=== PATIENT | male | born 1965 | race Caucasian/White ===

== ENCOUNTER 2016-11-29 15:47 | Emergency (ER) | payer OTHER ==
[2016-11-29 17:19] VITALS: BP 124/82
--- NOTE | 2016-11-29 17:50 | UC ---
Back Pain HPI - HPI Summary HPI Summary: 51 year old presents complaining of low back pain which radiates down the right posterior leg into the right foot, after falling off a car bumper onto his knees , and then falling another foot onto his low back. Patient unable to pinpoint actual pain location. - History of Current Complaint Chief Complaint: UCBackPain Stated Complaint: BACK PAIN,RIGHT LEG NUMB Time Seen by Provider: 11/29/16 17:30 Hx Obtained From: Patient Onset/Duration: Sudden Onset Timing: Constant Severity Initially: Moderate Severity Currently: Moderate Back Pain: Is Diffuse Character: Dull, Aching, Stiffness Aggravating: Movement, Walking Alleviating: Rest, Position Associated Signs And Symptoms: Positive: Numbness. Negative: Redness, Bruising , Fever, Bladder Incontinence, Bowel Incontinence, Weight Loss, Pain with Weight Bearing - Allergies/Home Medications Allergies/Adverse Reactions: Allergies Allergy/AdvReac Type Severity Reaction Status Date / Time Penicillins Allergy Severe Anaphylatic Verified 11/29/16 17:15 Shock Bee Venom Allergy Unknown Unknown Verified 11/29/16 17:15 Reaction Details PMH/Surg Hx/FS Hx/Imm Hx Previously Healthy: Yes - Chronic right shoulder/ neck pain Endocrine History Of: Denies: Diabetes, Thyroid Disease Cardiovascular History Of: Denies: Cardiac Disorders, Hypertension, Pacemaker/ICD, Congestive Heart Failure, Deep Vein Thrombosis Respiratory History Of: Reports: Asthma Denies: COPD, Pneumonia, Pulmonary Embolism GI/ History Of: Reports: Gastroesophageal Reflux Denies: Ulcer, Kidney Stones, Renal Disease Neurological History Of: Denies: TIA, CVA, Dementia, Seizures, Migraine Psychological History Of: Reports: Anxiety Cancer History Of: Denies: Lung Cancer Other History Of: Negative For: Anticoagulant Therapy - Surgical History Surgical History: Yes Surgery Procedure, Year, and Place: Left acl reconstruction. ulnar nerve- [facility] - CARPAL TUNNEL & ELBOWS. left shoulder/clavicle. excision of gangion cystx3 SEVERAL HERE. left wrist surgery - Family History Known Family History: Positive: None - Social History Occupation: Unemployed Lives: Alone Alcohol Use: None Substance Use Type: None Substance Use Comment - Amount & Last Used: hx cocaine; MJ; "pills" (treatment for drugs in past) Smoking Status (MU): Former Smoker Type: Cigarettes Amount Used/How Often: 4 daily - Immunization History Most Recent Influenza Vaccination: this flu season,2013 Most Recent Tetanus Shot: last year 2013 Most Recent Pneumonia Vaccination: never received Review of Systems Constitutional: Negative Skin: Negative Eyes: Negative ENT: Negative Respiratory: Negative Cardiovascular: Negative Gastrointestinal: Negative Genitourinary: Negative Motor: Weakness - Right leg and entire spine according Neurovascular: Negative Musculoskeletal: Arthralgia - Right shoulder, Myalgia Neurological: Paresthesia, Numbness Psychological: Negative All Other Systems Reviewed And Are Negative: Yes Physical Exam Triage Information Reviewed: Yes Appearance: No Pain Distress - Patient resting comfprtable, texting on his phone Vital Signs: Initial Vital Signs Temp 97.5 F 11/29/16 17:16 Pulse 64 11/29/16 17:16 Resp 18 11/29/16 17:16 BP 124/82 11/29/16 17:16 Pulse Ox 100 11/29/16 17:16 Eyes: Positive: Conjunctiva Clear, Other: - bilateral pin-point pupils, nonreactive to light ENT: Positive: Normal ENT inspection, Hearing grossly normal, Pharynx normal Dental Exam: Normal Neck: Positive: Supple, Nontender, No Lymphadenopathy Respiratory: Positive: Chest non-tender, Lungs clear, Normal breath sounds Cardiovascular: Positive: No Murmur Abdomen Description: Positive: Nontender, No Organomegaly, Soft Bowel Sounds: Positive: Present Musculoskeletal: Positive: Strength Intact, ROM Intact, No Edema, Other: - Diffuse tenderness, no focal bony tenderness, theatrical reaction to pain, patient unable to pinpoint actual pain location. Neurological: Positive: Alert Psychological Exam: Other - Difficult time concentrating to answer questions Skin Exam: Normal Back Pain Course/Dx - Differential Dx/Diagnosis Provider Diagnoses: Acute on chronic low back pain. R-sided sciatica Discharge - Discharge Plan Condition: Stable Disposition: HOME Prescriptions: Cyclobenzaprine TAB* [Flexeril TAB*] 10 mg PO TID PRN #15 tab PRN Reason: Pain Indomethacin CAP* [Indocin CAP*] 50 mg PO TID PRN #15 cap PRN Reason: Pain Patient Education Materials: Acute Low Back Pain (ED) Referrals: Mihai Wong MD [Primary Care Provider] -
[2016-11-29] MEDS ORDERED: Cyclobenzaprine TAB* 10 MG PO ONE ×2 (18:31→19:01)
--- NOTE | 2016-11-29 18:47 | RAD ---
INDICATION: Trauma, back pain. COMPARISON: Comparison is made with a prior CT of the lumbar spine from November 14, 2014. TECHNIQUE: 5 views of the lumbar spine were obtained including lateral, oblique, AP and a coned-down lateral view of the lumbar sacral junction. FINDINGS: There is a mild lumbar scoliosis convex toward the left side. The vertebra are otherwise in normal alignment. No fracture is seen. There is mild disc space narrowing and endplate hypertrophic changes at the L4-L5 and L5-S1 levels. IMPRESSION: 1. NO EVIDENCE FOR FRACTURE. 2. MILD DEGENERATIVE DISC DISEASE.
[2016-11-29] MEDS ORDERED: Ketorolac INJ* 30 MG/ML 1 ML VIAL IM ONE (18:51)
== END 2016-11-29 19:22 | disposition home or self-care (01) ==
LOC: UCEAST 15:47
DX: M54.41 Lumbago with sciatica, right side (principal); Z88.0 Allergy status to penicillin; Z87.891 Personal history of nicotine dependence
CPT/HCPCS: 72110; 96372; 99212; A9270-GY; G0463; J1885

== ENCOUNTER 2017-02-26 03:26 | Emergency (ER) | payer OTHER ==
[2017-02-26] MEDS ORDERED: Cyclobenzaprine TAB* 10 MG PO ONE (04:54)
[2017-02-26 05:03] LABS: Albumin 3.7 g/dL (3.2-5.2); BUN/Creatinine Ratio 14.8 (8-20); Calcium 8.8 mg/dL (8.6-10.3); EGFR African American 85.2 (>60); EGFR Non-African American 66.3 (>60); Globulin 2.9 g/dL (2-4); Hematocrit 36 % (42-52); Hemoglobin 12.2 g/dl (14.0-18.0); Mean Corpuscular HGB Conc 34 g/dl (31-36); Mean Corpuscular Hemoglobin 30 pg (27-31); Mean Corpuscular Volume 90 fL (80-94); Mean Platelet Volume 7 um3 (7.4-10.4); Potassium 4.1 mmol/L (3.5-5.0); Red Blood Count 4.05 10^6/ul (4.0-5.4); Red Cell Distribution Width 13 % (10.5-15); Total Bilirubin 0.3 mg/dL (0.2-1.0); Total Protein 6.6 g/dL (6.4-8.9)
[2017-02-26 05:04] LABS: Troponin I 0.01 ng/mL (<0.04)
[2017-02-26] MEDS ORDERED: Ketorolac INJ* 30 MG/ML 1 ML VIAL IV ONE (06:06)
--- NOTE | 2017-02-26 06:19 | ED ---
Samir Mccartney Rebecca, scribed for Conchita Laguerre MD on 02/26/17 at 0445 . Back Pain - HPI Summary HPI Summary: Pt is a 52 y/o M who presents to ED c/o acute on chronic back pain. Pain began last night at 2200 after lifting multiple pieces of heavy rebar and has been constant since onset. Pain is in the lumbar back with radiation to the L shoulder and hand. Pain is characterized as aching and is currently severe, ranked 9/10. Sx aggravated by movement, alleviated by nothing. Additionally c/o productive cough and sinus pressure for 10 days. Is currently on Z-Pack to treat respiratory infection. No PMHx MO, CVA, TIA. - History of Current Complaint Chief Complaint: EDGeneral Stated Complaint: GENERAL ILLNESS Time Seen by Provider: 02/26/17 03:55 Hx Obtained From: Patient Onset/Duration: Sudden Onset, Lasting Hours, Still Present Onset/Duration: Started Hours Ago - 7 hours ago, Still Present Timing: Constant Back Pain Location: Is Discrete @ - Lumbar back, Radiates To - L shoulder and hand Severity Initially: Moderate Severity Currently: Severe Pain Intensity: 9 Pain Scale Used: 0-10 Numeric Character: Dull Aggravating Symptom(s): Movement Alleviating Symptom(s): Nothing Associated Signs And Symptoms: Positive: Other - Productive cough and sinus pressure - Allergies/Home Medications Allergies/Adverse Reactions: Allergies Allergy/AdvReac Type Severity Reaction Status Date / Time Penicillins Allergy Severe Anaphylatic Verified 02/26/17 03:39 Shock Bee Venom Allergy Unknown Unknown Verified 02/26/17 03:39 Reaction Details PMH/Surg Hx/FS Hx/Imm Hx Endocrine/Hematology History: Denies: Hx Anticoagulant Therapy, Hx Blood Disorders, Hx Blood Transfusions, Hx Bone Marrow Disease, Hx Diabetes, Hx Systemic Lupus Erythematosus, Hx Sickle Cell Disease, Hx Thyroid Disease, Hx Anemia, Hx Unexplained Bleeding, Other Endocrine/Hematological Disorders Cardiovascular History: Denies: Hx Aneurysm, Hx Angina, Hx Angioplasty, Hx Auto Implanted Cardiovert Defib, Hx Cardiac Arrest, Hx Cardiomegaly, Hx Congenital Heart Disease, Hx Congestive Heart Failure, Hx Coronary Artery Disease, Hx Deep Vein Thrombosis, Hx Embolism, Hx Hypercholesterolemia, Hx Hypotension, Hx Hypertension, Hx Pacemaker/ICD, Hx Peripheral Vascular Disease, Hx Rheumatic Fever, Hx Syncope, Hx Valvular Heart Disease, Other Cardiovascular Problems/Disorders - pt ams - unable to get info from pt Respiratory History: Reports: Hx Asthma Denies: Hx Chronic Bronchitis, Hx Chronic Obstructive Pulmonary Disease (COPD ), Hx Cystic Fibrosis, Hx Lung Cancer, Hx Pleural Effusion, Hx Pneumonia, Hx Pulmonary Edema, Hx Pulmonary Embolism, Hx Seasonal Allergies, Hx Sleep Apnea, Other Respiratory Problems/Disorders GI History: Reports: Hx Gastroesophageal Reflux Disease Denies: Hx Ulcer History: Denies: Hx Acute Renal Failure, Hx Benign Prostatic Hyperplasia, Hx Chronic Renal Failure, Hx Dialysis, Hx Kidney Infection, Hx Kidney Stones, Hx Renal Disease, Other Problems/Disorders Musculoskeletal History: Reports: Hx Back Problems Denies: Hx Arthritis, Hx Bursitis, Hx Congenital Bone Abnormalities, Hx Fibromyalgia, Hx Gout, Hx Orthopedic Injury, Hx Osteoporosis, Hx Scoliosis, Hx Tendonitis, Other Musculoskeletal History Sensory History: Denies: Hx Cataracts, Hx Contacts or Glasses, Hx Eye Injury, Hx Eye Prosthesis, Hx Glaucoma, Hx Legally Blind, Hx Macular Degeneration, Hx Vision Problem, Hx Deafness, Hx Hearing Aid, Hx Hearing Problem, Other Sensory Impairments Opthamlomology History: Denies: Hx Cataracts, Hx Contacts or Glasses, Hx Eye Injury, Hx Eye Prosthesis, Hx Glaucoma, Hx Legally Blind, Hx Macular Degeneration, Hx Vision Problem, Other Sensory Impairments Neurological History: Reports: Hx Headaches, Hx Nerve Disease - GREATER RIGTH OCCIPITAL NERVE PINCHED, Other Neuro Impairments/Disorders - substance abuse pt alert but not oriented/speaking unintelligible words Denies: Hx Dementia, Hx Developmental Delay, Hx Migraine, Hx Seizures, Hx Spinal Cord Injury, Hx Transient Ischemic Attacks (TIA) Psychiatric History: Reports: Hx Anxiety, Hx Attention Deficit Hyperactivity Disorder, Hx Substance Abuse - Bath Salts, unknown substances Denies: Hx Panic Disorder - Cancer History Hx Chemotherapy: No - Surgical History Surgery Procedure, Year, and Place: Left acl reconstruction. ulnar nerve- [facility] - CARPAL TUNNEL & ELBOWS. left shoulder/clavicle. excision of gangion cystx3 SEVERAL HERE. left wrist surgery Hx Anesthesia Reactions: No Infectious Disease History: No Infectious Disease History: Reports: Hx Hepatitis - history of hepc + Denies: Hx Clostridium Difficile, Hx Human Immunodeficiency Virus (HIV), Hx of Known/Suspected MRSA, Hx Shingles, Hx Tuberculosis, Hx Known/Suspected VRE, Hx Known/Suspected VRSA, History Other Infectious Disease, Traveled Outside the [place] in Last 30 Days - Family History Known Family History: Positive: None - Social History Alcohol Use: None Substance Use Type: Reports: None Substance Use Comment - Amount & Last Used: hx cocaine; MJ; "pills" (treatment for drugs in past) Smoking Status (MU): Former Smoker Type: Cigarettes Amount Used/How Often: 4 daily Review of Systems Positive: Other - Sinus pressure Positive: Cough - productive Positive: Arthralgia - lumbar back pain with radiation to the L shoulder and L hand All Other Systems Reviewed And Are Negative: Yes Physical Exam - Summary Physical Exam Summary: General: Well appearing, no pain distress Skin: Warm, Skin Color Reflects Adequate Perfusion, Dry Eyes: EOMI, BRIGITTE ENT: Pharynx normal, TMs normal Neck: Supple, nontender Respiratory: CTA, breath sounds present, no rhonchi, no wheezes, no rales Cardiovascular: RRR, no murmur, no rub, no gallop Abdomen: Soft, nontender, Non-distended, no guarding, no rebound Bowel: Present Musculoskeletal: ZACHERY, No edema Neuro: Sensory/motor intact, A&Ox3, CN intact 2-12 Psych: Affect/mood appropriate Triage Information Reviewed: Yes Vital Signs On Initial Exam: Initial Vitals Temp Pulse Resp BP Pulse Ox 98.6 F 90 20 109/70 97 02/26/17 03:30 02/26/17 03:30 02/26/17 03:30 02/26/17 03:30 02/26/17 03:30 Vital Signs Reviewed: Yes - Dacia Coma Scale Coma Scale Total: 15 Diagnostics - Vital Signs Vital Signs Temp Pulse Resp BP Pulse Ox 02/26/17 03:37 98.6 F 90 20 109/70 97 02/26/17 03:30 98.6 F 90 20 109/70 97 - Laboratory Lab Results: Lab Results 02/26/17 02/26/17 Range/Units 04:35 04:35 WBC 8.0 (3.5-10.8) 10^3/ul RBC 4.05 (4.0-5.4) 10^6/ul Hgb 12.2 L (14.0-18.0) g/dl Hct 36 L (42-52) % MCV 90 (80-94) fL MCH 30 (27-31) pg MCHC 34 (31-36) g/dl RDW 13 (10.5-15) % Plt Count 310 (150-450) 10^3/ul MPV 7 L (7.4-10.4) um3 Neut % (Auto) 63.6 (38-83) % Lymph % (Auto) 25.8 (25-47) % [place]bon % (Auto) 8.0 (1-9) % Eos % (Auto) 1.7 (0-6) % Baso % (Auto) 0.9 (0-2) % Absolute Neuts (auto) 5.1 (1.5-7.7) 10^3/ul Absolute Lymphs (auto) 2.1 (1.0-4.8) 10^3/ul Absolute Monos (auto) 0.6 (0-0.8) 10^3/ul Absolute Eos (auto) 0.1 (0-0.6) 10^3/ul Absolute Basos (auto) 0.1 (0-0.2) 10^3/ul Absolute Nucleated RBC 0.01 10^3/ul Nucleated RBC % 0.1 Sodium 133 (133-145) mmol/L Potassium 4.1 (3.5-5.0) mmol/L Chloride 104 (101-111) mmol/L Carbon Dioxide 26 (22-32) mmol/L Anion Gap 3 (2-11) mmol/L BUN 17 (6-24) mg/dL Creatinine 1.15 (0.67-1.17) mg/dL Est GFR ( Amer) 85.2 (>60) Est GFR (Non-Af Amer) 66.3 (>60) BUN/Creatinine Ratio 14.8 (8-20) Glucose 130 H (70-100) mg/dL Calcium 8.8 (8.6-10.3) mg/dL Total Bilirubin 0.30 (0.2-1.0) mg/dL AST 20 (13-39) U/L ALT 19 (7-52) U/L Alkaline Phosphatase 59 (34-104) U/L Troponin I 0.01 (<0.04) ng/mL Total Protein 6.6 (6.4-8.9) g/dL Albumin 3.7 (3.2-5.2) g/dL Globulin 2.9 (2-4) g/dL Albumin/Globulin Ratio 1.3 (1-3) Result Diagrams: 02/26/17 04:35 02/26/17 04:35 Lab Statement: Any lab studies that have been ordered have been reviewed, and results considered in the medical decision making process. - Radiology CXR Xray Interpretation: No Acute Changes Radiology Interpretation Completed By: ED Physician - EKG 0427 Cardiac Rate: NL - 83 bpm EKG Rhythm: Sinus Rhythm EKG Interpretation: Anterior Q waves, otherwise normal Back Pain Course/Dx - Course Course Of Treatment: 52 yo with multiple complaints 10 days of sinus fullness and postnasal drip with cough, cxr is normal, pt said he lifted something heavy and has low back pain ttp over l4-l5 with normal reflexes and hip flexor strength with normal great toe raise. Pt to go home with doxy for sinusitis and flexeril and medrol dose pack for his back pain - Diagnoses Provider Diagnoses: Back pain, Sinusitis Provider Diagnoses: (Ruled Out): Back pain as manifestation of blood transfusion reaction Discharge - Discharge Plan Condition: Stable Disposition: HOME Prescriptions: Cyclobenzaprine TAB* [Flexeril 10 MG TAB*] 10 mg PO TID PRN #20 tab PRN Reason: Spasms DOXYcycline CAP(*) [DOXYcycline 100MG CAP(*)] 100 mg PO BID #20 cap Methylprednisolone [Medrol Dosepak 4 MG*] 0 mg PO .SEE DENNIS INSTRUCTION #1 dennis The documentation as recorded by the Samir ramirez Rebecca accurately reflects the service I personally performed and the decisions made by me, Conchita Laguerre MD.
[2017-02-26] MEDS ORDERED: Lidocaine 2% JELLY* 6 ML JELLY TOPICAL ONE (06:50)
[2017-02-26 06:54] VITALS: BP 130/84
--- NOTE | 2017-02-26 09:47 | RAD ---
Indication: Cough, asthma. Generalized illness. Comparison: June 02, 2015 Technique: Sitting AP and lateral chest views. Report: Elevated lung volumes with increased AP thoracic diameter and partial flattening of the hemidiaphragms. No pulmonary infiltrate, focal pulmonary lesion, pleural effusion, pneumothorax. The heart, pulmonary vasculature, and mediastinal contours are unremarkable. IMPRESSION: Stigmata of obstructive lung disease. No acute cardiopulmonary process evident.
== END 2017-02-26 06:53 | disposition home or self-care (01) ==
LOC: ED 03:26
DX: M54.9 Dorsalgia, unspecified (principal); J32.9 Chronic sinusitis, unspecified; Z87.891 Personal history of nicotine dependence; R05 Cough
CPT/HCPCS: 36415; 71020; 80053; 84484; 85025; 93005; 99282; A9270-GY; J1885

== ENCOUNTER 2017-08-09 08:12 | Day surgery (SDC) | payer MEDICAID ==
--- NOTE | 2017-08-02 17:37 | HP ---
PREOPERATIVE HISTORY AND PHYSICAL: DATE OF ADMISSION/SURGERY: 08/09/17 DATE OF OFFICE VISIT/ENCOUNTER: 08/01/17 ATTENDING SURGEON: Karen Cardona MD * (DICTATED BY SHAHRAM KELLEY) PROCEDURE: Right long and ring finger trigger fingers release, Dupuytren's excision. CHIEF COMPLAINT: Right long and ring finger triggering, Dupuytren's nodule, right palm. HISTORY OF PRESENT ILLNESS: This is a 52-year-old male with longstanding history of a Dupuytren's nodule in his right palm. It is not causing any contracture of his fingers; however, it is quite bothersome and he would like to have it removed surgically. Additionally, he has had triggering in the long and ring fingers on the right hand. He has received cortisone injections in the past; however, the triggering returns and is becoming quite bothersome. He would like to have surgical correction of the right long and ring finger trigger fingers. PAST MEDICAL HISTORY: 1. Chronic back pain. 2. History of diverticulitis in 2016. 3. GERD. 4. History of seizure approximately 2 years ago, cause unknown. PAST SURGICAL HISTORY: 1. Left knee ACL reconstruction. 2. Cyst excisions from bilateral hands. 3. Bilateral carpal tunnel release. 4. Left shoulder surgery. CURRENT MEDICATIONS: 1. Benzonatate 200 mg 3 times a day. 2. Calcium plus D3 twice a day. 3. Cyclobenzaprine HCl 10 mg daily p.r.n. spasm. 4. Devil's Claw twice daily. 5. Hydrocodone/acetaminophen 5/325 one tab q.12 hours p.r.n. pain. 6. Hydroxyzine HCl 50 mg up to 3 times daily p.r.n. anxiety. 7. Loratadine 10 mg daily. 8. Melatonin TR 10 mg daily. 9. Multivitamin daily. 10. Naproxen 500 mg b.i.d. p.r.n. 11. Omeprazole 20 mg daily p.r.n. 12. Sumatriptan succinate 50 mg 1 tab every 2 hours as needed for headaches. 13. Tincture of Devil's Claw, licorice, turmeric daily. 14. Trazodone 1 to 1-1/2 tabs daily. 15. Tylenol 8 Hour 650 mg q.6 hours p.r.n. pain. 16. Ventolin HFA inhaler up to 4 times a day p.r.n. 17. Vitamin B complex daily. ALLERGIES: ZOSYN, reaction unknown. FAMILY MEDICAL HISTORY: Noncontributory. SOCIAL HISTORY: The patient is disabled from work. He is a former smoker. He quit a couple of years ago. Prior to that, he smoked a pack per week for several years. He denies recreational drug use and does not drink alcohol. REVIEW OF SYSTEMS: General: Negative for fevers, chills, or night sweats. No known anesthesia problems. HEENT: Negative for headache, lightheadedness, or syncopal episodes. Integumentary: Negative for abrasions, lesions, or open wounds. Cardiothoracic: Negative for hypertension, chest pain, palpitations, or edema. Pulmonary: Negative for shortness of breath with exertion, chronic cough, COPD. GI: Negative for nausea, vomiting, diarrhea, constipation, or GERD. : Negative for nocturia, urinary frequency, urgency, history of UTIs, or kidney problems. Musculoskeletal: Positive for current complaint and positive for chronic back pain. Neurological: Positive for history of seizure , negative for history of stroke or epilepsy. Endocrine: Negative for diabetes or thyroid issues. Hematologic: Negative for easy bruising, anemia, excessive bleeding or history of DVT. Infectious Disease: Positive for history of MRSA, positive for history of hepatitis C, negative for HIV. PHYSICAL EXAMINATION GENERAL: A well-developed, well-nourished, 52-year-old male in no acute distress. VITAL SIGNS: Height 5 feet 5 inches, weight 160 pounds, pulse rate 78, blood pressure 117/78. HEENT: Normocephalic, atraumatic. Pupils are equal, round, and reactive to light and accommodation. Extraocular movements are intact. NECK: Supple. No palpable lymph nodes. Throat is clear. PULMONARY: Lungs are clear to auscultation bilaterally. No wheezes, rales, or rhonchi. CARDIOVASCULAR: Regular rate and rhythm. S1, S2. No murmurs, rubs, or gallops. No edema. ABDOMEN: Positive bowel sounds, soft, nontender. NEUROLOGIC: Alert and oriented x3. Cranial II through XII are intact. Sensation is intact to light touch. MUSCULOSKELETAL: On exam of his right hand, he has a Dupuytren's nodule in the palm. There is no contracture of the fingers. It is mildly tender to palpation. There is also tenderness to palpation at the A1 pulleys of the right long and ring fingers. He has near full range of motion, but has trouble making a tightly closed fist. Neurovascular function is intact. IMPRESSION: Right hand long and ring finger trigger fingers, and Dupuytren's nodule in the right palm. PLAN: The patient is scheduled to undergo a right long and ring finger trigger fingers release and Dupuytren's excision by Dr. Cardona on 08/09/17. He will return to the office 10 to 14 days postop for followup and suture removal. Pain medication will be sent to the patient's pharmacy on day of surgery. SHAHRAM KELLEY [id number]/[facility] #: [id number] SHERNI
[~2017-08-09 08:12] MED LIST: Buffered Lidocaine 0.9% SYRIN* 5 ML/SYR SYRINGE INTRADERM ONE
[2017-08-09] MEDS ORDERED: Clindamycin 900 MG IVPREMIX(* 900 MG/50 ML SDV IV ONE ×2 (09:06)
[2017-08-09] MEDS ORDERED: Lidocaine 1% INJ* 10 MG/ML 30 ML SDV ONE ×2 (09:44)
[2017-08-09] MEDS ORDERED: fentaNYL* 50 MCG/ML 2 ML VIAL (100 MCG VIAL) ONE ×2 (10:01)
[2017-08-09] MEDS ORDERED: Propofol* 10 MG/ML 20 ML BTL IV PUSH ONE ×2 (10:01)
[2017-08-09] MEDS ORDERED: Lidocaine 2% PF * 5 ML VIAL ONE ×2 (10:01)
[2017-08-09 10:42] VITALS: BP 107/70
--- NOTE | 2017-08-09 23:21 | OP ---
DATE OF OPERATION: 08/09/17 [facility] DATE OF : 61 SURGEON: Karen Cardona MD SITE IDENTIFICATION SPECIALIST: SHAHRAM Latif ANESTHESIOLOGIST: Yogesh Cisse DO ANESTHESIA: Local MAC. PRE-OP DIAGNOSES: Right long and ring finger trigger fingers and Dupuytren's nodule. POST-OP DIAGNOSES: Right long and ring finger trigger fingers and Dupuytren's nodule. OPERATIVE PROCEDURE: Removal of Dupuytren's nodule and right long and ring finger trigger release. ESTIMATED BLOOD LOSS: Zero. TOURNIQUET TIME: About 15 minutes. INDICATION FOR PROCEDURE: Meliton is a 52-year-old man with triggering and locking of his middle and right fingers on the right hand as well as a Dupuytren 's nodule in line with a ring finger. He presents for removal of the nodule and trigger finger release. DESCRIPTION OF PROCEDURE: The patient was brought to the operating room, was given a sedation anesthetic and a local infiltration of 10 cc of 1% plane lidocaine in the palm of his right hand. An additional 7 cc was used during the procedure. The skin on his right hand and palm was prepped and draped in the usual sterile fashion. The hand and forearm were exsanguinated and the tourniquet elevated to 250 mmHg. A transverse incision was made centered over the A1 pulleys and we carefully dissected the Dupuytren's nodule, which was adherent to the skin away from the skin and away from the flexor tendon sheath of the ring finger. The nodule was sent for pathology. The A1 pulleys then of the ring and middle fingers were incised longitudinally completely releasing the flexor tendons, which were in good condition. The digital neurovascular bundles were retracted by the clerical assistant, Carlita Menjivar. The wound was irrigated and skin edges reapproximated with 4-0 nylon suture. The wound was dressed with Xeroform, 4x4, Webril and an Kyle wrap. The patient tolerated the procedure well, was brought to the recovery room in good condition. [id number]/[facility] #: [id number] [facility]
== END 2017-08-09 11:02 | disposition home or self-care (01) ==
LOC: OREAST 08:12
PROVIDERS: ATTEND Orthopaedic Surgery
DX: M72.0 Palmar fascial fibromatosis [Dupuytren] (principal); M65.331 Trigger finger, right middle finger; M65.341 Trigger finger, right ring finger; M54.9 Dorsalgia, unspecified; G89.29 Other chronic pain; K21.9 Gastro-esophageal reflux disease without esophagitis; Z88.0 Allergy status to penicillin; Z87.891 Personal history of nicotine dependence
CPT/HCPCS: 88304; J2001; J2704; J3010

== ENCOUNTER 2017-10-23 11:30 | Emergency (ER) | payer MEDICAID ==
[2017-10-23] MEDS ORDERED: Ibuprofen TAB* 600 MG PO ONE (13:52)
[2017-10-23 14:03] VITALS: BP 127/79
--- NOTE | 2017-10-23 14:03 | RAD ---
Indication: Left knee pain. 2 views of left knee demonstrates no joint effusion. Postoperative changes from ACL repair is noted. Fragmentation is noted. No fracture is noted. IMPRESSION: Postoperative changes with no joint effusion.
--- NOTE | 2017-10-23 14:44 | ED ---
Lower Extremity - HPI Summary HPI Summary: Patient presents to the ED with left anterior knee pain after hitting the knee on a bar last night. He states he has 8/10 pain which is constant and throbbing. Small abrasion noted to the anterior knee. Denies ROM issues. He is ambulating well. Denies numbness, tingling, color or temperature changes. No fevers, sweats or chills. Previous surgery on the ipsilateral knee. - History of Current Complaint Chief Complaint: EDExtremityLower Stated Complaint: LEFT KNEE PAIN Time Seen by Provider: 10/23/17 11:53 Hx Obtained From: Patient Mechanism Of Injury: Direct Blow Onset of Pain: Immediate Onset/Duration: Hours Severity Initially: Moderate Severity Currently: Moderate Pain Intensity: 5 Pain Scale Used: 0-10 Numeric Timing: Constant Location: Is Discrete @ - left anterior knee Aggravating Factor(s): Standing, Ambulation Able to Bear Weight: Yes - Risk Factors Gout Risk Factors: Negative DVT Risk Factors: Negative Septic Arthritis Risk Factor: Negative - Allergies/Home Medications Allergies/Adverse Reactions: Allergies Allergy/AdvReac Type Severity Reaction Status Date / Time Bee Venom Allergy Severe clammy and Verified 08/09/17 08:43 choking Penicillins Allergy Severe Anaphylatic Verified 08/09/17 08:43 Shock Piperacillin [From Zosyn] Allergy Unknown Verified 08/09/17 08:57 Reaction Details Tazobactam [From Zosyn] Allergy Unknown Verified 08/09/17 08:57 Reaction Details PMH/Surg Hx/FS Hx/Imm Hx Previously Healthy: Yes Endocrine/Hematology History: Denies: Hx Anticoagulant Therapy, Hx Blood Disorders, Hx Blood Transfusions, Hx Bone Marrow Disease, Hx Diabetes, Hx Systemic Lupus Erythematosus, Hx Sickle Cell Disease, Hx Thyroid Disease, Hx Anemia, Hx Unexplained Bleeding, Other Endocrine/Hematological Disorders Cardiovascular History: Denies: Hx Aneurysm, Hx Angina, Hx Angioplasty, Hx Auto Implanted Cardiovert Defib, Hx Cardiac Arrest, Hx Cardiomegaly, Hx Congenital Heart Disease, Hx Congestive Heart Failure, Hx Coronary Artery Disease, Hx Deep Vein Thrombosis, Hx Embolism, Hx Hypercholesterolemia, Hx Hypotension, Hx Hypertension, Hx Pacemaker/ICD, Hx Peripheral Vascular Disease, Hx Rheumatic Fever, Hx Syncope, Hx Valvular Heart Disease, Other Cardiovascular Problems/Disorders - pt ams - unable to get info from pt Respiratory History: Reports: Hx Asthma Denies: Hx Chronic Bronchitis, Hx Chronic Obstructive Pulmonary Disease (COPD ), Hx Cystic Fibrosis, Hx Lung Cancer, Hx Pleural Effusion, Hx Pneumonia, Hx Pulmonary Edema, Hx Pulmonary Embolism, Hx Seasonal Allergies, Hx Sleep Apnea, Other Respiratory Problems/Disorders GI History: Reports: Hx Gastroesophageal Reflux Disease, Other GI Disorders - diverticulitis 2015 Denies: Hx Ulcer History: Denies: Hx Acute Renal Failure, Hx Benign Prostatic Hyperplasia, Hx Chronic Renal Failure, Hx Dialysis, Hx Kidney Infection, Hx Kidney Stones, Hx Renal Disease, Other Problems/Disorders Musculoskeletal History: Reports: Hx Back Problems Denies: Hx Arthritis, Hx Bursitis, Hx Congenital Bone Abnormalities, Hx Fibromyalgia, Hx Gout, Hx Orthopedic Injury, Hx Osteoporosis, Hx Scoliosis, Hx Tendonitis, Other Musculoskeletal History Sensory History: Denies: Hx Cataracts, Hx Contacts or Glasses, Hx Eye Injury, Hx Eye Prosthesis, Hx Glaucoma, Hx Legally Blind, Hx Macular Degeneration, Hx Vision Problem, Hx Deafness, Hx Hearing Aid, Hx Hearing Problem, Other Sensory Impairments Opthamlomology History: Denies: Hx Cataracts, Hx Contacts or Glasses, Hx Eye Injury, Hx Eye Prosthesis, Hx Glaucoma, Hx Legally Blind, Hx Macular Degeneration, Hx Vision Problem, Other Sensory Impairments Neurological History: Reports: Hx Headaches, Hx Nerve Disease - GREATER RIGTH OCCIPITAL NERVE PINCHED, Other Neuro Impairments/Disorders - substance abuse pt alert but not oriented/speaking unintelligible words Denies: Hx Dementia, Hx Developmental Delay, Hx Migraine, Hx Seizures, Hx Spinal Cord Injury, Hx Transient Ischemic Attacks (TIA) Psychiatric History: Reports: Hx Anxiety, Hx Attention Deficit Hyperactivity Disorder, Hx Substance Abuse - Bath Salts, unknown substances Denies: Hx Panic Disorder - Cancer History Hx Chemotherapy: No - Surgical History Surgery Procedure, Year, and Place: Left acl reconstruction. ulnar nerve- DEDRA - CARPAL TUNNEL & ELBOWS. left shoulder/clavicle. excision of gangion cystx3 SEVER[facility] HERE. left wrist surgery. RIGHT HAND. LEFT POINTER FINGER Hx Anesthesia Reactions: No - Immunization History Date of Influenza Vaccine: 07/2017 Immunizations Up to Date: Yes Infectious Disease History: No Infectious Disease History: Reports: Hx Hepatitis - history of hepc + Denies: Hx Clostridium Difficile, Hx Human Immunodeficiency Virus (HIV), Hx of Known/Suspected MRSA, Hx Shingles, Hx Tuberculosis, Hx Known/Suspected VRE, Hx Known/Suspected VRSA, History Other Infectious Disease, Traveled Outside the [place] in Last 30 Days - Family History Known Family History: Positive: None, Unknown - patient intoxicated, cannot retrieve PMHx - Social History Occupation: Unemployed Lives: With Family Alcohol Use: None Hx Substance Use: No Substance Use Type: Reports: None Substance Use Comment - Amount & Last Used: hx cocaine; MJ; "pills" (treatment for drugs in past) Hx Tobacco Use: Yes Smoking Status (MU): Former Smoker Type: Cigarettes Amount Used/How Often: 4 daily Review of Systems Constitutional: Negative Negative: Fever, Chills, Fatigue Eyes: Negative Cardiovascular: Negative Respiratory: Negative Genitourinary: Negative Positive: no symptoms reported, see HPI Positive: Arthralgia - left anterior knee Neurological: Negative All Other Systems Reviewed And Are Negative: Yes Physical Exam Triage Information Reviewed: Yes Vital Signs On Initial Exam: Initial Vitals Temp Pulse Resp BP Pulse Ox 98.7 F 85 17 124/82 98 10/23/17 11:46 10/23/17 11:46 10/23/17 11:46 10/23/17 11:46 10/23/17 11:46 Vital Signs Reviewed: Yes Appearance: Positive: Well-Appearing, Well-Nourished Skin: Positive: Warm, Skin Color Reflects Adequate Perfusion, Other - abrasion Head/Face: Positive: Normal Head/Face Inspection Eyes: Positive: EOMI, BRIGITTE, Conjunctiva Clear Neck: Positive: Supple, No Lymphadenopathy Respiratory/Lung Sounds: Positive: Clear to Auscultation, Breath Sounds Present Cardiovascular: Positive: RRR, Pulses are Symmetrical in both Upper and Lower Extremities Musculoskeletal: Positive: Pain @ - left knee Neurological: Positive: Sensory/Motor Intact, Alert, Oriented to Person Place, Time, Speech Normal Psychiatric: Positive: Normal AVPU Assessment: Alert - Dacia Coma Scale Coma Scale Total: 15 Diagnostics - Vital Signs Vital Signs Temp Pulse Resp BP Pulse Ox 10/23/17 14:00 98.5 F 81 16 127/79 100 10/23/17 11:46 98.7 F 85 17 124/82 98 - Laboratory Lab Statement: Any lab studies that have been ordered have been reviewed, and results considered in the medical decision making process. Lower Extremity Course/Dx - Course Course Of Treatment: Xray obtained and negative for any findings. He is given ibuprofen 600mg and is OK with discharge. Ambulating well. - Diagnoses Provider Diagnoses: Left knee pain Discharge - Discharge Plan Condition: Stable Disposition: HOME Patient Education Materials: Knee Pain (ED) Referrals: Mihai Wong MD [Primary Care Provider] - Additional Instructions: Ibuprofen 600mg three times daily Ice Elevate Rest
== END 2017-10-23 14:00 | disposition home or self-care (01) ==
LOC: ED 11:30
DX: M25.562 Pain in left knee (principal); Z87.891 Personal history of nicotine dependence; Z88.3 Allergy status to other anti-infective agents; Z88.0 Allergy status to penicillin; Z88.8 Allergy status to other drugs, medicaments and biological substances
CPT/HCPCS: 99282; A9270-GY

== ENCOUNTER 2017-11-19 20:07 | Emergency (ER) | payer OTHER ==
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
[2017-11-19 20:45] VITALS: BP 134/72
--- OUTSIDE RECORDS SUMMARY | 2017-11-19 20:45 | XMS REPORT ---
:1965 External Reference #:[id number] Author Organization [facility] Address [address] [address] Phone [phone] Care Team Providers Name Role Phone Mihai Wong MD Primary Care Physician Unavailable Payers Type Date Identification Numbers Payment Provider Subscriber Commercial Effective: Policy Number: [id number] Total Care/[place] Meliton Escudero Reap 2017 [facility] PayID: [id number] [address] [address] [place] [address] Medigap Part B Effective: 2017 Policy Number: [id number] Medicaid Meliton Bundy Expires: 2017 Group Name: 1 1 [address] PayID: [id number] [place] [address] Problems Date Description Provider Status Onset: 09/05/2012 Sprain of cruciate ligament of Neema Medina M.D. Active knee Onset: 09/05/2012 Seizure Neema Medina M.D. Active Onset: 09/05/2012 Low back pain Tyrell Lopez M.D. Active Onset: 10/30/2012 Chronic pain syndrome Mihai Wong M.D.,JONI Active Onset: 10/30/2012 Viral hepatitis C Mihai Wong M.D.,ALISSONP Active Note: Viral load now ZERO Onset: 02/14/2013 Carpal tunnel syndrome José Miguel Sage M.D.,ALISSONP Onset: 01/31/2014 Subjective tinnitus Sushil Britt M.D. Active Onset: 09/29/2015 Disorder of shoulder Maria Esther Juárez M.D. Active Onset: 11/08/2016 Sprain of acromioclavicular Martin Steel MD Active ligament Onset: 07/01/2017 Sciatica Nayan Soares M.D. Active Onset: 07/01/2017 Cervical disc disorder Nayan Soares M.D. Active Onset: 08/31/2017 Mild recurrent major depression Nayan Soares M.D. Active Onset: 09/14/2017 Insomnia Nayan Soares M.D. Active Onset: 09/28/2017 Ex-smoker Mihai Wong, Active Veda,FACP Onset: 10/12/2017 Localized, primary osteoarthritis Maria Esther Juárez M.D. Active Onset: 07/25/2015 Tobacco dependence syndrome Mihai Wong, Inactive Veda,FACP Inactive: 07/25/2015 Onset: 09/29/2015 Sprain of right rotator cuff capsule, Maria Esther Juárez M.D. Inactive subsequent encounter Inactive: 09/28/2017 Onset: 09/29/2015 Sprain of right acromioclavicular Maria Esther Juárez M.D. Inactive joint, subs encntr Inactive: 09/28/2017 Onset: 07/25/2015 Tobacco user Mihai Wong M.D.,FACP Inactive Inactive: 09/28/2017 Family History Date Family Member(s) Problem(s) Comments General None Father due to AL () Father Chronic Obstructive Pulmonary Disease (COPD) Mother Gout Social History Type Date Description Comments Marital Status Lives With Son Occupation [employer] Occupation Disabled Cigarette Use Former Cigarette Smoker was 3-5/week in past, quit 10/2015 Cigars Never Smoked Cigars Pipe Never Smoked A Pipe Smokeless Tobacco Never Used Smokeless Tobacco ETOH Use 12/11/2015 Denies alcohol 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 Recreational Drug Use Former Drug User Smoking Patient is a former smoker Recreational Drug Use Denies Drug Use Exercise Type/Frequency ride bike Allergies, Adverse Reactions, Alerts Date Description Reaction Status Severity Comments 09/05/2012 Bee Sting Anaphylaxis active 01/21/2015 Zosyn active throat swelling 02/14/2013 NKDA inactive Medications Medication Date Status Form Strength Qnty SIG Indications Ordering Provider Lunesta 09/14/ Active Tablets 3mg 14tabs 1 tab at G47.00 Nayan 2016 bedtime Veda Soares Sertraline 08/31/ Active Tablets 50mg 30tabs 1 by mouth F33.0 [place] HCL 2017 every day Veda Soares Tramadol HCL 08/19/ Active Tablets 50mg 9tabs 1 tab by Karen 2017 mouth every Veda Cardona 8 hours as needed pain Knee 08/12/ Active Misc M25.562 Karen Brace/Flexib 2016 Veda Cardona le Stays/Large Cane/Aluminu 07/13/ Active Misc 1units use with M54.42 Zsofia m/Adjustable 2016 ambulation LUCA Arroyo /Mens Handle Wrist 07/13/ Active Misc 1units use on left M25.532 Zsofia Brace/Suede 2016 wrist as LUCA Arroyo Finish/Left/ needed Medium Tylenol 8 03/29/ Active Tablets 650mg 90tabs 1 tab every Zsofia Hour 2016 ER 6 hours as LUCA Arroyo needed pain Melatonin TR 06/02/ Active Tablets 10mg 30tabs 1 by mouth G47.00 Ramos 2014 ER every night KELLY eVliz at bedtime Ventolin HFA 03/10/ Active Aerosol 108(90Base 18unit inhale two J44.1 2014 ) mcg/Act s puffs by Fany mouth four M.D. times a day as needed Back Support 01/24/ Active Misc 1units to wear M54.9 Zsofia 2014 during the LUCA Arroyo day as directed Naproxen 09/19/ Active Tablets 500mg 60tabs Take One M54.42 Mihai 2013 Tablet By Kailey Wong, Mouth Twice M.D.,FACP A Day as Needed M50.10 Sumatriptan 01/04/2014 Active Tablets 50mg 18tabs Take 1 G43.109 Vimal Bonner Succinate Tablet By Judith, Mouth Every M.D.,FACP 2 Hours as Directed For Headache G43.009 Shower-Chair 11/30/2013 Active Misc use for showing Mihai Bonner Dx code: 780.39 [place], Convulsions Veda,FACP Cool Mist 11/30/2013 Active [facility] dx code: 446.0 Mihai Bonner Humidifier Bronchitis Veda Wong,[facility] Cyclobenzaprine HCL Active Tablets 10mg 60ta take one tablet M50. Zsofia bs by mouth two 10 Cruz, [employer] times a day as needed for spasms M54.42 G47.00 Epipen Active Solution 0.3mg/0.3ML 2units inject Alyssa 2-Oleksandr Auto-Inject intramuscularly Cotton, as directed M.D. Omeprazo Active Capsules DR 20mg 90caps take one capsule K2 Mihai motley by mouth every 1. D. Judith, day as needed 9 M.DMushtaq,[facility] Loratadi Active Tablets 10mg 30tabs take one tablet [place] ne by mouth every Pachika, day M.D. Devils Active Powder twice daily Unknown Claw Tincture Active once daily in Unknown Of the morning Devils Claw, Licorice , Tumeric, [place] Multiple Active Tablets 1 by mouth every Unknown Vitamin day Vitamin Active Tablets 1 by mouth every Unknown B day Complex Theraflu Active Packet 10-20-20mg twice daily Unknown Cold & Cough Calcium Active Tablets [id number] 1 by mouth twice Unknown 600 + D it a day Glucosam Active Capsules 1500Com 2 by mouth every Unknown ine day Chondroi tin 1500 Complex Zinc Active Capsules 220(50Zn) mg take one Unknown Sulfate capsule/tablet daily by mouth Vitamin Active Tablets ER 1000mcg 1 by mouth every Unknown B12 day Clarithr 09/28/2017 Hx Tablets 500mg 14tabs 1 by mouth twice Mihai brantleyycin - a day for 7 days Kailey Wong, 10/05/2017 Veda,FACP Azithrom 09/14/2017 Hx Tablets 250mg 6tabs 2 tab today and J0 Nayan ycin - then 1tab daily 6. Pachika, 09/28/2017 9 M.D. Ultracet 08/19/2017 Hx Tablets 37.5-325mg 9tabs 1 tab by mouth Karen - every 8 hours as Cardona, 08/30/2017 needed pain M.D. Wrist 08/12/2017 Hx Misc M2 Karen Brace - 5. Cardona, 09/28/2017 51 M.D. 2 [place] 08/09/2017 Hx Tablets 5-325mg 20tabs one tab by mouth Karen - every 4-6 hours Cardona, 08/30/2017 as needed pain M.D. Hydroxyz 07/13/2017 Hx Tablets 50mg 30tabs take 1 tab by F4 Zsofia ine HCL - mouth 3x daily 1. Cruz, 08/31/2017 for anxiety as 9 [employer] needed Hydrocod 07/01/2017 Hx Tablets 5-325mg 30tabs 1 tab every 12h M5 Nayan one-Acet - as needed 4. Pachika, aminophe 08/02/2017 40 M.D. n Azithrom 02/17/2017 Hx Tablets 250mg 6tabs 2 every day for Mihai londono - 1 day, then 1 Kailey Wong, 07/01/2017 every day M.DMushtaq,FACP Medrol 02/17/2017 Hx Tablets 4mg 1pak medrol dosepack Mihai - as directed Kailey Wong, 07/12/2017 M.D.,FACP Cane 01/10/2017 Hx [facility] 1units use cane with G8 Ramos - ambulation 9. KELLY Veliz 09/28/2017 4 Azithrom 01/08/2017 Hx Tablets 250mg 6tabs 2 every day for Mihai londono - 1 day, then 1 Kailey Wong, 01/13/2017 every day M.D.,FACP Benzonat 01/08/2017 Hx Capsules 200mg 20caps by mouth three Mihai ate - times a day as Kailey Wong, 08/31/2017 needed M.D.,FACP Clindamy 06/25/2016 Hx Capsules 300mg 40caps one capsule by L0 Laz louis HCL - mouth every 6 3. KELLY Barnes 07/06/2016 hours for 10 11 days 3 Ciproflo 03/29/2016 Hx Tablets 500mg 20tabs 1 by mouth twice Other xacin - a day x 10 days Ordering HCL 04/08/2016 Provider Metronid 03/29/2016 Hx Tablets 500mg 30tabs one tablet by Other azole - mouthq 8 hrs x Ordering 04/08/2016 10 days Provider Melatoni 09/03/2015 Hx Tablets ER 10mg 120tabs 1 po qhs prn F5 Vimal oden ER - 1. D. Judith, 03/31/2016 05 M.DMushtaq,[facility] Triamcin 06/02/2015 Hx Ointment 0.025% 30units topical to 69 Ramos olone - pruritic areas 8. KELLY Veliz Acetonid 04/13/2016 every day as 8 e needed Levoflox 06/02/2015 Hx Tablets 500mg 7tabs one by mouth 48 Mihai acin - daily for 7 days 6 DMushtaq Wong, 07/02/2015 M.Kailey,[facility] Trazodon 06/02/2015 Hx Tablets 100mg 45tabs Take 1 To 1+1/2 G4 Vimal francois HCL - Tablets By Mouth 7. D. Judith, 08/31/2017 At Bedtime 00 M.D.,[facility] Azithrom 05/15/2015 Hx Tablets 250mg 6tabs 2 every day for 49 Mihai ycin - 1 day, then 1 1. DMushtaq Wong, 05/20/2015 every day 21 M.D.,[facility] Qvar 05/15/2015 Hx Aerosol 40mcg/Act 120unit 2 puffs inhaled 49 Ramos - s twice a day 1. KELLY Veliz 04/13/2016 21 Quad 04/15/2015 Hx Misc as directed Mihai Avila/ambrocio Cook 09/03/2015 M.Kailey,FAC Base/Ort ho Handle/" Azithrom 04/04/2015 Hx Tablets 250mg 6tabs 2 tabs by mouth 46 Osman ycin - on day one 1. KELLY Mendoza 04/15/2015 followed by 1 0 tab daily for the last 4 days Hydrocod 02/13/2015 Hx Tablets 5-300mg 15tabs 1 by mouth q6hr Karen one - as needed pain Cardona, Bitartra 04/15/2015 M.D. te/Aceta minophen Ciproflo 01/24/2015 Hx Tablets 500mg 20tabs take one tablet 78 Laz xacin - twice a day for 4. KELLY Barnes HCL 01/24/2015 10 days 1 Cane/Adj 01/24/2015 Hx Misc 58" 1units use while M5 Zsofia ustable/ - ambulating dx: 4. Cruz, Aluminum 09/28/2017 m54.9 9 [employer] /Round Handle 58" Levoflox 01/24/2015 Hx Tablets 500mg 5tabs one by mouth Laz acin - daily KELLY Barnes 04/04/2015 Azithrom 01/21/2015 Hx Tablets 250mg 6tabs 2 tabs by mouth 78 Laz ycin - every day x1 4. KELLY Barnes 01/24/2015 day, 1 tab by 1 mouth every day x 4 days Oxycodon 01/07/2015 Hx Capsules 5mg 12caps 1 tab q 6 hrs Mihai francois HCL - prn for pain. Kailey Wong, 01/19/2015 MDD 4 tabs. M.D.,FACP Predniso 01/07/2015 Hx Tablets 10mg 3 tabs x 1 day, Mihai ne - then 2 tabs x 2 Kailey Wong, 01/19/2015 days, then 1 tab M.D.,FACP x 2 days then stop Bactrim 01/07/2015 Hx Tablets 800-160mg 28tabs 1 by mouth twice Vimal Vera DS - a day x 10 days Kailey Wong, 01/17/2015 MMushtaqDMushtaq,FACP Proair 11/10/2014 Hx Aerosol 108(90Base) 8.5unit Inhale 2 Puffs Osman HFA - mcg/Act s By Mouth Four KELLY Mendoza 03/10/2015 Times A Day as Needed Unknown 07/09/2014 Hx Nitin Trevizo Antiinfl - Pollack, amitory 07/09/2014 Veda Nicotine 03/04/2014 Hx Patches 24HR 21mg/24HR 30units Apply as Vimal Vera - Directed Kialey Wong, 07/09/2014 Topically Veda,FACP Nicotine 02/25/2014 Hx Patches 24HR 14mg/24HR 28units Apply 1 Patch To Mihai - The Skin One Kailey Wong, 03/04/2014 Time Daily MTemo,FACP Clarithr 01/23/2014 Hx Tablets 500mg 14tabs 1 by mouth twice 49 Vimal Vera omycin - a day for 7 days 0 D. Judith, 01/30/2014 M.D.,FACP Amoxicil 01/04/2014 Hx Tablets 500mg 40tabs 2 tabs po bid 49 Mihai armani - for 10 days 0 D. Judith, 01/23/2014 M.D.,FACP Nicotine 01/04/2014 Hx Patches 24HR 21mg/24HR 30units as directed Maynor Morocho - topical D. Judith, 02/25/2014 M.D.,FACP Duloxeti 01/04/[address] Nguyễn 60mg 30caps take 1 capsule 33 Vimal arana HCL - by mouth every 8. D. [place], 06/02/2015 morning 4 M.D.,FACP Duloxeti 01/04/[address] Nguyễn 30mg 30caps Take 1 Capsule 72 Osman ne HCL - By Mouth Every 2. KELLY Mendoza 06/02/2015 Evening 0 Nicotine 01/02/2014 Hx Patches 24HR 14mg/24HR 28units Apply 1 Patch To Mihai Palma - The Skin One D. Judith, mal 01/04/2014 Time Daily M.D.,[facility] System Naproxen 12/14/2013 Hx Tablets 500mg 60tabs Take 1 Tablet By Karen - Mouth Two Times Cardona, 07/09/2014 Daily as Needed M.D. Duloxeti 12/11/[address] Nguyễn 30mg 60caps 1 tab po bid 33 Vimal arana HCL - 8. D. Judith, 01/04/2014 4 M.D.,[facility] Gabapent 12/11/2013 Hx Capsules 100mg 500caps Take 4 Capsules Vimal Vera in - By Mouth Four D. Judith, 01/04/2014 Times A Day M.D.,FACP Ketorola 11/07/2013 Hx Tablets 10mg 40tabs po qid prn 71 Mihai ortiz - 9. D. Judith, Trometha 12/14/2013 47 M.D.,FAC mine Nicotine 11/07/2013 Hx Patches 24HR 14mg/24HR 30units topical qd 30 Mihai Maki 2 - 5. D. Judith, 01/04/2014 1 M.D.,FACP Azithrom 10/29/2013 Hx Tablets 250mg 6tabs two tabs day 46 Rosa M ycin - one, one daily 6. Varn, N.P. 11/07/2013 till gone 0 Ibuprofe 10/29/2013 Hx Tablets 600mg 60tabs 1 po q 6 hr prn 71 Rosa M n - 9. Varn, N.P. 11/07/2013 47 Benzonat 10/18/2013 Hx Capsules 200mg 30caps one by mouth Rosa M ate - three times Varn, N.P. 11/12/2013 daily as needed for cough Amoxicil 10/11/2013 Hx Tablets 500mg 40tabs 2 tabs po bid 46 Mihai lomeli - for 10 days 6. D. Judith, 10/21/2013 0 M.D.,FACP Trazodon 09/14/2013 Hx Tablets 50mg 60tabs take 1 to 2 Ramos e HCL - tablets by mouth KELLY Veliz 06/02/2015 at bedtime Naproxen 08/03/2013 Hx Tablets 500mg 60tabs 1 po bid prn Karen Cardona, 10/11/2013 M.D. Gabapent 06/06/2013 Hx Capsules 100mg 500caps Take Four Mihai in - Capsules By Kailey Wong, 10/11/2013 Mouth Four Times M.D.,FACP A Day Penicill 04/04/2013 Hx Tablets 500mg 40tabs qid for 10 days 52 Vimal Vera in V - 8. DMonica Morganassiu 04/14/2013 9 M.D.,FACP m Gabapent 02/14/2013 Hx Capsules 100mg 500caps 3 tab po qid for 33 Vimal Vera in - 4 days, then 8. D. Judith, 06/01/2013 increase to 4 4 M.D.,FACP qid for 4 days Oxycodon 01/08/2013 Hx Tablets 10mg 100tabs 1 tablet po 33 Alex E. e HCL - q6hrs prn 8Mushtaq Ferrera, 04/04/2013 4 M.D. Meloxica 12/07/2012 Hx Tablets 15mg 60tabs Take One Tablet Mihai swain - By Mouth Twice A D. Judith, 10/29/2013 Day as Needed M.DMushtaq,FACP For Pain Venlafax 12/01/2012 Hx Tablets 75mg 60tabs Take One Tablet 33 Mihai ine HCL - By Mouth Twice A 8. DMushtaq Wong, 12/11/2013 Day 4 M.D.,FACP Venlafax 11/07/2012 Hx Tablets 37.5mg 60tabs 1 po bid 33 Mihai ine HCL - 8. DMushtaq Wong, 12/01/2012 4 M.D.,FACP Cymbalta 10/30/[address] Part 30mg 30caps 1 po qam 33 Mihai - Yovani Wong, 11/07/2012 4 M.D.,FACP Doxycycl Hx Capsules 100mg 20caps bid po Unknown ine - Hyclate 10/30/2012 Lorazepa Hx Tablets 0.5mg 30tabs take 1 tablet Unknown m - bid as needed 10/30/2012 for anxiety Ascorbic Hx Solution 500mg/ml one po qd Unknown Acid - 10/30/2012 Zolpidem Hx Tablets 10mg 20tabs 1 tab po qhs prn Mihai Tartrate - Kailey Wong, 09/10/2013 M.DMushtaq,FACP Oxyconti Hx Tablets ER 60mg 60tabs 1 tablet po 33 Unknown n - 12HR q12hrs 8. 10/30/2012 4 Indometh Hx Capsules 50mg 60caps 1 po bid Unknown acin - 09/14/2012 Ibuprofe Hx Tablets 600mg 90tabs Take One Tablet Mihai n - By Mouth Three D. Judith, 01/08/2013 Times A Day M.D.,FACP Ventolin Hx Aerosol 108(90Base) 8gm Inhale Two Puffs Vimal Vera HFA - mcg/Act By Mouth Four D. Judith, 11/10/2014 Times A Day as M.D.,FACP Needed Diflunis Hx Tablets 500mg 90tabs 1/2 by mouth Unknown al - twice a day 09/03/2015 Sovaldi Hx Tablets 400mg Unknown - 05/15/2015 Harvoni Hx Tablets 90-400mg 1 by mouth every Unknown - day 09/03/2015 Oxycodon Hx Tablets 5mg tid prn alessandro Russ - Laz, DO 04/13/2016 Calcium Hx Tablets 600-200 twice a day Unknown + D3 - 08/31/2017 Medications Administered in Office Medication Date Status Form Strength Qnty SIG Indications Ordering Provider Depomedrol Administered Injection Dirk Jarred, 40MG 017 M.D. No Injection Administered Injection Martin F Kailey Steel MD Depomedrol Administered Injection Martin F 40MG 017 MD Milvia Depomedrol Administered Injection Carlita 40MG 017 Bitting, RPA-C Depomedrol Administered Injection Carlita 40MG 017 Bitting, RPA-C Depomedrol Administered Injection Carilta 40MG 017 Bitting, RPA-C No Injection Administered Injection Martin F 017 MD Milvia Depomedrol Administered Injection Martin F 40MG Kailey Steel MD Depomedrol Administered Injection Carlita 40MG 016 Bitting, RPA-C Depomedrol Administered Injection Karen 40MG Sara Cardona M.D. Depomedrol Administered Injection Karen 40MG 016 Veda Cardona Depomedrol Administered Injection Carlita 40MG 016 Bitting, RPA-C Depomedrol Administered Injection Maria Esther 80MG Wanda Juárez M.D. Celestone 3 Administered Injection Maria Esther mg and 3mg Wanda Juárez M.D. Depomedrol Administered Injection Karen 80MG 015 Veda Cardona Depomedrol Administered Injection Karen 80MG Frederick Cardona M.D. Depomedrol Administered Injection Karen 80MG Frederick Cardona M.D. Depomedrol Administered Injection Karen 80MG 014 Veda Cardona Depomedrol Administered Injection Mosque H. 80MG 013 Anthony Mendez Depomedrol Administered Injection Karen 80MG Travis Cardona M.D. Depomedrol Administered Injection Karen 80MG Travis Cardona M.D. Depomedrol Administered Injection Karen 80MG Travis Cardona M.D. Immunizations CPT Code Status Date Vaccine Lot # [id number] Given 08/31/2017 Influenza Virus Vaccine, Quadrivalent, Split, [id number] Preservative Free [id number] Given 10/22/2016 Influenza Virus Vaccine, Quadrivalent, Split [id number] Virus, Im Use 44696 Given 08/21/2015 Flu Vaccine Split Virus Preservative Free For Indiv [id number] Older [id number] Given 07/25/2015 Pneumonia Vaccine [id number] 13117 Given 07/24/2014 Influenza Virus Vaccine, Quadrivalent, Split, Preservative Free 53767 Given 07/24/2014 Influenza Virus Vaccine, Quadrivalent, Split, [id number] Preservative Free 20320 Given 12/11/2013 Hepatitis B Vaccine Adult Dosage [id number] 23718 Given 12/11/2013 Hepatitis A Vaccine Adult Dosage [id number] 89078 Given 09/14/2013 Flu Vaccine Split Virus Preservative Free For [id number] Indiv 3Yr Older 53901 Given 08/24/2012 Tdap - Tetanus/Diptheria/Acellular Pertussis Vital Signs Date Vital Result Comment 11/07/2017 Height 65.5 inches 5'5.50" Weight 160.00 lb BP Systolic 144 mmHg BP Diastolic 80 mmHg Respiratory Rate 20 /min Pain Level 8 BMI (Body Mass Index) 26.2 kg/m2 10/12/2017 Height 65.5 inches 5'5.50" Weight 160.00 lb Heart Rate 88 /min BP Systolic 120 mmHg BP Diastolic 76 mmHg BMI (Body Mass Index) 26.2 kg/m2 09/28/2017 Weight 154.00 lb Heart Rate 102 /min BP Systolic Sitting 120 mmHg BP Diastolic Sitting 72 mmHg Body Temperature 98.6 F O2 % BldC Oximetry 94 % 09/26/2017 Height 65 inches 5'5" Weight 160.00 lb BP Systolic 126 mmHg BP Diastolic 82 mmHg Respiratory Rate 20 /min Body Temperature 98.3 F Pain Level 8 BMI (Body Mass Index) 26.6 kg/m2 09/26/2017 Height 65 inches 5'5" Weight 154.00 lb Heart Rate 78 /min Respiratory Rate 22 /min Body Temperature 97.5 F Pain Level 6 BMI (Body Mass Index) 25.6 kg/m2 09/14/2017 Height 65 inches 5'5" Weight 151.00 lb Heart Rate 98 /min BP Systolic Sitting 115 mmHg BP Diastolic Sitting 85 mmHg Body Temperature 97.6 F O2 % BldC Oximetry 98 % BMI (Body Mass Index) 25.1 kg/m2 08/31/2017 Height 65 inches 5'5" Weight 162.00 lb Heart Rate 77 /min BP Systolic 120 mmHg BP Diastolic 80 mmHg Body Temperature 97.8 F O2 % BldC Oximetry 99 % BMI (Body Mass Index) 27.0 kg/m2 08/29/2017 Height 65 inches 5'5" Weight 160.00 lb BP Systolic 124 mmHg BP Diastolic 82 mmHg Respiratory Rate 20 /min Pain Level 9 BMI (Body Mass Index) 26.6 kg/m2 08/25/2017 Height 65 inches 5'5" Weight 160.00 lb BP Systolic 122 mmHg BP Diastolic 76 mmHg Respiratory Rate 20 /min Body Temperature 97.1 F Pain Level 0 BMI (Body Mass Index) 26.6 kg/m2 08/19/2017 Height 65 inches 5'5" Weight 160.00 lb Heart Rate 64 /min Respiratory Rate 18 /min Body Temperature 97.2 F Pain Level 6 BMI (Body Mass Index) 26.6 kg/m2 08/12/2017 Height 65 inches 5'5" Weight 160.00 lb BP Systolic 124 mmHg BP Diastolic 80 mmHg Respiratory Rate 20 /min Body Temperature 97.5 F Pain Level 7 BMI (Body Mass Index) 26.6 kg/m2 08/01/2017 Height 65 inches 5'5" Weight 160.00 lb Heart Rate 78 /min BP Systolic 117 mmHg BP Diastolic 78 mmHg Body Temperature 97.1 F BMI (Body Mass Index) 26.6 kg/m2 07/21/2017 Height 65 inches 5'5" Weight 160.00 lb Heart Rate 102 /min Respiratory Rate 16 /min Body Temperature 97.0 F Pain Level 7 BMI (Body Mass Index) 26.6 kg/m2 07/20/2017 Height 65 inches 5'5" Weight 160.00 lb BP Systolic 110 mmHg BP Diastolic 70 mmHg Body Temperature 97.8 F Pain Level 8 BMI (Body Mass Index) 26.6 kg/m2 07/13/2017 Height 65 inches 5'5" Weight 160.38 lb Heart Rate 100 /min BP Systolic Sitting 164 mmHg BP Diastolic Sitting 92 mmHg Respiratory Rate 14 /min Body Temperature 99.0 F BMI (Body Mass Index) 26.7 kg/m2 07/01/2017 Height 65 inches 5'5" Weight 171.50 lb Heart Rate 88 /min BP Systolic 130 mmHg BP Diastolic 84 mmHg Body Temperature 98.4 F O2 % BldC Oximetry 95 % BMI (Body Mass Index) 28.5 kg/m2 02/17/2017 Weight 151.50 lb Heart Rate 86 /min BP Systolic Sitting 123 mmHg BP Diastolic Sitting 81 mmHg Body Temperature 97.6 F O2 % BldC Oximetry 98 % 01/10/2017 Weight 154.38 lb Heart Rate 91 /min BP Systolic Sitting 148 mmHg BP Diastolic Sitting 96 mmHg Body Temperature 98.9 F O2 % BldC Oximetry 98 % 11/08/2016 Height 66 inches 5'6" Weight 170.00 lb Respiratory Rate 22 /min Pain Level 10 BMI (Body Mass Index) 27.4 kg/m2 10/22/2016 Height 66 inches 5'6" Weight 170.00 lb Heart Rate 86 /min BP Systolic Sitting 134 mmHg BP Diastolic Sitting 76 mmHg Body Temperature 96.0 F O2 % BldC Oximetry 97 % BMI (Body Mass Index) 27.4 kg/m2 10/07/2016 Height 66 inches 5'6" Weight 169.00 lb BP Systolic 116 mmHg BP Diastolic 90 mmHg Pain Level 8 BMI (Body Mass Index) 27.3 kg/m2 07/14/2016 Height 66 inches 5'6" Weight 175.00 lb Heart Rate 60 /min Respiratory Rate 18 /min Pain Level 10 BMI (Body Mass Index) 28.2 kg/m2 06/25/2016 Weight 175.00 lb Heart Rate 83 /min Body Temperature 97.6 F O2 % BldC Oximetry 98 % 04/13/2016 Weight 168.00 lb Heart Rate 84 /min BP Systolic Sitting 132 mmHg BP Diastolic Sitting 82 mmHg Body Temperature 98.1 F 11/20/2015 Height 66 inches 5'6" Weight 176.00 lb Pain Level 8 8 on the R 6 on the L BMI (Body Mass Index) 28.4 kg/m2 09/29/2015 Height 66 inches 5'6" Weight 176.00 lb Pain Level 7 7-08/09 BMI (Body Mass Index) 28.4 kg/m2 09/24/2015 Height 66 inches 5'6" Weight 176.00 lb Heart Rate 89 /min BP Systolic Sitting 133 mmHg BP Diastolic Sitting 90 mmHg Body Temperature 97.7 F O2 % BldC Oximetry 98 % BMI (Body Mass Index) 28.4 kg/m2 09/03/2015 Height 66 inches 5'6" Weight 178.00 lb Heart Rate 101 /min BP Systolic Sitting 134 mmHg BP Diastolic Sitting 88 mmHg Body Temperature 97.7 F O2 % BldC Oximetry 98 % BMI (Body Mass Index) 28.7 kg/m2 08/29/2015 Height 66 inches 5'6" Weight 171.00 lb Pain Level 9 BMI (Body Mass Index) 27.6 kg/m2 07/03/2015 Height 66 inches 5'6" Weight 171.25 lb Heart Rate 85 /min BP Systolic Sitting 120 mmHg BP Diastolic Sitting 82 mmHg Body Temperature 97.6 F O2 % BldC Oximetry 98 % BMI (Body Mass Index) 27.6 kg/m2 06/02/2015 Height 66 inches 5'6" Weight 173.50 lb Heart Rate 82 /min BP Systolic Sitting 120 mmHg BP Diastolic Sitting 78 mmHg Body Temperature 98.0 F Pain Level 7 05/09 O2 % BldC Oximetry 98 % BMI (Body Mass Index) 28.0 kg/m2 05/15/2015 Height 66 inches 5'6" Weight 170.25 lb Heart Rate 94 /min BP Systolic Sitting 144 mmHg BP Diastolic Sitting 90 mmHg Body Temperature 97.8 F O2 % BldC Oximetry 98 % BMI (Body Mass Index) 27.5 kg/m2 04/15/2015 Weight 177.00 lb Heart Rate 76 /min BP Systolic Sitting 124 mmHg BP Diastolic Sitting 80 mmHg O2 % BldC Oximetry 98 % 04/04/2015 Weight 181.25 lb Heart Rate 85 /min BP Systolic Sitting 138 mmHg BP Diastolic Sitting 86 mmHg Body Temperature 97.6 F O2 % BldC Oximetry 98 % 02/13/2015 Height 66 inches 5'6" Weight 170.00 lb Pain Level 8 BMI (Body Mass Index) 27.4 kg/m2 01/24/2015 Height 65 inches 5'5" Weight 184.00 lb Heart Rate 105 /min BP Systolic 118 mmHg BP Diastolic 72 mmHg Body Temperature 97.3 F BMI (Body Mass Index) 30.6 kg/m2 01/21/2015 Weight 184.00 lb Heart Rate 101 /min BP Systolic Sitting 127 mmHg BP Diastolic Sitting 81 mmHg Body Temperature 98.4 F 11/04/2014 Height 65 inches 5'5" Weight 179.25 lb Heart Rate 64 /min BP Systolic Sitting 112 mmHg BP Diastolic Sitting 70 mmHg Body Temperature 98.1 F BMI (Body Mass Index) 29.8 kg/m2 07/11/2014 Weight 167.00 lb Heart Rate 88 /min BP Systolic Sitting 118 mmHg BP Diastolic Sitting 64 mmHg Body Temperature 97.9 F 07/09/2014 Height 65 inches 5'5" Weight 165.00 lb Heart Rate 92 /min BP Systolic Sitting 160 mmHg BP Diastolic Sitting 94 mmHg Pain Level 9 neck,back,R shoulder,R leg BMI (Body Mass Index) 27.5 kg/m2 06/13/2014 Height 65 inches 5'5" Heart Rate 100 /min BP Systolic 130 mmHg BP Diastolic 92 mmHg 02/07/2014 Height 65 inches 5'5" Heart Rate 97 /min BP Systolic 130 mmHg BP Diastolic 86 mmHg 01/31/2014 Height 65 inches 5'5" Weight 169.00 lb Heart Rate 99 /min BP Systolic Sitting 122 mmHg BP Diastolic Sitting 86 mmHg BMI (Body Mass Index) 28.1 kg/m2 01/23/2014 Weight 169.00 lb BP Systolic Sitting 122 mmHg BP Diastolic Sitting 98 mmHg 01/04/2014 Height 64.75 inches 5'4.75" Weight 162.12 lb Heart Rate 88 /min BP Systolic Sitting 138 mmHg BP Diastolic Sitting 98 mmHg Body Temperature 98.5 F BMI (Body Mass Index) 27.2 kg/m2 12/11/2013 Weight 163.00 lb Heart Rate 68 /min BP Systolic Sitting 124 mmHg BP Diastolic Sitting 82 mmHg 11/07/2013 Height 65.5 inches 5'5.50" Weight 158.00 lb Heart Rate 72 /min BP Systolic Sitting 122 mmHg BP Diastolic Sitting 82 mmHg BMI (Body Mass Index) 25.9 kg/m2 10/29/2013 Weight 172.00 lb Heart Rate 84 /min BP Systolic Sitting 124 mmHg BP Diastolic Sitting 82 mmHg Body Temperature 97.6 F 10/11/2013 Weight 173.00 lb Heart Rate 80 /min BP Systolic Sitting 140 mmHg BP Diastolic Sitting 92 mmHg 09/14/2013 Weight 176.00 lb Heart Rate 90 /min BP Systolic Sitting 128 mmHg BP Diastolic Sitting 80 mmHg 06/01/2013 Height 64.75 inches 5'4.75" Weight 185.25 lb Heart Rate 92 /min BP Systolic Sitting 138 mmHg BP Diastolic Sitting 94 mmHg BMI (Body Mass Index) 31.1 kg/m2 04/04/2013 Height 65 inches 5'5" Weight 173.00 lb Heart Rate 84 /min BP Systolic Sitting 120 mmHg BP Diastolic Sitting 76 mmHg Body Temperature 98.3 F BMI (Body Mass Index) 28.8 kg/m2 02/14/2013 Height 65 inches 5'5" Weight 170.50 lb Heart Rate 88 /min BP Systolic Sitting 120 mmHg BP Diastolic Sitting 78 mmHg BMI (Body Mass Index) 28.4 kg/m2 01/08/2013 Height 65 inches 5'5" Weight 167.50 lb Heart Rate 78 /min BP Systolic Sitting 144 mmHg BP Diastolic Sitting 72 mmHg BMI (Body Mass Index) 27.9 kg/m2 12/20/2012 Height 65 inches 5'5" Weight 167.00 lb BP Systolic 132 mmHg BP Diastolic 78 mmHg BMI (Body Mass Index) 27.8 kg/m2 12/01/2012 Height 64.75 inches 5'4.75" Weight 161.00 lb Heart Rate 70 /min BP Systolic Sitting 114 mmHg BP Diastolic Sitting 68 mmHg BMI (Body Mass Index) 27.0 kg/m2 10/30/2012 Height 64.75 inches 5'4.75" Weight 171.00 lb Heart Rate 100 /min BP Systolic Sitting 114 mmHg BP Diastolic Sitting 76 mmHg BMI (Body Mass Index) 28.7 kg/m2 09/14/2012 Height 65 inches 5'5" Weight 167.00 lb Heart Rate 98 /min BP Systolic Sitting 130 mmHg BP Diastolic Sitting 80 mmHg BMI (Body Mass Index) 27.8 kg/m2 09/05/2012 Height 65 inches 5'5" Weight 165.00 lb Heart Rate 107 /min BP Systolic Sitting 139 mmHg BP Diastolic Sitting 85 mmHg Body Temperature 97.2 F BMI (Body Mass Index) 27.5 kg/m2 Results Test Date Test Result H/L Range Note Laboratory test 08/31/2017 Hepatitis C High Reactive Nonreactive 1 finding Antibody Hepatitis C Rna Quant Undetected IU/mL Undetected 2 PSA Screening 0.530 ng/mL 0-4.000 3 Laboratory test finding 08/09/2017 Surgical Pathology SEE RESULT BELOW 4, 5 Drug Abuse 20 Urine 07/01/2017 Urine Amphetamine Negative ng/mL 6 Urine Barbiturates Negative ng/mL 7 Urine Benzodiazepines Negative ng/mL 8 Urine Cocaine Presumptive Posi <SEE NOTE> 9 ng/mL Urine Phencyclidine Negative ng/mL Cutoff: 25 Urine Tetrahydrocannabinol Negative ng/mL Cutoff: 50 10 Creatinine, Urine 79.0 mg/dL Specific [place] 1.010 pH 7.4 Oxidants Negative 11 Adulterants Comment Normal Codeine, Ur Not Detected ng/mL Cutoff: 25 12 Khyysqk-9-skka-glucuronide, Ur Not Detected ng/mL 13 Morphine, Ur Not Detected ng/mL Cutoff: 25 14 Lzpipmbs-5-cnsj-glucuronide, U Not Detected ng/mL 15 6-monoacetylmorphine, Ur Not Detected ng/mL Cutoff: 25 16 Hydrocodone, Ur Not Detected ng/mL Cutoff: 25 17 Norhydrocodone, Ur Not Detected ng/mL Cutoff: 25 18 Dihydrocodeine, Ur Not Detected ng/mL Cutoff: 25 19 Hydromorphone, Ur Not Detected ng/mL Cutoff: 25 20 [id number] Not Detected ng/mL 21 Oxycodone, Ur Not Detected ng/mL Cutoff: 25 22 Noroxycodone, Ur Not Detected ng/mL Cutoff: 25 23 Oxymorphone, Ur Not Detected ng/mL Cutoff: 25 24 Hpdbslaynfd-0-cbhn-glucuronide Not Detected ng/mL 25 Noroxymorphone, Ur Not Detected ng/mL Cutoff: 25 26 Fentanyl, Ur Not Detected ng/mL Cutoff: 2 27 Norfentanyl, Ur Not Detected ng/mL Cutoff: 2 28 Meperidine, Ur Not Detected ng/mL Cutoff: 25 29 Normeperidine, Ur Not Detected ng/mL Cutoff: 25 30 Naloxone, Ur Not Detected ng/mL Cutoff: 25 31 Qxgqgymd-2-eejv-glucuronide, U Not Detected ng/mL 32 Methadone, Ur Not Detected ng/mL Cutoff: 25 33 Eddp, Ur Not Detected ng/mL Cutoff: 25 34 Propoxyphene, Ur Not Detected ng/mL Cutoff: 25 35 Norpropoxyphene, Ur Not Detected ng/mL Cutoff: 25 36 Tramadol, Ur Not Detected ng/mL Cutoff: 25 37 O-desmethyltramadol, Ur Not Detected ng/mL Cutoff: 25 38 Tapentadol, Ur Not Detected ng/mL Cutoff: 25 39 N-desmethyltapentadol, Ur Not Detected ng/mL Cutoff: 50 40 Fbvuljmzmf-fzkl-iqpjijwpiqj, U Not Detected ng/mL 41 Buprenorphine, Ur Not Detected ng/mL Cutoff: 5 42 Norbuprenorphine, Ur Not Detected ng/mL Cutoff: 5 43 Norbuprenorphine glucuronide Not Detected ng/mL Cutoff: 20 44 Opioid Interpretation See Comment 45 Urine Cocaine 07/01/2017 Urine Cocaine Negative ng/mL Cutoff: 50 Confirmation Confirm (GC/MS) Ur Benzoylecgonine Confirm 812 ng/mL Cutoff: 50 Urine Cocaine Interpretation Positive. 46 CBC Auto Diff 02/26/2017 White Blood Count 8.0 10^3/uL 3.5-10.8 Red Blood Count 4.05 10^6/uL 4.0-5.4 Hemoglobin 12.2 g/dL Low 14.0-18.0 Hematocrit 36 % Low 42-52 Mean Corpuscular Volume 90 fL 80-94 Mean Corpuscular Hemoglobin 30 pg 27-31 Mean Corpuscular HGB Conc 34 g/dL 31-36 Red Cell Distribution Width 13 % 10.5-15 Platelet Count 310 10^3/uL 150-450 Mean Platelet Volume 7 um3 Low 7.4-10.4 Abs Neutrophils 5.1 10^3/uL 1.5-7.7 Abs Lymphocytes 2.1 10^3/uL 1.0-4.8 Abs Monocytes 0.6 10^3/uL 0-0.8 Abs Eosinophils 0.1 10^3/uL 0-0.6 Abs Basophils 0.1 10^3/uL 0-0.2 Abs Nucleated RBC 0.01 10^3/uL Granulocyte % 63.6 % 38-83 Lymphocyte % 25.8 % 25-47 Monocyte % 8.0 % 1-9 Eosinophil % 1.7 % 0-6 Basophil % 0.9 % 0-2 Nucleated Red Blood Cells % 0.1 Comp Metabolic Panel 02/26/2017 Sodium 133 mmol/L 133-145 Potassium 4.1 mmol/L 3.5-5.0 Chloride 104 mmol/L 101-111 Co2 Carbon Dioxide 26 mmol/L 22-32 Anion Gap 3 mmol/L 2-11 Glucose 130 mg/dL High 70-100 Blood Urea Nitrogen 17 mg/dL 6-24 Creatinine 1.15 mg/dL 0.67-1.17 BUN/Creatinine Ratio 14.8 8-20 Calcium 8.8 mg/dL 8.6-10.3 Total Protein 6.6 g/dL 6.4-8.9 Albumin 3.7 g/dL 3.2-5.2 Globulin 2.9 g/dL 2-4 Albumin/Globulin Ratio 1.3 1-3 Total Bilirubin 0.30 mg/dL 0.2-1.0 Alkaline Phosphatase 59 U/L 34-104 Alt 19 U/L 7-52 Ast 20 U/L 13-39 Egfr Non- 66.3 >60 Egfr 85.2 >60 47 Laboratory test 02/26/2017 Troponin-I (TnI) 0.01 ng/mL <0.04 48 finding Laboratory test 05/06/2016 Hepatitis C Rna Undetected IU/mL Undetected 49 finding Quant Laboratory test 04/30/2016 Lipase 35 U/L 11.0-82.0 finding CBC Auto Diff 04/30/2016 White Blood Count 5.7 10^3/uL 3.5-10.8 Red Blood Count 4.65 10^6/uL 4.0-5.4 Hemoglobin 14.0 g/dL 14.0-18.0 Hematocrit 41 % Low 42-52 Mean Corpuscular Volume 89 fL 80-94 Mean Corpuscular Hemoglobin 30 pg 27-31 Mean Corpuscular HGB Conc 34 g/dL 31-36 Red Cell Distribution Width 14 % 10.5-15 Platelet Count 301 10^3/uL 150-450 Mean Platelet Volume 9 um3 7.4-10.4 Abs Neutrophils 3.5 10^3/uL 1.5-7.7 Abs Lymphocytes 1.4 10^3/uL 1.0-4.8 Abs Monocytes 0.6 10^3/uL 0-0.8 Abs Eosinophils 0.1 10^3/uL 0-0.6 Abs Basophils 0.1 10^3/uL 0-0.2 Abs Nucleated RBC 0 10^3/uL Granulocyte % 62.6 % 38-83 Lymphocyte % 24.1 % Low 25-47 Monocyte % 10.5 % High 1-9 Eosinophil % 1.3 % 0-6 Basophil % 1.5 % 0-2 Nucleated Red Blood Cells % 0.1 Liver Function Panel 04/30/2016 Total Protein 6.8 g/dL 6.4-8.9 Albumin 4.1 g/dL 3.2-5.2 Globulin 2.7 g/dL 2-4 Albumin/Globulin Ratio 1.5 1-3 Total Bilirubin 0.40 mg/dL 0.2-1.0 Direct Bilirubin 0.10 mg/dL 0.03-0.18 Indirect Bilirubin 0.3 mg/dL 0.3-1.0 Alkaline Phosphatase 64 U/L 34-104 Alt 13 U/L 7-52 Ast 15 U/L 13-39 HIV 1/2 AB Evaluation 06/02/2015 HIV 1 2 Antibody Nonreactive Nonreactive 50 Liver Function Panel 06/02/2015 Total Protein 6.8 g/dL 6.4-8.9 Albumin 4.2 g/dL 3.2-5.2 Globulin 2.6 g/dL 2-4 Albumin/Globulin Ratio 1.6 1-3 Total Bilirubin 0.30 mg/dL 0.2-1.0 Direct Bilirubin 0.10 mg/dL 0.03-0.18 Indirect Bilirubin 0.2 mg/dL Low 0.3-1.0 Alkaline Phosphatase 69 U/L 34-104 Alt 20 U/L 7-52 Ast 20 U/L 13-39 Laboratory test 06/02/2015 Hepatitis C Rna Undetected IU/mL Undetected 51 finding Quant Laboratory test 05/11/2015 Point of Care 108 mg/dL High 74-106 52 finding Glucose CBC Auto Diff 05/11/2015 White Blood Count 6.7 10^3/uL 4.8-10.8 Red Blood Count 4.40 10^6/uL 4.0-5.4 Hemoglobin 13.8 g/dL Low 14.0-18.0 Hematocrit 41 % Low 42-52 Mean Corpuscular Volume 92 fL 80-94 Mean Corpuscular Hemoglobin 32 pg High 27-31 Mean Corpuscular HGB Conc 34 g/dL 31-36 Red Cell Distribution Width 13 % 10.5-15 Platelet Count 254 10^3/uL 150-450 Mean Platelet Volume 8 um3 7.4-10.4 Abs Neutrophils 3.3 10^3/uL 1.5-7.7 Abs Lymphocytes 2.4 10^3/uL 1.0-4.8 Abs Monocytes 0.9 10^3/uL High 0-0.8 Abs Eosinophils 0.1 10^3/uL 0-0.6 Abs Basophils 0.1 10^3/uL 0-0.2 Abs Nucleated RBC 0 10^3/uL Granulocyte % 48.9 % 38-83 Lymphocyte % 35.7 % 25-47 Monocyte % 12.8 % High 1-9 Eosinophil % 1.5 % 0-6 Basophil % 1.1 % 0-2 Nucleated Red Blood Cells % 0.1 Urinalysis Profile 05/11/2015 Urine Color Colorless Urine Appearance Clear Urine Specific [place] 1.003 Low 1.010-1.030 Urine pH 6.0 5-9 Urine Urobilinogen Negative Negative Urine Ketones Negative Negative Urine Protein Negative Negative Urine Leukocytes Negative Negative Urine Blood Negative Negative Urine Nitrite Negative Negative Urine Bilirubin Negative Negative Urine Glucose Negative Negative Laboratory test finding 05/11/2015 Lactic Acid 0.5 mmol/L 0.5-2.2 Acetaminophen < 15 g/mL 53 Alcohol < 10 mg/dL <10 Salicylate < 2.50 mg/dL <30 Comp Metabolic Panel 05/11/2015 Sodium 133 mmol/L 133-145 Potassium 3.7 mmol/L 3.5-5.0 Chloride 103 mmol/L 101-111 Co2 Carbon Dioxide 26 mmol/L 22-32 Anion Gap 4 mmol/L 2-11 Glucose 104 mg/dL High 70-100 Blood Urea Nitrogen 15 mg/dL 6-24 Creatinine 0.86 mg/dL 0.67-1.17 BUN/Creatinine Ratio 17.4 8-20 Calcium 8.6 mg/dL 8.6-10.3 Total Protein 6.3 g/dL Low 6.4-8.9 Albumin 3.9 g/dL 3.2-5.2 Globulin 2.4 g/dL 2-4 Albumin/Globulin Ratio 1.6 1-3 Total Bilirubin 0.60 mg/dL 0.2-1.0 Alkaline Phosphatase 57 U/L 34-104 Alt 28 U/L 7-52 Ast 28 U/L 13-39 Egfr Non- 93.4 >60 Egfr 120.1 >60 54 Laboratory test 05/11/2015 Troponin-I (TnI) 0.00 ng/mL <0.03 55 finding Urine Drug SCR ED 05/11/2015 Amphetamine Ur Screen None Detected None Detect & [facility] Barbiturates Urine Screen None Detected None Detect Benzodiazepine Urine Screen None Detected None Detect Urine Cannabinoids Screen None Detected None Detect Urine Cocaine Screen None Detected None Detect Urine Opiates Screen None Detected None Detect Urine Phencyclidine Screen None Detected None Detect 56 Inr/Protime 05/11/2015 Inr 0.95 0.78-1.07 Arterial Blood Gas 02/01/2015 PH Arterial 7.40 7.35-7.45 Pco2 Arterial 35 mmHg 35-45 Po2 Arterial 139 mmHg High 80-100 O2 Saturation Arterial 99.2 % High 95-98 Base Excess Arterial -2.6 Low -2.0-2.0 57 Hco3 Arterial 22.9 mmol/L 19-31 Laboratory test finding 02/01/2015 Ammonia 36 mol/L 16-53 Urinalysis Profile 02/01/2015 Urine Color Yellow Urine Appearance Cloudy Urine Specific [place] 1.019 1.010-1.030 Urine pH 5.0 5-9 Urine Urobilinogen Negative Negative Urine Ketones Trace Negative Urine Protein Negative Negative Urine Leukocytes Negative Negative Urine Blood Negative Negative Urine Nitrite Negative Negative Urine Bilirubin Negative Negative Urine Glucose Negative Negative Urine Drug SCR ED 02/01/2015 Amphetamine Ur Screen None Detected None Detect & [facility] Barbiturates Urine Screen None Detected None Detect Benzodiazepine Urine Screen None Detected None Detect Urine Cannabinoids Screen None Detected None Detect Urine Cocaine Screen Presumptive Posi <SEE NOTE> None Detect 58 Urine Opiates Screen Presumptive Posi <SEE NOTE> None Detect 59 Urine Phencyclidine Screen None Detected None Detect 60 Laboratory test finding 02/01/2015 Creatine Kinase 216 U/L 10-223 Lactic Acid 0.6 mmol/L 0.5-2.2 CBC Auto Diff 02/01/2015 White Blood Count 6.9 10^3/uL 4.8-10.8 Red Blood Count 4.74 10^6/uL 4.0-5.4 Hemoglobin 14.7 g/dL 14.0-18.0 Hematocrit 43 % 42-52 Mean Corpuscular Volume 91 fL 80-94 Mean Corpuscular Hemoglobin 31 pg 27-31 Mean Corpuscular HGB Conc 34 g/dL 31-36 Red Cell Distribution Width 14 % 10.5-15 Platelet Count 312 10^3/uL 150-450 Mean Platelet Volume 8 um3 7.4-10.4 Abs Neutrophils 3.9 10^3/uL 1.5-7.7 Abs Lymphocytes 2.0 10^3/uL 1.0-4.8 Abs Monocytes 0.8 10^3/uL 0-0.8 Abs Eosinophils 0.1 10^3/uL 0-0.6 Abs Basophils 0.1 10^3/uL 0-0.2 Abs Nucleated RBC 0.01 10^3/uL Granulocyte % 57.0 % 38-83 Lymphocyte % 29.5 % 25-47 Monocyte % 11.6 % High 1-9 Eosinophil % 1.0 % 0-6 Basophil % 0.9 % 0-2 Nucleated Red Blood Cells % 0.1 Comp Metabolic Panel 02/01/2015 Sodium 137 mmol/L 133-145 Potassium 3.6 mmol/L 3.5-5.0 Chloride 103 mmol/L 101-111 Co2 Carbon Dioxide 22 mmol/L 22-32 Anion Gap 12 mmol/L High 2-11 Glucose 132 mg/dL High 70-100 Blood Urea Nitrogen 22 mg/dL 6-24 Creatinine 1.10 mg/dL 0.67-1.17 BUN/Creatinine Ratio 20.0 8-20 Calcium 9.4 mg/dL 8.6-10.3 Total Protein 7.5 g/dL 6.4-8.9 Albumin 4.5 g/dL 3.2-5.2 Globulin 3.0 g/dL 2-4 Albumin/Globulin Ratio 1.5 1-3 Total Bilirubin 0.70 mg/dL 0.2-1.0 Alkaline Phosphatase 68 U/L 34-104 Alt 28 U/L 7-52 Ast 31 U/L 13-39 Egfr Non- 70.3 >60 Egfr 90.4 >60 61 Laboratory test finding 02/01/2015 Creatine Kinase 247 U/L High 10-223 Acetaminophen < 15 g/mL 62 Alcohol < 10 mg/dL <10 Salicylate < 2.50 mg/dL <30 TSH (Thyroid Stimulating Horm) 0.95 IU/mL 0.34-5.60 Lactic Acid 4.8 mmol/L High 0.5-2.2 63 Laboratory test finding 01/21/2015 Throat Culture (SEE NOTE) 64 Laboratory test finding 01/21/2015 Rapid Strep A negative HSV/VZV Derm PCR 01/15/2015 hs/VZ Source mouth sores HSV 1 PCR Negative Negative HSV 2 PCR Negative Negative 65 Varicella Zoster Source mouth sores Varicella Zoster Result Negative Negative 66 Comp Metabolic Panel 01/15/2015 Sodium 135 mmol/L 133-145 Potassium 4.6 mmol/L 3.5-5.0 Chloride 104 mmol/L 101-111 Co2 Carbon Dioxide 27 mmol/L 22-32 Anion Gap 4 mmol/L 2-11 Glucose 104 mg/dL High 70-100 Blood Urea Nitrogen 17 mg/dL 6-24 Creatinine 0.93 mg/dL 0.67-1.17 BUN/Creatinine Ratio 18.3 8-20 Calcium 8.9 mg/dL 8.6-10.3 Total Protein 6.7 g/dL 6.4-8.9 Albumin 3.8 g/dL 3.2-5.2 Globulin 2.9 g/dL 2-4 Albumin/Globulin Ratio 1.3 1-3 Total Bilirubin 0.30 mg/dL 0.2-1.0 Alkaline Phosphatase 61 U/L 34-104 Alt 26 U/L 7-52 Ast 19 U/L 13-39 Egfr Non- 85.3 >60 Egfr 109.7 >60 67 CBC Auto Diff 01/15/2015 White Blood Count 8.4 10^3/uL 4.8-10.8 Red Blood Count 4.91 10^6/uL 4.0-5.4 Hemoglobin 15.0 g/dL 14.0-18.0 Hematocrit 45 % 42-52 Mean Corpuscular Volume 92 fL 80-94 Mean Corpuscular Hemoglobin 31 pg 27-31 Mean Corpuscular HGB Conc 33 g/dL 31-36 Red Cell Distribution Width 13 % 10.5-15 Platelet Count 342 10^3/uL 150-450 Mean Platelet Volume 8 um3 7.4-10.4 Abs Neutrophils 6.2 10^3/uL 1.5-7.7 Abs Lymphocytes 1.6 10^3/uL 1.0-4.8 Abs Monocytes 0.4 10^3/uL 0-0.8 Abs Eosinophils 0 10^3/uL 0-0.6 Abs Basophils 0.1 10^3/uL 0-0.2 Abs Nucleated RBC 0.01 10^3/uL Granulocyte % 74.1 % 38-83 Lymphocyte % 19.3 % Low 25-47 Monocyte % 5.2 % 1-9 Eosinophil % 0.5 % 0-6 Basophil % 0.9 % 0-2 Nucleated Red Blood Cells % 0.1 Laboratory test finding 01/15/2015 Erythrocyte Sed Rate 10 mm/Hr 0-20 Laboratory test finding 01/03/2015 Inr 1.00 0.78-1.07 Comp Metabolic Panel 01/03/2015 Sodium 134 mmol/L 133-145 Potassium 4.2 mmol/L 3.5-5.0 Chloride 102 mmol/L 101-111 Co2 Carbon Dioxide 28 mmol/L 22-32 Anion Gap 4 mmol/L 2-11 Glucose 100 mg/dL 70-100 Blood Urea Nitrogen 17 mg/dL 6-24 Creatinine 0.88 mg/dL 0.67-1.17 BUN/Creatinine Ratio 19.3 8-20 Calcium 9.4 mg/dL 8.6-10.3 Total Protein 7.3 g/dL 6.4-8.9 Albumin 4.4 g/dL 3.2-5.2 Globulin 2.9 g/dL 2-4 Albumin/Globulin Ratio 1.5 1-3 Total Bilirubin 0.70 mg/dL 0.2-1.0 Alkaline Phosphatase 66 U/L 34-104 Alt 18 U/L 7-52 Ast 16 U/L 13-39 Egfr Non- 90.9 >60 Egfr 117.0 >60 68 CBC Auto Diff 01/03/2015 White Blood Count 11.6 10^3/uL High 4.8-10.8 Red Blood Count 4.94 10^6/uL 4.0-5.4 Hemoglobin 15.4 g/dL 14.0-18.0 Hematocrit 45 % 42-52 Mean Corpuscular Volume 90 fL 80-94 Mean Corpuscular Hemoglobin 31 pg 27-31 Mean Corpuscular HGB Conc 35 g/dL 31-36 Red Cell Distribution Width 13 % 10.5-15 Platelet Count 289 10^3/uL 150-450 Mean Platelet Volume 8 um3 7.4-10.4 Abs Neutrophils 8.8 10^3/uL High 1.5-7.7 Abs Lymphocytes 1.8 10^3/uL 1.0-4.8 Abs Monocytes 0.8 10^3/uL 0-0.8 Abs Eosinophils 0.1 10^3/uL 0-0.6 Abs Basophils 0.1 10^3/uL 0-0.2 Abs Nucleated RBC 0 10^3/uL Granulocyte % 76.1 % 38-83 Lymphocyte % 15.6 % Low 25-47 Monocyte % 7.0 % 1-9 Eosinophil % 0.6 % 0-6 Basophil % 0.7 % 0-2 Nucleated Red Blood Cells % 0 Urinalysis Profile 11/14/2014 Urine Color Colorless Urine Appearance Clear Urine Specific [place] 1.005 Low 1.010-1.030 Urine pH 6.0 5-9 Urine Urobilinogen Negative Negative Urine Ketones Negative Negative Urine Protein Negative Negative Urine Leukocytes Negative Negative Urine Blood Negative Negative Urine Nitrite Negative Negative Urine Bilirubin Negative Negative Urine Glucose Negative Negative Wound Culture/Sensi 07/01/2014 Wound/Misc Culture-Gram (SEE NOTE) 69 Stain Comp Metabolic Panel 06/24/2014 Sodium 135 mmol/L 133-145 Potassium 4.3 mmol/L 3.7-5.6 Chloride 106 mmol/L 101-111 Co2 Carbon Dioxide 25 mmol/L 22-32 Anion Gap 4 mmol/L 2-11 Glucose 101 mg/dL High 70-100 Blood Urea Nitrogen 19 mg/dL 6-24 Creatinine 0.76 mg/dL 0.67-1.17 BUN/Creatinine Ratio 25.0 High 8-20 Calcium 8.7 mg/dL 8.6-10.3 Total Protein 6.7 g/dL 6.4-8.9 Albumin 4.0 g/dL 3.2-5.2 Globulin 2.7 g/dL 2-4 Albumin/Globulin Ratio 1.5 1-3 Total Bilirubin 0.60 mg/dL 0.2-1.0 Alkaline Phosphatase 59 U/L 34-104 Alt 31 U/L 7-52 Ast 36 U/L 13-39 Egfr Non- 108.1 >60 Egfr 139.1 >60 70 Inr/Protime 06/24/2014 Inr 0.94 0.85-1.06 CBC Auto Diff 06/24/2014 White Blood Count 7.0 10^3/uL 4.8-10.8 Red Blood Count 4.53 10^6/uL 4.0-5.4 Hemoglobin 14.0 g/dL 14.0-18.0 Hematocrit 41 % Low 42-52 Mean Corpuscular Volume 90 fL 80-94 Mean Corpuscular Hemoglobin 31 pg 27-31 Mean Corpuscular HGB Conc 34 g/dL 31-36 Red Cell Distribution Width 13 % 10.5-15 Platelet Count 265 10^3/uL 150-450 Mean Platelet Volume 7 um3 Low 7.4-10.4 Abs Neutrophils 4.0 10^3/uL 1.5-7.7 Abs Lymphocytes 2.0 10^3/uL 1.0-4.8 Abs Monocytes 0.8 10^3/uL 0-0.8 Abs Eosinophils 0.1 10^3/uL 0-0.6 Abs Basophils 0.1 10^3/uL 0-0.2 Abs Nucleated RBC 0 10^3/uL Granulocyte % 56.9 % 38-83 Lymphocyte % 29.1 % 25-47 Monocyte % 11.6 % High 1-9 Eosinophil % 1.5 % 0-6 Basophil % 0.9 % 0-2 Nucleated Red Blood Cells % 0 Laboratory test finding 06/24/2014 Amylase 21 U/L Low 29-103 Creatine Kinase 626 U/L High 10-223 Alcohol < 10 mg/dL <10 CBC Auto Diff 04/03/2014 White Blood Count 7.8 10^3/uL 4.8-10.8 Red Blood Count 4.40 10^6/uL 4.0-5.4 Hemoglobin 13.9 g/dL Low 14.0-18.0 Hematocrit 41 % Low 42-52 Mean Corpuscular Volume 92 fL 80-94 Mean Corpuscular Hemoglobin 32 pg High 27-31 Mean Corpuscular HGB Conc 34 g/dL 31-36 Red Cell Distribution Width 13 % 10.5-15 Platelet Count 268 10^3/uL 150-450 Mean Platelet Volume 8 um3 7.4-10.4 Abs Neutrophils 4.7 10^3/uL 1.5-7.7 Abs Lymphocytes 2.3 10^3/uL 1.0-4.8 Abs Monocytes 0.7 10^3/uL 0-0.8 Abs Eosinophils 0.1 10^3/uL 0-0.6 Abs Basophils 0.1 10^3/uL 0-0.2 Abs Nucleated RBC 0 10^3/uL Granulocyte % 59.4 % 38-83 Lymphocyte % 29.8 % 25-47 Monocyte % 9.1 % High 1-9 Eosinophil % 0.8 % 0-6 Basophil % 0.9 % 0-2 Nucleated Red Blood Cells % 0.1 Comp Metabolic Panel 04/03/2014 Sodium 136 mmol/L 133-145 Potassium 3.4 mmol/L Low 3.7-5.6 Chloride 105 mmol/L 101-111 Co2 Carbon Dioxide 23 mmol/L 22-32 Anion Gap 8 mmol/L 2-11 Glucose 154 mg/dL High 70-100 Blood Urea Nitrogen 19 mg/dL 6-24 Creatinine 0.99 mg/dL 0.67-1.17 BUN/Creatinine Ratio 19.2 8-20 Calcium 8.7 mg/dL 8.6-10.3 Total Protein 7.0 g/dL 6.4-8.9 Albumin 4.3 g/dL 3.2-5.2 Globulin 2.7 g/dL 2-4 Albumin/Globulin Ratio 1.6 1-3 Total Bilirubin 0.60 mg/dL 0.2-1.0 Alkaline Phosphatase 59 U/L 34-104 Alt 24 U/L 7-52 Ast 21 U/L 13-39 Egfr Non- 79.7 >60 Egfr 102.5 >60 71 Laboratory test finding 04/03/2014 Acetaminophen < 15 g/mL 72 Alcohol < 10 mg/dL <10 Salicylate < 2.50 mg/dL <30 HIV 1/2 AB Evaluation 12/11/2013 HIV 1 2 Antibody Nonreactive Nonreactive 73 Comp Metabolic Panel 11/30/2013 Sodium 133 mmol/L 133-145 Potassium 4.6 mmol/L 3.5-5.0 Chloride 103 mmol/L 101-111 Co2 Carbon Dioxide 24.0 mmol/L 22-32 Anion Gap 6.0 mmol/L 2-11 Glucose 91 mg/dL 70-100 Blood Urea Nitrogen 14 mg/dL 6-24 Creatinine 0.60 mg/dL 0.50-1.40 BUN/Creatinine Ratio 23.3 High 8-20 Calcium 8.9 mg/dL 8.1-9.9 Total Protein 6.5 g/dL 6.2-8.1 Albumin 4.1 g/dL 3.6-5.4 Globulin 2.4 g/dL 2-4 Albumin/Globulin Ratio 1.7 1-3 Total Bilirubin 1.1 mg/dL 0.4-1.5 Alkaline Phosphatase 73 U/L 30-110 Alt 36 U/L 14-54 Ast 30 U/L 12-42 Egfr Non- 142.6 >60 Egfr 183.4 >60 74 Lipid Profile (Trig/Chol/HDL) 11/30/2013 Triglycerides 31 mg/dL Low 40- 200 Cholesterol 162 mg/dL Less than 200 HDL Cholesterol 75 mg/dL High 40-60 75 Cholesterol/HDL Ratio 2.2 Average 1-4.44 LDL Cholesterol 80.8 Less Than 100 76 Ua Routine 11/07/2013 Ua Specific [place] 1.005 Ua PH 5 Ua Color yellow Ua Appera clear Ua WBC neg Ua Protein neg Ua Glucose neg Ua Ketones neg Ua Bilirubin small Ua Urobilinogen neg Ua Nitrite neg Ua Occult Blood neg Laboratory test 10/29/2013 Rapid Strep A negative finding Surgical Pathology 07/20/2013 S RUN DATE: <SEE NOTE> Laboratory test 09/18/2012 Hepatitis C Rna [id number] IU/mL Undetected 78 finding Quantitative HIV-1 Quant w/ Reflex Genotype Undetected copies/mL Undetected 79 Drug Abuse 20 Urine 09/14/2012 Urine Amphetamine Negative ng/mL 80 Urine Barbiturates Negative ng/mL 81 Urine Benzodiazepines Negative ng/mL 82 Urine Cocaine Negative ng/mL 83 Urine Methadone Negative ng/mL 84 Urine Opiates Negative ng/mL 85 Urine Phencyclidine Negative ng/mL Cutoff: 25 Urine Propoxyphene Negative ng/mL 86 Urine Tetrahydrocannabinol Negative ng/mL Cutoff: 20 87 Creatinine 11.7 mg/dL 88 Specific [place] 1.002 89 pH 7.1 Oxidants Negative 90 Urine Opiates Screen Negative 91 Urine Codeine Confirmation Negative ng/mL 92 Urine Hydrocodone Confirm Negative ng/mL 93 Urine Hydromorphone Confirm Negative ng/mL 94 Urine Morphine Confirm Negative ng/mL 95 Urine Oxycodone Confirm Negative ng/mL 96 Urine Opiates Interpretation Negative. 97 1 High reactive sample are considered positive for Hepatitis C 2 Result in log IU/mL is Undetected. ADDITIONAL INFORMATION The quantification range of this assay is 15 to 100,000,000 IU/mL (1.18 log to 8.00 log IU/mL). Testing was performed using the praveen HCV test ([employer] with the Stereomood0 System. Test Performed by: [facility] [address] [place] [address] 3 Serum levels of PSA measured using the [employer] [place] DXI Hybritech immunoassay should not be interpreted as absolute evidence of the presence or absence of disease. The PSA value should be used in conjunction with other pertinent clinical diagnostic procedures. A PSA value in the range of 0.1 to 0.6 ng/ml is indeterminate if being used as an indicator of recurrent or residual disease. The values obtained with different assay methods or kits cannot be used interchangeably. 4 [id number] 5 SEE RESULT BELOW Name: MELITON BUNDY : [address]: Karen Cardona MD Acct: [id number] Unit: [id number] AGE: 52 Location: [facility] [[email or web address]] Re08/09/17 SEX: M Status: [facility] [place] SPEC: [id number] CHANCE: 08/09/171021 [facility] DR: Karen Cardona MD REQ: [id number] RECD: 08/09/173 STATUS: SOUT _ ORDERED: LEVEL 3 COMMENTS: [id number] FINAL DIAGNOSIS Right hand, excision: -- Benign fibroconnective tissue with fibrosis, compatible with Dupuytren's contracture. PRE-OPERATIVE DIAGNOSIS Right long and ring trigger fingers and Dupuytren's contracture. GROSS DESCRIPTION The specimen is received in formalin labeled, Right Hand Dupuytren's Nodule, and consists of a 2.1 by up to 1.0 x 0.4 cm jacome-white irregular rubbery fibrous tissue fragment which is serially sectioned and entirely submitted in one cassette. Signed (signature on file) Arelis Crandall MD 09/16 1140 END OF REPORT * ML=Testing performed at Main Lab DEPARTMENT OF PATHOLOGY, [address] [place] [address] James England M.D. Director [facility] # [id number] REFERENCE VALUE Cutoff: 500 7 REFERENCE VALUE Cutoff: 200 8 REFERENCE VALUE Cutoff: 100 9 Presumptive Positive Drug confirmation to follow. Presumptive Positive means that the screening method is positive, but the test needs to be run by a confirmatory method before being finalized. REFERENCE VALUE Cutoff: 150 10 ADDITIONAL INFORMATION This report is intended for use in clinical monitoring or management of patients. It is not intended for use in employment-related testing. 11 REFERENCE VALUE Cutoff: 200 mg/L 12 Tylenol 3 13 Metabolite of codeine REFERENCE VALUE Cutoff: 100 14 Maddi London, Contin; Also a minor metabolite (10%) of codeine and can be seen in low concentrations (<2,000 ng/mL) with poppy seed ingestion. 15 Metabolite of morphine REFERENCE VALUE Cutoff: 100 16 Metabolite of heroin 17 Lortab, [place], Vicodin; Also a very minor metabolite of codeine and impurity (<1%) of oxycodone. 18 Metabolite of hydrocodone 19 Metabolite of hydrocodone 20 Dilaudid, Exalgo; Also a metabolite of hydrocodone and a minor (<5%) metabolite of morphine. 21 Metabolite of hydromorphone REFERENCE VALUE Cutoff: 100 22 Endocet, Percocet, Oxycontin 23 Metabolite of oxycodone 24 Numorphan, Opana; Also a metabolite of oxycodone. 25 Metabolite of oxymorphone REFERENCE VALUE Cutoff: 100 26 Metabolite of oxymorphone 27 Actiq, Duragesic, Fentora 28 Metabolite of fentanyl 29 Demerol 30 Metabolite of meperidine 31 Narcan 32 Metabolite of naloxone REFERENCE VALUE Cutoff: 100 33 Dolophine 34 Metabolite of methadone 35 Darvon, Darvocet 36 Metabolite of propoxyphene 37 Tradol, Ultram, Ultracet 38 Metabolite of tramadol 39 Nucynta 40 Metabolite of tapentadol 41 Metabolite of tapentadol REFERENCE VALUE Cutoff: 100 42 Buprenex, Suboxone 43 Metabolite of buprenorphine 44 Metabolite of buprenorphine 45 No opioids were detected. The absence of expected drug(s) and/or drug metabolite(s) may indicate non-compliance, altered pharmacokinetics, inappropriate timing of specimen collection relative to drug administration, diluted/adulterated urine, or limitations of testing. ADDITIONAL INFORMATION This test was developed and its performance characteristics determined by [facility] in a manner consistent with CLIA requirements. This test has not been cleared or approved by the U.S. Food and Drug Administration. Test Performed by: [facility] - [address] [address] 46 ADDITIONAL INFORMATION This report is intended for use in clinical monitoring and management of patients. It is not intended for use in employment-related testing. This test was developed and its performance characteristics determined by [facility] in a manner consistent with CLIA requirements. This test has not been cleared or approved by the U.S. Food and Drug Administration. Test Performed by: [facility] - [address] [address] 47 Because ethnic data is not always readily available, this report includes an eGFR for both -Americans and non- Americans. The National Kidney Disease Education Program (NKDEP) does not endorse the use of the MDRD equation for patients that are not between the ages of 18 and 70, are , have extremes of body size, muscle mass, or nutritional status, or are non- or non-. According to the National Kidney Foundation, irrespective of diagnosis, the stage of the disease is based on the level of kidney function: Stage Description GFR(mL/min/1.73 m(2)) 1 Kidney damage with normal or decreased GFR 90 2 Kidney damage with mild decrease in GFR 60-89 3 Moderate decrease in GFR 30-59 4 Severe decrease in GFR 15-29 5 Kidney failure <15 (or dialysis) 48 99th percentile=0.04 ng/mL Troponin results at [facility] and [facility] are not interchangeable. 49 Result in log IU/mL is Undetected. ADDITIONAL INFORMATION The quantification range of this assay is 15 to 100,000,000 IU/mL (1.18 log to 8.00 log IU/mL). Testing was performed by the [employer] AmpliPrep/PRAVEEN TaqMan HCV Test, version 2.0 ([employer] Test Performed by: [place] [address] Wet Press Tender: Meliton Driscoll II, M.D., Ph.D. 50 It is recognized that currently available assays for the detection of antibodies to HIV-1 and/or HIV-2 may not detect all infected individuals. HIV antibodies may be undetectable in some stages of the infection and in some clinical conditions. The performance of this assay has not been established for populations of infants or children. Assayed by Chemiluminescence Microparticle Immunoassay on the Siemens Advia Centaur CP. Values obtained with different methods or kits cannot be used interchangeably.The diagnostic specificity of the ADVIA Centaur 1/O/2 Enhanced assay in the low risk population was 99.90% (6052/6058) with a 95% confidence interval of 99.78 to 99.96%. 51 Result in log IU/mL is Undetected. ADDITIONAL INFORMATION The quantification range of this assay is 15 to 100,000,000 IU/mL (1.18 log to 8.00 log IU/mL). Testing was performed by the [employer]AVE[employer] AmpliPrep/PRAVEEN TaqMan HCV Test, version 2.0 ([employer] Test Performed by: [place] [address] Wet Press Tender: Meliton Driscoll II, M.D., Ph.D. 52 Home Care Giver: [id number] Wong 53 Therapeutic concentration: <50 ug/mL Toxic concentration: >120 ug/mL 54 Because ethnic data is not always readily available, this report includes an eGFR for both -Americans and non- Americans. The National Kidney Disease Education Program (NKDEP) does not endorse the use of the MDRD equation for patients that are not between the ages of 18 and 70, are , have extremes of body size, muscle mass, or nutritional status, or are non- or non-. According to the National Kidney Foundation, irrespective of diagnosis, the stage of the disease is based on the level of kidney function: Stage Description GFR(mL/min/1.73 m(2)) 1 Kidney damage with normal or decreased GFR 90 2 Kidney damage with mild decrease in GFR 60-89 3 Moderate decrease in GFR 30-59 4 Severe decrease in GFR 15-29 5 Kidney failure <15 (or dialysis) 55 Reference Range and Interpretation: TnI (ng/mL) Interpretation Less Than 0.03 ng/mL Not supportive of diagnosis of AL 0.03 - 0.50 ng/mL Indeterminate: suggest serial studies if clinically indicated. Greater than 0.5 ng/mL Consistent with diagnosis of AL 56 The urine specimen was tested at the listed cutoffs: Drug class test level (ng/mL) Amphetamines 500 Barbituates 200 Benzodiazepine metabolites 200 Cocaine metabolites 150 Cannabinoids 50 Opiates 300 Pcp 25 This is a screening procedure. Positive results are not confirmed. Specimen was received without chain of custody. Results should be used for medical purposes only. 57 Reference ranges based on room air. 58 Presumptive Positive 59 Presumptive Positive 60 The urine specimen was tested at the listed cutoffs: Drug class test level (ng/mL) Amphetamines 500 Barbituates 200 Benzodiazepine metabolites 200 Cocaine metabolites 150 Cannabinoids 50 Opiates 300 Pcp 25 This is a screening procedure. Positive results are not confirmed. Specimen was received without chain of custody. Results should be used for medical purposes only. 61 Because ethnic data is not always readily available, this report includes an eGFR for both -Americans and non- Americans. The National Kidney Disease Education Program (NKDEP) does not endorse the use of the MDRD equation for patients that are not between the ages of 18 and 70, are , have extremes of body size, muscle mass, or nutritional status, or are non- or non-. According to the National Kidney Foundation, irrespective of diagnosis, the stage of the disease is based on the level of kidney function: Stage Description GFR(mL/min/1.73 m(2)) 1 Kidney damage with normal or decreased GFR 90 2 Kidney damage with mild decrease in GFR 60-89 3 Moderate decrease in GFR 30-59 4 Severe decrease in GFR 15-29 5 Kidney failure <15 (or dialysis) 62 Therapeutic concentration: <50 ug/mL Toxic concentration: >120 ug/mL 63 Critical Result LACT:4.8 Called to WILFREDO at: 14:13:36 by:[id number] Read back by:[email or web address] 64 RUN DATE: 01/24/15 [facility] LAB LIVE PAGE 1 RUN TIME: [address] [place] [address] Specimen Inquiry Name: MELITON BUNDY : [address]: Laz Barnes NP Acct: [id number] Unit: [id number] AGE: 50 Location: [facility] Re01/21/15 SEX: M Status: REG REF SPEC: [id number] CHANCE: 01/21/15-[address] [facility] [address]: Laz Barnes NP REQ: [id number] RECD: 01/21/15 STATUS: COMP _ SOURCE: THROAT SPDESC: ORDERED: Throat Culture QUERIES: Provider Requisition # [id number] Procedure Result Verified Site Throat Culture Final 01/24/15- 0820 ML Organism 1 KLEBSIELLA PNEUMONIAE Quantity 2+ Organism 2 NORMAL SHEILA Quantity 1+ SIGNIFICANCE QUESTIONED. Throat cultures are clinically indicated to detect the presence of group A strep, arcanobacterium and yeast. In certain cases, predominating organisms will be reported. 1. KLEBSIELLA PNEUMONIAE M.I.C. RX --------- ------ Ampicillin >=32 R Cefazolin <=4 S Cefepime <=1 S Ceftriaxone <=1 S Ciprofloxacin <=0.25 S Gentamicin <=1 S Levofloxacin <=0.12 S Meropenem <=0.25 S Nitrofurantoin 64 I Tetracycline <=1 S Pipercillin/Tazobactam <=4 S Trimethoprim/Sulfamethoxazole <=20 S Amoxicillin/Clavulanic Acid <=2 S CONTINUED ON NEXT PAGE * ML=Testing performed at Main Lab DEPARTMENT OF PATHOLOGY, [facility] [address] [place], [place] [address] James England M.D. Director [facility] # [id number] RUN DATE: 01/24/15 [facility] LAB LIVE PAGE 2 RUN TIME: [address] [facility] [address] [place], [place] [address] Specimen Inquiry Patient: MELITON BUNDY [id number] (Continued) Specimen: [id number] Collected: 01/21/15-1528 Received: 01/21/15-1746 (Continued) Procedure Result Verified Site Throat Culture Final (continued) 01/24/15819 1. KLEBSIELLA PNEUMONIAE (continued) M.I.C. RX --------- ------ Aztreonam <=1 S Contact the Microbiology Department for any additional antibiotic reporting. * ML - MAIN LAB ([facility]) . END OF REPORT * ML=Testing performed at Main Lab DEPARTMENT OF PATHOLOGY, [address] [place] [address] James England M.D. Director [facility] # [id number] 65 ADDITIONAL INFORMATION Analyte Specific Reagent: This test was developed and its performance characteristics determined by [facility]. It has not been cleared or approved by the U.S. Food and Drug Administration. 66 ADDITIONAL INFORMATION Laboratory developed test. Test Performed by: [facility] - [address] [address] Wet Press Tender: Meliton Driscoll II, M.D., Ph.D. 67 Because ethnic data is not always readily available, this report includes an eGFR for both -Americans and non- Americans. The National Kidney Disease Education Program (NKDEP) does not endorse the use of the MDRD equation for patients that are not between the ages of 18 and 70, are , have extremes of body size, muscle mass, or nutritional status, or are non- or non-. According to the National Kidney Foundation, irrespective of diagnosis, the stage of the disease is based on the level of kidney function: Stage Description GFR(mL/min/1.73 m(2)) 1 Kidney damage with normal or decreased GFR 90 2 Kidney damage with mild decrease in GFR 60-89 3 Moderate decrease in GFR 30-59 4 Severe decrease in GFR 15-29 5 Kidney failure <15 (or dialysis) 68 Because ethnic data is not always readily available, this report includes an eGFR for both -Americans and non- Americans. The National Kidney Disease Education Program (NKDEP) does not endorse the use of the MDRD equation for patients that are not between the ages of 18 and 70, are , have extremes of body size, muscle mass, or nutritional status, or are non- or non-. According to the National Kidney Foundation, irrespective of diagnosis, the stage of the disease is based on the level of kidney function: Stage Description GFR(mL/min/1.73 m(2)) 1 Kidney damage with normal or decreased GFR 90 2 Kidney damage with mild decrease in GFR 60-89 3 Moderate decrease in GFR 30-59 4 Severe decrease in GFR 15-29 5 Kidney failure <15 (or dialysis) 69 RUN DATE: 07/04/14 [facility] LAB LIVE PAGE 1 RUN TIME: [address] [place] [address] Specimen Inquiry Name: MELITON BUNDY : [address]: Osman Soriano MD Acct: [id number] Unit: [id number] AGE: 49 Location: [facility] Re07/01/14 SEX: M Status: DEP ER SPEC: [id number] CHANCE: 07/01/[address]: Osman Soriano MD REQ: [id number] RECD: 07/02/14 STATUS: SETH HARTMAN DR: Mihai Wong MD _ SOURCE: ARM LEFT SPDESC: ORDERED: Culture Stain Procedure Result Verified Site Wound/Misc Gram Stain Final 07/02/14- 1417 ML 2+ Epithelial Cells 1+ Nucleated Cells No Organisms Seen Wound/Misc Culture Final 07/04/14- 0857 ML Organism 1 STAPHYLOCOCCUS AUREUS Quantity 1+ 1. STAPHYLOCOCCUS AUREUS M.I.C. RX --------- ------ Penicillin >=0.5 R Clindamycin <=0.25 S Erythromycin >=8 R Gentamicin <=0.5 S Linezolid 2 S Nitrofurantoin <=16 S Oxacillin 0.5 S * Quinupristin/Dalfopristin <=0.25 S Rifampin <=0.5 S Tetracycline <=1 S Doxycycline - Deduced S * Minocycline - Deduced S Trimethoprim/Sulfamethoxazole <=10 S Vancomycin 1 S Imipenem-Deduced S CONTINUED ON NEXT PAGE * ML=Testing performed at Main Lab DEPARTMENT OF PATHOLOGY, [facility] [place] [address] James England M.D. Director [facility] # [id number] RUN DATE: 07/04/14 [facility] LAB LIVE PAGE 2 RUN TIME: [address] [facility] [address] [place] [address] Specimen Inquiry Patient: MELITON BUNDY [id number] (Continued) Specimen: [id number] Collected: 07/01/14 Received: 07/02/14 (Continued) Procedure Result Verified Site Wound/Misc Culture Final (continued) 07/04/14- 856 1. STAPHYLOCOCCUS AUREUS (continued) M.I.C. RX --------- ------ * Ampicillin/Sulbactam-Deduced S Cefazolin-Deduced S * These antibiotics are not available in the [facility] Formulary Contact the Microbiology Department for any additional antibiotic reporting. END OF REPORT * ML=Testing performed at Main Lab DEPARTMENT OF PATHOLOGY, [address] [place] [address] James England M.D. Director [facility] # [id number] 70 Because ethnic data is not always readily available, this report includes an eGFR for both -Americans and non- Americans. The National Kidney Disease Education Program (NKDEP) does not endorse the use of the MDRD equation for patients that are not between the ages of 18 and 70, are , have extremes of body size, muscle mass, or nutritional status, or are non- or non-. According to the National Kidney Foundation, irrespective of diagnosis, the stage of the disease is based on the level of kidney function: Stage Description GFR(mL/min/1.73 m(2)) 1 Kidney damage with normal or decreased GFR 90 2 Kidney damage with mild decrease in GFR 60-89 3 Moderate decrease in GFR 30-59 4 Severe decrease in GFR 15-29 5 Kidney failure <15 (or dialysis) 71 Because ethnic data is not always readily available, this report includes an eGFR for both -Americans and non- Americans. The National Kidney Disease Education Program (NKDEP) does not endorse the use of the MDRD equation for patients that are not between the ages of 18 and 70, are , have extremes of body size, muscle mass, or nutritional status, or are non- or non-. According to the National Kidney Foundation, irrespective of diagnosis, the stage of the disease is based on the level of kidney function: Stage Description GFR(mL/min/1.73 m(2)) 1 Kidney damage with normal or decreased GFR 90 2 Kidney damage with mild decrease in GFR 60-89 3 Moderate decrease in GFR 30-59 4 Severe decrease in GFR 15-29 5 Kidney failure <15 (or dialysis) 72 Therapeutic concentration: <50 ug/mL Toxic concentration: >120 ug/mL 73 It is recognized that currently available assays for the detection of antibodies to HIV-1 and/or HIV-2 may not detect all infected individuals. HIV antibodies may be undetectable in some stages of the infection and in some clinical conditions. The performance of this assay has not been established for populations of infants or children. Assayed by Chemiluminescence Microparticle Immunoassay on the Siemens Advia Centaur CP. Values obtained with different methods or kits cannot be used interchangeably.The diagnostic specificity of the AD[employer]IA Centaur 1/O/2 Enhanced assay in the low risk population was 99.90% (6052/6058) with a 95% confidence interval of 99.78 to 99.96%. 74 Because ethnic data is not always readily available, this report includes an eGFR for both -Americans and non- Americans. The National Kidney Disease Education Program (NKDEP) does not endorse the use of the MDRD equation for patients that are not between the ages of 18 and 70, are , have extremes of body size, muscle mass, or nutritional status, or are non- or non-. According to the National Kidney Foundation, irrespective of diagnosis, the stage of the disease is based on the level of kidney function: Stage Description GFR(mL/min/1.73 m(2)) 1 Kidney damage with normal or decreased GFR 90 2 Kidney damage with mild decrease in GFR 60-89 3 Moderate decrease in GFR 30-59 4 Severe decrease in GFR 15-29 5 Kidney failure <15 (or dialysis) 75 HDL Interpretation: Undesirable: High Risk: Less than 40 mg/dL Desirable: Low Risk: Greater than 60 mg/dL 76 LDL Interpretation: Low Risk Optimal Level: LDL Less than 100 mg/dL Near or Above Optimal: LDL 100-129 mg/dL Borderline High Risk: LDL 130-159 mg/dL High Risk: LDL 160-189 mg/dL Very High Risk: LDL Greater than 189 mg/dL 77 RUN DATE: 07/24/13 [facility] LAB LIVE PAGE 1 RUN TIME: [address] [place] [address] Specimen Inquiry Name: MELITON BUNDY [place] : [address]: Karen Cardona MD Acct: [id number] Unit: [id number] AGE: 48 Location: [email or web address] Re07/20/13 SEX: M Status: REG [facility] SPEC: [id number] CHANCE: 07/20/13- SUBM DR: Karen Cardona MD REQ: [id number] RECD: 07/20/13-1625 STATUS: SOUT _ ORDERED: LEVEL III FINAL DIAGNOSIS Soft tissue, right wrist, resection: Traumatic neuroma (see comment). COMMENTS: No cystic features identified. PRE-OPERATIVE DIAGNOSIS Ganglion cyst right wrist GROSS DESCRIPTION The specimen is received in formalin labeled Meliton Bundy, Mass Right Wrist, and consists of a nodular fibrous and fatty mass measuring 2.2 x 1.3 x 0.8 cm. The specimen is sectioned and submitted entirely, one cassette. Signed (signature on file) James England MD 1628 END OF REPORT * ML=Testing performed at Main Lab DEPARTMENT OF PATHOLOGY, [address] [place] [address] James England M.D. Director [facility] Permit #[id number] Result in log IU/mL is 6.83. The quantification range of this assay is 43 IU/mL to 69,000,000 IU/mL (1.63 log IU/mL to 7.84 log IU/mL). Testing was performed by the [employer] AmpliPrep/PRAVEEN TaqMan HCV Test ([employer] Test Performed by: [address] [address] Wet Press Tender: David Joe III, M.D. R 79 Result in log copies/mL is Undetected The quantification range of this assay is 20 copies/mL to 10,000,000 copies/mL (1.30 log copies/mL to 7.00 log copies/mL). Testing was done by the [employer] AmpliPrep/PRAVEEN TaqMan HIV-1 Test version 2.0 ([employer] Genotype not performed due to HIV-1 viral load below 1,000 copies/mL. Test Performed by: [place] [address] Wet Press Tender: David Joe III, M.D. R 80 -- REFERENCE VALUE -- Cutoff: 500 R 81 -- REFERENCE VALUE -- Cutoff: 200 R 82 -- REFERENCE VALUE -- Cutoff: 200 R 83 -- REFERENCE VALUE -- Cutoff: 150 R 84 -- REFERENCE VALUE -- Cutoff: 300 R 85 -- REFERENCE VALUE -- Cutoff: 300 R 86 -- REFERENCE VALUE -- Cutoff: 300 R 87 This report is intended for use in clinical monitoring or management of patients. It is not intended for use in employment-related testing. R 88 Specimen unusually dilute. R 89 Specimen unusually dilute. R 90 Test Performed by: [place] [id number] Wet Press Tender: David Joe III, M.D. R 91 -- REFERENCE VALUE -- Cutoff: 300 R 92 -- REFERENCE VALUE -- Cutoff: 100 R 93 -- REFERENCE VALUE -- Cutoff: 100 R 94 -- REFERENCE VALUE -- Cutoff: 100 R 95 -- REFERENCE VALUE -- Cutoff: 100 R 96 -- REFERENCE VALUE -- Cutoff: 100 R 97 This report is intended for use in clinical monitoring and management of patients. It is not intended for use in employment-related testing. Test Performed by: [place] [address] Wet Press Tender: David Joe III, M.D. R Procedures Date CPT Code Description Status Comment 08/29/2017 Inject/Drain Joint/Bursa Major Completed 08/09/2017 53968 Trigger Finger Release Incision / Tendon Sheath Completed Incision 08/09/2017 62917 Trigger Finger Release Incision / Tendon Sheath Completed Incision 08/09/2017 40696 Trigger Finger Release Incision / Tendon Sheath Completed Incision 08/09/2017 58412 Trigger Finger Release Incision / Tendon Sheath Completed Incision 07/21/2017 Inject/Drain Joint/Bursa Intermediate Completed 07/20/2017 Inject/Drain Joint/Bursa Intermediate Completed 07/20/201735878 Inject Tendon Sheath Or Ligament Aponeurosis Eg Completed Plantar Fascia 11/08/2016 Inject/Drain Joint/Bursa Intermediate Completed 10/07/2016 Inject/Drain Joint/Bursa Major Completed 07/14/2016 Inject/Drain Joint/Bursa Intermediate Completed 07/14/2016 Inject/Drain Joint/Bursa Intermediate Completed 11/20/201595714 Inject Tendon Sheath Or Ligament Aponeurosis Eg Completed Plantar Fascia 09/29/2015 Inject/Drain Joint/Bursa Major Completed 09/29/2015 Inject/Drain Joint/Bursa Intermediate Completed 05/29/2015 07185 Pulmonary Function><Bronchodil Completed 02/13/2015 Inject/Drain Joint/Bursa Intermediate Completed 02/02/2015 18901 EKG, Interpretation Only Completed 06/13/201469384 Inject Tendon Sheath Or Ligament Aponeurosis Eg Completed Plantar Fascia 06/13/2014 Inject/Drain Joint/Bursa Intermediate Completed 06/13/2014 Inject/Drain Joint/Bursa Major Completed 02/07/201400553 Injection Single Tendon Origin/Insertion Completed 12/14/2013 Colonoscopy Completed 12/04/2013 Colonoscopy Completed 11/29/2013 Inject/Drain Joint/Bursa Small Completed 11/29/201377644 Inject Tendon Sheath Or Ligament Aponeurosis Eg Completed Plantar Fascia 10/17/2013 Inject/Drain Joint/Bursa Major Completed 10/17/2013 08447 Xray Knee 3 Views Completed 07/20/2013 11417 Excision Tumor Soft Tissue Forearm/Wrist Completed Subcutaneous < 3 CM 07/05/2013 Inject/Drain Joint/Bursa Intermediate Completed 07/05/2013 Inject/Drain Joint/Bursa Small Completed 07/05/2013 94553 Inject Tendon Sheath Or Ligament Aponeurosis Eg Completed RT Plantar Fascia 03/16/2013 02661 Nerve Conduction 05-06 Studies Completed 12/20/2012 43061 Rad Exam; Hand Comp Completed 12/20/2012 Inject/Drain Joint/Bursa Intermediate Completed 12/20/2012 Inject/Drain Joint/Bursa Intermediate Completed 12/06/2012 85516 Rad Exam; Hand Limited Completed 11/08/2012 66943 Short Arm Splint Application Completed 11/08/2012 29039 Closed TX Metacarpal FX Single W/O Completed Manipulation, Ea Bone 08/21/2012 00272 EEG Recording Awake & Asleep Completed Encounters Type Date Location Provider CPT E/M Dx Office Visit 11/07/2017 [facility] M.D. 57668 S83.242A 10:45a C.M.AMushtaq S83.242D Office Visit 10/12/2017 10:30a [facility] M.D. 48037 M25.562 C.MJohnny M25.462 M17.12 S83.242D Office Visit 09/28/2017 2:20p [facility] Internal Mihai Wong, [address] M51.16 Medicine - [address] Veda,FACP F33.0 M65.341 J40 Office Visit 09/26/2017 2:45p [facility] M.D. 24038 S83.242A C.M.AMushtaq Office Visit 09/14/2017 2:40p [facility] [facility] Nayan Soares, 76711 F33.0 - Kenyon Mccollum G47.00 J06.9 M51.16 M50.10 Office Visit 08/31/2017 8:40a [facility] Nayan Soares, 37256 Z00.01 Lenore Kenyon Mccollum F33.0 M54.31 B18.2 M50.10 Z12.5 Z23 Office Visit 08/29/2017 11:00a [facility] Mike Stern M.D. 06702 M70.42 C.M.AMushtaq M25.562 Office Visit 08/01/2017 10:15a [facility] Karen Cardona, 20486 M65.331 Of Fanta Mccollum M65.341 M72.0 Office Visit 07/13/2017 3:40p [facility] - Gerber Arroyo, [employer] [address] M50.10 M54.42 G47.00 G43.009 M25.532 S56.125A M54.31 S61.214A Office Visit 07/01/2017 3:00p [facility] Internal Nayan Soares, 57139 M54.42 Medicine - [place] Anastacio Mccollum M50.10 Office Visit 02/17/2017 10:30a [facility] Internal Mihai Wong, 44014 J44.0 Medicine - [place] Anastacio Mccollum,FACP Office Visit 01/10/2017 11:40a [facility] [place] [address] G89.4 Medicine - [address] Office Visit 11/08/2016 2:30p [facility] Martin Steel, 94697 S43.51xA Of Fanta HALL M19.011 M75.41 M75.31 Office Visit 10/22/2016 1:40p [facility] Internal Mihai Wong, 00531 S06.0x0D Medicine - [place] Anastacio Mccollum,FACP M25.511 M54.42 Z23 Office Visit 10/07/2016 3:20p [facility] Carlita Menjivar, 26915 M25.511 Of Fanta MOTA M19.011 M75.31 Office Visit 06/25/2016 4:00p [facility] [place] [address] L03.113 - [place] Office Visit 04/13/2016 10:50a [facility] Mihai Wong, 71603 K57.32 -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
== END 2017-11-19 20:59 | disposition short-term general hospital (02) ==
LOC: UCEAST 20:07
DX: M25.562 Pain in left knee (principal); M54.2 Cervicalgia; M54.9 Dorsalgia, unspecified; Z88.0 Allergy status to penicillin; J45.909 Unspecified asthma, uncomplicated; K21.9 Gastro-esophageal reflux disease without esophagitis; Z87.891 Personal history of nicotine dependence
CPT/HCPCS: 99213; G0463

== ENCOUNTER 2017-11-19 21:15 | Emergency (ER) | payer OTHER ==
[2017-11-19] MEDS ORDERED: Iodixanol* (CONTRAST) 320 MG/ML 100 ML SDV IV ONE (22:40)
[2017-11-19 23:14] LABS: ABS Basophils 0.1 10^3/ul (0-0.2); ABS Eosinophils 0.1 10^3/ul (0-0.6); ABS Lymphocytes 2.5 10^3/ul (1.0-4.8); ABS Monocytes 0.7 10^3/ul (0-0.8); ABS Neutrophils 2.3 10^3/ul (1.5-7.7); ABS Nucleated RBC 0 10^3/ul; Eosinophil % 1.6 % (0-6); Hematocrit 40 % (42-52); Hemoglobin 13.4 g/dl (14.0-18.0); Lymphocyte % 44.6 % (25-47); Mean Corpuscular HGB Conc 34 g/dl (31-36); Mean Corpuscular Hemoglobin 31 pg (27-31); Mean Corpuscular Volume 91 fL (80-94); Mean Platelet Volume 8 um3 (7.4-10.4); Nucleated Red Blood Cells % 0; Platelet Count 256 10^3/ul (150-450); Red Blood Count 4.32 10^6/ul (4.0-5.4); Red Cell Distribution Width 14 % (10.5-15); White Blood Count 5.7 10^3/ul (3.5-10.8)
[2017-11-20] MEDS ORDERED: Acetaminophen TAB* 325 MG PO ONE (00:41)
[2017-11-20] MEDS ORDERED: Ketorolac INJ* 30 MG/ML 1 ML VIAL IV PUSH ONE (00:52)
[2017-11-20 00:57] LABS: Urine Appearance Clear; Urine Blood Negative (Negative); Urine Color Yellow; Urine Ketones Trace (Negative); Urine Protein Negative (Negative); Urine Specific Gravity 1.042 (1.010-1.030); Urine Urobilinogen Negative (Negative)
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
[2017-11-20 01:23] VITALS: BP 138/99
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
--- NOTE | 2017-11-20 08:12 | RAD ---
HISTORY: Right shoulder pain, trauma COMPARISONS: September 07, 2017 VIEWS: 5, Frontal internal rotation, external rotation, outlet, and axillary views of the right shoulder FINDINGS: Evaluation somewhat limited by positioning. BONE DENSITY: Normal. BONES: There is no displaced fracture. JOINTS: There is osteoarthritis of the a.c. and glenohumeral joints. ALIGNMENT: There is no dislocation. SOFT TISSUES: Unremarkable. OTHER FINDINGS: None. IMPRESSION: OSTEOARTHRITIS. NO ACUTE OSSEOUS INJURY. IF SYMPTOMS PERSIST, RECOMMEND REPEAT IMAGING.
== END 2017-11-20 01:30 | disposition home or self-care (01) ==
LOC: ED 21:15
DX: S16.1XXA Strain of muscle, fascia and tendon at neck level, initial encounter (principal); M25.511 Pain in right shoulder; R51 Headache; M54.5 Low back pain; R44.3 Hallucinations, unspecified; Z87.891 Personal history of nicotine dependence; M25.562 Pain in left knee; V09.9XXA Pedestrian injured in unspecified transport accident, initial encounter; Y92.410 Unspecified street and highway as the place of occurrence of the external cause; Z87.19 Personal history of other diseases of the digestive system
CPT/HCPCS: 36415; 70450; 71260; 72125; 74177; 80053; 80320; 81003; 83605; 85025; 93005; 96374; 99285; G0480; J1885; Q9967

== ENCOUNTER → 2017-11-29 05:56 | Day surgery (SDC) | payer OTHER ==
--- NOTE | 2017-11-08 06:45 | HP ---
HISTORY AND PHYSICAL: DATE OF ADMISSION: Entering [facility] 11/29/17 for left knee arthroscopic surgery. CHIEF COMPLAINT: Left knee pain and feelings of catching in hyperextension. HISTORY OF PRESENT ILLNESS: The patient has had months of left knee problems and years of left knee problems following ACL reconstruction. Recent workup has shown medial meniscal tearing and ACL graft that may be insufficient and left knee arthritis. He has had discussion with myself and with Dr. Juárez regarding the surgical care for the left knee, total knee replacement can be considered but we recommended left knee arthroscopic surgery to try to help with debridement as necessary and medial meniscectomy. Guarantees have not been made about the procedure. PAST MEDICAL HISTORY: He has not had heart attack. He has had a history of chest pain that was investigated and not felt to be cardiac related. No history of DVT or pulmonary embolism. He is an ex-smoker, quit in about 2015. He has had sciatica, cervical disk disorder, and his current complaints of low back pain, left knee, and right shoulder. The patient injured his left knee on 10/26/17 and sustained a cut to the left anterior knee and he was seen and checked in the emergency room with AP and lateral knee x-rays that did not show fracture. MEDICATIONS: His daily meds include: 1. Tramadol 50 mg, which has not been helping him much. 2. He uses Tylenol every 8 hours. 3. He is on naproxen 500 b.i.d. 4. He uses Flexeril 10 mg up to 3 times a day. 5. For headaches, he uses sumatriptan 50 mg 1 tablet every 2 hours as needed. 6. He has an EpiPen for bee stings. 7. He takes omeprazole 20 mg when needed. 8. He is on calcium and vitamin D. 9. He takes glucosamine. PHYSICAL EXAMINATION GENERAL: Well nourished, well developed, not acutely distressed. He is talkative. VITAL SIGNS: His height 65 inches, weight 160, blood pressure 144/80. HEENT: The head is NC/AT. LUNGS: Clear bilaterally. HEART: The heart is regular. I do not appreciate murmurs or gallops. ABDOMEN: Soft, nontender. There is no organomegaly. EXTREMITIES: The left posterior tibial pulse is 2+ and left knee has no effusion. Left knee has slight instability of the MCL with opening and pain produced. Charles is positive. Posterior drawer is negative. _MCL is stable. The knee is nontender anteriorly, laterally, and posteriorly, and he is tender medially. The thigh and calf are soft. NEUROLOGIC: Cranial nerves are grossly intact. DIAGNOSTIC STUDIES: Knee radiographs had been obtained. There are mild degenerative changes. There is EndoButton and screw on the tibia. There is evidence of old ACL reconstruction. The MRI scan shows popliteal cyst, medial meniscal tearing, and arthritic changes in the medial and the patellofemoral compartments. IMPRESSION: Left knee medial meniscal tear. RECOMMENDATIONS: Left knee arthroscopic surgery. After the surgery, he knows he will have to use his cane or his walker and physical therapy referral will be given. His questions were answered. [id number]/CPS #: [id number] SHERIN
[~2017-11-29 05:56] MED LIST changes: +Buffered Lidocaine 0.9% SYRIN* 5 ML/SYR SYRINGE ONE; +Bupivacaine 0.5% SDV PF* 10-30ML VIAL ONE; +Glycopyrrolate IV* 0.2 MG/ML 1 ML VIAL ONE; +HYDROcodone/ACETAMIN 5-325 MG* 1 TAB ONE; +Ketorolac INJ* 30 MG/ML 1 ML VIAL ONE; +Lidocaine 1% MPF wEPI 200,000* 30 ML SDV ONE; +Lidocaine 2% PF * 5 ML VIAL ONE; +Naloxone* 0.4 MG/ML 1 ML VIAL IV PRN; +Propofol* 10 MG/ML 20 ML BTL IV PUSH ONE; +Sodium Citrate/Citric Acid* 15 ML UDC ONE; +Sodium Citrate/Citric Acid* 15 ML UDC PO ONE; +ceFAZolin 2 GM PREMIX (*) 0 GM/0 ML BAG IVPB ONE; +fentaNYL* 50 MCG/ML 2 ML VIAL (100 MCG VIAL) IV PRN; +fentaNYL* 50 MCG/ML 2 ML VIAL (100 MCG VIAL) ONE
[2017-11-29 10:57] VITALS: BP 121/93
--- NOTE | 2017-11-29 23:09 | OP ---
DATE OF OPERATION: 11/29/17 - SDS DATE OF : 61 SURGICAL CARE: Left knee. SURGEON: Mike Stern MD SEQUINS STRINGER: SHAHRAM Parekh, sales assistants and salespersons. ANESTHESIOLOGIST: Dr. Tyler Cisse. ANESTHESIA: LMA general. PRE-OP DIAGNOSIS: Left knee medial meniscal tear. POST-OP DIAGNOSES: Left knee medial meniscal tear and limited synovitis and painful hardware (Endobutton) on the left knee. Procedure: Left knee partial medial menisectomy, limited synovectomy, and removal of painful hardware COMPLICATIONS: There were no complications. DRAINS: There were no drains. TOURNIQUET: Tourniquet control was utilized on the left thigh. BLOOD LOSS: 80 mL. FLUIDS: Replacement crystalloid fluids. The knee was instilled with Marcaine 0.5% without epinephrine at the end of the case. Approximately 30 mL. INDICATIONS: Persistent knee pain. He has noted medial pain. He has had anterolateral pain and crepitations. The patient had ACL reconstruction years ago and he has some arthritis in his patellar and medial compartments by MRI scan. DESCRIPTION OF PROCEDURE: The patient was brought to the operating room and placed on the operating room table in a supine position. Following the administration of the anesthetic, the left thigh was wrapped with tourniquet and the left leg was given a preliminary chlorhexidine prep and then a formal surgical prep from the tourniquet to the foot. The leg was prepped and draped free and sealed off in the usual fashion for arthroscopic surgery of the knee. The leg, ankle, and foot portion was sealed off with an impermeable drape with Vi-Drape wrapped around the calf with top of that. After the prepped, draped and sealing off, we did our universal protocol time-out confirming Meliton Jae and a plan for left knee arthroscopic surgery. We all agreed and we proceeded. The crepitations on the anterolateral superior patellar region were noted with knee flexion and extension. His Charles test had positivity. Posterior drawer has been negative. The leg was exsanguinated. The tourniquet was elevated to 275. The knee was setup for arthroscopy with the arthroscope lateral to the patellar tendon, probe and operating instruments medial to the patellar tendon and inflow catheter superomedial to the patella. A fourth portal was made superolateral to the patella to remove the Endobutton and do some limited synovectomy in that region. On survey of the joint, the patellofemoral cartilage on the patellar side was somewhat yellowed and somewhat thin laterally but no large flaps or fissuring. On the trochlear side , he had diffuse cartilage loss and the remaining cartilage was cobblestoned and there was not a lot of loose cartilage there. The Endobutton was visible at the lateral aspect of the patellofemoral joint just going onto the lateral surface of the distal femoral metaphysis. There was synovitis opposite to Endobutton and some in the region of the Endobutton and the tape was evident there as well. The lateral femoral condyle, lateral meniscus, lateral tibial plateau were in quite good condition. The ACL graft was somewhat anterior and the bulbous portion was not taking any tension and it was 1 cm plus in size and impinged on the joint with knee extension. After a photograph, this portion was removed leaving the ACL graft that did not have any redundancy in it. The medial femoral condyle and medial tibial plateau with some yellowing and cartilage thinning. The medial meniscus was torn posteriorly on the inner one half for 2 cm and once this was evident and I used to basket this to smooth this area and the fragments were removed with a shaver and suction. Once the partial medial meniscectomy was completed and removal of the bulbous portion of the ACL graft, then the Endobutton was removed. I made a portal superolateral. The basket was brought in and what appeared to be a Mersilene tape was snipped some with basket and then removal was finished with a shaver on the deep side of the Endobutton on the tape. The Endobutton fell into the lateral gutter and it was easily retrieved and removed. Photograph was obtained and then local synovectomy was completed around the exiting hole of the Endobutton and on the adjacent synovium where he had had some crepitations. The tourniquet was then deflated after final photographs. The knee was irrigated with another 4 L of saline irrigation solution, then emptied. When we emptied it, there was still blood within the knee and this was milked and squeezed out some and then the knee was instilled with Marcaine 0.5% without epinephrine approximately 30 mL. The skin portals were closed with interrupted 3-0 Surgipro and a dressing was applied after washing and drying of Betadine soaked release, sterile gauze, sterile Webril, cryotherapy cuff, two ABD pads and then a 6- inch Kyle bandage loosely applied. The patient was returned to the recovery room in stable and satisfactory condition having tolerated the procedure very well. [id number]/[facility] #: [id number] SHERIN
== END | disposition home or self-care (01) ==
LOC: OR 05:56
PROVIDERS: ATTEND Orthopaedic Surgery
DX: M23.204 Derangement of unspecified medial meniscus due to old tear or injury, left knee (principal); M65.862 Other synovitis and tenosynovitis, left lower leg; T84.84XA Pain due to internal orthopedic prosthetic devices, implants and grafts, initial encounter; Y83.1 Surgical operation with implant of artificial internal device as the cause of abnormal reaction of the patient, or of later complication, without mention of misadventure at the time of the procedure; Z87.891 Personal history of nicotine dependence; J45.909 Unspecified asthma, uncomplicated
CPT/HCPCS: 88300; 88304; A9270-GY; J0690; J1885; J2001; J2704; J3010

== ENCOUNTER 2017-11-29 19:36 | Emergency (ER) | payer OTHER ==
[2017-11-29] MEDS ORDERED: traMADol TAB* 50 MG PO ONE (20:40)
--- NOTE | 2017-11-29 20:42 | ED ---
Lower Extremity - HPI Summary HPI Summary: 52F presents with left knee pain today. He had surgery by Dr. Stern today. He states he fixed meniscus and ACL. He states he went home and then developed sharp burning pain in the knee. He states it is a burn like sensation. He denies any numbness or tingling. He has been using the ice machine that was provided and it has been helping. He states the pain medication helped. He states he feels hot in his face and his stomach. He is wondering he is having an allergic reaction to this new yogurt that he ate. He denies any chest pain or SOB. He denies any headache or body aches. He admits to generalized abdominal pain. He states the pain started after he took his pain medication without eating. He has been using crutches to get around. He has a follow up with ortho on Tuesday. He is not on blood thinners. - History of Current Complaint Chief Complaint: EDExtremityLower Stated Complaint: POST SURGERY/BURNING IN KNEE Time Seen by Provider: 11/29/17 20:23 Pain Intensity: 9 - Allergies/Home Medications Allergies/Adverse Reactions: Allergies Allergy/AdvReac Type Severity Reaction Status Date / Time MS Bee Venom [Bee Venom] Allergy Severe clammy and Verified 11/29/17 06:15 choking MS Penicillins [Penicillins] Allergy Severe Anaphylatic Verified 11/29/17 06:15 Shock MS Piperacillin [From Zosyn] Allergy Unknown Verified 11/29/17 06:15 Reaction Details MS Tazobactam [From Zosyn] Allergy Unknown Verified 11/29/17 06:15 Reaction Details PMH/Surg Hx/FS Hx/Imm Hx Endocrine/Hematology History: Denies: Hx Anticoagulant Therapy, Hx Blood Disorders, Hx Blood Transfusions, Hx Bone Marrow Disease, Hx Diabetes, Hx Systemic Lupus Erythematosus, Hx Sickle Cell Disease, Hx Thyroid Disease, Hx Anemia, Hx Unexplained Bleeding, Other Endocrine/Hematological Disorders Cardiovascular History: Denies: Hx Aneurysm, Hx Angina, Hx Angioplasty, Hx Auto Implanted Cardiovert Defib, Hx Cardiac Arrest, Hx Cardiomegaly, Hx Congenital Heart Disease, Hx Congestive Heart Failure, Hx Coronary Artery Disease, Hx Deep Vein Thrombosis, Hx Embolism, Hx Hypercholesterolemia, Hx Hypotension, Hx Hypertension, Hx Pacemaker/ICD, Hx Peripheral Vascular Disease, Hx Rheumatic Fever, Hx Syncope, Hx Valvular Heart Disease, Other Cardiovascular Problems/Disorders - pt ams - unable to get info from pt Respiratory History: Reports: Hx Asthma Denies: Hx Chronic Bronchitis, Hx Chronic Obstructive Pulmonary Disease (COPD ), Hx Cystic Fibrosis, Hx Lung Cancer, Hx Pleural Effusion, Hx Pneumonia, Hx Pulmonary Edema, Hx Pulmonary Embolism, Hx Seasonal Allergies, Hx Sleep Apnea, Other Respiratory Problems/Disorders GI History: Reports: Hx Gastroesophageal Reflux Disease, Other GI Disorders - diverticulitis 2016 Denies: Hx Ulcer History: Denies: Hx Acute Renal Failure, Hx Benign Prostatic Hyperplasia, Hx Chronic Renal Failure, Hx Dialysis, Hx Kidney Infection, Hx Kidney Stones, Hx Renal Disease, Other Problems/Disorders Musculoskeletal History: Reports: Hx Back Problems Denies: Hx Arthritis, Hx Bursitis, Hx Congenital Bone Abnormalities, Hx Fibromyalgia, Hx Gout, Hx Orthopedic Injury, Hx Osteoporosis, Hx Scoliosis, Hx Tendonitis, Other Musculoskeletal History Sensory History: Denies: Hx Cataracts, Hx Contacts or Glasses, Hx Eye Injury, Hx Eye Prosthesis, Hx Glaucoma, Hx Legally Blind, Hx Macular Degeneration, Hx Vision Problem, Hx Deafness, Hx Hearing Aid, Hx Hearing Problem, Other Sensory Impairments Opthamlomology History: Denies: Hx Cataracts, Hx Contacts or Glasses, Hx Eye Injury, Hx Eye Prosthesis, Hx Glaucoma, Hx Legally Blind, Hx Macular Degeneration, Hx Vision Problem, Other Sensory Impairments Neurological History: Reports: Hx Headaches, Hx Nerve Disease - GREATER RIGTH OCCIPITAL NERVE PINCHED, Other Neuro Impairments/Disorders - substance abuse pt alert but not oriented/speaking unintelligible words Denies: Hx Dementia, Hx Developmental Delay, Hx Migraine, Hx Seizures, Hx Spinal Cord Injury, Hx Transient Ischemic Attacks (TIA) Psychiatric History: Reports: Hx Anxiety, Hx Attention Deficit Hyperactivity Disorder, Hx Depression - HX OF, Hx Substance Abuse - Bath Salts, unknown substances Denies: Hx Panic Disorder - Cancer History Hx Chemotherapy: No - Surgical History Surgery Procedure, Year, and Place: Left acl reconstruction. ulnar nerve- [facility] - CARPAL TUNNEL & ELBOWS. left shoulder/clavicle. excision of gangion cystx3 SEVERAL HERE. left wrist surgery. RIGHT HAND. LEFT POINTER FINGER Hx Anesthesia Reactions: No - Immunization History Date of Influenza Vaccine: 07/2017 Infectious Disease History: No Infectious Disease History: Reports: Hx Hepatitis - history of hepc + Denies: Hx Clostridium Difficile, Hx Human Immunodeficiency Virus (HIV), Hx of Known/Suspected MRSA, Hx Shingles, Hx Tuberculosis, Hx Known/Suspected VRE, Hx Known/Suspected VRSA, History Other Infectious Disease, Traveled Outside the [place] in Last 30 Days - Family History Known Family History: Positive: None, Unknown - patient intoxicated, cannot retrieve PMHx - Social History Alcohol Use: None Alcohol Amount: LAST 3 YEARS AGO Hx Substance Use: No Substance Use Type: Reports: None, Prescribed Substance Use Comment - Amount & Last Used: hx cocaine; MJ; "pills" (treatment for drugs in past) Hx Tobacco Use: Yes Smoking Status (MU): Former Smoker Type: Cigarettes Amount Used/How Often: 4 daily Review of Systems Positive: Other - abdomen and facial warmth. Negative: Fever Negative: Chest Pain Negative: Shortness Of Breath Positive: Abdominal Pain Positive: Myalgia - left knee pain All Other Systems Reviewed And Are Negative: Yes Physical Exam Triage Information Reviewed: Yes Vital Signs On Initial Exam: Initial Vitals Temp Pulse Resp BP Pulse Ox 98 F 92 22 133/77 97 11/29/17 19:37 11/29/17 19:37 11/29/17 19:37 11/29/17 19:37 11/29/17 19:37 Vital Signs Reviewed: Yes Appearance: Positive: Well-Appearing Skin: Positive: Warm, Dry Head/Face: Positive: Normal Head/Face Inspection Eyes: Positive: Normal, EOMI, BRIGITTE, Conjunctiva Clear ENT: Positive: Normal ENT inspection, Pharynx normal, TMs normal Respiratory/Lung Sounds: Positive: Clear to Auscultation, Breath Sounds Present Cardiovascular: Positive: Normal, RRR Abdomen Description: Positive: Nontender, Soft Bowel Sounds: Positive: Present Musculoskeletal: Positive: Other - has splint from left thigh to lower leg, sensation grossly intact, good pulses, capillary refill<2 secs Neurological: Positive: Sensory/Motor Intact, Alert, Oriented to Person Place, Time, CN Intact II-III Diagnostics - Vital Signs Vital Signs Temp Pulse Resp BP Pulse Ox 11/29/17 19:37 98 F 92 22 133/77 97 - Laboratory Lab Statement: Any lab studies that have been ordered have been reviewed, and results considered in the medical decision making process. Lower Extremity Course/Dx - Course Course Of Treatment: 52F presents with left knee pain today. He had surgery by Dr. Stern today. He states he fixed meniscus and ACL. He states he went home and then developed sharp burning pain in the knee. He states it is a burn like sensation. He denies any numbness or tingling. He has been using the ice machine that was provided and it has been helping. He states the pain medication helped. He states he feels hot in his face and his stomach. He is wondering he is having an allergic reaction to this new yogurt that he ate. He denies any chest pain or SOB. He denies any headache or body aches. He admits to generalized abdominal pain. He states the pain started after he took his pain medication without eating. He has been using crutches to get around. He has a follow up with ortho on Tuesday. on exam vitals normal. has large bandage in place on left leg, good pulses, capillary refill<2 secs, sensation grossly intact distally to bandage, abdomen soft nontender. discussed with dr salvador and states that patient has been seen here before and is known to have manipulative behavior in that wants pain medication. dr salvador said not to consult ortho or get lab. unlikely that is infection as is only couple hours post op. abdomen pain and warm feeling could be due to pain medication reaction. will have follow up with ortho. patient understand and agrees with plan. - Diagnoses Differential Diagnosis/HQI/PQRI: Positive: Infection, Other - hematoma, post op pain Provider Diagnoses: Pain at surgical site, Abdominal pain Discharge - Discharge Plan Condition: Stable Disposition: HOME Patient Education Materials: R.I.C.E. Treatment (ED) Referrals: Mihai Wong MD [Primary Care Provider] - Additional Instructions: Call ortho office tomorrow Take pain medication as prescribed Ice, elevate Return to ED if develop any new or worsening symptoms
[2017-11-29] MEDS ORDERED: Al Hydrox/Mg Hydrox/Simet LIQ* 30 ML UDC PO ONE (21:19)
[2017-11-29] MEDS ORDERED: Lidocaine 2% VISCOUS* 15 ML UDC PO ONE (21:19)
[2017-11-29] MEDS ORDERED: diPHENhydraMINE PO* 25 MG PO ONE (21:19)
[2017-11-29 22:01] VITALS: BP 130/87
== END 2017-11-29 22:00 | disposition home or self-care (01) ==
LOC: ED 19:36
DX: R10.9 Unspecified abdominal pain (principal); M25.562 Pain in left knee; Z87.891 Personal history of nicotine dependence; Z98.890 Other specified postprocedural states
CPT/HCPCS: 99282; A9270-GY

== ENCOUNTER 2017-12-27 08:28 | Emergency (ER) | payer OTHER ==
[2017-12-27] MEDS ORDERED: Ketorolac INJ* 60 MG/2 ML VIAL IM ONE (08:51)
--- NOTE | 2017-12-27 08:56 | ED ---
Lower Extremity - HPI Summary HPI Summary: Pt here w/ Rt ankle/foot pain and swelling after daughter accidentally running over his leg at 1:00am. Stuck foot and ankle in snow immediately after and took aleve at 2:00am. Denies numbness, tingling, weakness -has been bearing weight because he has nothing to prevent this - very painful. Denies previous injury here. - History of Current Complaint Chief Complaint: EDExtremityLower Stated Complaint: RIGHT FOOT PAIN Time Seen by Provider: 12/27/17 08:39 Hx Obtained From: Patient Pain Intensity: 10 - Allergies/Home Medications Allergies/Adverse Reactions: Allergies Allergy/AdvReac Type Severity Reaction Status Date / Time bee venom protein (honey bee) Allergy Hives/Diff. Verified 12/27/17 08:31 Breathing/I tching Penicillins Allergy Hives/Diff. Verified 12/27/17 08:31 Breathing/I tching piperacillin [From Zosyn] Allergy Hives/Diff. Verified 12/27/17 08:31 Breathing/I tching tazobactam [From Zosyn] Allergy Hives/Diff. Verified 12/27/17 08:31 Breathing/I tching PMH/Surg Hx/FS Hx/Imm Hx Previously Healthy: Yes Endocrine/Hematology History: Denies: Hx Anticoagulant Therapy, Hx Blood Disorders, Hx Blood Transfusions, Hx Bone Marrow Disease, Hx Diabetes, Hx Systemic Lupus Erythematosus, Hx Sickle Cell Disease, Hx Thyroid Disease, Hx Anemia, Hx Unexplained Bleeding, Other Endocrine/Hematological Disorders Cardiovascular History: Denies: Hx Aneurysm, Hx Angina, Hx Angioplasty, Hx Auto Implanted Cardiovert Defib, Hx Cardiac Arrest, Hx Cardiomegaly, Hx Congenital Heart Disease, Hx Congestive Heart Failure, Hx Coronary Artery Disease, Hx Deep Vein Thrombosis, Hx Embolism, Hx Hypercholesterolemia, Hx Hypotension, Hx Hypertension, Hx Pacemaker/ICD, Hx Peripheral Vascular Disease, Hx Rheumatic Fever, Hx Syncope, Hx Valvular Heart Disease, Other Cardiovascular Problems/Disorders - pt ams - unable to get info from pt Respiratory History: Reports: Hx Asthma Denies: Hx Chronic Bronchitis, Hx Chronic Obstructive Pulmonary Disease (COPD ), Hx Cystic Fibrosis, Hx Lung Cancer, Hx Pleural Effusion, Hx Pneumonia, Hx Pulmonary Edema, Hx Pulmonary Embolism, Hx Seasonal Allergies, Hx Sleep Apnea, Other Respiratory Problems/Disorders GI History: Reports: Hx Gastroesophageal Reflux Disease, Other GI Disorders - diverticulitis 2016 Denies: Hx Ulcer History: Denies: Hx Acute Renal Failure, Hx Benign Prostatic Hyperplasia, Hx Chronic Renal Failure, Hx Dialysis, Hx Kidney Infection, Hx Kidney Stones, Hx Renal Disease, Other Problems/Disorders Musculoskeletal History: Reports: Hx Back Problems - takes aleve and flexeril Denies: Hx Arthritis, Hx Bursitis, Hx Congenital Bone Abnormalities, Hx Fibromyalgia, Hx Gout, Hx Orthopedic Injury, Hx Osteoporosis, Hx Scoliosis, Hx Tendonitis, Other Musculoskeletal History Sensory History: Denies: Hx Cataracts, Hx Contacts or Glasses, Hx Eye Injury, Hx Eye Prosthesis, Hx Glaucoma, Hx Legally Blind, Hx Macular Degeneration, Hx Vision Problem, Hx Deafness, Hx Hearing Aid, Hx Hearing Problem, Other Sensory Impairments Opthamlomology History: Denies: Hx Cataracts, Hx Contacts or Glasses, Hx Eye Injury, Hx Eye Prosthesis, Hx Glaucoma, Hx Legally Blind, Hx Macular Degeneration, Hx Vision Problem, Other Sensory Impairments Neurological History: Reports: Hx Headaches, Hx Nerve Disease - GREATER RIGHT OCCIPITAL NERVE PINCHED, Other Neuro Impairments/Disorders - substance abuse pt alert but not oriented/speaking unintelligible words Denies: Hx Dementia, Hx Developmental Delay, Hx Migraine, Hx Seizures, Hx Spinal Cord Injury, Hx Transient Ischemic Attacks (TIA) Psychiatric History: Reports: Hx Anxiety, Hx Attention Deficit Hyperactivity Disorder, Hx Depression - HX OF, Hx Substance Abuse - Bath Salts, unknown substances Denies: Hx Panic Disorder - Cancer History Hx Chemotherapy: No - Surgical History Surgery Procedure, Year, and Place: Left acl reconstruction - 10/2016. ulnar nerve- [facility] - [facility]PAL TUNNEL [facility] ELBOWS. left shoulder/clavicle. excision of gangion cystx3 SEVERAL HERE. left wrist surgery. RIGHT HAND. LEFT POINTER FINGER Hx Anesthesia Reactions: No - Immunization History Date of Influenza Vaccine: 07/2017 Infectious Disease History: No Infectious Disease History: Reports: Hx Hepatitis - history of hepc + Denies: Hx Clostridium Difficile, Hx Human Immunodeficiency Virus (HIV), Hx of Known/Suspected MRSA, Hx Shingles, Hx Tuberculosis, Hx Known/Suspected VRE, Hx Known/Suspected VRSA, History Other Infectious Disease, Traveled Outside the [place] in Last 30 Days - Family History Known Family History: Positive: None - Social History Occupation: Unemployed Lives: Alone Alcohol Use: None Alcohol Amount: LAST 3 YEARS AGO Hx Substance Use: No Substance Use Type: Reports: None, Prescribed Substance Use Comment - Amount & Last Used: hx cocaine; MJ; "pills" (treatment for drugs in past) Hx Tobacco Use: Yes - Denies smoking today Smoking Status (MU): Former Smoker Type: Cigarettes Amount Used/How Often: 4 daily Review of Systems Positive: Arthralgia, Myalgia, Decreased ROM, Edema Positive: Bruising Neurological: Negative Positive: Anxious All Other Systems Reviewed And Are Negative: Yes Physical Exam Triage Information Reviewed: Yes Vital Signs On Initial Exam: Initial Vitals Temp Pulse Resp BP Pulse Ox 99 F 107 20 154/87 100 12/27/17 08:29 12/27/17 08:29 12/27/17 08:29 12/27/17 08:29 12/27/17 08:29 Vital Signs Reviewed: Yes Appearance: Positive: Well-Appearing, Pain Distress - none at rest on stretcher - worse w/ movement of Rt ankle/palpation Skin: Positive: Warm, Skin Color Reflects Adequate Perfusion, Dry - edema and early signs of ecchymosis about malleoli B/L on Rt - no skin breakdown ENT: Positive: Hearing grossly normal Respiratory/Lung Sounds: Positive: Breath Sounds Present Cardiovascular: Positive: Pulses are Symmetrical in both Upper and Lower Extremities Musculoskeletal: Positive: Strength/ROM Intact - toes moving well, Limited @ - RT ankle - limited d/t pain, Pain @ - Rt ankle (B/L malleoli)/proximal MT's, Other - proximal to ankle, tibia and fibula are NTTP Neurological: Positive: Normal, Sensory/Motor Intact, Alert, Oriented to Person Place, Time, CN Intact II-III Psychiatric: Positive: Anxious Diagnostics - Vital Signs Vital Signs Temp Pulse Resp BP Pulse Ox 12/27/17 08:29 99 F 107 20 154/87 100 - Laboratory Lab Statement: Any lab studies that have been ordered have been reviewed, and results considered in the medical decision making process. Lower Extremity Course/Dx - Course Course Of Treatment: XR's reveals no acute osseus injury. No tessa laxity and pt has been weight bearing (albeit painfully). Will KYLE wrap and provide crutches. F/u w/ PCP. Danger s/sx of when to return to ED reviewed. - Diagnoses Provider Diagnoses: Right ankle sprain Discharge - Discharge Plan Condition: Stable Disposition: HOME Patient Education Materials: Ankle Sprain (ED) Referrals: Mihai Wong MD [Primary Care Provider] - Additional Instructions: You appear to have a right ankle sprain today without fracture or dislocation. This may be treated with rest, ice, elevation and compression with an Kyle wrap. It is advised that she avoid weightbearing by using crutches over the next 1- 2 weeks. If pain persists, follow up with her PCP. Call today to schedule an appointment. Additionally you may alternate Aleve 500 mg every 12 hours with acetaminophen 650 mg every 6 hours for pain. Be sure to eat with these medications to avoid stomach upset, GI irritation, GI bleed. *If you develop numbness, tingling, weakness or significant skin changes over this foot, return to the emergency department.
--- NOTE | 2017-12-27 09:38 | RAD ---
HISTORY: Right ankle and foot swelling and pain, trauma COMPARISONS: April 07, 2015 VIEWS: 6, Frontal, lateral, and oblique views of the right ankle and of the right foot FINDINGS: BONE DENSITY: Normal. BONES: There is no displaced fracture. There are calcaneal enthesophytes. JOINTS: There is no arthropathy. ALIGNMENT: There is no dislocation. SOFT TISSUES: There is a circumferential soft tissue swelling with ankle. OTHER FINDINGS: None. IMPRESSION: SOFT TISSUE SWELLING. NO ACUTE OSSEOUS INJURY TO THE RIGHT ANKLE OR RIGHT FOOT. IF SYMPTOMS PERSIST, RECOMMEND REPEAT IMAGING.
[2017-12-27 11:45] VITALS: BP 131/75
== END 2017-12-27 11:42 | disposition home or self-care (01) ==
LOC: ED 08:28
DX: S93.401A Sprain of unspecified ligament of right ankle, initial encounter (principal); X50.9XXA Other and unspecified overexertion or strenuous movements or postures, initial encounter; Y93.29 Activity, other involving ice and snow; Y92.9 Unspecified place or not applicable; Z87.891 Personal history of nicotine dependence; Z88.0 Allergy status to penicillin; Z88.8 Allergy status to other drugs, medicaments and biological substances
CPT/HCPCS: 96372; 99281; J1885

== ENCOUNTER 2018-02-13 09:58 | Day surgery (SDC) | payer OTHER ==
--- NOTE | 2018-02-10 11:06 | HP ---
PREOPERATIVE HISTORY AND PHYSICAL: DATE OF SURGERY: 02/13/18 - [facility] DATE OF OFFICE VISIT: 02/09/18 ATTENDING SURGEON: Dr. Delano Troncoso.* (DICTATED BY SHAHRAM NÚÑEZ) PROCEDURE: Right shoulder excision, distal clavicle, open. CHIEF COMPLAINT: Right shoulder pain. HISTORY OF PRESENT ILLNESS: Meliton is a 53-year-old male who presents to the clinic for a right shoulder pain due to AC joint arthritis. He has failed conservative measures to include an AC joint injection and continues to have pain in the AC joint with reaching across his body. He has failed conservative measures and he has therefore agreed to undergo a right shoulder excision, distal clavicle, open, with Dr. Troncoso on 02/13/18. PAST MEDICAL HISTORY: History of hep C in remission from a blood transfusion, history of depression, cervical disk disease, and chronic pain syndrome. PAST SURGICAL HISTORY: Left knee scope, left and right wrist surgery, left shoulder surgery, left hand surgery, right hand surgery, bilateral elbow surgeries. Patient denies prior complications with anesthesia. MEDICATIONS: 1. Acetaminophen Pain Relief 650 mg 1 by mouth every 6 hours as needed for pain. 2. Hydrocodone/acetaminophen 5/325 one by mouth every 4 to 6 hours as needed for pain. 3. Flector 1.3% apply 1 patch to skin 2 times a day as needed. 4. Lunesta 3 mg 1 by mouth at bedtime. 5. Sertraline 50 mg 1 by mouth every day. 6. Tramadol 50 mg 1 by mouth every 8 hours as needed for pain. 7. Melatonin 10 mg 1 by mouth every night at bedtime. 8. Ventolin HFA 108/90 micrograms spray ACT inhaled 2 puffs 4 times a day as needed. 9. Naproxen 500 mg 1 by mouth twice a day as needed. 10. Sumatriptan 50 mg 1 by mouth every 2 hours as directed for headache. 11. Cyclobenzaprine 10 mg 1 by mouth 3 times a day as needed for spasms. 12. EpiPen 0.3 mg per 0.3 mL intramuscularly as directed. 13. Omeprazole 20 mg 1 cap by mouth as needed. 14. Loratadine 10 mg 1 by mouth every day. 15. Devil's Claw twice a day. 16. Multivitamin 1 by mouth daily. 17. Vitamin B 1 by mouth daily. 18. Calcium 600 a day plus vitamin D 200 mg 1 by mouth daily. 19. Glucosamine/chondroitin 1500 mg 2 by mouth every day. 20. Zinc sulfate 220 mg 1 capsule by mouth daily. 21. Vitamin B12 1000 micrograms 1 by mouth daily. ALLERGIES: BEE STINGS AND ZOSYN. FAMILY HISTORY: Positive for osteoarthritis. Denies family history of DVT or PE. SOCIAL HISTORY: He is not working. He denies tobacco, alcohol, or illegal drug use. REVIEW OF SYSTEMS: A 14-point review of systems was reviewed with the patient. Positive for current complaint, otherwise negative. Denies fever, chills, chest pain, shortness of breath, history of bleeding disorder, history of DVT or PE. PHYSICAL EXAMINATION GENERAL: A 53-year-old well-developed, well-nourished male, in no acute distress. Alert and oriented x3. Appropriate mood and affect. Appropriate balance and coordination of the upper extremities. VITAL SIGNS: Height 65.5, weight 160. Blood pressure 128/78, respiratory rate 18, BMI 26.2. HEENT: Normocephalic, atraumatic. PERRLA. Throat clear. NECK: Supple. PULMONARY: Lungs are clear to auscultation bilaterally. No wheezing, rhonchi, or rales. CARDIO: Regular rate and rhythm. S1, S2. No murmurs, gallops, or rubs. No edema. ABDOMEN: Positive bowel sounds, soft, nontender. NEUROLOGIC: Alert and oriented x3. Cranial nerves grossly intact. Sensation is intact to light touch. MUSCULOSKELETAL: Right upper extremity skin is intact. No warmth or erythema. Tenderness to palpation over the AC joint. Pain with reaching across the body. Forward flexion and abduction to 170, external rotation to 65, internal rotation to T10, +5/5 strength to rotator cuff testing. +2 radial pulses. Sensation is intact to light touch distally. STUDIES: Multi-view x-rays of the right shoulder revealed AC joint arthritis. ASSESSMENT: Right shoulder acromioclavicular joint arthritis. PLAN: Meliton is a 53-year-old male who is scheduled to undergo a right shoulder excision, distal clavicle, open, with Dr. Troncoso on 02/13/18. He will follow up 10 to 14 days postop for a followup and suture removal. Oxycodone will be used for postop pain management. SHAHRAM NÚÑEZ [id number]/[facility] #: [id number] [facility]
[~2018-02-13 09:58] MED LIST changes: -Buffered Lidocaine 0.9% SYRIN* 5 ML/SYR SYRINGE ONE; -Bupivacaine 0.5% SDV PF* 10-30ML VIAL ONE; +Dexamethasone IV* 4 MG/ML 1 ML (4 MG) IV SLOW PU ONE; +Famotidine IV* 10 MG/ML 2 ML (20 mg) IV ONE; -Glycopyrrolate IV* 0.2 MG/ML 1 ML VIAL ONE; -HYDROcodone/ACETAMIN 5-325 MG* 1 TAB ONE; -Ketorolac INJ* 30 MG/ML 1 ML VIAL ONE; -Lidocaine 1% MPF wEPI 200,000* 30 ML SDV ONE; -Lidocaine 2% PF * 5 ML VIAL ONE; +Midazolam* 1 MG/ML 2 ML VIAL (2 MG) ONE; -Naloxone* 0.4 MG/ML 1 ML VIAL IV PRN; -Propofol* 10 MG/ML 20 ML BTL IV PUSH ONE; -Sodium Citrate/Citric Acid* 15 ML UDC ONE; -ceFAZolin 2 GM PREMIX (*) 0 GM/0 ML BAG IVPB ONE; -fentaNYL* 50 MCG/ML 2 ML VIAL (100 MCG VIAL) IV PRN
[2018-02-13] MEDS ORDERED: Dexamethasone IV* 4 MG/ML 1 ML (4 MG) ONE (10:25)
[2018-02-13] MEDS ORDERED: ceFAZolin 2 GM PREMIX (*) 2 GM/50 ML BAG IVPB ONE (10:26)
[2018-02-13] MEDS ORDERED: Sodium Citrate/Citric Acid* 15 ML UDC ONE (10:26)
[2018-02-13] MEDS ORDERED: oxyCODONE/Acetamin 5/325 MG* TAB PO PRN (11:05)
[2018-02-13] MEDS ORDERED: Naloxone* 0.4 MG/ML 1 ML VIAL IV PRN (11:05)
[2018-02-13] MEDS ORDERED: fentaNYL* 50 MCG/ML 2 ML VIAL (100 MCG VIAL) IV PRN (11:05)
[2018-02-13] MEDS ORDERED: diPHENhydraMINE IV* 50 MG/ML 1 ml VIAL (BENADRYL) IV PRN (11:05)
[2018-02-13] MEDS ORDERED: HYDROmorphone INJ* 1 MG/ML CARPUJECT SYRINGE IV PRN (11:05)
[2018-02-13] MEDS ORDERED: Scopolamine 1.5 mg* PATCH TRANSDERM PRN (11:05)
[2018-02-13] MEDS ORDERED: Levalbuterol 0.63MG/3ML NEB* UNIT OF USE INH ONE (11:54)
[2018-02-13] MEDS ORDERED: Bupivacaine 0.25% SDV* 30 ML ONE (11:56)
[2018-02-13] MEDS ORDERED: Propofol* 10 MG/ML 20 ML BTL IV PUSH ONE (12:38)
[2018-02-13] MEDS ORDERED: Glycopyrrolate IV* 0.2 MG/ML 1 ML VIAL ONE (12:38)
[2018-02-13] MEDS ORDERED: EPHEDrine (Pressors)* 50 MG/ML VIAL ONE (12:38)
[2018-02-13] MEDS ORDERED: Ketorolac INJ* 30 MG/ML 1 ML VIAL ONE (12:38)
[2018-02-13] MEDS ORDERED: Succinylcholine* 20 MG/ML 10 ML VIAL ONE (12:38)
[2018-02-13] MEDS ORDERED: Lidocaine 2% PF * 5 ML VIAL ONE (12:38)
[2018-02-13] MEDS ORDERED: Phenylephrine INJ* 10 MG/ML 1 ML VIAL (10 MG) ONE (12:38)
[2018-02-13 13:31] VITALS: BP 138/78
--- NOTE | 2018-02-14 00:10 | OP ---
DATE OF OPERATION: 02/13/18 [facility] DATE OF : 61 SURGEON: Delano Troncoso MD JAILOR: SHAHRAM Aguayo. Aquaculturist was needed for the entirety of the case to help with positioning, retraction, and was utilized throughout all portions of the case. ANESTHESIOLOGIST: Dr. Topete. ANESTHESIA: General. PRE-OP DIAGNOSIS: Right shoulder AC joint arthritis. POST-OP DIAGNOSIS: Right shoulder AC joint arthritis. OPERATIVE PROCEDURE: Right shoulder distal clavicle excision. COMPLICATIONS: None. ESTIMATED BLOOD LOSS: Minimal. INDICATIONS: Meliton Rowe is a 53-year-old male who has had AC joint arthritis that is refractory to conservative management. He has had injections in the past. He has failed conservative management. He has elected to proceed with surgical treatment. Risks and benefits of surgery were discussed and include but are not limited to bleeding, infection, damage to nerves, vessels, surrounding structures, wound nonhealing, persistent pain, need for further surgery, scarring, stiffness, incomplete relief of symptoms, and risk of anesthesia. DESCRIPTION OF PROCEDURE: The patient was greeted in the preoperative area by the attending surgeon. Correct extremity was marked and consent was confirmed. The patient was brought back to the operating suite, where he was placed in the supine position on the operating table. He then underwent general anesthesia with LMA intubation, after which he was placed in the lazy beach chair position. His right shoulder was then prepped and draped in usual sterile fashion. The right shoulder was prepped and draped in a usual sterile fashion beginning with chlorhexidine soap and alcohol wipe and a final prep with ChloraPrep. After appropriate surgical pause indicating site, side, procedure, and administration of antibiotics, a saber incision was made over the distal clavicle. Soft tissues were carefully dissected to expose the AC joint capsule, which was incised longitudinally. The fascia was also protected for later closure. The distal clavicle was identified and then carefully skeletonized anteriorly and posteriorly. Jose devices were used to hold the clavicle in place. The distal 1 cm was excised using a sagittal saw. This was removed in its entirety. Soft tissues were carefully removed. Care was taken to prevent any damage to the CC ligaments. The wounds were copiously irrigated with sterile saline. The end of the clavicle was rasped. The shoulder was taken through range of motion. There was evidence of no impingement any further. Wounds were copiously irrigated with sterile saline. The capsule and fascia were closed with 0 Vicryl in an interrupted fashion. The wounds were irrigated again. Skin and soft tissues were closed with 2-0 Vicryl and 3-0 Monocryl. Sterile dressings were applied. The wound was injected with 0.25% Marcaine plain. Sterile dressing as well as the Cryo/Cuff and a regular sling was applied. He was awoke from anesthesia and transferred to PACU in stable condition. POSTOPERATIVE PLAN: He will be nonweightbearing. He will have range of motion as tolerated. He will have sling as tolerated. He will be discharged on pain medication and I will see him back in 10 to 14 days. DVT prophylaxis was considered but deferred due to no previous personal or family history. I will see the patient back in 10 to 14 days. [id number]/[facility] #: [id number] MTDD
[2018-02-16] MEDS ORDERED: Scopolamine PATCH Remove* 1 NOTE MISC PATCH OFF ONE (11:06)
== END 2018-02-13 13:41 | disposition home or self-care (01) ==
LOC: OREAST 09:58
PROVIDERS: ATTEND Orthopaedic Surgery
DX: M19.011 Primary osteoarthritis, right shoulder (principal); B19.20 Unspecified viral hepatitis C without hepatic coma; J45.909 Unspecified asthma, uncomplicated; D64.9 Anemia, unspecified; F32.9 Major depressive disorder, single episode, unspecified
CPT/HCPCS: A9270-GY; J0330; J0690; J1100; J1885; J2250; J2704; J3010

== ENCOUNTER 2018-09-16 11:39 | Emergency (ER) | payer SELFPAY ==
--- OUTSIDE RECORDS SUMMARY | 2018-09-16 11:44 | XMS REPORT ---
:1965 External Reference #:[id number] Author Organization [facility] Address [address] [place] [address] [place] [address] Phone [phone] Care Team Providers Name Role Phone Patient's Choice Primary Care Physician Unavailable Payers Type Date Identification Numbers Payment Provider Subscriber Commercial Effective: Policy Number: [id number] [employer] Meliton Escudero Reap 2017 Medicaid PayID: [id number] [address] [address] [place] [address] Medigap Part B Effective: 2017 Policy Number: [id number] Medicaid Meliton Bundy Expires: 2017 Group Name: 1 1 [address] PayID: [id number] [place] [address] Problems Date Description Provider Status Onset: 09/05/2012 Sprain of cruciate ligament of Neema Medina M.D. Active knee Onset: 09/05/2012 Seizure Neema Medina M.D. Active Onset: 09/05/2012 Low back pain Tyrell Lopez M.D. Active Onset: 10/30/2012 Chronic pain syndrome Mihai Wong M.D.,FACP Active Onset: 10/30/2012 Viral hepatitis C Mihai Wong M.D.,FACP Active Note: Viral load now ZERO Onset: 02/14/2013 Carpal tunnel syndrome Mihai Wong, Active Veda,FACP Onset: 01/31/2014 Subjective tinnitus Sushil Britt M.D. Active Onset: 09/29/2015 Disorder of shoulder Maria Estherchandana Juárez M.D. Active Onset: 11/08/2016 Sprain of acromioclavicular Martin Scottie Steel MD Active ligament Onset: 07/01/2017 Sciatica Nayan Soares M.D. Active Onset: 07/01/2017 Cervical disc disorder Nayan Soares M.D. Active Onset: 08/31/2017 Mild recurrent major depression Nayan Soares M.D. Active Onset: 09/14/2017 Insomnia Nayan Soares M.D. Active Onset: 09/28/2017 Ex-smoker Mihai Wong, Active Veda,FACP Onset: 10/12/2017 Localized, primary osteoarthritis Maria Esther Juárez M.D. 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 Onset: 07/25/2015 Tobacco dependence syndrome Mihai Wong, [...] Problem(s) Comments General None Father due to DC () Father Chronic Obstructive Pulmonary Disease (COPD) [...] Form Strength Qnty SIG Indications Ordering Provider Tramadol HCL 07/25/ Active Tablets 50mg 42tabs one pill Antoni 2017 twice day Jeronimo for pain Veda Oxycodone 02/13/ Active Tablets 5mg 10tabs 1 tabs by Delano TONEY 2018 mouth every MD Karyna 12 hours as needed SM 8 Hour 12/13/ Active Tablets 650mg 90tabs Take One Zsofia Pain Relief 2018 ER Tablet By LUCA Arroyo Mouth Every 6 Hours as Needed For Pain Hydrocodone- 11/29/ Active Tablets 5-325mg 30tabs take 1 tab Shar Rodriguezaminophe 2018 by mouth M.DMushtaq n every 4-6 hours as needed for pain. Flector 11/21/ Active Patches 1.3% 30unit apply 1 S83.242D Mihai 2017 s patch to the Kailey Wong skin two Veda,FACP times daily as needed Lunesta 09/14/ Active Tablets 3mg 14tabs 1 tab at G47.00 Nayan 2016 bedtime Veda Soares Sertraline 08/31/ Active Tablets 50mg 30tabs 1 by mouth F33.0 Mihai HCL 2017 every day Kailey Wong M.D.,FACP Tramadol HCL 08/19/ Active Tablets 50mg 60tabs 1 tab by S83.242D Vimal Vera 2017 mouth every Kailey Wong, 8 hours as Veda,FACP needed pain Knee 08/12/ Active Misc M25.562 Karen Brace/Flexib 2017 Veda Cardona le Stays/Large Cane/Aluminu 07/13/ Active Misc 1units use with M54.42 Zsofia m/Adjustable 2017 ambulation LUCA Arroyo /Mens Handle Wrist 07/13/ Active Misc 1units use on left M25.532 Zsofia Brace/Suede 2017 wrist as LUCA Arroyo Finish/Left/ needed Medium Melatonin TR 06/02/ Active Tablets 10mg 30tabs 1 by mouth G47.00 Ramos 2014 ER every night KELLY Veliz at bedtime Ventolin HFA 03/10/ Active Aerosol 108(90Base 18unit Inhale Two J44.1 Mihai 2014 ) mcg/Act s Puffs By Kailey Wong Mouth Four MTemo,FACP Times A Day as Needed Back Support 01/24/ Active Misc 1units to wear M54.9 Zsofia 2014 during the Cruz, 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 ASSISTANT day as directed Naproxen 09/19/ Active Tablets 500mg 60tabs Take One M54.42 Mihai Rueda Tablet By Kailey Wong, Mouth Twice M.D.,FACP A Day as Needed M50.10 Sumatriptan 01/04/2014 Active Tablets 50mg 18tabs Take 1 G43.109 Vimal Bonner Succinate Tablet By Judith, Mouth Every M.D.,FACP 2 Hours as Directed For Headache G43.009 Shower-Chair 11/30/2013 Active Mis use for showing Mihai Bonner Dx code: 780.39 Judith Convulsions Veda,FACP Cool Mist 11/30/2013 Active Misc dx code: 446.0 Mihai Bonner Humidifier Bronchitis Veda Wong,FACP Cyclobenzaprine HCL Active Tablets 10mg 30ta take one tablet M50. Mihai Bonner bs by mouth two 10 Donald, times a day as M.D.,FACP needed for spasms M54.42 G47.00 Epipen Active Solution 0.3mg/0.3ML 2units inject Alyssa 2-Oleksandr Auto-Inject intramuscularly Cotton, as directed M.D. Omeprazo Active Capsules DR 20mg 90caps take one capsule K2 Mihai motley by mouth every 1. D. Judith, day as needed 9 M.D.,FACP Loratadi Active Tablets 10mg 30tabs take one tablet [place] ne by mouth every Pachikara, day M.D. Devils Active Powder twice daily Unknown Claw Tincture Active once daily in Unknown Of the morning Devils Claw, Licorice , Tumeric, [place] Multiple Active Tablets 1 by mouth every Unknown Vitamin day Vitamin Active Tablets 1 by mouth every Unknown B day Complex Theraflu Active Packet 10-20-20mg twice daily Unknown Cold & Cough Calcium Active Tablets 317-485pm-Lx 1 by mouth twice Unknown 600 + D it a day Glucosam Active Capsules 1500Com 2 by mouth every Unknown ine day Chondroi tin 1500 Complex Zinc Active Capsules 220(50Zn) mg take one Unknown Sulfate capsule/tablet daily by mouth Vitamin Active Tablets ER 1000mcg 1 by mouth every Unknown B12 day Hydrocod 11/29/2017 Hx Tablets 5-300mg 20tabs Take 1 tab by Dirk one - mouth every 4-6 Jarred, Bitartra 11/29/2017 hours as needed M.D. te/Aceta for pain. minophen Clarithr 09/28/2017 Hx Tablets 500mg 14tabs 1 by mouth twice Mihai omycin - a day for 7 days Kailey Wong, 10/05/2017 M.D.,FACP Azithrom 09/14/2017 Hx Tablets 250mg 6tabs 2 tab today and J0 [place] ycin - then 1tab daily 6. Fany, 09/28/2017 9 M.D. Ultracet 08/19/2017 Hx Tablets 37.5-325mg 9tabs 1 tab by mouth Karen - every 8 hours as Dulce, 08/30/2017 needed pain M.D. Wrist 08/12/2017 Hx Misc M2 Karen Brace - 5. Dulce, 09/28/2017 53 M.D. 2 Keatchie 08/09/2017 Hx Tablets 5-325mg 20tabs one tab by mouth Karen - every 4-6 hours Cardona, 08/30/2017 as needed pain M.D. Hydroxyz 07/13/2017 Hx Tablets 50mg 30tabs take 1 tab by F4 Zsofia ine HCL - mouth 3x daily 1. Cruz, 08/31/2017 for anxiety as 9 SPEECH CORRECTION ASSISTANT needed Hydrocod 07/01/2017 Hx Tablets 5-325mg 30tabs 1 tab every 12h M5 [place] one-Acet - as needed 4. Fany aminophe 08/02/2017 42 M.D. n Azithrom 02/17/2017 Hx Tablets 250mg 6tabs 2 every day for Mihai ycin - 1 day, then 1 D. Judith, 07/01/2017 every day M.D.,FACP Medrol 02/17/2017 Hx Tablets 4mg 1pak medrol dosepack Mihai - as directed Kailey Wong, 07/12/2017 Veda,[facility] Cane 01/10/2017 Hx Misc 1units use cane with G8 Ramos - ambulation 9. KELLY Veliz 09/28/2017 4 Azithrom 01/08/2017 Hx Tablets 250mg 6tabs 2 every day for Mihai ycin - 1 day, then 1 DMushtaq Wong, 01/13/2017 every day Veda,[facility] Benzonat 01/08/2017 Hx Capsules 200mg 20caps by mouth three Mihai ate - times a day as Kailey Wong, 08/31/2017 needed Veda,[facility] Clindamy 06/25/2016 Hx Capsules 300mg 40caps one [...] hrs x Ordering 04/08/2016 10 days Provider Tylenol 03/29/2016 Hx Tablets ER 650mg 90tabs 1 tab every 6 Zsofia 8 Hour - hours as needed Cruz, 12/13/2017 pain SPEECH CORRECTION ASSISTANT Melatoni 09/03/2015 Hx Tablets ER 10mg 120tabs 1 po qhs prn F5 Vimal oden ER - 1. DMushtaq Wong, 03/31/2016 05 Veda,[facility] Triamcin 06/02/2015 Hx Ointment 0.025% 30units topical to 69 Ramos olone - pruritic areas 8. KELLY Veliz Acetonid 04/13/2016 every day as 8 e needed Levoflox 06/02/2015 Hx Tablets 500mg 7tabs one by mouth 48 Mihai acin - daily for 7 days 6 DMushtaq Wong, 07/02/2015 Veda,[facility] Trazodon 06/02/2015 Hx Tablets 100mg 45tabs Take 1 To 1+1/2 G4 Vimal Vera e HCL - Tablets By Mouth 7. Kailey Wong, 08/31/2017 AT Bedtime 00 M.D.,FACP Azithrom 05/15/2015 Hx Tablets 250mg 6tabs 2 every day for 49 Mihai milnerin - 1 day, then 1 1. Kailey Wong, 05/20/2015 every day 21 M.D.,FACP Qvar 05/15/2015 Hx Aerosol 40mcg/Act 120unit 2 puffs inhaled 49 Ramos - s twice a day 1. KELLY Veliz 04/13/2016 21 Quad 04/15/2015 Hx Misc as directed Mihai Avila/Miguel Wong, ge 09/03/2015 M.DMushtaq,FACP Base/Ort ho Handle/" Azithrom 04/04/2015 Hx Tablets 250mg 6tabs 2 tabs by mouth 46 Osman ycin - on day one 1. KELLY Mendoza 04/15/2015 followed by 1 0 tab daily for the last 4 days Hydrocod 02/13/2015 Hx Tablets 5-300mg 15tabs 1 by mouth q6hr Karen one - as needed pain Cardona, Bitartra 04/15/2015 MAnna. te/Aceta minophen Ciproflo 01/24/2015 Hx Tablets 500mg 20tabs take one tablet 78 Laz xacin - twice a day for 4. KELLY Barnes HCL 01/24/2015 10 days 1 Cane/Adj 01/24/2015 Hx Misc 03/07" 1units use while M5 Zsofia ustable/ - ambulating dx: 4. Cruz, Aluminum 09/28/2017 m54.9 9 SPEECH CORRECTION ASSISTANT /Round Handle 03/07" Levoflox 01/24/2015 Hx Tablets 500mg 5tabs one [...] pain. Kailey Wong, 01/19/2015 MDD 4 tabs. MTemo,FACP Predniso 01/07/2015 Hx Tablets 10mg 3 tabs x 1 day, Mihai ne - then 2 tabs x 2 D. Judith, 01/19/2015 days, then 1 tab M.D.,FACP x 2 days then stop Bactrim 01/07/2015 Hx Tablets 800-160mg 28tabs 1 by mouth twice MaynorEzequiel Vera DS - a day x 10 days Kailey Wong, 01/17/2015 M.Kailey,FACP Proair 11/10/2014 Hx Aerosol 108(90Base) 8.5unit Inhale 2 Puffs Osman HFA - mcg/Act s By Mouth Four KELLY Mendoza 03/10/2015 Times A Day as Needed Unknown 07/09/2014 Hx Nitin Trevizo Antiinfl - Pollack, amitory 07/09/2014 MTemo Nicotine 03/04/2014 Hx Patches 24HR 21mg/24HR 30units Apply as Vimal Vera - Directed Kailey Wong, 07/09/2014 Topically MTemo,FACP Nicotine 02/25/2014 Hx Patches 24HR 14mg/24HR 28units Apply 1 Patch To Mihai - The Skin One Kailey Wong, 03/04/2014 Time Daily M.D.,FACP Clarithr 01/23/2014 Hx Tablets 500mg 14tabs 1 by mouth twice 49 MaynorEzequiel Chuy omycin - a day for 7 days 0 Kailey Wong, 01/30/2014 M.D.,FACP Amoxicil 01/04/2014 Hx Tablets 500mg 40tabs 2 tabs po bid 49 Mihai armani - for 10 days 0 Kailey Wong, 01/23/2014 M.D.,FACP Nicotine 01/04/2014 Hx Patches 24HR 21mg/24HR 30units as directed Maynor Morocho - topical Kailey Wong, 02/25/2014 M.Kailey,FACP Duloxeti 01/04/[address] Nguyễn 60mg 30caps take 1 capsule 33 Vimal arana HCL - by mouth every 8. DMushtaq Wong, 06/02/2015 morning 4 M.D.,FACP Duloxeti 01/04/[address] Gopi 30mg 30caps Take 1 Capsule 72 Osman ne HCL - By Mouth Every 2. KELLY Mendoza 06/02/2015 Evening 0 Nicotine 01/02/2014 Hx Patches 24HR 14mg/24HR 28units Apply 1 Patch To Mihai Transder - The Skin One Kailey Wong mal 01/04/2014 Time Daily M.D.,FAC System Naproxen 12/14/2013 Hx Tablets 500mg 60tabs Take 1 Tablet By Karen - Mouth Two Times Cardona, 07/09/2014 Daily as Needed M.D. Duloxeti 12/11/[address] Part 30mg 60caps 1 tab po bid 33 Vimal arana HCL - 8. DMushtaq Wong, 01/04/2014 4 M.D.,[facility] Gabapent 12/11/2013 Hx Capsules 100mg 500caps Take 4 Capsules Vimal Vera in - By Mouth Four Kailey Wong, 01/04/2014 Times A Day M.D.,[facility] Ketorola 11/07/2013 Hx Tablets 10mg 40tabs po qid prn 71 Mihai ortiz - 9. Kailey Wong, Trometha 12/14/2013 47 M.D.,[facility] mine Nicotine 11/07/2013 Hx Patches 24HR 14mg/24HR 30units topical qd 30 Mihai Maki 2 - 5. Kailey Wong, 01/04/2014 1 M.D.,[facility] Azithrom 10/29/2013 Hx Tablets 250mg 6tabs two tabs day 46 Rosa M londono - one, one daily 6. Varn, N.P. 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 Gabapent 06/06/2013 Hx Capsules 100mg 500caps Take Four Mihai in - Capsules By Kailey Wong, 10/11/2013 Mouth Four Times M.D.,FACP A Day Penicill 04/04/2013 Hx Tablets 500mg 40tabs qid for 10 days 52 Vimal Vera in V - 8. DMushtaq Wong, Potassiu 04/14/2013 9 M.D.,FACP m Gabapent 02/14/2013 Hx Capsules 100mg 500caps 3 tab po qid for 33 Vimal Vera in - 4 days, then 8. DMushtaq Wong, 06/01/2013 increase to 4 4 M.D.,FACP qid for 4 days Oxycodon 01/08/2013 Hx Tablets 10mg 100tabs 1 tablet po 33 Alex Don. e HCL - q6hrs prn Yovani Ferrera, 04/04/2013 4 M.D. Meloxica 12/07/2012 Hx Tablets 15mg 60tabs Take One Tablet Mihai m - By Mouth Twice A D. Judith, 10/29/2013 Day as Needed M.D.,FACP For Pain Venlafax 12/01/2012 Hx Tablets 75mg 60tabs Take One Tablet 33 Mihai chopra HCL - By Mouth Twice A 8. D. Judith, 12/11/2013 Day 4 M.D.,FACP Venlafax 11/07/2012 Hx Tablets 37.5mg 60tabs 1 po bid 33 Mihai ine HCL - 8. D. Judith, 12/01/2012 4 M.D.,FACP Cymbalta 10/30/[address] Part 30mg 30caps 1 po qam 33 Mihai - 8. D. Judith, 11/07/2012 4 M.D.,FACP Doxycycl Hx Capsules 100mg 20caps bid po Unknown ine - Hyclate 10/30/2012 Lorazepa Hx Tablets 0.5mg 30tabs take 1 tablet Unknown m - bid as needed 10/30/2012 for anxiety Ascorbic Hx Solution 500mg/ml one po qd Unknown Acid - 10/30/2012 Zolpidem Hx Tablets 10mg 20tabs 1 tab po qhs prn Mihai Tartrate - Kailey Wong, 09/10/2013 MTemo,FACP Oxyconti Hx Tablets ER 60mg 60tabs 1 tablet po 33 Unknown n - 12HR q12hrs 8. 10/30/2012 4 Indometh Hx Capsules 50mg 60caps 1 po bid Unknown acin - 09/14/2012 Ibuprofe Hx Tablets 600mg 90tabs Take One Tablet Mihai n - By Mouth Three Kailey Wong, 01/08/2013 Times A Day Veda,FACP Ventolin Hx Aerosol 108(90Base) 8gm Inhale Two Puffs Vimal Vera HFA - mcg/Act By Mouth Four DMushtaq Wong, 11/10/2014 Times A Day as Veda,FACP Needed Diflunis Hx Tablets 500mg 90tabs 1/2 by mouth Unknown al - twice a day 09/03/2015 Sovaldi Hx Tablets 400mg Unknown - 05/15/2015 Harvoni Hx Tablets 90-400mg 1 by mouth every Unknown - day 09/03/2015 Oxycodon Hx Tablets 5mg tid prn Jeb, don HCL - Laz, DO 04/13/2016 Calcium Hx Tablets 600-200 twice a day Unknown + D3 - 08/31/2017 Medications Administered in Office Medication Date Status Form Strength Qnty SIG Indications Ordering Provider Triamcinolone 12/08/ Administered Injection Zaneb (Kenalog) 2017 MD Karyna Depomedrol 40MG 08/29/ Administered Injection Orlando Rodriguez M.DMushtaq No Injection 07/21/ Administered Injection Martin Rubin 2016 MD Milvia Depomedrol 40MG 07/21/ Administered Injection Martin Steel MD Depomedrol 40MG 07/20/ Administered Injection Carlita 2016 NAKUL Menjivar Depomedrol 40MG 07/20/ Administered Injection Carlita 2016 NAKUL Menjivar Depomedrol 40MG 07/20/ Administered Injection Carlita 2016 NAKUL Menjivar No Injection 11/08/ Administered Injection Martin F 2016 MD Milvia Depomedrol 40MG 11/08/ Administered Injection Martin F 2016 MD Milvia Depomedrol 40MG 10/07/ Administered Injection Carlita 2015 NAKUL Menjivar Depomedrol 40MG 07/14/ Administered Injection Karen 2015 Veda Cardona Depomedrol 40MG 07/14/ Administered Injection Karen 2015 Veda Cardona Depomedrol 40MG 11/20/ Administered Injection Carlita 2015 NAKUL Menjivar Depomedrol 80MG 09/29/ Administered Injection Maria Esther 2014 Veda Juárez Celestone 3 mg 09/29/ Administered Injection Maria Esther and 3mg 2014 Veda Juárez Depomedrol 80MG 02/13/ Administered Injection Karen 2014 Veda Cardona Depomedrol 80MG 06/13/ Administered Injection Karen 2013 Veda Cardona Depomedrol 80MG 02/07/ Administered Injection Karen 2013 Veda Cardona Depomedrol 80MG 11/29/ Administered Injection Karen 2013 Veda Cardona Depomedrol 80MG 10/17/ Administered Injection Gnosticism 2012 Anthony Orozco Depomedrol 80MG 07/05/ Administered Injection Karen 2012 Veda Cardona Depomedrol 80MG 07/05/ Administered Injection Karen 2012 Veda Cardona Depomedrol 80MG 12/20/ Administered Injection Karen 2012 Veda Cardona Immunizations CPT Code Status Date Vaccine Lot # [id number] Given 08/31/2017 Influenza Virus Vaccine, Quadrivalent, Split, [id number] Preservative Free 61673 Given 10/22/2016 Influenza Virus Vaccine, Quadrivalent, Split [id number] Virus, [place] Use [address]80 Given 08/21/2015 Flu Vaccine Split Virus Preservative Free For Indiv 3Yr Older 04120 Given 07/25/2015 Pneumonia Vaccine [id number] 21946 Given 07/24/2014 Influenza Virus Vaccine, Quadrivalent, Split, Preservative Free 78291 Given 07/24/2014 Influenza Virus Vaccine, Quadrivalent, Split, [id number] Preservative Free 65500 Given 12/11/2013 Hepatitis B Vaccine Adult Dosage [id number] 82533 Given 12/11/2013 Hepatitis A Vaccine Adult Dosage [id number] 91772 Given 09/14/2013 Flu Vaccine Split Virus Preservative Free For [id number] Indiv 3Yr Older 99817 Given 08/24/2012 Tdap - Tetanus/Diptheria/Acellular Pertussis Vital Signs Date Vital Result Comment 09/07/2018 Height 65.5 inches 5'5.50" Weight 170.00 lb Heart Rate 80 /min Respiratory Rate 18 /min Body Temperature 98.5 F BMI (Body Mass Index) 27.9 kg/m2 07/25/2018 Height 65.5 inches 5'5.50" Weight 170.00 lb Heart Rate 72 /min BP Systolic 130 mmHg BP Diastolic 74 mmHg Respiratory Rate 14 /min Pain Level 7 BMI (Body Mass Index) 27.9 kg/m2 06/22/2018 Height 65.5 inches 5'5.50" Weight 160.00 lb Heart Rate 84 /min BP Systolic Sitting 120 mmHg BP Diastolic Sitting 86 mmHg Respiratory Rate 16 /min Pain Level 7 BMI (Body Mass Index) 26.2 kg/m2 05/04/2018 Height 65.5 inches 5'5.50" Weight 160.00 lb BP Systolic 120 mmHg BP Diastolic 68 mmHg Respiratory Rate 20 /min Pain Level 8 BMI (Body Mass Index) 26.2 kg/m2 02/28/2018 Height 65.5 inches 5'5.50" Weight 160.00 lb BP Systolic 126 mmHg BP Diastolic 80 mmHg Respiratory Rate 20 /min Body Temperature 97.3 F Pain Level 4 BMI (Body Mass Index) 26.2 kg/m2 02/21/2018 Height 65.5 inches 5'5.50" Heart Rate 80 /min BP Systolic 112 mmHg BP Diastolic 70 mmHg Respiratory Rate 16 /min Body Temperature 97.2 F Pain Level 9 02/09/2018 Height 65.5 inches 5'5.50" Weight 160.00 lb BP Systolic 128 mmHg BP Diastolic 78 mmHg Respiratory Rate 18 /min Pain Level 8 BMI (Body Mass Index) 26.2 kg/m2 01/23/2018 Height 65.5 inches 5'5.50" Heart Rate 64 /min Respiratory Rate 20 /min Body Temperature 98.2 F Pain Level 0 12/12/2017 Height 65.5 inches 5'5.50" Weight 160.00 lb BP Systolic 118 mmHg BP Diastolic 76 mmHg Respiratory Rate 18 /min Body Temperature 98.1 F Pain Level 4 BMI (Body Mass Index) 26.2 kg/m2 12/08/2017 Height 65.5 inches 5'5.50" Heart Rate 71 /min BP Systolic 122 mmHg BP Diastolic 80 mmHg Respiratory Rate 20 /min Body Temperature 99.1 F Pain Level 6 11/28/2017 Height 65.5 inches 5'5.50" Weight 160.00 lb Heart Rate 109 /min Respiratory Rate 14 /min Body Temperature 983.0 F Pain Level 8 BMI (Body Mass Index) 26.2 kg/m2 11/24/2017 Weight 154.50 lb Heart Rate 81 /min BP Systolic 110 mmHg BP Diastolic 60 mmHg Body Temperature 98.2 F O2 % BldC Oximetry 96 % 11/21/2017 Weight 151.00 lb Heart Rate 72 /min BP Systolic Sitting 124 mmHg BP Diastolic Sitting 80 mmHg Body Temperature 97.3 F O2 % BldC Oximetry 98 % 11/07/2017 Height 65.5 inches 5'5.50" Weight 160.00 [...] 5'6" Weight 176.00 lb Pain Level 7 7-10/10 BMI (Body Mass Index) 28.4 kg/m2 09/24/2015 [...] Body Temperature 98.0 F Pain Level 7 7/10 O2 % BldC Oximetry 98 % BMI [...] Test Result H/L Range Note Laboratory test 11/29/2017 Surgical Pathology SEE RESULT BELOW 1 finding CBC Auto Diff 11/19/2017 White Blood Count 5.7 10^3/uL 3.5-10.8 Red Blood Count 4.32 10^6/uL 4.0-5.4 Hemoglobin 13.4 g/dL Low 14.0-18.0 Hematocrit 40 % Low 42-52 Mean Corpuscular Volume 91 fL 80-94 Mean Corpuscular Hemoglobin 31 pg 27-31 Mean Corpuscular HGB Conc 34 g/dL 31-36 Red Cell Distribution Width 14 % 10.5-15 Platelet Count 256 10^3/uL 150-450 Mean Platelet Volume 8 um3 7.4-10.4 Abs Neutrophils 2.3 10^3/uL 1.5-7.7 Abs Lymphocytes 2.5 10^3/uL 1.0-4.8 Abs Monocytes 0.7 10^3/uL 0-0.8 Abs Eosinophils 0.1 10^3/uL 0-0.6 Abs Basophils 0.1 10^3/uL 0-0.2 Abs Nucleated RBC 0 10^3/uL Granulocyte % 40.4 % 38-83 Lymphocyte % 44.6 % 25-47 Monocyte % 12.4 % High 1-9 Eosinophil % 1.6 % 0-6 Basophil % 1.0 % 0-2 Nucleated Red Blood Cells % 0 Comp Metabolic Panel 11/19/2017 Sodium 135 mmol/L 133-145 Chloride 104 mmol/L 101-111 Co2 Carbon Dioxide 27 mmol/L 22-32 Glucose 120 mg/dL High 70-100 Blood Urea Nitrogen 16 mg/dL 6-24 Creatinine 0.73 mg/dL 0.67-1.17 BUN/Creatinine Ratio 21.9 High 8-20 Calcium 8.7 mg/dL 8.6-10.3 Total Protein 6.4 g/dL 6.4-8.9 Albumin 3.8 g/dL 3.2-5.2 Globulin 2.6 g/dL 2-4 Albumin/Globulin Ratio 1.5 1-3 Total Bilirubin 0.40 mg/dL 0.2-1.0 Alkaline Phosphatase 48 U/L 34-104 Alt 14 U/L 7-52 Egfr Non- 112.0 >60 Egfr 144.0 >60 2 Potassium 4.4 mmol/L 3.5-5.0 Anion Gap 4 mmol/L 2-11 Ast 19 U/L 13-39 Laboratory test finding 11/19/2017 Alcohol < 10 mg/dL <10 Urinalysis Profile 11/19/2017 Urine Color Yellow Urine Appearance Clear Urine Specific [place] 1.042 High 1.010-1.030 Urine pH 6.0 5-9 Urine Urobilinogen Negative Negative Urine Ketones Trace Negative Urine Protein Negative Negative Urine Leukocytes Negative Negative Urine Blood Negative Negative * * Negative 3 Urine Nitrite Negative Negative Urine Bilirubin Negative Negative Urine Glucose Negative Negative Laboratory test 08/31/2017 Hepatitis C Antibody High Reactive Nonreactive 4 finding Hepatitis C Rna Quant Undetected IU/mL Undetected 5 PSA Screening 0.530 ng/mL 0-4.000 6 Laboratory test finding 08/09/2017 Surgical Pathology SEE RESULT BELOW 7, 8 Drug Abuse 20 Urine 07/01/2017 Urine Amphetamine Negative ng/mL 9 Urine Barbiturates Negative ng/mL 10 Urine Benzodiazepines Negative ng/mL 11 Urine Cocaine Presumptive Posi <SEE NOTE> ng/mL 12 Urine Phencyclidine Negative ng/mL Cutoff: 25 Urine Tetrahydrocannabinol Negative ng/mL Cutoff: 50 13 Creatinine, Urine 79.0 mg/dL Specific [place] 1.010 pH 7.4 Oxidants Negative 14 Adulterants Comment Normal Codeine, Ur Not Detected ng/mL Cutoff: 25 15 Ptofcev-1-tvos-glucuronide, Ur Not Detected ng/mL 16 Morphine, Ur Not Detected ng/mL Cutoff: 25 17 Liafgjdz-9-dkvl-glucuronide, U Not Detected ng/mL 18 6-monoacetylmorphine, Ur Not Detected ng/mL Cutoff: 25 19 Hydrocodone, Ur Not Detected ng/mL Cutoff: 25 20 Norhydrocodone, Ur Not Detected ng/mL Cutoff: 25 21 Dihydrocodeine, Ur Not Detected ng/mL Cutoff: 25 22 Hydromorphone, Ur Not Detected ng/mL Cutoff: 25 23 Uljghwulundzq5sztyfdvjewssuiu Not Detected ng/mL 24 Oxycodone, Ur Not Detected ng/mL Cutoff: 25 25 Noroxycodone, Ur Not Detected ng/mL Cutoff: 25 26 Oxymorphone, Ur Not Detected ng/mL Cutoff: 25 27 Udozvktutdn-9-bniy-glucuronide Not Detected ng/mL 28 Noroxymorphone, Ur Not Detected ng/mL Cutoff: 25 29 Fentanyl, Ur Not Detected ng/mL Cutoff: 2 30 Norfentanyl, Ur Not Detected ng/mL Cutoff: 2 31 Meperidine, Ur Not Detected ng/mL Cutoff: 25 32 Normeperidine, Ur Not Detected ng/mL Cutoff: 25 33 Naloxone, Ur Not Detected ng/mL Cutoff: 25 34 Gdsgijmw-2-fzyp-glucuronide, U Not Detected ng/mL 35 Methadone, Ur Not Detected ng/mL Cutoff: 25 36 Eddp, Ur Not Detected ng/mL Cutoff: 25 37 Propoxyphene, Ur Not Detected ng/mL Cutoff: 25 38 Norpropoxyphene, Ur Not Detected ng/mL Cutoff: 25 39 Tramadol, Ur Not Detected ng/mL Cutoff: 25 40 O-desmethyltramadol, Ur Not Detected ng/mL Cutoff: 25 41 Tapentadol, Ur Not Detected ng/mL Cutoff: 25 42 N-desmethyltapentadol, Ur Not Detected ng/mL Cutoff: 50 43 Trgtyukmhu-ddav-innfwzduoys, U Not Detected ng/mL 44 Buprenorphine, Ur Not Detected ng/mL Cutoff: 5 45 Norbuprenorphine, Ur Not Detected ng/mL Cutoff: 5 46 Norbuprenorphine glucuronide Not Detected ng/mL Cutoff: 20 47 Opioid Interpretation See Comment 48 Urine Cocaine 07/01/2017 Urine Cocaine Negative ng/mL Cutoff: 50 Confirmation Confirm (GC/MS) Ur Benzoylecgonine Confirm 812 ng/mL Cutoff: 50 Urine Cocaine Interpretation Positive. 49 CBC Auto Diff 02/26/2017 White Blood Count [...] Egfr Non- 66.3 >60 Egfr 85.2 >60 50 Laboratory test 02/26/2017 Troponin-I (TnI) 0.01 ng/mL <0.04 51 finding Laboratory test 05/06/2016 Hepatitis C Rna Undetected IU/mL Undetected 52 finding Quant Liver Function Panel 04/30/2016 Total Protein 6.8 g/dL 6.4-8.9 Albumin 4.1 g/dL 3.2-5.2 Globulin 2.7 g/dL 2-4 Albumin/Globulin Ratio 1.5 1-3 Total Bilirubin 0.40 mg/dL 0.2-1.0 Direct Bilirubin 0.10 mg/dL 0.03-0.18 Indirect Bilirubin 0.3 mg/dL 0.3-1.0 Alkaline Phosphatase 64 U/L 34-104 Alt 13 U/L 7-52 Ast 15 U/L 13-39 CBC Auto Diff 04/30/2016 White Blood Count [...] Blood Cells % 0.1 Laboratory test finding 04/30/2016 Lipase 35 U/L 11.0-82.0 HIV 1/2 AB Evaluation 06/02/2015 HIV 1 2 Antibody Nonreactive Nonreactive 53 Liver Function Panel 06/02/2015 Total Protein 6.8 g/dL 6.4-8.9 Albumin 4.2 g/dL 3.2-5.2 Globulin 2.6 g/dL 2-4 Albumin/Globulin Ratio 1.6 1-3 Total Bilirubin 0.30 mg/dL 0.2-1.0 Direct Bilirubin 0.10 mg/dL 0.03-0.18 Indirect Bilirubin 0.2 mg/dL Low 0.3-1.0 Alkaline Phosphatase 69 U/L 34-104 Alt 20 U/L 7-52 Ast 20 U/L 13-39 Laboratory test 06/02/2015 Hepatitis C Rna Undetected IU/mL Undetected 54 finding Quant Inr/Protime 05/11/2015 Inr 0.95 0.78-1.07 Urine Drug SCR ED & 05/11/2015 Amphetamine Ur None Detected None Detect Pain Clinic Screen Barbiturates Urine Screen None Detected None Detect Benzodiazepine Urine Screen None Detected None Detect Urine Cannabinoids Screen None Detected None Detect Urine Cocaine Screen None Detected None Detect Urine Opiates Screen None Detected None Detect Urine Phencyclidine Screen None Detected None Detect 55 Laboratory test finding 05/11/2015 Troponin-I (TnI) 0.00 ng/mL <0.03 56 Comp Metabolic Panel 05/11/2015 Sodium 133 mmol/L [...] Egfr Non- 93.4 >60 Egfr 120.1 >60 57 Laboratory test finding 05/11/2015 Lactic Acid 0.5 mmol/L 0.5-2.2 Acetaminophen < 15 g/mL 58 Alcohol < 10 mg/dL <10 Salicylate < 2.50 mg/dL <30 Urinalysis Profile 05/11/2015 Urine Color Colorless Urine Appearance Clear Urine Specific [place] 1.003 Low 1.010-1.030 Urine pH 6.0 5-9 Urine Urobilinogen Negative Negative Urine Ketones Negative Negative Urine Protein Negative Negative Urine Leukocytes Negative Negative Urine Blood Negative Negative Urine Nitrite Negative Negative Urine Bilirubin Negative Negative Urine Glucose Negative Negative CBC Auto Diff 05/11/2015 White Blood Count [...] Blood Cells % 0.1 Laboratory test finding 05/11/2015 Point of Care Glucose 108 mg/dL High 74 -106 59 Arterial Blood Gas 02/01/2015 PH Arterial 7.40 7.35-7.45 Pco2 Arterial 35 mmHg 35-45 Po2 Arterial 139 mmHg High 80-100 O2 Saturation Arterial 99.2 % High 95-98 Base Excess Arterial -2.6 Low -2.0-2.0 60 Hco3 Arterial 22.9 mmol/L 19-31 Laboratory test finding 02/01/2015 Ammonia 36 mol/L 16-53 Urinalysis Profile 02/01/2015 Urine Color Yellow Urine Appearance Cloudy Urine Specific [place] 1.019 1.010-1.030 Urine pH 5.0 5-9 Urine Urobilinogen Negative Negative Urine Ketones Trace Negative Urine Protein Negative Negative Urine Leukocytes Negative Negative Urine Blood Negative Negative Urine Nitrite Negative Negative Urine Bilirubin Negative Negative Urine Glucose Negative Negative Urine Drug SCR ED & 02/01/2015 Amphetamine Ur Screen None Detected None Detect Pain Clinic Barbiturates Urine Screen None Detected None Detect Benzodiazepine Urine Screen None Detected None Detect Urine Cannabinoids Screen None Detected None Detect Urine Cocaine Screen Presumptive Posi <SEE NOTE> None Detect 61 Urine Opiates Screen Presumptive Posi <SEE NOTE> None Detect 62 Urine Phencyclidine Screen None Detected None Detect 63 Laboratory test finding 02/01/2015 Creatine Kinase 216 [...] Egfr Non- 70.3 >60 Egfr 90.4 >60 64 Laboratory test finding 02/01/2015 Creatine Kinase 247 U/L High 10-223 Acetaminophen < 15 g/mL 65 Alcohol < 10 mg/dL <10 Salicylate < 2.50 mg/dL <30 TSH (Thyroid Stimulating Horm) 0.95 IU/mL 0.34-5.60 Lactic Acid 4.8 mmol/L High 0.5-2.2 66 Laboratory test finding 01/21/2015 Throat Culture (SEE NOTE) 67 Laboratory test finding 01/21/2015 Rapid Strep A negative HSV/VZV Derm PCR 01/15/2015 hs/VZ Source mouth sores HSV 1 PCR Negative Negative HSV 2 PCR Negative Negative 68 Varicella Zoster Source mouth sores Varicella Zoster Result Negative Negative 69 Comp Metabolic Panel 01/15/2015 Sodium 135 mmol/L [...] Egfr Non- 85.3 >60 Egfr 109.7 >60 70 Laboratory test finding 01/15/2015 Erythrocyte Sed Rate 10 mm/Hr 0-20 CBC Auto Diff 01/15/2015 White Blood Count [...] 0-2 Nucleated Red Blood Cells % 0.1 CBC Auto Diff 01/03/2015 White Blood Count [...] 0-2 Nucleated Red Blood Cells % 0 Comp Metabolic Panel 01/03/2015 Sodium 134 mmol/L [...] Egfr Non- 90.9 >60 Egfr 117.0 >60 71 Laboratory test finding 01/03/2015 Inr 1.00 0.78-1.07 Urinalysis Profile 11/14/2014 Urine Color Colorless Urine Appearance Clear Urine Specific [place] 1.005 Low 1.010-1.030 Urine pH 6.0 5-9 Urine Urobilinogen Negative Negative Urine Ketones Negative Negative Urine Protein Negative Negative Urine Leukocytes Negative Negative Urine Blood Negative Negative Urine Nitrite Negative Negative Urine Bilirubin Negative Negative Urine Glucose Negative Negative Wound Culture/Sensi 07/01/2014 Wound/Misc Culture-Gram (SEE NOTE) 72 Stain Inr/Protime 06/24/2014 Inr 0.94 0.85-1.06 Comp Metabolic Panel 06/24/2014 Sodium 135 mmol/L [...] Egfr Non- 108.1 >60 Egfr 139.1 >60 73 Laboratory test finding 06/24/2014 Amylase 21 U/L Low 29-103 Creatine Kinase 626 U/L High 10-223 Alcohol < 10 mg/dL <10 CBC Auto Diff 06/24/2014 White Blood Count [...] 0-2 Nucleated Red Blood Cells % 0 CBC Auto Diff 04/03/2014 White Blood Count [...] Egfr Non- 79.7 >60 Egfr 102.5 >60 74 Laboratory test finding 04/03/2014 Acetaminophen < 15 g/mL 75 Alcohol < 10 mg/dL <10 Salicylate < 2.50 mg/dL <30 HIV 1/2 AB Evaluation 12/11/2013 HIV 1 2 Antibody Nonreactive Nonreactive 76 Lipid Profile 11/30/2013 Triglycerides 31 mg/dL Low 40-200 (Trig/Chol/HDL) Cholesterol 162 mg/dL Less than 200 HDL Cholesterol 75 mg/dL High 40-60 77 Cholesterol/HDL Ratio 2.2 Average 1-4.44 LDL Cholesterol 80.8 Less Than 100 78 Comp Metabolic Panel 11/30/2013 Sodium 133 mmol/L [...] Egfr Non- 142.6 >60 Egfr 183.4 >60 79 Ua Routine 11/07/2013 Ua Specific [place] 1.005 Ua PH 5 Ua Color yellow Ua Appera clear Ua WBC neg Ua Protein neg Ua Glucose neg Ua Ketones neg Ua Bilirubin small Ua Urobilinogen neg Ua Nitrite neg Ua Occult Blood neg Laboratory test 10/29/2013 Rapid Strep A negative finding Surgical Pathology 07/20/2013 S RUN DATE: <SEE NOTE> Laboratory test 09/18/2012 Hepatitis C Rna [id number] IU/mL Undetected 81 finding Quantitative HIV-1 Quant w/ Reflex Genotype Undetected copies/mL Undetected 82 Drug Abuse 20 Urine 09/14/2012 Urine Amphetamine Negative ng/mL 83 Urine Barbiturates Negative ng/mL 84 Urine Benzodiazepines Negative ng/mL 85 Urine Cocaine Negative ng/mL 86 Urine Methadone Negative ng/mL 87 Urine Opiates Negative ng/mL 88 Urine Phencyclidine Negative ng/mL Cutoff: 25 Urine Propoxyphene Negative ng/mL 89 Urine Tetrahydrocannabinol Negative ng/mL Cutoff: 20 90 Creatinine 11.7 mg/dL 91 Specific [place] 1.002 92 pH 7.1 Oxidants Negative 93 Urine Opiates Screen Negative 94 Urine Codeine Confirmation Negative ng/mL 95 Urine Hydrocodone Confirm Negative ng/mL 96 Urine Hydromorphone Confirm Negative ng/mL 97 Urine Morphine Confirm Negative ng/mL 98 Urine Oxycodone Confirm Negative ng/mL 99 Urine Opiates Interpretation Negative. 100 1 SEE RESULT BELOW Name: MELITON BUNDY : [address]: Mike Stern MD Acct: [id number] Unit: [id number] AGE: 52 Location: OR Re11/29/17 SEX: M Status: [place] [facility] [place] SPEC: [id number] CHANCE: 11/29/17-0841 [facility] DR: Mike Stern MD REQ: [id number] RECD: 11/29/17 STATUS: SOUT _ ORDERED: LEVEL 1, LEVEL 3 FINAL DIAGNOSIS 1. Knee, left, arthroplasty: Benign cartilage and synovial tissue with no significant pathologic abnormalities. 2. Knee, left, hardware removal: Foreign body (orthopedic hardware) (Gross diagnosis). PRE-OPERATIVE DIAGNOSIS Other tear of medial meniscus, current injury, left GROSS DESCRIPTION 1. The specimen is received in formalin labeled, Cartilage and Synovium Left Knee, and consists of a 4.0 x 3.5 by up to 0.8 cm aggregate of white fibrocartilaginous soft tissue fragments admixed with red-brown blood clot, which is filtered and patient support representative sections are submitted in one cassette. 2. The specimen is received fresh labeled, Hardware Left Knee, and consists of a 1.2 x 0.4 x 0.2 cm silver metallic ovoid perforated plate. No inscription is identified. Per established hospital medical staff protocol, no tissue is submitted. Gross only. Signed (signature on file) Arelis Crandall MD 11/17 1431 END OF REPORT * ML=Testing performed at Main Lab DEPARTMENT OF PATHOLOGY, [address] [place] [address] James England M.D. Director [facility] # [id number] 2 Because ethnic data is not always readily [...] 15-29 5 Kidney failure <15 (or dialysis) 3 *Ascorbic acid is present which may interfere with detection of blood. 4 High reactive sample are considered positive for Hepatitis C 5 Result in log IU/mL is Undetected. ADDITIONAL INFORMATION The quantification range of this assay is 15 to 100,000,000 IU/mL (1.18 log to 8.00 log IU/mL). Testing was performed using the praveen HCV test ([employer] with the praveen 6800 System. Test Performed by: [place] [address] 6 Serum levels of PSA measured using the Maycol Mickey DXI Hybritech immunoassay should not be interpreted [...] methods or kits cannot be used interchangeably. 7 [id number] SEE RESULT BELOW Name: MELITON BUNDY : [address]: aKren Cardona MD Acct: [id number] Unit: [id number] AGE: 52 Location: [facility] Re08/09/17 SEX: M Status: REG [facility] [place] SPEC: [id number] CHANCE: 08/09/[address]: Karen Cardona MD REQ: [id number] RECD: 08/09/17 STATUS: SOUT _ ORDERED: LEVEL 3 COMMENTS: [id number] FINAL DIAGNOSIS Right hand, excision: -- Benign [...] performed at Main Lab DEPARTMENT OF PATHOLOGY, [address] [place] [address] James England M.D. Director [facility] # [id number] REFERENCE VALUE Cutoff: 500 10 REFERENCE VALUE Cutoff: 200 11 REFERENCE VALUE Cutoff: 100 12 Presumptive Positive Drug confirmation to follow. Presumptive Positive means that the screening method is positive, but the test needs to be run by a confirmatory method before being finalized. REFERENCE VALUE Cutoff: 150 13 ADDITIONAL INFORMATION This report is intended for use in clinical monitoring or management of patients. It is not intended for use in employment-related testing. 14 REFERENCE VALUE Cutoff: 200 mg/L 15 Tylenol 3 16 Metabolite of codeine REFERENCE VALUE Cutoff: 100 17 Maddi [place], Contin; Also a minor metabolite (10%) of codeine and can be seen in low concentrations (<2,000 ng/mL) with poppy seed ingestion. 18 Metabolite of morphine REFERENCE VALUE Cutoff: 100 19 Metabolite of heroin 20 Lortab, [place], Vicodin; Also a very minor metabolite of codeine and impurity (<1%) of oxycodone. 21 Metabolite of hydrocodone 22 Metabolite of hydrocodone 23 Dilaudid, Exalgo; Also a metabolite of hydrocodone and a minor (<5%) metabolite of morphine. 24 Metabolite of hydromorphone REFERENCE VALUE Cutoff: 100 25 Endocet, Percocet, Oxycontin 26 Metabolite of oxycodone 27 Numorphan, Opana; Also a metabolite of oxycodone. 28 Metabolite of oxymorphone REFERENCE VALUE Cutoff: 100 29 Metabolite of oxymorphone 30 Actiq, Duragesic, Fentora 31 Metabolite of fentanyl 32 Demerol 33 Metabolite of meperidine 34 Narcan 35 Metabolite of naloxone REFERENCE VALUE Cutoff: 100 36 Dolophine 37 Metabolite of methadone 38 Darvon, Darvocet 39 Metabolite of propoxyphene 40 Tradol, Ultram, Ultracet 41 Metabolite of tramadol 42 Nucynta 43 Metabolite of tapentadol 44 Metabolite of tapentadol REFERENCE VALUE Cutoff: 100 45 Buprenex, Suboxone 46 Metabolite of buprenorphine 47 Metabolite of buprenorphine 48 No opioids were detected. The absence of expected drug(s) and/or drug metabolite(s) may indicate non-compliance, altered pharmacokinetics, inappropriate timing of specimen collection relative to drug administration, diluted/adulterated urine, or limitations of testing. ADDITIONAL INFORMATION This test was developed and its performance characteristics determined by [facility] in a manner consistent with CLIA requirements. This test has not been cleared or approved by the U.S. Food and Drug Administration. Test Performed by: [facility] - [address] [address] 49 ADDITIONAL INFORMATION This report is intended for use in clinical monitoring and management of patients. It is not intended for use in employment-related testing. This test was developed and its performance characteristics determined by [facility] in a manner consistent with CLIA requirements. This test has not been cleared or approved by the U.S. Food and Drug Administration. Test Performed by: [facility] - [address] [address] 50 Because ethnic data is not always readily [...] 15-29 5 Kidney failure <15 (or dialysis) 51 99th percentile=0.04 ng/mL Troponin results at [facility] and [facility] are not interchangeable. 52 Result in log IU/mL is Undetected. ADDITIONAL INFORMATION The quantification range of this assay is 15 to 100,000,000 IU/mL (1.18 log to 8.00 log IU/mL). Testing was performed by the [employer] AmpliPrep/PRAVEEN TaqMan HCV Test, version 2.0 ([employer] Test Performed by: [place] [address] Center Specialists: Meliton Driscoll II, M.D., Ph.D. 53 It is recognized that currently available assays [...] 95% confidence interval of 99.78 to 99.96%. 54 Result in log IU/mL is Undetected. ADDITIONAL INFORMATION The quantification range of this assay is 15 to 100,000,000 IU/mL (1.18 log to 8.00 log IU/mL). Testing was performed by the [employer] AmpliPrep/PRAVEEN TaqMan HCV Test, version 2.0 ([employer] Test Performed by: [place] [address] Center Specialists: Meliton Driscoll II, M.D., Ph.D. 55 The urine specimen was tested at the listed cutoffs: Drug class test level (ng/mL) Amphetamines 500 Barbituates 200 Benzodiazepine metabolites 200 Cocaine metabolites 150 Cannabinoids 50 Opiates 300 Pcp 25 This is a screening procedure. Positive results are not confirmed. Specimen was received without chain of custody. Results should be used for medical purposes only. 56 Reference Range and Interpretation: TnI (ng/mL) Interpretation Less Than 0.03 ng/mL Not supportive of diagnosis of DC 0.03 - 0.50 ng/mL Indeterminate: suggest serial studies if clinically indicated. Greater than 0.5 ng/mL Consistent with diagnosis of DC 57 Because ethnic data is not always readily [...] 15-29 5 Kidney failure <15 (or dialysis) 58 Therapeutic concentration: <50 ug/mL Toxic concentration: >120 ug/mL 59 Stock Crane Operator: ELLEN Wong 60 Reference ranges based on room air. 61 Presumptive Positive 62 Presumptive Positive 63 The urine specimen was tested at the listed cutoffs: Drug class test level (ng/mL) Amphetamines 500 Barbituates 200 Benzodiazepine metabolites 200 Cocaine metabolites 150 Cannabinoids 50 Opiates 300 Pcp 25 This is a screening procedure. Positive results are not confirmed. Specimen was received without chain of custody. Results should be used for medical purposes only. 64 Because ethnic data is not always readily [...] 15-29 5 Kidney failure <15 (or dialysis) 65 Therapeutic concentration: <50 ug/mL Toxic concentration: >120 ug/mL 66 Critical Result LACT:4.8 Called to WILFREDO at: 14:13:36 by:[id number] Read back by:[email or web address] 67 RUN DATE: 01/24/15 [facility] LAB LIVE PAGE 1 RUN TIME: [address] [place] [address] Specimen Inquiry Name: MELITON BUNDY : [address]: Laz Barnes NP Acct: [id number] Unit: [id number] AGE: 50 Location: [facility] Re01/21/15 SEX: M Status: REG REF SPEC: [id number] CHANCE: 01/21/15-[address]: Laz Barnes WASH OIL COOLER OPERATOR REQ: [id number] RECD: 01/21/15274 STATUS: COMP _ SOURCE: THROAT SPDESC: ORDERED: Throat Culture QUERIES: Provider Requisition # [id number] Procedure Result Verified Site Throat Culture Final 01/24/15- 08 ML Organism 1 KLEBSIELLA PNEUMONIAE Quantity 2+ [...] performed at Main Lab DEPARTMENT OF PATHOLOGY, [facility] [employer] [place], [place] [address] James England M.D. Director [facility] # [id number] RUN DATE: 01/24/15 [facility] LAB LIVE PAGE 2 RUN TIME: 819 [facility] [employer] [place], [place] [address] Specimen Inquiry Patient: MELITON BUNDY [id number] (Continued) Specimen: [id number] Collected: 01/21/15 Received: 01/21/15 (Continued) Procedure Result Verified Site Throat Culture Final (continued) 01/24/15- 819 1. KLEBSIELLA PNEUMONIAE (continued) M.I.C. RX --------- ------ Aztreonam <=1 S Contact the Microbiology Department for any additional antibiotic reporting. * ML - MAIN LAB (PSC1) . END OF REPORT * ML=Testing performed at Main Lab DEPARTMENT OF PATHOLOGY, [address] [place] [address] James England M.D. Director [facility] # [id number] 68 ADDITIONAL INFORMATION Analyte Specific Reagent: This test was developed and its performance characteristics determined by [facility]. It has not been cleared or approved by the U.S. Food and Drug Administration. 69 ADDITIONAL INFORMATION Laboratory developed test. Test Performed by: [facility] [place] [address] Center Specialists: Meliton Drisocll II, M.D., Ph.D. 70 Because ethnic data is not always [...] 5 Kidney failure <15 (or dialysis) 72 RUN DATE: 07/04/14 [facility] LAB LIVE PAGE 1 RUN TIME: [address] [place] [address] Specimen Inquiry Name: MELITON BUNDY : [address]: Osman Soriano MD Acct: [id number] Unit: [id number] AGE: 49 Location: [facility] Re07/01/14 SEX: M Status: DEP ER SPEC: [id number] CHANCE: 07/01/14-2204 [facility] DR: Osman Soriano MD REQ: [id number] RECD: 07/02/14 STATUS: SETH HARTMAN DR: Mihai [...] performed at Main Lab DEPARTMENT OF PATHOLOGY, [facility] [employer] [place], [place] [address] James England M.D. Director [facility] # [id number] RUN DATE: 07/04/14 [facility] LAB LIVE PAGE 2 RUN TIME: 856 [facility] [employer] [place], [place] [address] Specimen Inquiry Patient: MELITON BUNDY [id number] (Continued) Specimen: [id number] Collected: 07/01/14 Received: 07/02/14 (Continued) Procedure Result Verified Site Wound/Misc Culture Final (continued) 07/04/14- 856 1. STAPHYLOCOCCUS AUREUS (continued) M.I.C. RX --------- ------ * Ampicillin/Sulbactam-Deduced S Cefazolin-Deduced S * These antibiotics are not available in the [facility] Formulary Contact the Microbiology Department for any additional antibiotic reporting. END OF REPORT * ML=Testing performed at Main Lab DEPARTMENT OF PATHOLOGY, [address] [place] [address] James England M.D. Director [facility] # [id number] 73 Because ethnic data is not always readily [...] 15-29 5 Kidney failure <15 (or dialysis) 74 Because ethnic data is not always [...] 5 Kidney failure <15 (or dialysis) 75 Therapeutic concentration: <50 ug/mL Toxic concentration: >120 ug/mL 76 It is recognized that currently available assays [...] 95% confidence interval of 99.78 to 99.96%. 77 HDL Interpretation: Undesirable: High Risk: Less than 40 mg/dL Desirable: Low Risk: Greater than 60 mg/dL 78 LDL Interpretation: Low Risk Optimal Level: LDL Less than 100 mg/dL Near or Above Optimal: LDL 100-129 mg/dL Borderline High Risk: LDL 130-159 mg/dL High Risk: LDL 160-189 mg/dL Very High Risk: LDL Greater than 189 mg/dL 79 Because ethnic data is not always readily [...] 15-29 5 Kidney failure <15 (or dialysis) 80 RUN DATE: 07/24/13 [facility] LAB LIVE PAGE 1 RUN TIME: [address] [place] [address] Specimen Inquiry Name: MELITON BUNDY : [address]: Karen Cardona MD Acct: [id number] Unit: [id number] AGE: 48 Location: [facility] Re07/20/13 SEX: M Status: REG [facility] [place] SPEC: [id number] CHANCE: 07/20/13- SUBM DR: Karen Cardona MD REQ: [id number] RECD: 07/20/135 STATUS: SOUT _ ORDERED: LEVEL III FINAL [...] performed at Main Lab DEPARTMENT OF PATHOLOGY, [address] [place] [address] James England M.D. Director [facility] Permit #[id number] 81 Result in log IU/mL is 6.83. The quantification range of this assay is 43 IU/mL to 69,000,000 IU/mL (1.63 log IU/mL to 7.84 log IU/mL). Testing was performed by the [employer] AmpliPrep/PRAVEEN TaqMan HCV Test ([employer] Test Performed by: [place] [address] Center Specialists: David Joe III, M.D. R 82 Result in log copies/mL is Undetected The quantification range of this assay is 20 copies/mL to 10,000,000 copies/mL (1.30 log copies/mL to 7.00 log copies/mL). Testing was done by the [employer] AmpliPrep/[employer]AVEEN TaqMan HIV-1 Test version 2.0 ([employer] Genotype not performed due to HIV-1 viral load below 1,000 copies/mL. Test Performed by: [address] [address] Center Specialists: David Joe III, M.D. R 83 -- REFERENCE VALUE -- Cutoff: 500 R 84 -- REFERENCE VALUE -- Cutoff: 200 R 85 -- REFERENCE VALUE -- Cutoff: 200 R 86 -- REFERENCE VALUE -- Cutoff: 150 R 87 -- REFERENCE VALUE -- Cutoff: 300 R 88 -- REFERENCE VALUE -- Cutoff: 300 R 89 -- REFERENCE VALUE -- Cutoff: 300 R 90 This report is intended for use in clinical monitoring or management of patients. It is not intended for use in employment-related testing. R 91 Specimen unusually dilute. R 92 Specimen unusually dilute. R 93 Test Performed by: [address] [address] Center Specialists: David Joe III, M.D. R 94 -- REFERENCE VALUE -- Cutoff: 300 R 95 -- REFERENCE VALUE -- Cutoff: 100 R 96 -- REFERENCE VALUE -- Cutoff: 100 R 97 -- REFERENCE VALUE -- Cutoff: 100 R 98 -- REFERENCE VALUE -- Cutoff: 100 R 99 -- REFERENCE VALUE -- Cutoff: 100 R 10 This report is intended for use in clinical monitoring and 0 management of patients. It is not intended for use in employment-related testing. Test Performed by: [address] [address] Center Specialists: David oJe III, M.D. R Procedures Date CPT Code Description Status Comment 02/13/2018 98645 claviculectomy;partial Completed 02/13/2018 10437 claviculectomy;partial Completed 12/08/2017 97112 Inject/Drain Joint/Bursa Intermediate W/O US Completed 11/29/2017 91188 Arthroscopy,Knee,Meniscectomy Medial Or Lateral Completed 11/29/2017 36917 Arthroscopy,Knee,Meniscectomy Medial Or Lateral Completed 11/29/2017 18628 Arthoscopy,Knee,W/Removal Loose Or Foreign Body Completed 11/29/2017 40913 Arthoscopy,Knee,W/Removal Loose Or Foreign Body Completed 08/29/2017 50079 Inject/Drain Joint/Bursa Major W/O US Completed 08/09/2017 16544 Trigger Finger Release Incision / Tendon Sheath Completed Incision 08/09/2017 11604 Trigger Finger Release Incision / Tendon Sheath Completed Incision 08/09/2017 94094 Trigger Finger Release Incision / Tendon Sheath Completed Incision 08/09/2017 72491 Trigger Finger Release Incision / Tendon Sheath Completed Incision 07/21/2017 44427 Inject/Drain Joint/Bursa Intermediate W/O US Completed 07/20/2017 41469 Inject/Drain Joint/Bursa Intermediate W/O US Completed 07/20/2017 29586 Inject Tendon Sheath Or Ligament Aponeurosis Eg Completed Plantar Fascia 11/08/2016 67142 Inject/Drain Joint/Bursa Intermediate W/O US Completed 10/07/2016 12287 Inject/Drain Joint/Bursa Major W/O US Completed 07/14/2016 41750 Inject/Drain Joint/Bursa Intermediate W/O US Completed 07/14/2016 37502 Inject/Drain Joint/Bursa Intermediate W/O US Completed 11/20/2015 77701 Inject Tendon Sheath Or Ligament Aponeurosis Eg Completed Plantar Fascia 09/29/201586293 Inject/Drain Joint/Bursa Major W/O US Completed 09/29/2015 76645 Inject/Drain Joint/Bursa Intermediate W/O US Completed 05/29/2015 14523 Pulmonary Function><Bronchodil Completed 02/13/2015 Inject/Drain Joint/Bursa Intermediate W/O US Completed 02/02/2015 29022 EKG, Interpretation Only Completed 06/13/2014 Inject/Drain Joint/Bursa Major W/O US Completed 06/13/2014 Inject/Drain Joint/Bursa Intermediate W/O US Completed 06/13/2014 53721 Inject Tendon Sheath Or Ligament Aponeurosis Eg Completed Plantar Fascia 02/07/2014 84085 Injection Single Tendon Origin/Insertion Completed 12/14/2013 Colonoscopy Completed 12/04/2013 Colonoscopy Completed 11/29/2013 Inject/Drain Joint/Bursa Small W/O US Completed 11/29/2013 59707 Inject Tendon Sheath Or Ligament Aponeurosis Eg Completed Plantar Fascia 10/17/2013 Inject/Drain Joint/Bursa Major W/O US Completed 10/17/2013 88691 Xray Knee 3 Views Completed 07/20/2013 64081 Excision Tumor Soft Tissue Forearm/Wrist Completed Subcutaneous < 3 CM 07/05/2013 Inject/Drain Joint/Bursa Intermediate W/O US Completed 07/05/2013 Inject/Drain Joint/Bursa Small W/O US Completed 07/05/2013 12031 Inject Tendon Sheath Or Ligament Aponeurosis Eg Completed RT Plantar Fascia 03/16/2013 74754 Nerve Conduction 05-06 Studies Completed 12/20/2012 07554 Rad Exam; Hand Comp Completed 12/20/2012 Inject/Drain Joint/Bursa Intermediate W/O US Completed 12/20/2012 Inject/Drain Joint/Bursa Intermediate W/O US Completed 12/06/2012 52867 Rad Exam; Hand Limited Completed 11/08/2012 74633 Short Arm Splint Application Completed 11/08/2012 72846 Closed TX Metacarpal FX Single W/O Completed Manipulation, Ea Bone 08/21/2012 41792 EEG Recording Awake & Asleep Completed Encounters Type Date Location Provider CPT E/M Dx Office Visit 07/25/2018 [facility] Antoni Decker 68158 M76.71 10:45a Of Fanta Mccollum Office Visit 06/22/2018 [facility] Antoni Decker 78754 S93.401D 10:30a Of Fanta Mccollum M25.571 Office Visit 05/04/2018 10:00a [facility] Antoni Decker, 81003 S93.401D Of C.M.Jaqueline MTemo Office Visit 02/21/2018 10:30a [facility] Antoni Decker, 22476 S93.401A Of C.M.Jaqueline Calix. Office Visit 02/09/2018 8:30a [place] [address] M19.211 Of C.M.AMushtaq M19.011 Office Visit 12/08/2017 1:45p [facility] [place] [address] M19.211 C.M.AMushtaq M25.511 M19.011 Office Visit 11/28/2017 8:30a [facility] Of Mike Stern M.D. 43222 S83.412A C.M.A. V04.10xA Office Visit 11/24/2017 9:40a [facility] [place] [address] Z01.818 [place] M25.562 Office Visit 11/21/2017 11:40a [facility] Internal Mihai Wong, 73014 S83.242D Medicine - [place] Anastacio Mccollum,FACP M51.16 H53.8 Office Visit 11/07/2017 10:45a [facility] Of Mike Stern M.D. 23270 S83.242A C.M.A. S83.242D Office Visit 10/12/2017 10:30a [facility] Of Maria Esther Juárez M.D. 92678 M25.562 C.M.A. M25.462 M17.12 S83.242D Office Visit 09/28/2017 2:20p [facility] Internal Mihai Wong, 22900 M51.16 Medicine - [place] Anastacio Mccollum,FACP F33.0 M65.341 J40 Office Visit 09/26/2017 2:45p [facility] Of Mike Stern M.D. 63166 S83.242A C.M.A. Office Visit 09/14/2017 2:40p [facility] Internal Medicine Nayan Soares, 00908 F33.0 - Kenyon Mccollum G47.00 J06.9 M51.16 M50.10 Office Visit 08/31/2017 8:40a [facility] Internal Nayan Fany, 09317 Z00.01 Lenore Prescott M.D. F33.0 M54.31 B18.2 M50.10 Z12.5 Z23 Office Visit 08/29/2017 11:00a [facility] Of Mike Stern M.D. 29902 M70.42 Fanta M25.562 Office Visit 08/01/2017 10:15a [facility] Karen Cardona, 51589 M65.331 Of Fanta Mccollum M65.341 M72.0 Office Visit 07/13/2017 3:40p [facility] Internal Medicine - Sirilos Arroyo, [facility] [address] M50.10 M54.42 G47.00 G43.009 M25.532 S56.125A M54.31 S61.214A Office Visit 07/01/2017 3:00p [facility] Internal Nayan Soares, 07102 M54.42 Medicine - [place] Anastacio Mccollum M50.10 Office Visit 02/17/2017 10:30a [facility] Internal Mihai Wong, 38706 J44.0 Medicine - [place] Anastacio Mccollum,[facility] Office Visit 01/10/2017 11:40a [facility] [place] [address] G89.4 Medicine - [address] Office Visit 11/08/2016 2:30p [facility] Martin Steel, 04597 S43.51xA Of Fanta HALL M19.011 M75.41 M75.31 Office Visit 10/22/2016 1:40p [facility] Internal Mihai Wong, 12773 S06.0x0D Medicine - [address] Veda,FAC M25.511 M54.42 Z23 Office Visit 10/07/2016 3:20p [facility] Carlita Menjivar, 37203 M25.511 Of Fanta MOTA M19.011 M75.31 Office Visit 06/25/2016 4:00p [facility] [place] [address] L03.113 [facility] Office Visit 04/13/2016 10:50a [facility] Internal Medicine Mihai Wong, 12017 K57.32 - Kenyon Mccollum,FACP K85.9 G89.21 Office Visit 11/20/2015 2:00p [facility] Carlita Menjivar, 23199 M79.641 Of C.M.A. RPA-C M19.031 Office Visit 09/24/2015 11:50a [facility] Internal Mihai Wong, 09676 M25.511 Medicine - [place] Anastacio Mccollum,FACP M54.2 Office Visit 09/03/2015 10:30a [facility] Internal Mihai Wong, 67436 M25.511 Medicine - [place] Anastacio Mccollum,FACP B18.2 F51.05 Office Visit 08/29/2015 2:30p [facility] Of Maria Esther Juárez M.D. 72705 M25.511 C.M.A. M25.531 M25.521 Office Visit 07/03/2015 2:30p [facility] [place] [address] 477.9 Office Visit 06/02/2015 2:10p [facility] Internal Medicine Mihai Wong, 64392 V70.0 - [place] Anastacio Mccollum,FACP 486 698.8 070.54 338.4 780.52 V65.44 Office Visit 05/15/2015 10:10a [facility] Internal Mihai Wong, 88066 491.21 Medicine - [place] Anastacio Mccollum,FACP 070.54 Office Visit 04/15/2015 10:50a [facility] Internal Medicine Mihai Wong, 57741 728.71 - Kenyon Mccollum,FACP Office Visit 04/04/2015 11:30a [facility] Internal Medicine Osman Mendoza, KELLY 46975 461.0 - [place] 346.90 Office Visit 02/13/2015 1:30p [facility] Of Karen Cardona, 14725 726.33 C.M.AMushtaq Mccollum Office Visit 02/06/2015 10:22a [facility] Yudelka [place], 50939 [address] Assoc, Hospitalists D.O. 780.97 781.2 305.90 Office Visit 02/05/2015 10:22a [facility] Yudelka Degrootr, 36284 496 Hospitalists D.O. 781.2 780.97 305.90 Office Visit 02/05/2015 1:49p [facility] [address] 780.97 781.3 305.90 Office Visit 02/04/2015 1:48p [facility] Dorothy Olvera, 68551 780.97 M.DMushtaq 781.3 305.90 Office Visit 02/04/2015 10:19a [facility] Yudelka Stanislav, 81974 496 Hospitalists D.O. 781.2 780.97 305.90 Office Visit 02/03/2015 10:19a [facility] Yudelka Stanislav, 25626 496 Hospitalists D.O. 780.97 305.90 Office Visit 02/02/2015 10:18a [facility] Yudelka Stanislav, 81611 496 Hospitalists D.O. 780.97 305.90 Office Visit 02/01/2015 10:14a [facility] Gt José, 11508 496 Hospitalists N.P. 780.97 305.90 Office Visit 01/24/2015 1:30p [facility] [place] [address] 784.1 [place] 724.5 Office Visit 01/21/2015 2:30p [facility] [place] [address] 784.1 [place] 726.33 Office Visit 01/05/2015 10:15a [facility] Dena Diaz, 05059 682.9 Hospitalists N.P. 995.0 110.9 Office Visit 01/03/2015 10:14a [facility] [address] 995.0 Hospitalists 682.9 110.9 Office Visit 11/04/2014 3:40p [facility] Internal Medicine Mihai Wong, 57207 724.2 - Kenyon Mccollum,FACP 070.54 354.0 Office Visit 07/11/2014 10:00a [facility] Internal Medicine Osman Mendoza, [employer] OPERATOR 96173 724.2 - [place] Office Visit 07/09/2014 2:40p [facility] Nitinfranny Myrick, 65079 721.0 Of [facility] Shirley.Kailey Office Visit 06/13/2014 4:30p [facility] Of Karenpavel Cardona, 73622 726.10 Fanta Mccollum 715.14 715.91 726.19 719.43 Office Visit 02/07/2014 11:30a [facility] Karen Cardona, 45273 726.10 Of Fanta Mccollum 715.14 719.41 719.43 Office Visit 01/31/2014 10:15a [facility] Of Sushil Barrylori, 03177 388.31 [facility] 01/23/2014 2:40p [facility] Internal Mihai Wong, 43198 722.91 Medicine - Ken[place] Mccollum,FACP 490 Office Visit 01/04/2014 4:20p [facility] Internal Medicine Mihai Wong, 51602 722.0 - Kenyon Mccollum,FACP 346.00 490 Office Visit 12/11/2013 11:10a [facility] Internal Medicine Mihai Wong, 41086 V70.0 - Kenyon Mccollum,FACP 338.4 070.70 214.9 V65.44 V05.3 Office Visit 11/29/2013 1:00p [facility] Karen Cardona, 23639 726.11 Of Fanta Mccollum 716.91 715.14 Office Visit 11/07/2013 10:50a [facility] Internal Medicine Mihai Wong, 50993 719.46 - Kenyon Mccollum,FACP 719.47 784.49 305.1 V76.51 571.49 Office Visit 10/29/2013 3:40p [facility] Internal Medicine Rosa M Shirley N.PMushtaq 29052 466.0 - [place] Office Visit 10/17/2013 3:30p [facility] Manjeet Reese 51035 719.26 Of Anthony Tobar 727.09 Office Visit 10/11/2013 9:50a [facility] Internal Medicine Mihai Wong, 45883 338.4 - Kenyon Mccollum,FACP 466.0 Office Visit 09/14/2013 2:40p [facility] Internal Medicine Mihai Wong, 02371 719.46 - Kenyon Mccollum,FACP 338.4 722.0 v04.81 Office Visit 07/05/2013 1:00p [facility] Karen Cardona, 87610 727.41 Of Fanta Mccollum 716.93 719.44 719.43 Office Visit 06/01/2013 2:40p [facility] Internal Medicine Mihai Wong, 13010 338.4 - Kenyon Mccollum,FACP Office Visit 04/04/2013 4:00p [facility] Internal Medicine Mihai Wong, 79202 528.9 - Kenyon Mccollum,FACP 729.5 Office Visit 02/14/2013 2:40p [facility] Internal Medicine Mihai Wong, 53673 338.4 - Kenyon Mccollum,FACP 354.0 Office Visit 01/08/2013 2:20p [facility] Internal Medicine Mihai Wong, 91974 338.4 - Kenyon Mccollum,FACP 780.52 Office Visit 12/20/2012 1:15p [facility] Karen Cardona, 96546 815.04 Of [facility] KWESI Tapia M.D. 727.41 727.05 719.42 Office Visit 12/01/2012 1:40p [facility] Internal Medicine Mihai Wong, 37234 338.4 - Kenyon Mccollum,FACP 780.52 Office Visit 10/30/2012 1:20p [facility] Internal Medicine Mihai Wong, 84215 338.4 - Kenyon Mccollum,FACP 722.0 Office Visit 09/14/2012 11:20a [facility] Internal Medicine Neema Medina M.D. 95712 724.2 - [place] Office Visit 09/05/2012 3:00p [facility] Internal Medicine Neema Medina M.D. 78153 844.2 - [place] 780.39 Office Visit 07/08/2012 4:01p [facility], Mauri N[place] M.D. 76962 965.00 Hospitalists Office Visit 07/07/2012 4:00p [facility] M.[facility]. 36431 Hospitalists Plan of Care Future Appointment(s):11/21/2018 9:15 am - Antoni Decker M.D. at [facility]09/07/2018 - Antoni Decker M.D.M76.71 Peroneal tendinitis, right legFollow up:2 months
[2018-09-16 12:04] VITALS: BP 140/79
[2018-09-16] MEDS ORDERED: Ketorolac INJ* 60 MG/2 ML VIAL IM ONE (13:39)
--- NOTE | 2018-09-16 13:48 | UC ---
Back Pain HPI - HPI Summary HPI Summary: 5 day history of increasing bilateral flank pain, worsened by movement or coughing, not relieved by ibuprofen, acetaminophen or aspirin. Last dose of analgesic was about 5 hours prior to assessment. Has a hx of lumbar disk herniations, states that this pain is different, and is concerned about kidney stones and UTI. Negative urine on arrival. Bilateral pain, symmetrical, feels "like a hammer", uncomfortable. Has been lying on his back for 5 days. Presently without a PMD; has been working with [facility] and awaiting a pain clinic referral. Cough worsening x 4 o5 days, feels out of breath, thinks that he needs an antibiotic for this. Cannot say what the antibiotic was that he took 6 weeks ago. - History of Current Complaint Chief Complaint: UCBackPain Stated Complaint: RESP COMPLAINT Time Seen by Provider: 09/16/18 13:15 Hx Obtained From: Patient Onset/Duration: Gradual Onset, Lasting Days - 5 to 6 Pain Intensity: 8 Back Pain: Is Discrete @ - both lower flanks Character: Aching, Throbbing, Spasmodic Aggravating Factor(s): Movement, Walking, Cough Alleviating Factor(s): Rest - has been lying flat on his back. Associated Signs And Symptoms: Positive: Flank Pain. Negative: Numbness, Bladder Incontinence, Bowel Incontinence, Weight Loss - Risk Factors AAA Risk Factors: Negative - Allergies/Home Medications Allergies/Adverse Reactions: Allergies Allergy/AdvReac Type Severity Reaction Status Date / Time bee venom protein (honey bee) Allergy Severe Anaphylatic Verified 09/16/18 12:00 Shock Penicillins Allergy Severe Hives/Diff. Verified 09/16/18 12:00 Breathing/I tching piperacillin [From Zosyn] Allergy Severe Hives/Diff. Verified 09/16/18 12:00 Breathing/I tching tazobactam [From Zosyn] Allergy Severe Hives/Diff. Verified 09/16/18 12:00 Breathing/I tching PMH/Surg Hx/FS Hx/Imm Hx Previously Healthy: No - chronic pain from [facility] diagnoses GI/ History: Gastroesophageal Reflux Other History Of: Negative For: Anticoagulant Therapy - Surgical History Surgical History: Yes Surgery Procedure, Year, and Place: Left acl reconstruction - 10/2016/2017. ulnar nerve- [facility] - CARPAL TUNNEL & ELBOWS. left shoulder/clavicle. excision of gangion cyst x3 RT [facility]. left wrist surgery. RIGHT HAND. LEFT POINTER FINGER. BILATERAL SHOULDER ARTHROSCOPY - Family History Known Family History: Positive: Cardiac Disease - mother CHF, Respiratory Disease - father COPD - Social History Occupation: Disabled Lives: Alone Alcohol Use: None Alcohol Amount: LAST 3 YEARS AGO Substance Use Type: None Substance Use Comment - Amount & Last Used: hx cocaine; MJ; "pills" (treatment for drugs in past) Smoking Status (MU): Former Smoker Type: Cigarettes Amount Used/How Often: smoked off and on 15 years less than 1/2 ppd When Did the Patient Quit Smoking/Using Tobacco: 2-3 years ago - Immunization History Most Recent Influenza Vaccination: this flu ,2013 Most Recent Tetanus Shot: last year 2013 Most Recent Pneumonia Vaccination: never received Review of Systems All Other Systems Reviewed And Are Negative: Yes Constitutional: Positive: Other - feels unwell for days, denies any use of substances in recent days. Skin: Positive: Negative Eyes: Positive: Negative ENT: Positive: Negative Respiratory: Positive: Shortness Of Breath, Cough, Other - productive of green sputum. Cardiovascular: Positive: Negative Gastrointestinal: Positive: Negative Genitourinary: Positive: Negative - no hx of stones, frequency, dysuria. Urine clear. Motor: Positive: Decreased ROM Neurovascular: Positive: Negative Musculoskeletal: Positive: Arthralgia, Myalgia Neurological: Positive: Negative Psychological: Positive: Negative Is Patient Immunocompromised?: No Physical Exam Triage Information Reviewed: Yes Appearance: Ill-Appearing - looks chronically unwell. Vital Signs: Initial Vital Signs Temp 98 F 09/16/18 11:55 Pulse 86 09/16/18 11:55 Resp 18 09/16/18 11:55 BP 140/79 09/16/18 11:55 Pulse Ox 100 09/16/18 11:55 Eyes: Positive: Conjunctiva Clear ENT: Positive: Normal ENT inspection Neck: Positive: No Lymphadenopathy Respiratory: Positive: Lungs clear, Normal breath sounds Cardiovascular: Positive: RRR, No Murmur Abdomen Description: Positive: Nontender, No Organomegaly, Soft. Negative: CVA Tenderness (R), CVA Tenderness (L) Bowel Sounds: Positive: Present Musculoskeletal: Positive: Strength Intact - has normal resisted plantar and dorsiflexion both feet., No Edema, ROM Limited @ - lumbar spine Neurological: Positive: Alert, Muscle Tone Normal Psychological Exam: Normal Skin Exam: Normal Diagnostics - Laboratory Diagnostic Studies Completed/Ordered: KUB film + stool, no evidence of stones per MH. Possible patchy infiltrate left base per MH. Per Dr. Rodriguez, KUB and chest negative for acute disease. Re-Evaluation - Re-Evaluation First Eval Re-Evaluation Time: 14:45 Change: Unchanged Comment: reports no change in pain, would like additional pain medication. Second Eval Re-Evaluation Time: 15:30 Change: Improved Comment: hydrocodone relieved pain, and he requests a supply for home. Back Pain Course/Dx - Course Course Of Treatment: observation, advised further work up in ER if pain continues - Differential Dx/Diagnosis Differential Diagnosis/HQI/PQRI: Renal Colic, Strain, Sprain, Other - pneumonia , UTI Provider Diagnoses: muscle spasm of uncertain cause. Discharge - Sign-Out/Discharge Documenting (check all that apply): Patient Departure All imaging exams completed and their final reports reviewed: Yes - Discharge Plan Condition: Stable Disposition: HOME Prescriptions: Hydrocodone/Acetaminophen [Hydrocodone-Acetamin 5-325 mg] 2 each PO Q8H PRN #12 tablet MDD 6 PRN Reason: Pain Patient Education Materials: Muscle Spasm (ED) Referrals: Mihai Wong MD [Primary Care Provider] - Additional Instructions: Testing here has not shown evidence of pneumonia or kidney stones, but out testing ability is limited. I suggest that you go to the emergency room for further work up if the pain continues. Continue to work with [facility] for referral to a pain management program. Chest xray did not show any evidence of pneumonia. You have a 2 day supply of hydrocodone to use for pain because it gave you relief today. Do not combine this with use of tramadol or muscle relaxants. - Billing Disposition and Condition Condition: STABLE Disposition: Home
[2018-09-16] MEDS ORDERED: HYDROcodone/ACETAMIN 5-325 MG* 1 TAB PO ONE (14:53)
== END 2018-09-16 15:55 | disposition home or self-care (01) ==
LOC: UCEAST 11:39
DX: M62.838 Other muscle spasm (principal); Z88.0 Allergy status to penicillin
CPT/HCPCS: 71046; 74018; 81003; 96372; 99212; G0463; J1885

== ENCOUNTER 2019-08-21 09:54 | Emergency (ER) | payer OTHER ==
--- OUTSIDE RECORDS SUMMARY | 2019-08-21 10:12 | XMS REPORT | Summary of Care ---
:1965 Author Organization [facility] Address [address] [address] Care Team Providers Name Role Phone Renard Jad Hema Primary Care Provider Encounter Details Date Type Department Care Team Description 07/20/2019 Hospital Encounter [facility] Neurodiagnostics Lab Outpatient [address] [id number] Allergies Active Allergy Reactions Severity Noted Date Comments Zosyn Unknown Reaction 01/26/2016 documented as of this encounter (statuses as of 07/22/2019) Medications Medication Sig Dispensed Refills Start Date End Date Status loratadine Take 10 mg by 0 Active (CLARITIN,ALAVERT) 10 mouth DAILY. MG Oral Tab duloxetine (CYMBALTA) Take 1 Cap by 90 Cap 0 12/14/2018 Active 30 MG Oral CAPSULE mouth DAILY. 1 ENTERIC COATED cap daily for 5 PARTICLESIndications: days then 2 caps Chronic musculoskeletal daily onwards pain montelukast (SINGULAIR) Take 1 Tab by 30 Tab 5 02/22/2019 Active 10 MG Oral mouth DAILY. TabIndications: Moderate asthma without complication, unspecified whether persistent HYDROcodone-acetaminoph Take 1 Tab by 15 Tab 0 03/13/2019 Active en (NORCO) 5-325 MG mouth DAILY Oral TabIndications: NEEDED (neck or Spondylosis of lumbar lumbar pain.). region without Max Daily Amount: myelopathy or 1 Tab. 15 tabs a radiculopathy, month max Spondylosis of cervical region without myelopathy or radiculopathy Omeprazole 20 MG Oral Take 1 Tab by 30 Tab 0 05/16/2019 Active Tab EC mouth DAILY. albuterol HFA Take 2 Puffs by 1 Inhaler 5 05/16/2019 Active (VENTOLIN) 108 (90 inhalation EVERY Base) MCG/ACT FOUR HOURS Inhalation Aero NEEDED (SOB). SolnIndications: Moderate asthma without complication, unspecified whether persistent cyclobenzaprine Take 1 Tab by 42 Tab 0 05/16/2019 Active (FLEXERIL) 10 MG Oral mouth THREE TIMES Tab DAILY. EPINEPHrine 0.15 1 Kit by 1 Each 1 05/16/2019 Active MG/0.3ML Injection Injection route Solution Auto-injector NEEDED (bee sting). documented as of this encounter (statuses as of 07/22/2019) Active Problems Problem Noted Date Myositis of multiple sites 02/06/2019 Hepatitis C 04/03/2014 Chronic narcotic use, prescribed 02/01/2011 Left knee ACL tear, chronic 02/01/2011 Overview: 12 years PO ACL reconstruction, hamstrings Left knee capsular strain, chronic 02/01/2011 Cervical spondylosis without myelopathy 02/01/2011 Myofascial pain syndrome 02/01/2011 Overview: Based on generalized tenderness Replaced inactive diagnosis Lumbosacral spondylosis without myelopathy Tobacco use disorder Asthma documented as of this encounter (statuses as of 07/22/2019) Resolved Problems Problem Noted Date Resolved Date HIV (human immunodeficiency virus infection) 04/03/2014 04/03/2014 Cervical spondylosis with myelopathy 02/01/2011 02/01/2011 Acute laryngitis 11/27/2008 02/01/2011 Acute tracheitis without mention of obstruction 11/27/2008 02/01/2011 Acute upper respiratory infections of unspecified site 01/09/2005 02/01/2011 documented as of this encounter (statuses as of 07/22/2019) Immunizations Name Administration Dates Next Due PNEUMOCOCCAL POLYSACCHARIDE VACCINE 12/14/2018 documented as of this encounter Social History Tobacco Use Types Packs/Day Years Used Date Former Smoker Cigarettes Smokeless Tobacco: Former User Comments: 1 pack of cigs a week for 10 years. Alcohol Use Drinks/Week oz/Week Comments No Sex Assigned at Date Recorded Not on file Job Start Date Occupation Industry Not on file Not on file Not on file Travel History Travel Start Travel End No recent travel history available. documented as of this encounter Last Filed Vital Signs Not on filedocumented in this encounter Progress Notes Jayshree House - 07/20/2019 10:39 AM [facility] [address] [place] [address] Patient: Meliton Rowe Sex: male Date of : 1965 Handedness: Right Diabetic: Patient is not diabetic Date of test: 07/20/2019 Technologist's Notes: Animal Bounty Hunter: Jayshree House documented in this encounter Plan of Treatment Health Maintenance Due Date Last Done Comments ZOSTER IMMUNIZATION SERIES (1 of 2013 2) INFLUENZA VACCINE (#1) 2019 DEPRESSION SCREENING 12/14/2019 12/14/2018 Medication Use Agreement 04/16/2020 04/16/2019 COLONOSCOPY SCREENING 12/04/2023 12/04/2013 LIPID DISORDER SCREENING 12/25/2023 12/25/2018 PNEUMOCOCCAL 0-64 YRS Completed 12/14/2018 HIV SCREENING Completed 12/25/2018 HPV IMMUNIZATION SERIES Aged Out No longer eligible based on patient's age to complete this topic MENINGOCOCCAL VACCINE IMM Aged Out No longer eligible based on patient's age to complete this topic documented as of this encounter Results Not on filedocumented in this encounter documented as of this encounter
--- OUTSIDE RECORDS SUMMARY | 2019-08-21 10:12 | XMS REPORT | Summary of Care ---
:1965 Author Organization [facility] Address [address] [facility] [place] [address] Care Team Providers Name Role Phone Renard Jad Garrido Primary Care Provider Reason for Visit Reason Comments Emesis throwing up x4 days Cough Encounter Details Date Type Department Care Team Description 08/08/2019 Office Visit [facility] Ebony La, Acute URI (Primary Dx); Practice [facility] [address] [place] [address] [place] [address] [phone] Allergies Active Allergy Reactions Severity Noted Date Comments Zosyn Unknown Reaction 01/26/2016 documented as of this encounter (statuses as of 08/08/2019) Medications Medication Sig Dispensed Refills Start End Date Status Date loratadine Take 10 mg by 0 Active (CLARITIN,ALAVERT) mouth DAILY. 10 MG Oral Tab duloxetine Take 1 Cap by 90 Cap 0 Active (CYMBALTA) 30 MG mouth DAILY. 1 9 Oral CAPSULE ENTERIC cap daily for COATED 5 days then 2 PARTICLESIndications caps daily : Chronic onwards musculoskeletal pain montelukast Take 1 Tab by 30 Tab 5 Active (SINGULAIR) 10 MG mouth DAILY. 9 Oral TabIndications: Moderate asthma without complication, unspecified whether persistent HYDROcodone-acetamin Take 1 Tab by 15 Tab 0 Active ophen (NORCO) 5-325 mouth DAILY 9 MG Oral NEEDED (neck TabIndications: or lumbar Spondylosis of pain.). Max lumbar region Daily Amount: without myelopathy 1 Tab. 15 tabs or radiculopathy, a month max Spondylosis of cervical region without myelopathy or radiculopathy albuterol HFA Take 2 Puffs 1 Inhaler 5 Active (VENTOLIN) 108 (90 by inhalation 9 Base) MCG/ACT EVERY FOUR Inhalation Aero HOURS SolnIndications: NEEDED (SOB). Moderate asthma without complication, unspecified whether persistent cyclobenzaprine Take 1 Tab by 42 Tab 0 Active (FLEXERIL) 10 MG mouth THREE 9 Oral Tab TIMES DAILY. EPINEPHrine 0.15 1 Kit by 1 Each 1 Active MG/0.3ML Injection Injection 9 Solution route Auto-injector NEEDED (bee sting). benzonatate Take 1 Cap by 60 Cap 0 Active (TESSALON PERLES) mouth THREE 9 100 MG Oral TIMES DAILY CapIndications: NEEDED for Acute URI cough. ondansetron (ZOFRAN Take 1 Tab by 20 Tab 0 Active ODT) 8 MG Oral mouth EVERY 9 TABLET EIGHT HOURS DISPERSIBLEIndicatio NEEDED ns: Gastroenteritis (nausea). Omeprazole 20 MG Take 1 Tab by 30 Tab 0 Active Oral Tab mouth DAILY. 9 ECIndications: Gastroenteritis Omeprazole 20 MG Take 1 Tab by 30 Tab 0 08/08/20 Discontinued Oral Tab EC mouth DAILY. 9 19 (Reorder) ondansetron (ZOFRAN Take 1 Tab by 20 Tab 0 08/08/20 Discontinued ODT) 8 MG Oral mouth EVERY 9 19 (Reorder) TABLET DISPERSIBLE EIGHT HOURS NEEDED (nausea). benzonatate Take 1 Cap by 60 Cap 0 08/08/20 Discontinued (TESSALON PERLES) mouth THREE 9 19 (Reorder) 100 MG Oral Cap TIMES DAILY NEEDED for cough. documented as of this encounter (statuses as of 08/08/2019) Active Problems Problem Noted Date Myositis of [...] as of this encounter (statuses as of 08/08/2019) Resolved Problems Problem Noted Date Resolved Date HIV (human immunodeficiency virus infection) 04/03/2014 04/03/2014 Cervical spondylosis with myelopathy 02/01/2011 02/01/2011 Acute laryngitis 11/27/2008 02/01/2011 Acute tracheitis without mention of obstruction 11/27/2008 02/01/2011 Acute upper respiratory infections of unspecified site 01/09/2005 02/01/2011 documented as of this encounter (statuses as of 08/08/2019) Immunizations Name Administration Dates Next Due PNEUMOCOCCAL [...] of this encounter Last Filed Vital Signs Vital Sign Reading Time Taken Comments Blood Pressure 160/74 08/08/2019 3:38 PM EDT Pulse - - Temperature 36.6 08/08/2019 3:38 PM EDT C (97.9 F) Respiratory Rate - - Oxygen Saturation - - Inhaled Oxygen Concentration - - Weight 63.5 kg (140 lb) 08/08/2019 3:38 PM EDT Height 167 cm (5' 5.75") 08/08/2019 3:38 PM EDT Body Mass Index 22.77 08/08/2019 3:38 PM EDT documented in this encounter Patient Instructions Patient InstructionsEbony La FNP - 08/08/2019 3:20 PM EDTLight diet, lots of water Nausea pill as needed - use cough medication as directed Rest Follow up with Dr Glynn for ongoing pain issues documented in this encounter Progress Notes Ebony La FNP - 08/08/2019 3:20 PM EDT PATIENT: Meliton Rowe : 1965 DATE OF SERVICE: 08/08/2019 CHIEF COMPLAINT: Chief Complaint Patient presents with Emesis throwing up x4 days Cough Subjective HISTORY OF PRESENT ILLNESS: Meliton Rowe is a 54-y.o. male. HPI Vomiting x 3-4 days - increased cough. States child in the home recently ill with similar sx. Is eating, is taking Ibuprofen with milk. Past Medical History: Diagnosis Date Asthma Cervical spondylosis without myelopathy 02/01/2011 Chronic narcotic use, prescribed 02/01/2011 Left knee ACL tear, chronic 02/01/2011 Left knee capsular strain, chronic 02/01/2011 Left knee Myofacial pain syndrome 02/01/2011 Lumbosacral spondylosis without myelopathy 2000 WC injury Tobacco use disorder Family History Problem Relation Age of Onset Lung Cancer Maternal Grandfather Current Outpatient Medications Medication Sig albuterol HFA (VENTOLIN) 108 (90 Base) MCG/ACT Inhalation Aero Soln Take 2 Puffs by inhalation EVERY FOUR HOURS NEEDED (SOB). benzonatate (TESSALON PERLES) 100 MG Oral Cap Take 1 Cap by mouth THREE TIMES DAILY NEEDEDfor cough. cyclobenzaprine (FLEXERIL) 10 MG Oral Tab Take 1 Tab by mouth THREE TIMES DAILY. duloxetine (CYMBALTA) 30 MG Oral CAPSULE ENTERIC COATED PARTICLES Take 1 Cap by mouth DAILY. 1 cap daily for 5 days then 2 caps daily onwards EPINEPHrine 0.15 MG/0.3ML Injection Solution Auto-injector 1 Kit by Injection route NEEDED(bee sting). HYDROcodone-acetaminophen (NORCO) 5-325 MG Oral Tab Take 1 Tab by mouth DAILY NEEDED (neckor lumbar pain.). Max Daily Amount: 1 Tab. 15 tabs a month max loratadine (CLARITIN,ALAVERT) 10 MG Oral Tab Take 10 mg by mouth DAILY. montelukast (SINGULAIR) 10 MG Oral Tab Take 1 Tab by mouth DAILY. Omeprazole 20 MG Oral Tab EC Take 1 Tab by mouth DAILY. ondansetron (ZOFRAN ODT) 8 MG Oral TABLET DISPERSIBLE Take 1 Tab by mouth EVERY EIGHT HOURS NEEDED (nausea). No current facility-administered medications for this visit. Allergies Allergen Reactions Zosyn Unknown Reaction Social History Socioeconomic History Marital status: Spouse name: Not on file Number of children: Not on file Years of education: Not on file Highest education level: Not on file Occupational History Not on file Social Needs Financial resource strain: Not on file Food insecurity: Worry: Not on file Inability: Not on file Transportation needs: Medical: Not on file Non-medical: Not on file Tobacco Use Smoking status: Former Smoker Types: Cigarettes Smokeless tobacco: Former User Tobacco comment: 1 pack of cigs a week for 10 years. Substance and Sexual Activity Alcohol use: No Drug use: No Sexual activity: Not on file Lifestyle Physical activity: Days per week: Not on file Minutes per session: Not on file Stress: Not on file Relationships Social connections: Talks on phone: Not on file Gets together: Not on file Attends evangelical service: Not on file Active member of club or organization: Not on file Attends meetings of clubs or organizations: Not on file Relationship status: Not on file Intimate partner violence: Fear of current or ex partner: Not on file Emotionally abused: Not on file Physically abused: Not on file Forced sexual activity: Not on file Other Topics Concern Not on file Social History Narrative Disability Live alone with son living next door REVIEW OF SYSTEMS: Review of Systems Constitutional: Positive for malaise/fatigue. Negative for chills and fever. Respiratory: Positive for cough and sputum production. Negative for shortness of breath and wheezing. Gastrointestinal: Positive for abdominal pain and vomiting. Negative for diarrhea. Objective PHYSICAL EXAM: VITALS: BP 160/74 (BP Location: Left arm, Patient Position: Sitting) | Temp 97.9 F (36.6 C) | Ht 5' 5.75" (1.67 m) | Wt 140 lb (63.5 kg) | BMI 22.77 kg/m Body mass index is 22.77 kg/m. Physical Exam Vitals signs reviewed. Constitutional: Appearance: Normal appearance. HENT: Head: Normocephalic and atraumatic. Nose: Nose normal. Pulmonary: Effort: Pulmonary effort is normal. Breath sounds: Normal breath sounds. Chest: Chest wall: No tenderness. Abdominal: General: Bowel sounds are normal. Palpations: Abdomen is soft. Tenderness: There is no tenderness. There is no guarding. Skin: General: Skin is warm and dry. Capillary Refill: Capillary refill takes less than 2 seconds. Neurological: Mental Status: He is alert and oriented to person, place, and time. Psychiatric: Comments: Pt very animated today ASSESSMENT / IMPRESSION: ICD-9-CM ICD-10-CM 1. Acute URI 465.9 J06.9 benzonatate (TESSALON PERLES) 100 MG Oral Cap 2. Gastroenteritis 558.9 K52.9 ondansetron (ZOFRAN ODT) 8 MG Oral TABLET DISPERSIBLE Omeprazole 20 MG Oral Tab EC Plan Light diet, lots of water Nausea pill as needed - use cough medication as directed Rest Follow up with Dr Glynn for ongoing pain issues - reminded pt of frequent NS including earlier today Pt initially demanding antibiotic - advised sx likely viral since other in home had similar sx - no antibiotic at this time Author: LUCA Hawk 08/08/2019 16:24 documented in this encounter Plan of Treatment [...] Results Not on filedocumented in this encounter Visit Diagnoses Diagnosis Acute URI - Primary Acute upper respiratory infections of unspecified site Gastroenteritis Other and unspecified noninfectious gastroenteritis and colitis documented in this encounter documented as of this encounter
--- OUTSIDE RECORDS SUMMARY | 2019-08-21 10:12 | XMS REPORT | Continuity of Care Document ---
:1965 External Reference #:[id number] Author Name Karen Cardona M.D. (transmitted by agent of provider Mindy Reyes) Address [address] [facility] [place] [address] Care Team Providers Name Role Phone Mihai Wong MD - Internal Care Team Information Rural Service Engineer Medicine Kiki Macdonald MD - Hand Surgery Care Team Information Rural Service Engineer Karen Cardona MD - Surgery of the Care Team Information Rural Service Engineer [phone] Hand Alon Ramos MD - Neurology Care Team Information Rural Service Engineer [phone] Amado Agudelo MD - Orthopaedic Care Team Information Rural Service Engineer Surgery [facility] - Pain Care Team Information Rural Service Engineer [phone] Rohith Fontenot MD - Interventional Care Team Information Rural Service Engineer Pain Medicine Patient's Choice Care Team Information Rural Service Engineer Unavailable Problems Active Problems Provider Date Sprain of cruciate ligament of knee Neema Medina M.D. Onset: 09/05/2012 Seizure Neema Medina M.D. Onset: 09/05/2012 Low back pain Tyrell Loepz M.D. Onset: 09/05/2012 Chronic pain syndrome Mihai Wong M.D.,FACP Onset: 10/30/2012 Viral hepatitis C Mihai Wong M.D.,FACP Onset: 10/30/2012 Note: Viral load now ZERO Carpal tunnel syndrome Mihai Wong M.D.,FACP Onset: 02/14/2013 Subjective tinnitus Sushil Britt M.D. Onset: 01/31/2014 Disorder of shoulder Maria Esther Franck, M.D. Onset: 09/29/2015 Sprain of acromioclavicular ligament Martin Steel MD Onset: 11/08/2016 Sciatica Nayan Soares M.D. Onset: 07/01/2017 Cervical disc disorder Nayan Soares M.D. Onset: 07/01/2017 Mild recurrent major depression Nayan Soares M.D. Onset: 08/31/2017 Insomnia Nayan Soares M.D. Onset: 09/14/2017 Ex-smoker Mihai Wong M.D.,FACP Onset: 09/28/2017 Localized, primary osteoarthritis Maria Esther Juárez M.D. Onset: 10/12/2017 Localized, secondary osteoarthritis of Delano Troncoso MD Onset: 02/09/2018 the shoulder region Social History Type Date Description Comments Sex Unknown Tobacco Use Start: Unknown End: Former Cigarette Smoker was 3-5/week in Unknown past, quit 10/2015 Tobacco Use Start: Unknown Never Smoked Cigars Tobacco Use Start: Unknown Never Smoked A Pipe Smokeless Tobacco Never Used Smokeless Tobacco ETOH Use 12/11/2015 Denies alcohol 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 Recreational Drug Use Former Drug User Tobacco Use Start: Unknown End: Patient is a former Unknown smoker Recreational Drug Use Denies Drug Use Smoking Status Reviewed: 08/15/19 Patient is a former smoker Exercise Type/Frequency ride bike Allergies, Adverse Reactions, Alerts Active Allergies Reaction Severity Comments Date Bee Sting Anaphylaxis 09/05/2012 Zosyn throat swelling 01/21/2015 Inactive Allergies NKDA 02/14/2013 Medications Active Medications SIG Qnty Indications Ordering Provider Date Oxycodone-Acetamino 1/2 to 1 by mouth 10tabs S83.412A Mike Stern M.D. 05/2019 phen every 12 hours if 5-325mg needed for pain Tablets Tramadol HCL one pill twice day 42tabs Antoni Decker, 07/25/2018 50mg for pain M.D. Tablets SM 8 Hour Pain Take One Tablet By 90tabs Gerber Arroyo, 12/13/2017 Relief Mouth Every 6 HAND BOOKED FOLDER AND STITCHER 650mg Hours as Needed Tablets ER For Pain Hydrocodone-Acetami take 1 tab by 30tabs Mike Stern M.D. 11/29/2017 nophen mouth every 4-6 5-325mg hours as needed Tablets for pain. Flector apply 1 patch to 30units S83.242D Mihai Bonner 11/21/2017 1.3% the skin two times Veda Wong,FACP Patches daily as needed Lunesta 1 tab at bedtime 14tabs G47.00 Nayan Soares, 09/14/2017 3mg Tablets M.D. Sertraline HCL 1 by mouth every 30tabs F33.0 Mihai Bonner 08/31/2017 50mg day Veda Wong,FACP Tablets Knee Brace/Flexible M25.562 Karen Cardona, 08/12/2017 Stays/Large M.DMushtaq [facility] Cane/Aluminum/Adjus use with 1units M54.42 Gerber Langk, 07/13/2017 table/Mens Handle ambulation HAND BOOKED FOLDER AND STITCHER [facility] Wrist Brace/Suede use on left wrist 1units M25.532 Gerber Arroyo, 2016 Finish/Left/Medium as needed HAND BOOKED F[employer]DER [employer] STITCHER [facility] Ventolin HFA inhale two puffs 18units J44.1 Alyssa Cotton, 03/10/2015 by mouth four M.DMushtaq 108(90Base) mcg/Act times a day as Aerosol needed Back Support to wear during the 1units M54.9 Gerber Arroyo, 01/24/2015 [facility] day as directed HAND BOOKED FOLDER AND STITCHER Sumatriptan Take 1 Tablet By 18tabs G43.109 Mihai Bonner 01/04/2014 Succinate Mouth Every 2 Veda Wong,FACP 50mg Hours as Directed Tablets For Headache G43.009 Cool Mist Humidifier dx code: 446.0 Mihai Bonner 11/30/2013 [facility] Bronchitis Veda Wong,FACP Shower-Chair use for showing Dx Mihai Bonner 11/30/2013 [facility] code: 780.39 Veda Wong,FACP Convulsions Cyclobenzaprine HCL take one tablet by 30tabs M50.10 Mihai Bonner 10mg mouth two times a Veda Wong,FACP Tablets day as needed for spasms M54.42 G47.00 Epipen 2-Oleksandr inject intramuscularly 2units Alyssa Siegel, as directed MMushtaqDMushtaq 0.3mg/0.3ML Solution Auto-Inject Omeprazole take one capsule by Dukecaps K21.9 Mihai Bonner 20mg mouth every day as Veda Wong,FACP Capsules DR needed Loratadine take one tablet by mouth 30tabs Nayan Soares, 10mg every day M.DMushtaq Tablets Tincture Of Devils once daily in the Unknown Claw, Licorice, morning Tumeric, Moon Multiple Vitamin 1 by mouth every day Unknown Tablets Calcium 600 + D 1 by mouth twice a day Unknown [id number] Tablets Glucosamine 2 by mouth every day Unknown Chondroitin 1500 Complex 1500Com Capsules Ibuprofen Unknown Tylenol Unknown Naproxen Unknown Medications Administered in Office Medication SIG Qnty Indications Ordering Provider Date Depomedrol 40MG Carlita Bitting, [facility] 01/10/2019 Injection Triamcinolone (Kenalog) Delano Troncoso MD 12/08/2017 Injection Depomedrol 40MG Mike Stern M.D. 08/29/2017 Injection No Injection Martin Steel MD 07/21/2017 Injection Depomedrol 40MG Martin Steel MD 07/21/2017 Injection Depomedrol 40MG Carlita Bitting, [facility] 07/20/2017 Injection [facility] 07/20/2017 In[facility] Depomedrol 40MG [facility] 07/20/2017 Injection No Injection Martin Steel MD 11/08/2016 Injection Depomedrol 40MG Martin Steel MD 11/08/2016 Injection Depomedrol 40MG [facility] 10/07/2016 Injection Depomedrol 40MG Karen Cardona M.D. 07/14/2016 Injection Frediomedrol 40MG Karen Cardona M.D. 07/14/2016 Injection Depomedrol 40MG Carlita Bitting, [facility] 11/20/2015 Injection Depomedrol 80MG Maria Esther Juárez M.D. 09/29/2015 Injection Celestone 3 mg and 3mg Maria Esther Juárez M.D. 09/29/2015 Injection Depomedrol 80MG Karen Cardona M.D. 02/13/2015 Injection Depomedrol 80MG Karen Cardona M.D. 06/13/2014 Injection Depomedrol 80MG Karen Cardona M.D. 02/07/2014 Injection Depomedrol 80MG Karen Cardona M.D. 11/29/2013 Injection Depomedrol 80MG Manjeet Mendez, 10/17/2013 Injection RPA-C Depomedrol 80MG Karen Cardona M.D. 07/05/2013 Injection Depomedrol 80MG Karen Cardona M.D. 07/05/2013 Injection Depomedrol 80MG Karen Cardona M.D. 12/20/2012 Injection Immunizations CPT Code Status Date Vaccine Lot # [id number] Given 08/31/2017 Influenza Virus Vaccine, Quadrivalent, Split, [id number] Preservative Free 88180 Given 10/22/2016 Influ Virus Vaccine, Quadrivalent, Split Virus, [place] [id number] [address] Given 08/21/2015 Flu Vaccine Split Virus Preservative Free For Indiv [id number] Older [id number] Given 07/25/2015 Pneumonia Vaccine [id number] 54185 Given 07/24/2014 Influenza Virus Vaccine, Quadrivalent, Split, Preservative Free 18412 Given 07/24/2014 Influenza Virus Vaccine, Quadrivalent, Split, [id number] Preservative Free 19215 Given 12/11/2013 Hepatitis B Vaccine Adult Dosage [id number] 60887 Given 12/11/2013 Hepatitis A Vaccine Adult Dosage [id number] 43810 Given 09/14/2013 Flu Vaccine Split Virus Preservative Free For [id number] Indiv 3Yr Older 45494 Given 08/24/2012 Tdap - Tetanus/Diptheria/Acellular Pertussis Vital Signs Date Vital Result Comment 08/15/2019 8:15am Height 66 inches 5'6" Weight 145.00 lb Heart Rate 92 /min BP Systolic 160 mmHg BP Diastolic 98 mmHg BMI (Body Mass Index) 23.4 kg/m2 04/25/2019 1:09pm Height 65 inches 5'5" Weight 147.00 lb BP Systolic 140 mmHg BP Diastolic 92 mmHg Respiratory Rate 16 /min Body Temperature 97.6 F BMI (Body Mass Index) 24.5 kg/m2 Results Description No Information Available Procedures Date Code Description Status 08/15/2019 47216 Trigger Finger Release Incision / Tendon Sheath Completed Incision 08/15/2019 43702 Inject/Drain Joint/Bursa Small W/O US Completed 12/14/2013 [id number] Colonoscopy Completed 12/04/2013 53921458 Colonoscopy Completed Medical Devices Description No Information Available Encounters Type Date Location Provider Dx Diagnosis Office Visit 04/25/2019 [facility] Karen Cardona G56.21 [facility], [facility] 03/15/2019 [facility] Shirley Arnett76.71 Peroneal 8:45a at [place] Veda tendinitis, right leg Assessments Date Code Description Provider 08/15/2019 M20.012 Mallet finger of left finger(s) Karen Cardona M.D. 08/15/2019 M19.041 Primary osteoarthritis, right hand Karen Cardona M.D. 04/25/2019 G56.21 Lesion of ulnar nerve, right upper limb Karen Cardona M.D. 03/15/2019 M76.71 Peroneal tendinitis, right leg Antoni Decker M.D. Plan of Treatment Future Appointment(s):10/10/2019 3:30 pm - Karen Cardona M.D. at [facility]09/25/2019 11:30 am - Antoni Decker M.D. at [facility]08/15/2019 - Karen Cardona M.D.M20.012 Mallet finger of left finger(s)Follow up:Follow up: 8 thjaiK34.041 Primary osteoarthritis, right hand Functional Status Description No Information Available Mental Status Description No Information Available Referrals Description No Information Available
[2019-08-21 12:00] LABS: Influenza A Molecular NEGATIVE (Negative); Influenza B Molecular NEGATIVE (Negative)
[2019-08-21] MEDS ORDERED: Dexamethasone TAB* 4 MG PO ONE (12:02)
[2019-08-21] MEDS ORDERED: Albuterol 0.5% CONC NEB.SOL* 5 MG/ML 20 ml BOT INH ONE (12:02)
--- NOTE | 2019-08-21 12:41 | ED ---
Shortness of Breath - HPI Summary HPI Summary: Pt is a 54 y/o M presenting to the ED with a chief complaint of shortness of breath. He states he has been exposed to black mold over the past 4-5 weeks, and his sx onset about 3 wks ago. He reports sinus pressure, nasal congestion, chest congestion, stabbing diffuse chest pain, productive cough with yellow/ green phlegm, abd pain with his cough, and headache. He denies hematemesis. - History of Current Complaint Chief Complaint: EDShortnessOfBreath Time Seen by Provider: 08/21/19 11:23 Hx Obtained From: Patient Onset/Duration: Gradual Onset, Lasting Weeks, Still Present Timing: Constant Current Severity: Moderate Dyspnea At: Rest Aggravating Factors: Nothing Alleviating Factors: Nothing Associated Signs & Symptoms: Cough (Productive), Chest Pain Unrelated to Cough, Nasal Congestion - Allergy/Home Medications Allergies/Adverse Reactions: Allergies Allergy/AdvReac Type Severity Reaction Status Date / Time bee venom protein (honey bee) Allergy Severe Anaphylatic Verified 08/21/19 10:01 Shock Penicillins Allergy Severe Hives/Diff. Verified 08/21/19 10:01 Breathing/I tching piperacillin [From Zosyn] Allergy Severe Hives/Diff. Verified 08/21/19 10:01 Breathing/I tching tazobactam [From Zosyn] Allergy Severe Hives/Diff. Verified 08/21/19 10:01 Breathing/I tching Home Medications: Home Medications Benzonatate CAP* [Tessalon 100 MG CAP*] 100 mg PO TID PRN 08/21/19 [History Confirmed 08/21/19] DULoxetine CAP* [Cymbalta CAP*] 60 mg PO DAILY 08/21/19 [History Confirmed ] Hydrocodone/Acetaminophen [Hydrocodone-Acetamin 5-325 mg] 1 each PO DAILY PRN MDD 15/month 08/21/19 [History Confirmed 08/21/19] Montelukast Sodium TAB* [Singulair TAB*] 10 mg PO DAILY 08/21/19 [History Confirmed 08/21/19] Ondansetron ODT TAB* [Zofran 4 MG Odt TAB*] 8 mg PO Q8H PRN 08/21/19 [History Confirmed 08/21/19] PMH/Surg Hx/FS Hx/Imm Hx Previously Healthy: Yes Endocrine/Hematology History: Denies: Hx Anticoagulant Therapy, Hx Blood Disorders, Hx Blood Transfusions, Hx Bone Marrow Disease, Hx Diabetes, Hx Systemic Lupus Erythematosus, Hx Sickle Cell Disease, Hx Thyroid Disease, Hx Anemia, Hx Unexplained Bleeding, Other Endocrine/Hematological Disorders Cardiovascular History: Denies: Hx Aneurysm, Hx Angina, Hx Angioplasty, Hx Auto Implanted Cardiovert Defib, Hx Cardiac Arrest, Hx Cardiomegaly, Hx Congenital Heart Disease, Hx Congestive Heart Failure, Hx Coronary Artery Disease, Hx Deep Vein Thrombosis, Hx Embolism, Hx Hypercholesterolemia, Hx Hypotension, Hx Hypertension, Hx Pacemaker/ICD, Hx Peripheral Vascular Disease, Hx Rheumatic Fever, Hx Syncope, Hx Valvular Heart Disease, Other Cardiovascular Problems/Disorders - pt ams - unable to get info from pt Respiratory History: Reports: Hx Asthma Denies: Hx Chronic Bronchitis, Hx Chronic Obstructive Pulmonary Disease (COPD ), Hx Cystic Fibrosis, Hx Lung Cancer, Hx Pleural Effusion, Hx Pneumonia, Hx Pulmonary Edema, Hx Pulmonary Embolism, Hx Seasonal Allergies, Hx Sleep Apnea, Other Respiratory Problems/Disorders GI History: Reports: Hx Gastroesophageal Reflux Disease, Other GI Disorders - diverticulitis 2015 Denies: Hx Ulcer History: Denies: Hx Acute Renal Failure, Hx Benign Prostatic Hyperplasia, Hx Chronic Renal Failure, Hx Dialysis, Hx Kidney Infection, Hx Kidney Stones, Hx Renal Disease, Other Problems/Disorders Musculoskeletal History: Reports: Hx Arthritis - osteoarthritis, Hx Back Problems - takes aleve and flexeril, Other Musculoskeletal History - degnerative disc disease in cervical and lower back Denies: Hx Bursitis, Hx Congenital Bone Abnormalities, Hx Fibromyalgia, Hx Gout, Hx Orthopedic Injury, Hx Osteoporosis, Hx Scoliosis, Hx Tendonitis Sensory History: Denies: Hx Cataracts, Hx Contacts or Glasses, Hx Eye Injury, Hx Eye Prosthesis, Hx Glaucoma, Hx Legally Blind, Hx Macular Degeneration, Hx Vision Problem, Hx Deafness, Hx Hearing Aid, Hx Hearing Problem, Other Sensory Impairments Opthamlomology History: Denies: Hx Cataracts, Hx Contacts or Glasses, Hx Eye Injury, Hx Eye Prosthesis, Hx Glaucoma, Hx Legally Blind, Hx Macular Degeneration, Hx Vision Problem, Other Sensory Impairments Neurological History: Reports: Hx Headaches, Hx Migraine, Hx Nerve Disease - GREATER RIGHT OCCIPITAL NERVE PINCHED, Other Neuro Impairments/Disorders - substance abuse pt alert but not oriented/speaking unintelligible words Denies: Hx Dementia, Hx Developmental Delay, Hx Seizures, Hx Spinal Cord Injury, Hx Transient Ischemic Attacks (TIA) Psychiatric History: Reports: Hx Anxiety, Hx Attention Deficit Hyperactivity Disorder, Hx Depression - HX OF, Hx Substance Abuse - Bath Salts, unknown substances Denies: Hx Panic Disorder - Cancer History Hx Chemotherapy: No - Surgical History Surgery Procedure, Year, and Place: Left acl reconstruction - 10/2016/2017. ulnar nerve- DEDRA - [facility]PAL TUNNEL & ELBOWS. left shoulder/clavicle. excision of gangion cyst x3 RT [facility]. left wrist surgery. RIGHT HAND. LEFT POINTER FINGER. BILATERAL SHOULDER ARTHROSCOPY Hx Anesthesia Reactions: No - Immunization History Date of Influenza Vaccine: 07/2017 Immunizations Up to Date: Yes Infectious Disease History: No Infectious Disease History: Reports: Hx Hepatitis - history of hepc +- resolved with hervoni, Hx of Known/Suspected MRSA Denies: Hx Clostridium Difficile, Hx Human Immunodeficiency Virus (HIV), Hx Shingles, Hx Tuberculosis, Hx Known/Suspected VRE, Hx Known/Suspected VRSA, History Other Infectious Disease, Traveled Outside the [place] in Last 30 Days - Family History Known Family History: Positive: Cardiac Disease - mother CHF, Respiratory Disease - father COPD - Social History Alcohol Use: None Alcohol Amount: LAST 3 YEARS AGO Hx Substance Use: No Substance Use Type: Reports: None Substance Use Comment - Amount & Last Used: hx cocaine; MJ; "pills" (treatment for drugs in past) Hx Tobacco Use: Yes - Denies smoking today Smoking Status (MU): Heavy Every Day Tobacco Smoker Type: Cigarettes Amount Used/How Often: smoked off and on 15 years less than 1/2 ppd Review of Systems Positive: Nasal Discharge Positive: Chest Pain Positive: Shortness Of Breath, Cough Positive: Abdominal Pain. Negative: Other - hematemesis Positive: Headache All Other Systems Reviewed And Are Negative: Yes Physical Exam - Summary Physical Exam Summary: Constitutional: Well-developed, Well-nourished, Alert. (-) Distressed Skin: Warm, Dry HENT: Normocephalic; Atraumatic Eyes: Conjunctiva normal Neck: Musculoskeletal ROM normal neck. (-) JVD, (-) Stridor, (-) Tracheal deviation Cardio: Rhythm regular, rate normal, Heart sounds normal; Intact distal pulses; Radial pulses are 2+ and symmetric. (-) Murmur Pulmonary/Chest wall: Wheezing bilaterally, speaking in short sentences Abd: Soft, (-) tenderness, (-) Distension, (-) Guarding, (-) Rebound Musculoskeletal: (-) Edema Lymph: (-) Cervical adenopathy Neuro: Alert, Oriented x3 Psych: Mood and affect Normal Triage Information Reviewed: Yes Vital Signs On Initial Exam: Initial Vitals Temp Pulse Resp BP Pulse Ox 98 F 96 22 120/93 97 08/21/19 09:57 08/21/19 09:57 08/21/19 09:57 08/21/19 09:57 08/21/19 09:57 Vital Signs Reviewed: Yes Procedures - Sedation Patient Received Moderate/Deep Sedation with Procedure: No Diagnostics - Vital Signs Vital Signs Temp Pulse Resp BP Pulse Ox 08/21/19 12:26 72 18 100 08/21/19 10:58 99 F 74 20 131/77 100 08/21/19 09:57 98 F 96 22 120/93 97 - Laboratory Lab Results: Lab Results 08/21/19 Range/Units 11:30 Influenza A (Rapid) Negative (Negative) Influenza B (Rapid) Negative (Negative) Lab Statement: Any lab studies that have been ordered have been reviewed, and results considered in the medical decision making process. - Radiology CXR Radiology Interpretation Completed By: Radiologist Summary of Radiographic Findings: Stigmata of obstructive lung disease. No acute pulmonary or cardiac process evident. ED physician has reviewed this report. - EKG 1021 Cardiac Rate: NL - 88bpm EKG Rhythm: Sinus Rhythm ST Segment: Normal Ectopy: PVCs Summary of EKG Findings: EKG at 1021 shows NSR at 88bpm with multiple PVCs. ED physician has interpreted and reviewed this report. Re-Evaluation - Re-Evaluation 1st re-eval Re-Evaluation Time: 12:35 Change: Improved Comment: Pt states he is feeling much better and is stable and agreeable with discharge. Course/Dx - Course Course Of Treatment: Patient is here with 4 weeks of cough. Patient has a history of asthma and is wheezing on exam. Patient was given a dose of Decadron and an hour-long maybe was treatment with vast improvement in his symptoms. Patient had a negative chest x-ray. Patient was discharged with a second dose of Decadron. - Diagnoses Provider Diagnoses: Asthma exacerbation Discharge ED - Sign-Out/Discharge Documenting (check all that apply): Patient Departure - Discharge Plan Condition: Stable Disposition: HOME Prescriptions: Dexamethasone TAB* [Decadron TAB*] 12 mg PO ONCE #3 tab Loratadine 10 mg PO QAM 30 Days #30 capsule Patient Education Materials: Asthma (ED) Referrals: Jad Glynn DO [Primary Care Provider] - Additional Instructions: Please take your second dose of steroids tomorrow. Use your inhaler 2 puffs every 4 hours as needed. Follow up with your primary care provider within the next 1-3 days for a medication adjustment. Come back to the emergency department with any new or worsening symptoms. - Billing Disposition and Condition Condition: STABLE Disposition: Home - Attestation Statements Document Initiated by Chayaibalessandro: Yes Documenting Scribe: Monse Eng Provider For Whom Wily is Documenting (Include Credential): Cassius Shahid MD. Scribe Attestation: Monse Mccartney, chayaibed for Cassius Shahid MD. on 08/21/19 at 1907. Scribe Documentation Reviewed: Yes Provider Attestation: The documentation as recorded by the scribeMonse accurately reflects the service I personally performed and the decisions made by Cassius christina MD. Status of Scribe Document: Viewed
[2019-08-21 12:52] LABS: HIV 4th Generation Nonreactive (Nonreactive)
[2019-08-21 12:54] VITALS: BP 189/99
== END 2019-08-21 12:56 | disposition home or self-care (01) ==
LOC: ED 09:54
DX: J45.901 Unspecified asthma with (acute) exacerbation (principal); R05 Cough; R07.9 Chest pain, unspecified; R09.81 Nasal congestion; Z88.0 Allergy status to penicillin; Z79.899 Other long term (current) drug therapy; F17.210 Nicotine dependence, cigarettes, uncomplicated; R06.02 Shortness of breath
CPT/HCPCS: 36415; 71046; 87389; 93005; 99282; J7611; J8540

== ENCOUNTER 2019-08-26 17:09 | Observation (INO) | payer OTHER ==
[2019-08-26] MEDS ORDERED: NS 0.9% 1000 ML** 1,000 ML IV ONE (20:13)
[2019-08-26 21:08] LABS: ABS Eosinophils 0.1 10^3/ul (0-0.6); ABS Neutrophils 4.5 10^3/ul (1.5-7.7); Eosinophil % 1.2 %; Hematocrit 38 % (42-52); Lymphocyte % 34.3 %; Mean Corpuscular HGB Conc 34 g/dL (31-36); Mean Corpuscular Hemoglobin 31 pg (27-31); Mean Corpuscular Volume 91 fL (80-94); Platelet Count 334 10^3/uL (150-450); Red Blood Count 4.21 10^6 /uL (4.18-5.48); Red Cell Distribution Width 14 % (10-15); White Blood Count 8.7 10^3/uL (3.5-10.8)
[2019-08-26 21:13] LABS: INR 0.96 (0.82-1.09)
[2019-08-26 21:25] LABS: Albumin 3.5 g/dL (3.2-5.2); Albumin/Globulin Ratio 1.2 (1-3); BUN/Creatinine Ratio 13.3 (8-20); Calcium 8.6 mg/dL (8.6-10.3); EGFR African American 168.6 (>60); EGFR Non-African American 139.4 (>60); Potassium 4.2 mmol/L (3.5-5.0); Total Bilirubin 0.3 mg/dL (0.2-1.0); Total Protein 6.5 g/dL (6.4-8.9)
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
[2019-08-26 21:55] LABS: TSH (Thyroid Stimulating Horm) 0.89 mcIU/mL (0.34-5.60)
[2019-08-26] MEDS ORDERED: Iohexol 300* (CONTRAST) 10 ML SDV IV ONE (22:22)
[2019-08-26] MEDS ORDERED: Albuterol/Ipratropium NEB.SOL* Albuterol 2.5 MG/Ipratropium 0.5 MG 3 ML INH ONE (23:19)
[2019-08-26 23:24] LABS: Urine Appearance Clear; Urine Bilirubin Negative (Negative); Urine Blood Negative (Negative); Urine Color Straw; Urine Glucose Negative (Negative); Urine Ketones Negative (Negative); Urine Nitrite Negative (Negative); Urine Protein Negative (Negative); Urine Specific Gravity 1.012 (1.010-1.030); Urine Urobilinogen Negative (Negative)
[2019-08-26 23:49] LABS: Urine Benzodiazepine Screen None Detected (None Detect); Urine Opiates Screen None Detected (None Detect)
[2019-08-27] MEDS ORDERED: Levofloxacin 750 MG IVPREMIX(* 750 MG/150 ML BAG IVPB ONE (00:46)
[2019-08-27] MEDS ORDERED: Albuterol HFA INHALER* 8 gm MDI INH PRN (00:47)
[2019-08-27] MEDS ORDERED: Cetirizine* 10 MG TAB PO PRN (00:47)
[2019-08-27] MEDS ORDERED: Pantoprazole TAB * 40 MG TAB PO PRN (00:47)
[2019-08-27] MEDS ORDERED: NS 0.9% 1000 ML** 1,000 ML IV SCH (01:00)
[2019-08-27] MEDS: Benzonatate CAP* 100 MG PO PRN ×2 (02:36→22:50)
--- NOTE | 2019-08-27 05:00 | HP ---
CC: Dr. Jad Glynn * HISTORY AND PHYSICAL: DATE OF ADMISSION: 08/27/19 TIME OF EVALUATION: 12:29 a.m. PRIMARY CARE PROVIDER: Jad Glynn DO CHIEF COMPLAINT: Cough and congestion. HISTORY OF PRESENT ILLNESS: Mr. Rowe is a 54-year-old male with a past medical history of polysubstance abuse, COPD, GERD, migraines, hepatitis C, and chronic back pain who presents to the emergency room for the second time this week with complaints of weakness and shortness of breath. At the time of my evaluation, the patient tells me that he is very tired and needs to sleep and he already told everything he needed to tell to the "other doctor." He requested to turn off the light, so he can sleep. Most of the history is obtained from the record. He presented to the emergency room on 08/21/19 with complaints of shortness of breath for 3 weeks. He was concerned with exposure to black mold about a month before. At that time, he was wheezing, received Decadron nebulizer with significant improvement of his symptoms and his x-ray was negative. He was discharged home with a diagnosis of asthma exacerbation and advised to follow up with his primary care provider in the next 1 to 3 days. He returned to the emergency room today with the same complaint, but also complaining of weakness, cough, and feeling that he is going to pass out. As per ED nurse note, the patient has been feeling short of breath for 7 weeks with productive cough and fatigue and a reported fever of 103.9. The patient stated that he was exhausted, kept falling asleep while the nurse was assessing him, but easily arousable to voice. Friend reported that the patient has been addict for years and there was some concern that he had used something when he went to the bathroom with his backpack. Security went through the patient's belongings and no "contraband" was identified. As described above, the patient was pleasant, but politely requested to be let to sleep, as he is very tired and all the information he could give, he already gave to the emergency room provider. PAST MEDICAL HISTORY: 1. COPD. 2. GERD. 3. Migraines. 4. Hepatitis C. 5. Chronic back pain. 6. Polysubstance abuse. MEDICATION LIST: 1. Albuterol HFA 2 puffs inhaled q.4 hours p.r.n. shortness of breath and wheezing. 2. Benzonatate 100 mg p.o. t.i.d. as needed for cough. 3. Cyclobenzaprine 10 mg p.o. t.i.d. as needed for back spasms. 4. Duloxetine DR 60 mg p.o. daily. 5. Epinephrine 0.3 mg intramuscular once for anaphylaxis. 6. Loratadine 10 mg p.o. daily as needed for allergies. 7. Montelukast 10 mg p.o. daily. 8. Omeprazole 10 mg p.o. daily as needed for heartburn. 9. Ondansetron ODT 8 mg p.o. q.8 hours p.r.n. nausea. ALLERGIES: The patient had difficulty breathing and hives with PENICILLIN and anaphylactic shock with BEE VENOM. FAMILY HISTORY: Unknown. SOCIAL HISTORY: As per records, the patient is a former smoker. There is no history of alcohol abuse. There is history of polysubstance abuse, although ED nurse's note indicate no IV use. His urine toxicology was positive for cocaine in the ED. Surrogate decision maker is his daughter, Cady Rowe, phone number is [phone]. REVIEW OF SYSTEMS: Unable to obtain from the patient, as he is sleeping at this time. PHYSICAL EXAMINATION GENERAL: The patient is a middle-aged gentleman, lying in the ED stretcher, in no acute distress. VITAL SIGNS: Temperature 98.8, heart rate is 86, respiratory rate is 16, oxygen saturation 96% on room air, blood pressure is 138/94. HEENT: Pupils are equal and pinpoint, reactive to light. Dry mucous membranes. CHEST: Breath sounds bilaterally coarse, but no added sounds. No wheezing today. CVS: Normal S1, S2. Regular rate and rhythm. ABDOMEN: Soft, nontender, nondistended. Bowel sounds are present. EXTREMITIES: No edema. NEURO: The patient is sleeping, arousable to voice. Able to move all 4 extremities. Face is symmetric. LABORATORY AND IMAGING DATA: The patient had a CBC that showed WBC of 8.7, hemoglobin 13, hematocrit 38, platelets of 335 with 52% neutrophils. INR is 0.96. Chemistry showed a sodium of 137, potassium 4.2, chloride 104, bicarb 28 , BUN of 8, creatinine of 0.6, glucose of 124. Lactic acid 0.6. Calcium is 8.6. Magnesium is 2. LFTs are normal. Troponins are negative x2. BNP is 104. Urinalysis was negative. Urine toxicology was positive for cocaine. Chest x-ray was not yet officially read and to my read, there is no acute infiltrate. CT of the chest with contrast shows multilobar bilateral airspace disease likely representing pneumonia. EKG done on 08/26/19 at 8:44 p.m. shows sinus rhythm at 65 beats per minute with no acute ischemic changes. ASSESSMENT AND PLAN: Mr. Rowe is a 54-year-old male with a past medical history of COPD, GERD, migraines, hepatitis C, chronic back pain, polysubstance abuse who presented to the emergency room with complaints of cough and shortness of breath, found to have community-acquired pneumonia. 1. Community-acquired pneumonia. The patient has minimal infiltrates on his CT. He does not meet sepsis criteria at this time, but as per ER report, his feels exhausted and feels like he is going to pass out. He appears to have mild dehydration, so he will be admitted as observation overnight and receive gentle IV fluids. I believe his exhaustion is most likely secondary to his drug use and not secondary to this mild pneumonia. Blood cultures are already sent in the emergency room and sputum cultures are ordered. The patient apparently had a severe reaction to penicillins in the past, I am unable to clarify this further with him at this time. He will receive levofloxacin for now and in the morning when he is able to provide more information, depending on his actual reaction to penicillin, he could be switched to another antibiotic including cephalosporin considering levofloxacin side effects. At this point, I do not think he has an asthma exacerbation. I do not think steroids are indicated. 2. Polysubstance abuse. When the patient is more awake, we could discuss about community resources including follow up at [facility]. 3. DVT prophylaxis. The patient has a score of 2 on the DVT Prophylaxis Assessment Guide and he will be started on subcutaneous heparin. 4. Code status is full. TIME SPENT: Approximately 45 minutes were spent with the patient interview, medical records review, physical examination to complete this admission, more than half of this time was spent [id number] with the patient and coordination of care. [id number]/[facility] #: [id number] [facility]
[2019-08-27] MEDS ORDERED: Acetaminophen TAB* 325 MG PO PRN (05:01)
[2019-08-27] MEDS: Heparin VIAL(*) 5000 UNITS/ML VIAL (FIVE THOUSAND) SUBCUT SCH ×3 (06:16→22:51)
[2019-08-27] MEDS: DULoxetine DR CAP* 60 MG CAP.DR PO SCH ×2 (08:22→08:24)
[2019-08-27] MEDS: Montelukast Sodium TAB* 10 MG PO SCH (08:22)
--- NOTE | 2019-08-27 13:54 | PN ---
Subjective Date of Service: 08/27/19 Interval History: Patient's main complaint to me is his chronic neck and low back pain. He says he usually feels more pain control at home by riding his bike. Nursing expresses concerns of weakness with ambulation. Patient felt dizzy after taking shower, which is now resolved. Denies difficulty breathing but is actively SOB while talking during history. Denies chest pain. C/o abdomen pain in lower quadrants. Denies nausea and vomiting. C/o chills. Later c/o migraine per nursing. Objective Active Medications: Acetaminophen (Tylenol Tab*) 650 mg PO Q6H PRN PRN Reason: MILD PAIN or TEMP > 100.4 Last Admin: 08/27/19 06:16 Dose: 650 mg Albuterol (Ventolin Hfa Inhaler*) 2 puff INH Q4HR PRN PRN Reason: SHORTNESS OF BREATH Benzonatate (Tessalon Cap*) 100 mg PO TID PRN PRN Reason: COUGH Last Admin: 08/27/19 02:36 Dose: 100 mg Cetirizine HCl (Zyrtec*) 10 mg PO QAM PRN PRN Reason: Allergy Symptoms Duloxetine HCl (Cymbalta Cap*) 60 mg PO DAILY [facility] Last Admin: 08/27/19 08:24 Dose: 60 mg Heparin Sodium (Porcine) (Heparin Vial(*)) 5,000 units SUBCUT Q8HR [facility] Last Admin: 08/27/19 06:16 Dose: 5,000 units Levofloxacin/Dextrose (Levaquin 750 Mg Ivpremix(*)) 750 mg in 150 mls @ 100 mls /hr IVPB Q24H [facility]; Protocol Lidocaine (Lidoderm 5% Patch*) 1 patch TRANSDERM DAILY [facility] Montelukast Sodium (Singulair Tab*) 10 mg PO DAILY [facility] Last Admin: 08/27/19 08:22 Dose: 10 mg Pantoprazole Sodium (Protonix Tab*) 40 mg PO DAILY PRN PRN Reason: HEARTBURN Pharmacy Profile Note (Lidocaine Patch Remove*) 1 note N/A 2100 [facility] Vital Signs - 8 hr 08/27/19 08/27/19 06:18 11:06 Temperature 98.3 F 97.8 F Pulse Rate 90 89 Respiratory 20 18 Rate Blood Pressure 135/92 159/114 (mmHg) O2 Sat by Pulse 98 100 Oximetry Oxygen Devices in Use Now: None Appearance: Middle age white male, who appears stated age, laying in bed, appearing in NAD Eyes: No Scleral Icterus, - - PERRL Neck: NL Appearance and Movements; NL JVP Respiratory: Symmetrical Chest Expansion and Respiratory Effort, - - dyspneic at times after speaking; lungs CTA throughout Cardiovascular: NL Sounds; No Murmurs; No JVD, RRR Abdominal: - - abdomen is soft, tender to lower quadrants, not distended; normoactive BS x4Q Extremities: No Edema, No Clubbing, Cyanosis, - - neg calf tenderness Skin: No Rash or Ulcers Neurological: Alert and Oriented x 3, NL Muscle Strength and Tone Result Diagrams: 08/26/19 21:00 08/26/19 21:00 Additional Lab and Data: Lab Results 08/26/19 08/26/19 08/26/19 Range/Units 21:00 21:00 21:00 WBC 8.7 (3.5-10.8) 10^3/uL RBC 4.21 (4.18-5.48) 10^6 /uL Hgb 13.0 L (14.0-18.0) g/dL Hct 38 L (42-52) % MCV 91 (80-94) fL MCH 31 (27-31) pg MCHC 34 (31-36) g/dL RDW 14 (10-15) % Plt Count 334 (150-450) 10^3/uL MPV 7.0 L (7.4-10.4) fL Neut % (Auto) 52.1 % Lymph % (Auto) 34.3 % Nolan % (Auto) 11.9 % Eos % (Auto) 1.2 % Baso % (Auto) 0.5 % Absolute Neuts (auto) 4.5 (1.5-7.7) 10^3/ul Absolute Lymphs (auto) 3.0 (1.0-4.8) 10^3/ul Absolute Monos (auto) 1.0 H (0-0.8) 10^3/ul Absolute Eos (auto) 0.1 (0-0.6) 10^3/ul Absolute Basos (auto) 0.0 (0-0.2) 10^3/ul Absolute Nucleated RBC 0.0 10^3/ul Nucleated RBC % 0.0 INR (Anticoag Therapy) 0.96 (0.82-1.09) Sodium 137 (135-145) mmol/L Potassium 4.2 (3.5-5.0) mmol/L Chloride 104 (101-111) mmol/L Carbon Dioxide 28 (22-32) mmol/L Anion Gap 5 (2-11) mmol/L BUN 8 (6-24) mg/dL Creatinine 0.60 L (0.67-1.17) mg/dL Est GFR ( Amer) 168.6 (>60) Est GFR (Non-Af Amer) 139.4 (>60) BUN/Creatinine Ratio 13.3 (8-20) Glucose 124 H (70-100) mg/dL Lactic Acid (0.5-2.0) mmol/L Calcium 8.6 (8.6-10.3) mg/dL Magnesium 2.0 (1.9-2.7) mg/dL Total Bilirubin 0.30 (0.2-1.0) mg/dL AST 16 (13-39) U/L ALT 24 (7-52) U/L Alkaline Phosphatase 63 (34-104) U/L Troponin I 0.00 (<0.04) ng/mL Total Protein 6.5 (6.4-8.9) g/dL Albumin 3.5 (3.2-5.2) g/dL Globulin 3.0 (2-4) g/dL Albumin/Globulin Ratio 1.2 (1-3) TSH Pending 08/26/19 Range/Units 21:00 WBC (3.5-10.8) 10^3/uL RBC (4.18-5.48) 10^6 /uL Hgb (14.0-18.0) g/dL Hct (42-52) % MCV (80-94) fL MCH (27-31) pg MCHC (31-36) g/dL RDW (10-15) % Plt Count (150-450) 10^3/uL MPV (7.4-10.4) fL Neut % (Auto) % Lymph % (Auto) % Nolan % (Auto) % Eos % (Auto) % Baso % (Auto) % Absolute Neuts (auto) (1.5-7.7) 10^3/ul Absolute Lymphs (auto) (1.0-4.8) 10^3/ul Absolute Monos (auto) (0-0.8) 10^3/ul Absolute Eos (auto) (0-0.6) 10^3/ul Absolute Basos (auto) (0-0.2) 10^3/ul Absolute Nucleated RBC 10^3/ul Nucleated RBC % INR (Anticoag Therapy) (0.82-1.09) Sodium (135-145) mmol/L Potassium (3.5-5.0) mmol/L Chloride (101-111) mmol/L Carbon Dioxide (22-32) mmol/L Anion Gap (2-11) mmol/L BUN (6-24) mg/dL Creatinine (0.67-1.17) mg/dL Est GFR ( Amer) (>60) Est GFR (Non-Af Amer) (>60) BUN/Creatinine Ratio (8-20) Glucose (70-100) mg/dL Lactic Acid 0.6 (0.5-2.0) mmol/L Calcium (8.6-10.3) mg/dL Magnesium (1.9-2.7) mg/dL Total Bilirubin (0.2-1.0) mg/dL AST (13-39) U/L ALT (7-52) U/L Alkaline Phosphatase (34-104) U/L Troponin I (<0.04) ng/mL Total Protein (6.4-8.9) g/dL Albumin (3.2-5.2) g/dL Globulin (2-4) g/dL Albumin/Globulin Ratio (1-3) TSH Microbiology and Other Data: Microbiology 08/27/19 01:18 Gram Stain - Final Sputum Expectorated 08/27/19 00:56 Nasal Screen MRSA (PCR) - Final Nasal Mrsa Not Detected Assess/Plan/Problems-Billing Assessment: 54 yo male with PMHx hepatitis C, polysubstance use, migraines, GERD, and asthma presents with SOB and cough. - Patient Problems (1) Pneumonia Current Visit: Yes Status: Acute Code(s): J18.9 - PNEUMONIA, UNSPECIFIED ORGANISM SNOMED Code(s): 057881070 Comment: -describes anaphylaxis to zosyn -continue levofloxacin -dyspneic with speaking and exertion, but not hypoxic. Afebrile -outpatient records from PCP demonstrates a hx of asthma. Does not appear to be in exacerbation at this point. Continue rescue inhaler (2) Abdominal pain Current Visit: Yes Status: Acute Code(s): R10.9 - UNSPECIFIED ABDOMINAL PAIN SNOMED Code(s): 92372929 Comment: -tenderness to bilateral lower quadrants -no luekocytosis or fever -tells me he has hx of diverticulosis -ordering CT abdomen/pelvis with and without contrast -ordered simethicone prn (3) Chronic pain Current Visit: Yes Status: Acute Code(s): G89.29 - OTHER CHRONIC PAIN SNOMED Code(s): 25832463 Comment: -patient complains of his chronic pain in his lower back and neck -he follows with a pain specialist who is out of office for 6 weeks -has not been prescribed opiates since February 2019 -continue prn tylenol, adding prn toradol, and lidocaine patch -continue duloxetine (4) History of gastroesophageal reflux (GERD) Current Visit: No Status: Chronic Priority: Low Code(s): Z87.19 - PERSONAL HISTORY OF OTHER DISEASES OF THE DIGESTIVE SYSTEM SNOMED Code(s): 19879846394809 Comment: -patient's home PPI is listed as prn, changing to scheduled (5) Polysubstance abuse Current Visit: No Status: Suspected Priority: High Onset Date: 02/01/15 Code(s): F19.10 - OTHER PSYCHOACTIVE SUBSTANCE ABUSE, UNCOMPLICATED SNOMED Code(s): 749852617 Comment: -presented positive for cocaine -ordered SW consult for resources and patient describes housing with black mold (6) Migraine Current Visit: Yes Status: Acute Code(s): G43.909 - MIGRAINE, UNSP, NOT INTRACTABLE, WITHOUT STATUS MIGRAINOSUS SNOMED Code(s): 96749828 Comment: -has hx of chronic migraines -migraine without improvement with tylenol. Ordered benadryl and compazine (7) DVT prophylaxis Current Visit: No Status: Acute Priority: Medium Onset Date: 02/01/15 Code(s): RSN5929 - SNOMED Code(s): 079838841 Comment: -HSQ (8) Full code status Current Visit: No Status: Acute Priority: Medium Onset Date: 02/01/15 Code(s): Z78.9 - OTHER SPECIFIED HEALTH STATUS SNOMED Code(s): 745904038
[2019-08-27] MEDS: Lidocaine PATCH 5%* 1 PATCH TRANSDERM SCH (14:35)
[2019-08-27] MEDS: Ketorolac INJ* 15 MG/ML 1 ML VIAL IV PUSH PRN ×2 (14:35→22:49)
[2019-08-27] MEDS ORDERED: diPHENhydraMINE IV* 50 MG/ML 1 ml VIAL (BENADRYL) IV ONE (15:33)
[2019-08-27] MEDS ORDERED: PROCHLORPERAZINE INJ 5 MG/ML 2 ML VIAL IV ONE (15:34)
[2019-08-27] MEDS ORDERED: Iodixanol* (CONTRAST) 320 MG/ML 100 ML SDV IV ONE (15:41)
[2019-08-27] MEDS: Simethicone TAB* 80 MG TAB.CHEW PO PRN (16:17)
[2019-08-27] MEDS ORDERED: Lidocaine Patch REMOVE* 1 NOTE MISC SCH (21:00)
[2019-08-28] MEDS ORDERED: Levofloxacin 750 MG IVPREMIX(* 750 MG/150 ML BAG IVPB SCH (01:00)
[2019-08-28] MEDS: Simethicone TAB* 80 MG TAB.CHEW PO PRN (01:53)
[2019-08-28] MEDS: Heparin VIAL(*) 5000 UNITS/ML VIAL (FIVE THOUSAND) SUBCUT SCH (06:05)
[2019-08-28] MEDS: Montelukast Sodium TAB* 10 MG PO SCH (08:48)
[2019-08-28] MEDS: Lidocaine PATCH 5%* 1 PATCH TRANSDERM SCH (08:48)
[2019-08-28] MEDS: DULoxetine DR CAP* 60 MG CAP.DR PO SCH (08:48)
[2019-08-28] MEDS ORDERED: Pantoprazole TAB * 40 MG TAB PO SCH (09:00)
[2019-08-28 10:33] VITALS: BP 144/106
[2019-08-28] MEDS ORDERED: Influenza VAC *QUAD* 2019-20* 0.5 ML SYRINGE IM ONE (13:00)
--- NOTE | 2019-08-29 04:55 | DS ---
CC: Dr. Glynn * DISCHARGE SUMMARY: DATE OF ADMISSION: 08/27/19 DATE OF DISCHARGE: 08/28/19 ATTENDING PHYSICIAN WHILE IN THE HOSPITAL: Dr. Yudelka [place] * (dictated by SHAHRAM Pool). PRIMARY CARE PROVIDER: Dr. Glynn. PRIMARY DIAGNOSIS: Pneumonia. SECONDARY DIAGNOSES: 1. History of polysubstance abuse. 2. Asthma. 3. Gastroesophageal reflux disease. 4. Migraines. 5. Hepatitis C. 6. Chronic back pain. STUDIES WHILE IN THE HOSPITAL: Chest CT on 08/26/19, multilobar bilateral airspace disease, likely representing pneumonia. Consider radiographic followup to make sure resolution. Abdomen and pelvis CT with p.o. and IV contrast on 08/27/19, impression, bilateral lung base infiltrates suggestive of pneumonia. No acute process in the abdomen and pelvis. HISTORY OF PRESENT ILLNESS/HOSPITAL COURSE: Meliton Rowe is a 54-year-old white male with a past medical history significant for asthma, polysubstance abuse, and chronic back pain who presented to the emergency department on , for cough, congestion, weakness, and shortness of breath. He was admitted on 08/27/19, by Dr. Sorensen, please see her admitting history and physical for further details. Ultimately, the patient was found to have pneumonia. His lung sounds were initially coarse on admission but did not have wheezing. He did not have wheezing throughout the entirety of his hospital stay and therefore an asthma exacerbation was of low concern and steroids were not used. The patient was only dyspneic with exertion, but however, on discharge, this was resolved. The patient was not hypoxic with exertion either. The patient was on Levaquin during his hospital stay due to prior anaphylaxis to Zosyn which was reported by the patient. His urine antigens were negative for Legionella and Strep pneumoniae. He was afebrile during the entirety of his hospital stay and he was additionally without leukocytosis initially. By the day of discharge, the patient was complaining of concern for his chronic low back pain.. He is concerned because his outpatient pain specialist, Dr. Mann is out of town for 6 weeks. He and I discussed seeing Dr. Naranjo in outpatient setting, he was agreeable to this. During his hospital stay, he was complaining of abdominal pain and it was difficult to do an abdominal exam due to the patient straining his abdominal musculature. The CT of the abdomen and pelvis is negative. Therefore, his abdominal pain is likely musculoskeletal due to straining with previous shortness of breath and he and I discussed that this will take some time to resolve with NSAIDs. The patient was referred to Social Work during his hospital stay for his concern for his housing having black mold and his outpatient renal case manager was contacted and will facilitate with this after discharge. PHYSICAL EXAMINATION ON THE DATE OF DISCHARGE: General: Thin white male, appears stated age, lying upright in hospital bed, appearing comfortable, in no acute distress. Eyes: PERRL. Sclerae anicteric. ENT: Mucous membranes moist. Lungs: Clear to auscultation throughout. Cardio: Regular rate and rhythm without murmurs, rubs, or gallops. Abdomen: Soft, nontender, nondistended. Normoactive bowel sounds x4 quadrants. Extremities: No clubbing , cyanosis, or edema. Neuro: The patient is alert and oriented x3. No focal deficits. Able to move all extremities. DISCHARGE PLAN: Diet: Regular unrestricted diet. Activity: The patient may return to normal activity as tolerated. The patient is advised to return to the emergency room for shortness of breath, fever, chills, chest pain. He was provided with the phone number of Dr. Naranjo's office to have additional followup with pain specialist while his regular pain specialist is out of town. He should follow up his primary care provider within a week to ensure resolution of his symptoms. He would likely benefit from outpatient PFTs. If Dr. Glynn's office cannot perform this, then he should be referred to Dr. Birch for PFTs. Again, I do not believe he is in asthma exacerbation. He was advised to take naproxen or Advil as needed for abdominal pain which is likely musculoskeletal. He declined a prescription for this as he says he has some at home. DISCHARGE MEDICATIONS: 1. Duloxetine 60 mg p.o. daily. 2. Flexeril 10 mg p.o. t.i.d. p.r.n. 3. Tessalon 100 mg p.o. t.i.d. p.r.n. cough. 4. Singulair 10 mg p.o. daily. 5. Loratadine 10 mg p.o. q.a.m. p.r.n. allergy symptoms. 6. Epinephrine 0.3 mg IM p.r.n. for anaphylaxis. 7. Ciprofloxacin 750 mg p.o. q.p.m. x5 days. 8. Omeprazole 20 mg p.o. daily. 9. Lidocaine patch 1 patch transdermally daily p.r.n. back pain. 10. Albuterol inhaler 1 puff inhale q.4 hours p.r.n. shortness of breath/ wheezing. 11. Tylenol 650 mg p.o. q.6 hours p.r.n. pain. 12. Naproxen 500 mg p.o. q.12 hours p.r.n. pain. CONDITION ON DISCHARGE: Stable. DISPOSITION: Home. TIME SPENT: Approximately 35 minutes was spent on this discharge, approximately half this time was spent at bedside evaluating the patient and discussing the plan of care. SHAHRAM POOL [id number]/[facility] #: [id number] [facility]
--- NOTE | 2019-09-03 16:55 | PN ---
Hospitalist Progress Note Date of Service: 09/03/19 HOSPITALIST ADDENDUM Called by RN - patient's last dose of Levofloxacin was stolen. He was admitted for pneumonia last week. Prescription for Levofloxacin 750mg x 1 sent to Abbie'miguel at [facility].
== END 2019-08-28 14:40 | disposition home or self-care (01) ==
LOC: ED 17:09 → MED 08-27 00:29
PROVIDERS: ADMIT Internal Medicine; ATTEND Hospitalist
DX: J44.0 Chronic obstructive pulmonary disease with (acute) lower respiratory infection (principal); J18.9 Pneumonia, unspecified organism; F19.10 Other psychoactive substance abuse, uncomplicated; J45.909 Unspecified asthma, uncomplicated; K21.9 Gastro-esophageal reflux disease without esophagitis; G43.909 Migraine, unspecified, not intractable, without status migrainosus; B19.20 Unspecified viral hepatitis C without hepatic coma; M54.9 Dorsalgia, unspecified; G89.29 Other chronic pain; R06.02 Shortness of breath; Z79.899 Other long term (current) drug therapy; Z87.891 Personal history of nicotine dependence; Z88.0 Allergy status to penicillin; Z88.1 Allergy status to other antibiotic agents; R94.31 Abnormal electrocardiogram [ECG] [EKG]; Z23 Encounter for immunization
CPT/HCPCS: 36415; 71045; 71260; 74177; 80053; 80307; 81003; 83605; 83735; 83880; 84443; 84484; 85025; 85610; 87040; 87070; 87077; 87184; 87185; 87186; 87205; 87641; 87899; 90471; 93005; 94640; 96361; 96365; 96366; 96372; 96375; 96376; 99284; A9270-GY; G0008; G0378; J0780; J1200; J1644; J1885; Q9967

== ENCOUNTER 2019-09-27 10:55 | Emergency (ER) | payer OTHER ==
--- NOTE | 2019-09-27 11:07 | ED ---
Upper Extremity Pain - HPI Summary HPI Summary: Pt. is a 54 y.o who presents to the ER for laceration to right 3rd and 4th digits that occurred yesterday around 1700. Pt. states he was moving an air conditioner for work when it slipped and a piece of metal cut digits. Sxs are mild in severity. Unaware or last tetanus immunization. Touching area makes sxs worse. Nothing makes sxs better. - History of Current Complaint Chief Complaint: EDLacSutureRecheck Stated Complaint: RIGHT HAND INJURY PER PT Time Seen by Provider: 09/27/19 11:05 Hx Obtained From: Patient - Allergies/Home Medications Allergies/Adverse Reactions: Allergies Allergy/AdvReac Type Severity Reaction Status Date / Time bee venom protein (honey bee) Allergy Severe Anaphylatic Verified 09/27/19 11:03 Shock Penicillins Allergy Severe Hives/Diff. Verified 09/27/19 11:03 Breathing/I tching piperacillin [From Zosyn] Allergy Severe Hives/Diff. Verified 09/27/19 11:03 Breathing/I tching tazobactam [From Zosyn] Allergy Severe Hives/Diff. Verified 09/27/19 11:03 Breathing/I tching PMH/Surg Hx/FS Hx/Imm Hx Previously Healthy: Yes Endocrine/Hematology History: Denies: Hx Anticoagulant Therapy, Hx Blood Disorders, Hx Blood Transfusions, Hx Bone Marrow Disease, Hx Diabetes, Hx Systemic Lupus Erythematosus, Hx Sickle Cell Disease, Hx Thyroid Disease, Hx Anemia, Hx Unexplained Bleeding, Other Endocrine/Hematological Disorders Cardiovascular History: Denies: Hx Aneurysm, Hx Angina, Hx Angioplasty, Hx Auto Implanted Cardiovert Defib, Hx Cardiac Arrest, Hx Cardiomegaly, Hx Congenital Heart Disease, Hx Congestive Heart Failure, Hx Coronary Artery Disease, Hx Deep Vein Thrombosis, Hx Embolism, Hx Hypercholesterolemia, Hx Hypotension, Hx Hypertension, Hx Pacemaker/ICD, Hx Peripheral Vascular Disease, Hx Rheumatic Fever, Hx Syncope, Hx Valvular Heart Disease, Other Cardiovascular Problems/Disorders - pt ams - unable to get info from pt Respiratory History: Reports: Hx Asthma, Hx Chronic Obstructive Pulmonary Disease (COPD) Denies: Hx Chronic Bronchitis, Hx Cystic Fibrosis, Hx Lung Cancer, Hx Pleural Effusion, Hx Pneumonia, Hx Pulmonary Edema, Hx Pulmonary Embolism, Hx Seasonal Allergies, Hx Sleep Apnea, Other Respiratory Problems/Disorders GI History: Reports: Hx Gastroesophageal Reflux Disease, Other GI Disorders - diverticulitis 2016 Denies: Hx Ulcer History: Denies: Hx Acute Renal Failure, Hx Benign Prostatic Hyperplasia, Hx Chronic Renal Failure, Hx Dialysis, Hx Kidney Infection, Hx Kidney Stones, Hx Renal Disease, Other Problems/Disorders Musculoskeletal History: Reports: Hx Arthritis - osteoarthritis, Hx Back Problems - takes aleve and flexeril, Other Musculoskeletal History - degnerative disc disease in cervical and lower back Denies: Hx Bursitis, Hx Congenital Bone Abnormalities, Hx Fibromyalgia, Hx Gout, Hx Orthopedic Injury, Hx Osteoporosis, Hx Scoliosis, Hx Tendonitis Sensory History: Denies: Hx Cataracts, Hx Contacts or Glasses, Hx Eye Injury, Hx Eye Prosthesis, Hx Glaucoma, Hx Legally Blind, Hx Macular Degeneration, Hx Vision Problem, Hx Deafness, Hx Hearing Aid, Hx Hearing Problem, Other Sensory Impairments Opthamlomology History: Denies: Hx Cataracts, Hx Contacts or Glasses, Hx Eye Injury, Hx Eye Prosthesis, Hx Glaucoma, Hx Legally Blind, Hx Macular Degeneration, Hx Vision Problem, Other Sensory Impairments Neurological History: Reports: Hx Headaches, Hx Migraine, Hx Nerve Disease - GREATER RIGHT OCCIPITAL NERVE PINCHED, Other Neuro Impairments/Disorders - substance abuse pt alert but not oriented/speaking unintelligible words Denies: Hx Dementia, Hx Developmental Delay, Hx Seizures, Hx Spinal Cord Injury, Hx Transient Ischemic Attacks (TIA) Psychiatric History: Reports: Hx Anxiety, Hx Attention Deficit Hyperactivity Disorder, Hx Depression - HX OF, Hx Substance Abuse - Bath Salts, unknown substances Denies: Hx Panic Disorder - Cancer History Hx Chemotherapy: No - Surgical History Surgery Procedure, Year, and Place: Left acl reconstruction - 10/2016/2017. ulnar nerve- [facility] - [facility]PAL TUNNEL [facility] ELBOWS. left shoulder/clavicle. excision of gangion cyst x3 RT [facility]. left wrist surgery. RIGHT HAND. LEFT POINTER FINGER. BILATERAL SHOULDER ARTHROSCOPY Hx Anesthesia Reactions: No - Immunization History Date of Influenza Vaccine: 07/2017 Infectious Disease History: No Infectious Disease History: Reports: Hx Hepatitis - history of hepc +- resolved with hervoni, Hx of Known/Suspected MRSA Denies: Hx Clostridium Difficile, Hx Human Immunodeficiency Virus (HIV), Hx Shingles, Hx Tuberculosis, Hx Known/Suspected VRE, Hx Known/Suspected VRSA, History Other Infectious Disease, Traveled Outside the [place] in Last 30 Days - Family History Known Family History: Positive: Cardiac Disease - mother CHF, Respiratory Disease - father COPD, Non-Contributory - Social History Occupation: Unemployed Lives: With Family Alcohol Use: None Alcohol Amount: LAST 3 YEARS AGO Hx Substance Use: No Substance Use Type: Reports: Cocaine Substance Use Comment - Amount & Last Used: pt friend states pt has been a drug addict for years. pt vague about use. Hx Tobacco Use: Yes - Denies smoking today Smoking Status (MU): Heavy Every Day Tobacco Smoker Type: Cigarettes Amount Used/How Often: smoked off and on 15 years less than 1/2 ppd Review of Systems Positive: Other - pain to right hand and digits Positive: Other - Laceration to right 3rd and 4th digits of hand Neurological: Negative All Other Systems Reviewed And Are Negative: Yes Physical Exam Triage Information Reviewed: Yes Vital Signs On Initial Exam: Initial Vitals Temp Pulse Resp BP Pulse Ox 99.2 F 82 16 149/126 98 09/27/19 10:55 09/27/19 10:55 09/27/19 10:55 09/27/19 10:55 09/27/19 10:55 Vital Signs Reviewed: Yes Appearance: Positive: Well-Appearing - Pt. sitting on side of bed in NAD. Skin: Positive: Warm, Dry Head/Face: Positive: Normal Head/Face Inspection Eyes: Positive: Normal, EOMI Neck: Positive: Supple Musculoskeletal: Positive: Other - 2.5 cm in length, irregular shaped laceration noted to distal 3rd digit on the palmar aspect just proximal to the PIP joint. Laceration superficial. No tendon involvement. Full ROM of digit. Diffuse tenderness. 1cm linear laceration noted to the 2nd mid digit on palmar aspect with full ROM of digit. Neurological: Positive: Normal, CN Intact II-III Psychiatric: Positive: Affect/Mood Appropriate Procedures - Procedure Summary Procedure Summary: Digital block: Digital block performed to 3rd digit of right hand using 1% lidocaine 4cc. Base of digit was cleaned with alcohol swaps and two injections of lidocaine were placed at that base of digit with good anesthesia. Pt. tolerated well. Wound care: Wound to right 3rd and 2nd digits were extensively cleaned with hibiclens and irrigated. Steri strips placed to 3rd digit wound to better approximate. Sterile dressings placed and finger splint placed on 3 rd digit. Pt. tolerated well. - Sedation Patient Received Moderate/Deep Sedation with Procedure: No Diagnostics - Vital Signs Vital Signs Temp Pulse Resp BP Pulse Ox 09/27/19 10:55 99.2 F 82 16 149/126 98 - Laboratory Lab Statement: Any lab studies that have been ordered have been reviewed, and results considered in the medical decision making process. Course/Dx - Course Course Of Treatment: Pt. presenting for finger lacerations that occurred almost 24 hours ago. Wounds are very dirty. Due to dirty wounds and time advised pt. wounds cannot be sutured due to the high risk of infection. Pt. requesting finger to be numbed before being cleaned out. Wound care as noted above. Tetanus was updated. Will have pt. f.u with ortho for wound check. Bactroban ointment rx. Advised pt. to wear splint to avoid bending finger. To return to er for redness,swelling, drainage from wound. Pt. understands and agrees with plan. - Diagnoses Differential Diagnosis/HQI/PQRI: Positive: Fracture (Open), Laceration, Strain, Sprain Provider Diagnoses: Finger laceration Discharge ED - Sign-Out/Discharge Documenting (check all that apply): Patient Departure - Discharge Plan Condition: Improved Disposition: HOME Prescriptions: Mupirocin 2% OINT* [Bactroban 2 % Oint*] 1 applic TOPICAL BID #1 tube Naproxen [Naproxen 500 mg tab] 500 mg PO BID #20 tablet Patient Education Materials: Acute Wound Care (ED), Laceration Without Closure (ED) Referrals: Ciro Dorado MD [Medical Doctor] - Jad Glynn DO [Primary Care Provider] - Additional Instructions: Schedule follow up appointment with orthopedics for wound check within one week Keep wound clean and dry Apply ointment twice a day Avoid bending finger by wearing splint Return to ER for redness, swelling, drainage from wounds - Billing Disposition and Condition Condition: IMPROVED Disposition: Home
[2019-09-27] MEDS ORDERED: Lidocaine 1% MPF ** 5 ML VIAL INJ ONE (11:16)
[2019-09-27] MEDS ORDERED: Tetan/Diph/Pertus SYR(Tdap)* 0.5 ML SYR(BOOSTRIX) use SYR contains LATEX IM ONE (11:18)
[2019-09-27] MEDS ORDERED: Ibuprofen TAB* 600 MG PO ONE (13:03)
[2019-09-27 13:15] VITALS: BP 142/98
--- OUTSIDE RECORDS SUMMARY | 2019-10-02 14:27 | XMS REPORT | Continuity of Care Document ---
:1965 External Reference #:[id number] Author Name NAKUL Latif (transmitted by agent of provider Ana Bush) Address [address] [place] [address] Care Team Providers Name Role Phone Mihai Wong MD - Internal Care Team Information Procurement Analyst [phone] Medicine Kiki Macdonald MD - Hand Surgery Care Team Information Procurement Analyst Karen Cardona MD - Surgery of the Care Team Information Procurement Analyst Hand Alon Ramos MD - Neurology Care Team Information Procurement Analyst Amado Agudelo MD - Orthopaedic Care Team Information Procurement Analyst [phone] [facility] - Pain Care Team Information Procurement Analyst [phone] Rohith Fontenot MD - Interventional Care Team Information Procurement Analyst Pain Medicine Patient's Choice Care Team Information Procurement Analyst Unavailable Problems Active Problems Provider Date Sprain of cruciate ligament of knee Neema Medina M.D. Onset: 09/05/2012 Seizure Neema Medina M.D. Onset: 09/05/2012 Low back pain Tyrell Lopez M.D. Onset: 09/05/2012 Chronic pain syndrome Mihai Wong M.D.,FACP Onset: 10/30/2012 Viral hepatitis C Mihai Wong M.D.,FACP Onset: 10/30/2012 Note: Viral load now ZERO Carpal tunnel syndrome Mihai Wong M.D.,FACP Onset: 02/14/2013 Subjective tinnitus Sushil Britt M.D. Onset: 01/31/2014 Disorder of shoulder Maria Esther Juárez M.D. 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 11/29/2017 nophen mouth every 4-6 5-325mg hours as needed Tablets for pain. Flector apply 1 patch to 30units S83.242D Mihai Bonner 11/21/2017 1.3% the skin two times Veda Wong,FACP Patches daily as needed Lunesta 1 tab at bedtime 14tabs G47.00 Nayan Fany, 09/14/2017 3mg Tablets M.DMushtaq Sertraline HCL 1 by mouth every 30tabs F33.0 Mihai Bonner 08/31/2017 50mg day Veda Wong,FACP Tablets Knee Brace/Flexible M25.562 Karen Cardona, 08/12/2017 Stays/Large MTemo [facility] Cane/Aluminum/Adjus use with 1units M54.42 Vickytheresa Cruz, 07/13/2017 table/Mens Handle ambulation [employer] [facility] Wrist Brace/Suede use on left wrist 1units M25.532 Gerber Arroyo, 2016 Finish/Left/Medium as needed [employer] [facility] Ventolin HFA inhale two puffs 18units J44.1 Alyssa Robbin, 03/10/2015 by mouth four MTemo 108(90Base) mcg/Act times a day as Aerosol needed Back Support to wear during the 1units M54.9 Sirilos Cruz, 01/24/2015 [facility] day as directed [employer] OF SOFTWARE ENGINE[employer] Sumatriptan Take 1 Tablet By 18tabs G43.109 Mihai Bonner 01/04/2014 Succinate Mouth Every 2 Veda Wong,FACP 50mg Hours as Directed Tablets For Headache G43.009 Cool Mist Humidifier dx code: 446.0 Mihai Bonner 11/30/2013 [facility] Bronchitis Veda Wong,FACP Shower-Chair use for showing Dx Mihai Bonner 11/30/2013 [facility] code: 780.39 Veda Wong,FACP Convulsions Cyclobenzaprine HCL take one tablet by 30tabs M50.10 Mihai Bonner 10mg mouth two times a Veda Wong,FACP Tablets day as needed for spasms M54.42 G47.00 Epipen 2-Oleksandr inject intramuscularly 2units Alyssa Siegel, as directed M.DMushtaq 0.3mg/0.3ML Solution Auto-Inject Omeprazole take one capsule by 90caps K21.9 Mihai Bonner 20mg mouth every day as Veda Wong,FACP Capsules DR needed Loratadine take one tablet by mouth 30tabs Nayan Martinez, 10mg every day M.DMushtaq Tablets Tincture Of Devils once daily in the Unknown Claw, Licorice, morning Tumeric, [place] Multiple Vitamin 1 by mouth every day Unknown Tablets Calcium 600 + D 1 by mouth twice a day Unknown [id number] Tablets Glucosamine 2 by mouth every day Unknown Chondroitin 1500 Complex 1500Com Capsules Ibuprofen Unknown Tylenol Unknown Naproxen Unknown Medications Administered in Office Medication SIG Qnty Indications Ordering Provider Date Depomedrol 40MG Carlita Menjivar, [facility] 01/10/2019 Injection Triamcinolone (Kenalog) Delano Troncoso MD 12/08/2017 Injection Depomedrol 40MG Mike Stern M.D. 08/29/2017 Injection No Injection Martin Steel MD 07/21/2017 Injection Depomedrol 40MG Martin Steel MD 07/21/2017 Injection Depomedrol 40MG Carlita Bitting, [facility]- 07/20/2017 Injection Depomedrol 40MG Carlita Bitting, [facility] 07/20/2017 Injection Depomedrol 40MG Carlita Bitting, [facility] 07/20/2017 Injection No Injection Martin Steel MD 11/08/2016 Injection Depomedrol 40MG Martin Steel MD 11/08/2016 Injection Depomedrol 40MG Carlita Bitting, [facility] 10/07/2016 Injection Depomedrol 40MG Karen Cardona M.D. 07/14/2016 Injection Depomedrol 40MG Karen Cardona M.D. 07/14/2016 Injection Depomedrol 40MG Carlita Bitting, RPA-C 11/20/2015 Injection Depomedrol 80MG Maria Esther Juárez [...] CPT Code Status Date Vaccine Lot # [id number] Given 08/31/2017 Influenza Virus Vaccine, Quadrivalent, Split, [id number] Preservative Free 04877 Given 10/22/2016 Influ Virus Vaccine, Quadrivalent, Split Virus, [place] [id number] [address] Given 08/21/2015 Flu Vaccine Split Virus Preservative Free For Indiv 3Yr Older 35601 Given 07/25/2015 Pneumonia Vaccine [id number] 64453 Given 07/24/2014 Influenza Virus Vaccine, Quadrivalent, Split, Preservative Free 69532 Given 07/24/2014 Influenza Virus Vaccine, Quadrivalent, Split, [id number] Preservative Free 99954 Given 12/11/2013 Hepatitis B Vaccine Adult Dosage [id number] 92578 Given 12/11/2013 Hepatitis A Vaccine Adult Dosage [id number] 66796 Given 09/14/2013 Flu Vaccine Split Virus Preservative Free For [id number] Indiv 3Yr Older 01161 Given 08/24/2012 Tdap - Tetanus/Diptheria/Acellular Pertussis Vital Signs Date Vital Result Comment 09/12/2019 2:00pm Height 66 inches 5'6" Weight 154.00 lb Heart Rate 74 /min BP Systolic 130 mmHg BP Diastolic 92 mmHg Respiratory Rate 18 /min Body Temperature 97.3 F Pain Level 8 BMI (Body Mass Index) 24.9 kg/m2 08/15/2019 8:15am Height 66 inches 5'6" Weight 145.00 lb Heart Rate 92 /min BP Systolic 160 mmHg BP Diastolic 98 mmHg BMI (Body Mass Index) 23.4 kg/m2 Results Description No Information Available Procedures Date Code Description Status 08/15/2019 95615 Trigger Finger Release Incision / Tendon Sheath Completed Incision 08/15/2019 88218 Inject/Drain Joint/Bursa Small W/O US Completed 12/14/2013 86993820 Colonoscopy Completed 12/04/2013 73613544 Colonoscopy Completed Medical Devices Description No Information Available Encounters Type Date Location Provider Dx Diagnosis Office Visit 08/27/2019 [facility] Hema Vasquez18.9 Pneumonia, 10:48a derrick Taveras M.D. unspecified Hospitalists organism Office Visit 04/25/2019 [facility] Karen Cardona G56.21 [facility] 03/15/2019 [facility] Shirley Arnett76.71 [facility] Assessments Date Code Description Provider 08/27/2019 J18.9 Pneumonia, unspecified organism Sheila Villegas M.D. 08/15/2019 M20.012 Mallet finger of left finger(s) Karen Cardona M.D. 08/15/2019 M19.041 Primary osteoarthritis, right hand Karen Cardona M.D. 04/25/2019 G56.21 Lesion of ulnar nerve, right upper limb Karen Cardona M.D. 03/15/2019 M76.71 Peroneal tendinitis, right leg Antoni Decker M.D. Plan of Treatment Future Appointment(s):10/10/2019 3:15 pm - Karen Cardona M.D. at [facility]09/25/2019 11:30 am - Antoni Decker M.D. at [facility] Functional Status Description No Information Available Mental Status Description No Information Available Referrals Description No Information Available
--- OUTSIDE RECORDS SUMMARY | 2019-10-02 14:27 | XMS REPORT | Summary of Care ---
:1965 Author Organization [facility] Address [address] [place] [address] Care Team Providers Name Role Phone Jad Glynn Primary Care Provider Reason for Referral Refer to Department Only (Routine) Status Reason Specialty Diagnoses / Referred By Referred To Procedures Contact Contact Pending Review PAIN CLINIC Diagnoses Chronic neck pain Jad Glynn DO [address] [place] [address] Scheduling Instructions To refer a patient to the Interventional Pain Clinic please call Please have the following ready: -Symptoms of the patient being referred -Recent films if available, NOT REQUIRED! -Known prior treatments Please be aware that we do not do medical management. MRI/CAT/PET Scan (Routine) Status Reason Specialty Diagnoses / Referred By Referred To Procedures Contact Contact Pending Review Diagnoses Multifocal pneumonia Jad Glynn DO Procedures CT CHEST WITHOUT IV CONTRAST [address] [place] [address] Reason for Visit Reason Comments Follow Up Follow [place] [facility] [place] 08/27/19-08/28/19, dx pneumonia Medication Question Pain medication Medication Refill All meds need refill Encounter Details Date Type Department Care Team Description 08/29/2019 Office Visit Jad Simons DO Multifocal pneumonia (Primary Dx); Practice [address] [facility] Chronic musculoskeletal pain; [address] [place] [address] [place] [address] [phone] Allergies Active Allergy Reactions Severity Noted Date Comments Ofeliaakshat Unknown Reaction 01/26/2016 documented as of this encounter (statuses as of 08/29/2019) Medications Medication Sig Dispensed Refills Start End Date Status Date albuterol HFA Take 2 Puffs 1 Inhaler 5 Active (VENTOLIN) 108 (90 by inhalation 9 Base) MCG/ACT EVERY FOUR Inhalation Aero HOURS SolnIndications: NEEDED (SOB). Moderate asthma without complication, unspecified whether persistent EPINEPHrine 0.15 1 Kit by 1 Each 1 Active MG/0.3ML Injection Injection 9 Solution route Auto-injector NEEDED (bee sting). benzonatate Take 1 Cap by 60 Cap 0 Active (TESSALON PERLES) mouth THREE 9 100 MG Oral TIMES DAILY CapIndications: NEEDED for Acute URI cough. Omeprazole 20 MG Take 1 Tab by 30 Tab 0 Active Oral Tab mouth DAILY. 9 ECIndications: Gastroenteritis cyclobenzaprine Take 1 Tab by 42 Tab 0 Active (FLEXERIL) 10 MG mouth THREE 9 Oral Tab TIMES DAILY. loratadine Take 1 Tab by 30 Tab 5 Active (CLARITIN,ALAVERT) mouth DAILY. 9 10 MG Oral Tab montelukast Take 1 Tab by 30 Tab 5 Active (SINGULAIR) 10 MG mouth DAILY. 9 Oral Tab loratadine Take 10 mg by 0 08/29/20 Discontinued (CLARITIN,ALAVERT) mouth DAILY. 19 (Reorder) 10 MG Oral Tab duloxetine Take 1 Cap by 90 Cap 0 08/29/20 Discontinued (CYMBALTA) 30 MG mouth DAILY. 1 9 19 Oral CAPSULE ENTERIC cap daily for COATED 5 days then 2 PARTICLESIndications caps daily : Chronic onwards musculoskeletal pain montelukast Take 1 Tab by 30 Tab 5 08/29/20 Discontinued (SINGULAIR) 10 MG mouth DAILY. 9 19 (Reorder) Oral TabIndications: Moderate asthma without complication, unspecified whether persistent HYDROcodone-acetamin Take 1 Tab by 15 Tab 0 08/29/20 Discontinued ophen (NORCO) 5-325 mouth DAILY 9 19 MG Oral NEEDED (neck TabIndications: or lumbar Spondylosis of pain.). Max lumbar region Daily Amount: without myelopathy 1 Tab. 15 tabs or radiculopathy, a month max Spondylosis of cervical region without myelopathy or radiculopathy cyclobenzaprine Take 1 Tab by 42 Tab 0 08/29/20 Discontinued (FLEXERIL) 10 MG mouth THREE 9 19 (Reorder) Oral Tab TIMES DAILY. ondansetron (ZOFRAN Take 1 Tab by 20 Tab 0 08/29/20 Discontinued ODT) 8 MG Oral mouth EVERY 9 TABLET EIGHT HOURS DISPERSIBLEIndicatio NEEDED ns: Gastroenteritis (nausea). cyclobenzaprine Take 1 Tab by 42 Tab 0 08/29/20 Discontinued (FLEXERIL) 10 MG mouth THREE 9 19 (Reorder) Oral Tab TIMES DAILY. loratadine Take 1 Tab by 30 Tab 5 08/29/20 Discontinued (CLARITIN,ALAVERT) mouth DAILY. 9 19 (Reorder) 10 MG Oral Tab montelukast Take 1 Tab by 30 Tab 5 08/29/20 Discontinued (SINGULAIR) 10 MG mouth DAILY. 9 19 (Reorder) Oral Tab documented as of this encounter (statuses as of 08/29/2019) Active Problems Problem Noted Date Myositis of [...] as of this encounter (statuses as of 08/29/2019) Resolved Problems Problem Noted Date Resolved Date HIV (human immunodeficiency virus infection) 04/03/2014 04/03/2014 Cervical spondylosis with myelopathy 02/01/2011 02/01/2011 Acute laryngitis 11/27/2008 02/01/2011 Acute tracheitis without mention of obstruction 11/27/2008 02/01/2011 Acute upper respiratory infections of unspecified site 01/09/2005 02/01/2011 documented as of this encounter (statuses as of 08/29/2019) Immunizations Name Administration Dates Next Due PNEUMOCOCCAL [...] Sign Reading Time Taken Comments Blood Pressure 128/78 08/29/2019 1:57 PM EDT Pulse 92 08/29/2019 1:57 PM EDT Temperature 37.1 08/29/2019 1:57 PM EDT C (98.8 F) Respiratory Rate 22 08/29/2019 1:57 PM EDT Oxygen Saturation 96% 08/29/2019 1:57 PM EDT Inhaled Oxygen Concentration - - Weight 66 kg (145 lb 8 oz) 08/29/2019 1:57 PM EDT Height 167 cm (5' 5.75") 08/29/2019 1:57 PM EDT Body Mass Index 23.66 08/29/2019 1:57 PM EDT documented in this encounter Progress Notes Jad Glynn, DO - 08/29/2019 1:40 PM EDT PATIENT: Meliton Rowe : 1965 DATE OF SERVICE: 08/29/2019 CHIEF COMPLAINT: Chief Complaint Patient presents with Follow Up Follow up from [facility] [place] stay 08/27/19-08/28/19, dx pneumonia Medication Question Pain medication Medication Refill All meds need refill Subjective HISTORY OF PRESENT ILLNESS: Meliton Rowe is a 54-y.o. male. HPI Ad[place] [facility] [place] Dx multi lobar pneumonia Doing much better now On levaquin for 7 day course No fevers Cough less More alert now No bloody sputum No smoking Chronic neck pain: pain clinic doctor on leave. So wants referral to dr rodriguez at [place] Past Medical History: Diagnosis Date Asthma Cervical [...] 1 Tab by mouth THREE TIMES DAILY. EPINEPHrine 0.15 MG/0.3ML Injection Solution Auto-injector 1 Kit by Injection route NEEDED(bee sting). loratadine (CLARITIN,ALAVERT) 10 MG Oral Tab Take 1 Tab by mouth DAILY. montelukast (SINGULAIR) 10 MG Oral Tab Take 1 Tab by mouth DAILY. Omeprazole 20 MG Oral Tab EC Take 1 Tab by mouth DAILY. No current facility-administered medications for this visit. [...] file Gets together: Not on file Attends quaker service: Not on file Active member of [...] REVIEW OF SYSTEMS: Review of Systems Constitutional: Negative for chills. Cardiovascular: Negative for chest pain. Gastrointestinal: Negative for abdominal pain. Objective PHYSICAL EXAM: VITALS: BP 128/78 (BP Location: Left arm, Patient Position: Sitting) | Pulse 92 | Temp 98.8 F(37.1 C) (Tympanic) | Resp 22 | Ht 5' 5.75" (1.67 m) | Wt 145 lb 8 oz (66 kg) | SpO2 96% | BMI 23.66 kg/m Body mass index is 23.66 kg/m. Physical Exam Constitutional: General: He is not in acute distress. Appearance: Normal appearance. He is not ill-appearing or toxic-appearing. HENT: Head: Normocephalic and atraumatic. Mouth/Throat: Mouth: Mucous membranes are moist. Pharynx: Oropharynx is clear. Cardiovascular: Rate and Rhythm: Normal rate and regular rhythm. Pulmonary: Breath sounds: No wheezing. Comments: Some coarseness in breath sounds Neurological: Mental Status: He is alert. ASSESSMENT / IMPRESSION: ICD-9-CM ICD-10-CM 1. Multifocal pneumonia [address] CHEST WITHOUT IV CONTRAST 2. Chronic musculoskeletal pain 729.1 M79.18 338.29 G89.29 3. Chronic neck pain 723.1 M54.2 REFER TO PAIN CLINIC 338.29 G89.29 Plan Finish He needs a follow up ct chest in mid September (6+ week at that time) to make sure resolution of abnormal findings on ct done at [facility]. Told him opioid not good idea with his current pneumonia. Get in with dr Rodriguez at [place] [facility] to continue injections he was receiving prior. Author: Jad Glynn DO 08/29/2019 14:39 documented in this encounter Plan of Treatment Name Type Priority Associated Diagnoses Order Schedule CT CHEST WITHOUT IV Imaging Routine Multifocal pneumonia Expected: 2018, CONTRAST Expires: 08/28/2020 Name Type Priority Associated Diagnoses Order Schedule REFER TO PAIN CLINIC Referral Routine Chronic neck pain Expected: 2018, Expires: 08/29/2020 Health Maintenance Due Date Last Done Comments ZOSTER IMMUNIZATION SERIES (1 of 2013 2) INFLUENZA VACCINE (#1) 2019 DEPRESSION SCREENING 12/14/2019 12/14/2018 COLONOSCOPY SCREENING 12/04/2023 12/04/2013 LIPID DISORDER SCREENING [...] filedocumented in this encounter Visit Diagnoses Diagnosis Multifocal pneumonia - Primary Chronic musculoskeletal pain Mylagia and myositis, unspecified Chronic neck pain Cervicalgia documented in this encounter documented as of this encounter
== END 2019-09-27 13:09 | disposition home or self-care (01) ==
LOC: ED 10:55
DX: S61.212A Laceration without foreign body of right middle finger without damage to nail, initial encounter (principal); S61.214A Laceration without foreign body of right ring finger without damage to nail, initial encounter; Z23 Encounter for immunization; W26.8XXA Contact with other sharp object(s), not elsewhere classified, initial encounter; Y92.89 Other specified places as the place of occurrence of the external cause; Y99.0 Civilian activity done for income or pay; Z88.0 Allergy status to penicillin; Z88.1 Allergy status to other antibiotic agents; J44.9 Chronic obstructive pulmonary disease, unspecified; K21.9 Gastro-esophageal reflux disease without esophagitis; F41.9 Anxiety disorder, unspecified; F90.9 Attention-deficit hyperactivity disorder, unspecified type; F32.9 Major depressive disorder, single episode, unspecified; F17.210 Nicotine dependence, cigarettes, uncomplicated
CPT/HCPCS: 90471; 90715; 99282; A9270-GY

== ENCOUNTER 2020-01-04 21:10 | Emergency (ER) | payer OTHER ==
[2020-01-04] MEDS ORDERED: Albuterol/Ipratropium NEB.SOL* Albuterol 2.5 MG/Ipratropium 0.5 MG 3 ML INH ONE (21:14)
--- NOTE | 2020-01-04 21:18 | ED ---
Shortness of Breath - HPI Summary HPI Summary: 55-year-old male with no significant past medical history of asthma and pneumonia presents to the emergency department today while intoxicated with alcohol complaining of shortness of breath. Patient presents from well now with concerns of possible pneumonia. Patient complains of chills, shortness of breath, fever for 5 days. Patient states his son got everyone at home sick. Patient has not taken any medication prior to arrival. Patient is nontoxic appearing and denies occasional drug use. Patient states she had a "little bit " of alcohol to drink today. Patient denies chest pain, abdominal pain, nausea , vomiting, diarrhea, rash. - History of Current Complaint Time Seen by Provider: 01/04/20 21:13 Hx Obtained From: Patient Onset/Duration: Gradual Onset Timing: Constant Dyspnea At: Rest Alleviating Factors: Bronchodilators, EMS Tx Associated Signs & Symptoms: Cough (Productive), Fever, Chills - Allergy/Home Medications Allergies/Adverse Reactions: Allergies Allergy/AdvReac Type Severity Reaction Status Date / Time bee venom protein (honey bee) Allergy Severe Anaphylatic Verified 09/27/19 11:03 Shock Penicillins Allergy Severe Hives/Diff. Verified 09/27/19 11:03 Breathing/I tching piperacillin [From Zosyn] Allergy Severe Hives/Diff. Verified 09/27/19 11:03 Breathing/I tching tazobactam [From Zosyn] Allergy Severe Hives/Diff. Verified 09/27/19 11:03 Breathing/I tching Home Medications: Home Medications LoraTADine TAB(NF) [Claritin 10 MG TAB(NF)] 10 mg PO QAM PRN 02/04/15 [History Confirmed 08/27/19] EPINEPHrine [Epipen 2-Oleksandr] 0.3 mg IM ONCE 08/09/17 [History Confirmed 08/27/19] Benzonatate CAP* [Tessalon 100 MG CAP*] 100 mg PO TID PRN 08/21/19 [History Confirmed 08/27/19] DULoxetine DR CAP* [Cymbalta CAP*] 60 mg PO DAILY 08/21/19 [History Confirmed ] Montelukast Sodium TAB* [Singulair 10 MG TAB*] 10 mg PO DAILY 08/21/19 [History Confirmed 08/27/19] Cyclobenzaprine TAB* [Flexeril 10 MG TAB*] 10 mg PO TID PRN 08/27/19 [History Confirmed 08/27/19] Acetaminophen TAB* [Tylenol TAB*] 650 mg PO Q6H PRN tab 08/28/19 [Rx] Albuterol HFA INHALER* [Ventolin HFA Inhaler*] 1 puff INH Q4H PRN #1 mdi [Rx] Lidocaine PATCH 5%* [Lidoderm 5% Patch*] 1 patch TRANSDERM DAILY PRN #30 patch 08/28/19 [Rx] Naproxen [Naproxen 500 mg tab] 500 mg PO BID PRN 08/28/19 [History Confirmed ] Omeprazole 20 mg PO DAILY #30 capsule. 08/28/19 [Rx] levoFLOXacin [Levofloxacin] 750 mg PO QPM #5 tablet 08/28/19 [Rx] Levofloxacin TAB* [Levaquin 750 MG TAB*] 750 mg PO DAILY #1 tab 09/03/19 [Rx] Mupirocin 2% OINT* [Bactroban 2 % Oint*] 1 applic TOPICAL BID #1 tube 09/27/19 [ Rx] Naproxen [Naproxen 500 mg tab] 500 mg PO BID #20 tablet 09/27/19 [Rx] DOXYcycline CAP(*) [DOXYcycline 100MG CAP(*)] 100 mg PO BID 7 Days #14 cap 01/03 [Rx] PMH/Surg Hx/FS Hx/Imm Hx Endocrine/Hematology History: Denies: Hx Anticoagulant Therapy, Hx Blood Disorders, Hx Blood Transfusions, Hx Bone Marrow Disease, Hx Diabetes, Hx Systemic Lupus Erythematosus, Hx Sickle Cell Disease, Hx Thyroid Disease, Hx Anemia, Hx Unexplained Bleeding, Other Endocrine/Hematological Disorders Cardiovascular History: Denies: Hx Aneurysm, Hx Angina, Hx Angioplasty, Hx Auto Implanted Cardiovert Defib, Hx Cardiac Arrest, Hx Cardiomegaly, Hx Congenital Heart Disease, Hx Congestive Heart Failure, Hx Coronary Artery Disease, Hx Deep Vein Thrombosis, Hx Embolism, Hx Hypercholesterolemia, Hx Hypotension, Hx Hypertension, Hx Pacemaker/ICD, Hx Peripheral Vascular Disease, Hx Rheumatic Fever, Hx Syncope, Hx Valvular Heart Disease, Other Cardiovascular Problems/Disorders - pt ams - unable to get info from pt Respiratory History: Reports: Hx Asthma, Hx Chronic Obstructive Pulmonary Disease (COPD) Denies: Hx Chronic Bronchitis, Hx Cystic Fibrosis, Hx Lung Cancer, Hx Pleural Effusion, Hx Pneumonia, Hx Pulmonary Edema, Hx Pulmonary Embolism, Hx Seasonal Allergies, Hx Sleep Apnea, Other Respiratory Problems/Disorders GI History: Reports: Hx Gastroesophageal Reflux Disease, Other GI Disorders - diverticulitis 2016 Denies: Hx Ulcer History: Denies: Hx Acute Renal Failure, Hx Benign Prostatic Hyperplasia, Hx Chronic Renal Failure, Hx Dialysis, Hx Kidney Infection, Hx Kidney Stones, Hx Renal Disease, Other Problems/Disorders Musculoskeletal History: Reports: Hx Arthritis - osteoarthritis, Hx Back Problems - takes aleve and flexeril, Other Musculoskeletal History - degnerative disc disease in cervical and lower back Denies: Hx Bursitis, Hx Congenital Bone Abnormalities, Hx Fibromyalgia, Hx Gout, Hx Orthopedic Injury, Hx Osteoporosis, Hx Scoliosis, Hx Tendonitis Sensory History: Denies: Hx Cataracts, Hx Contacts or Glasses, Hx Eye Injury, Hx Eye Prosthesis, Hx Glaucoma, Hx Legally Blind, Hx Macular Degeneration, Hx Vision Problem, Hx Deafness, Hx Hearing Aid, Hx Hearing Problem, Other Sensory Impairments Opthamlomology History: Denies: Hx Cataracts, Hx Contacts or Glasses, Hx Eye Injury, Hx Eye Prosthesis, Hx Glaucoma, Hx Legally Blind, Hx Macular Degeneration, Hx Vision Problem, Other Sensory Impairments Neurological History: Reports: Hx Headaches, Hx Migraine, Hx Nerve Disease - GREATER RIGHT OCCIPITAL NERVE PINCHED, Other Neuro Impairments/Disorders - substance abuse pt alert but not oriented/speaking unintelligible words Denies: Hx Dementia, Hx Developmental Delay, Hx Seizures, Hx Spinal Cord Injury, Hx Transient Ischemic Attacks (TIA) Psychiatric History: Reports: Hx Anxiety, Hx Attention Deficit Hyperactivity Disorder, Hx Depression - HX OF, Hx Substance Abuse - Bath Salts, unknown substances Denies: Hx Panic Disorder - Cancer History Hx Chemotherapy: No - Surgical History Surgery Procedure, Year, and Place: Left acl reconstruction - 10/2016/2017. ulnar nerve- [facility] - [facility] ELBOWS. left shoulder/clavicle. excision of gangion cyst x3 RT [facility]. left wrist surgery. RIGHT HAND. LEFT POINTER FINGER. BILATERAL SHOULDER ARTHROSCOPY Hx Anesthesia Reactions: No - Immunization History Date of Influenza Vaccine: 07/2017 Infectious Disease History: Reports: Hx Hepatitis - history of hepc +- resolved with hervoni, Hx of Known/Suspected MRSA Denies: Hx Clostridium Difficile, Hx Human Immunodeficiency Virus (HIV), Hx Shingles, Hx Tuberculosis, Hx Known/Suspected VRE, Hx Known/Suspected VRSA, History Other Infectious Disease - Family History Known Family History: Positive: Cardiac Disease - mother CHF, Respiratory Disease - father COPD, Non-Contributory - Social History Alcohol Use: None Alcohol Amount: LAST 3 YEARS AGO Hx Substance Use: No Substance Use Type: Reports: Cocaine Substance Use Comment - Amount & Last Used: pt friend states pt has been a drug addict for years. pt vague about use. Hx Tobacco Use: Yes - Denies smoking today Smoking Status (MU): Heavy Every Day Tobacco Smoker Type: Cigarettes Amount Used/How Often: smoked off and on 15 years less than 1/2 ppd Review of Systems Positive: Fever, Chills, Fatigue Eyes: Negative ENT: Negative Cardiovascular: Negative Positive: Shortness Of Breath, Cough Gastrointestinal: Negative Genitourinary: Negative Musculoskeletal: Negative Skin: Negative Neurological/Mental Status: Negative Psychological: Normal All Other Systems Reviewed And Are Negative: Yes Physical Exam Triage Information Reviewed: Yes Vital Signs Reviewed: Yes Appearance: Positive: Well-Appearing, No Pain Distress, Well-Nourished Skin: Positive: Warm, Skin Color Reflects Adequate Perfusion Eyes: Positive: EOMI, BRIGITTE ENT: Positive: Hearing grossly normal Respiratory/Lung Sounds: Positive: Breath Sounds Present, Wheezes Cardiovascular: Positive: RRR, S1, S2 Abdomen Description: Positive: Nontender, Soft Bowel Sounds: Positive: Present Musculoskeletal: Positive: Strength/ROM Intact Neurological: Positive: Sensory/Motor Intact, Alert, Oriented to Person Place, Time, Normal Gait, Facial Symmetry, Speech Normal Psychiatric: Positive: Normal, Affect/Mood Appropriate AVPU Assessment: Alert Procedures - Sedation Patient Received Moderate/Deep Sedation with Procedure: No Diagnostics - Laboratory Result Diagrams: 01/04/20 21:25 01/04/20 21:25 Lab Statement: Any lab studies that have been ordered have been reviewed, and results considered in the medical decision making process. Course/Dx - Course Course Of Treatment: The patient was evaluated in the emergency department today for shortness of breath and possible pneumonia. Patient was seen and examined, patient was febrile. Patient given Toradol for fever and myalgia. Chest x-ray done at [facility] now shows evidence of pneumonia. Patient given 1 dose of doxycycline in the emergency department. Laboratory studies returned showing no leukocytosis with a white blood cell count of 8.6 and no evidence of sepsis with a lactic acid of 1. Patient spit for outpatient treatment of pneumonia. Patient given prescription for doxycycline 100 mg twice daily for 7 days and instructed to follow-up with his primary care provider. Patient discharged with outpatient follow-up. - Diagnoses Differential Diagnosis/HQI/PQRI: Positive: Airway Obstruction, Asthma, Bronchitis, Chest Wall Pain, COPD Exacerbation, Pneumonia Provider Diagnoses: Pneumonia Discharge ED - Sign-Out/Discharge Documenting (check all that apply): Patient Departure - Discharge Plan Condition: Stable Disposition: HOME Prescriptions: DOXYcycline CAP(*) [DOXYcycline 100MG CAP(*)] 100 mg PO BID 7 Days #14 cap Patient Education Materials: Pneumonia (ED) Referrals: Megan Casper MD [Primary Care Provider] - 3 Days Additional Instructions: You were seen in the emergency department today and diagnosed with pneumonia. Please take your antibiotics as directed. 100 mg doxycycline twice daily for 7 days. Please also take Tylenol 650 mg every 6 hours as needed for fever. Please follow-up with your primary care provider for further evaluation and management and 3 days. Please return to this emergency Department immediately if you develop any new or worsening symptoms. - Billing Disposition and Condition Condition: STABLE Disposition: Home
[2020-01-04 21:38] LABS: ABS Basophils 0.1 10^3/ul (0-0.2); ABS Lymphocytes 2.2 10^3/ul (1.0-4.8); ABS Monocytes 0.7 10^3/ul (0-0.8); ABS Neutrophils 5.7 10^3/ul (1.5-7.7); Eosinophil % 0.3 %; Hematocrit 40 % (42-52); Hemoglobin 13.7 g/dL (14.0-18.0); Lymphocyte % 25.2 %; Mean Corpuscular HGB Conc 35 g/dL (31-36); Mean Corpuscular Hemoglobin 31 pg (27-31); Mean Corpuscular Volume 90 fL (80-94); Mean Platelet Volume 7.3 fL (7.4-10.4); Nucleated Red Blood Cells % 0.1; Platelet Count 266 10^3/uL (150-450); Red Blood Count 4.41 10^6 /uL (4.18-5.48); Red Cell Distribution Width 14 % (10-15); White Blood Count 8.6 10^3/uL (3.5-10.8)
[2020-01-04] MEDS ORDERED: Acetaminophen TAB* 325 MG PO ONE ×3 (21:48→23:11)
[2020-01-04 21:49] LABS: Albumin 4.2 g/dL (3.2-5.2); Albumin/Globulin Ratio 1.6 (1-3); BUN/Creatinine Ratio 16.1 (8-20); C Reactive Protein 5.5 mg/L (<8.01); Calcium 9.1 mg/dL (8.6-10.3); EGFR African American 109.4 (>60); EGFR Non-African American 90.4 (>60); Globulin 2.7 g/dL (2-4); Potassium 4.1 mmol/L (3.5-5.0); Total Bilirubin 0.6 mg/dL (0.2-1.0); Total Protein 6.9 g/dL (6.4-8.9)
[2020-01-04] MEDS ORDERED: DOXYcycline CAP(*) 100 MG PO ONE (21:51)
[2020-01-04] MEDS ORDERED: Ketorolac *IM* INJ* 60 MG/2 ML VIAL IM ONE (22:10)
[2020-01-04] MEDS ORDERED: Ketorolac INJ* 30 MG/ML 1 ML VIAL ONE (22:13)
--- OUTSIDE RECORDS SUMMARY | 2020-01-04 22:18 | XMS REPORT | Summary of Care ---
:1965 Author Organization [facility] Address [address] [address] Care Team Providers Name Role Phone Gokul Luo Primary Care Provider Reason for Referral Refer to Department Only (Routine) Status Reason Specialty Diagnoses / Referred By Referred To Procedures Contact Contact Pending OTORHINOLARYNGOLOGY Diagnoses Hoarse [place], Review Megan Garrido MD [address] [place] [address] Scheduling Instructions Please indicate side affected in the diagnosis. Reason for Visit Reason Comments Establish Care pt complains of back pain would like pain relief, pt recives injections, pt recently has pneumona Encounter Details Date Type Department Care Team Description 11/26/2019 Office Visit Anay Casper, Moderate asthma without complication, unspecified whether persistent (Primary Dx); Practice Megan Garrido MD Hx of hepatitis C; [address] Lumbosacral spondylosis without myelopathy; [place], [place] [id number] [place] [address] Myofascial pain syndrome; [phone] Hx of bacterial pneumonia; Need for vaccination; Screening for lipid disorders; Hoarse Allergies Active Allergy Reactions Severity Noted Date Comments Zosyn Unknown Reaction 01/26/2016 documented as of this encounter (statuses as of 11/26/2019) Medications Medication Sig Dispensed Refills Start End Date Status Date EPINEPHrine 0.15 1 Kit by 1 Each 1 Active MG/0.3ML Injection Injection 9 Solution route Auto-injector NEEDED (bee sting). benzonatate Take 1 Cap by 60 Cap 0 Active (TESSALON PERLES) mouth THREE 9 100 MG Oral TIMES DAILY CapIndications: NEEDED for Acute URI cough. albuterol HFA Take 2 Puffs 1 Inhaler 5 Active (VENTOLIN) 108 (90 by inhalation 0 Base) MCG/ACT EVERY FOUR Inhalation Aero HOURS SolnIndications: NEEDED (SOB). Moderate asthma without complication, unspecified whether persistent loratadine Take 1 Tab by 30 Tab 5 Active (CLARITIN,ALAVERT) mouth DAILY. 0 10 MG Oral Tab montelukast Take 1 Tab by 30 Tab 5 Active (SINGULAIR) 10 MG mouth DAILY. 0 Oral Tab Omeprazole 20 MG Take 1 Tab by 30 Tab 0 Active Oral Tab mouth DAILY. 0 ECIndications: Gastroenteritis cyclobenzaprine Take 1 Tab by 42 Tab 0 Active (FLEXERIL) 10 MG mouth THREE 0 Oral Tab TIMES DAILY. Beclomethasone Take 1 Puff by 1 Inhaler 5 Active Dipropionate inhalation 0 INHALATION MDI 80 TWICE DAILY. mcg/act, QVAR, (QVAR) 80 MCG/ACT Inhalation Aero SolnIndications: Moderate asthma without complication, unspecified whether persistent Beclomethasone Take 1 Act by 0 11/26/19 Discontinued Dipropionate (Q-UMA inhalation 20 (Dose MDI) 40 MCG/ACT TWICE DAILY. Adjustment) Inhalation Aero Soln documented as of this encounter (statuses as of 11/26/2019) Active Problems Problem Noted Date Myositis of multiple sites 02/06/2019 Left knee ACL tear, chronic 02/01/2011 Overview: 12 years PO ACL reconstruction, hamstrings Left knee capsular strain, chronic 02/01/2011 Cervical spondylosis without myelopathy 02/01/2011 Myofascial pain syndrome 02/01/2011 Overview: Based on generalized tenderness Replaced inactive diagnosis Lumbosacral spondylosis without myelopathy History of tobacco use Asthma Hx of hepatitis C Overview: treated with [facility] in the past. documented as of this encounter (statuses as of 11/26/2019) Resolved Problems Problem Noted Date Resolved Date HIV (human immunodeficiency virus infection) 04/03/2014 04/03/2014 Hepatitis C 04/03/2014 11/26/2019 Chronic narcotic use, prescribed 02/01/2011 11/26/2019 Cervical spondylosis with myelopathy 02/01/2011 02/01/2011 Acute laryngitis 11/27/2008 02/01/2011 Acute tracheitis without mention of obstruction 11/27/2008 02/01/2011 Acute upper respiratory infections of unspecified site 01/09/2005 02/01/2011 documented as of this encounter (statuses as of 11/26/2019) Immunizations Name Administration Dates Next Due Influenza (IM) Preservative Free 11/26/2019, 08/31/2017 Influenza (IM) W/Pres 10/22/2016 Influenza Virus Vaccine Pres Free 6-35 Months 08/21/2015 PNEUMOCOCCAL POLYSACCHARIDE VACCINE 12/14/2018, 07/25/2015 TDAP Vaccine 07/06/2017, 08/24/2012 documented as of this encounter Social History [...] Sign Reading Time Taken Comments Blood Pressure 130/80 11/26/2019 9:51 AM EST Pulse 88 11/26/2019 9:51 AM EST Temperature 36.7 11/26/2019 9:51 AM EST C (98 F) Respiratory Rate - - Oxygen Saturation 98% 11/26/2019 9:51 AM EST Inhaled Oxygen Concentration - - Weight 71.2 kg (157 lb) 11/26/2019 9:51 AM EST Height 162.6 cm (5' 4") 11/26/2019 9:51 AM EST Body Mass Index 26.95 11/26/2019 9:51 AM EST documented in this encounter Patient Instructions Patient InstructionsMegan Casper MD - 11/26/2019 9:20 AM YOEL ordered fasting laboratory tests and will send you the resutls when in. Your chest CT on 11/16/2019 read by [facility] radiology is normal: No masses, pneumonia is resolved. Your pneumovax is up to date. We gave you a influenza vaccine today,. I referred you to ENT for hoarseness. Gargle with water after using your Qvar. Increase your Qvar to 80 mg, 1 inhalation twice a day. Continue your other medications. Follow up with Dr Mann as he directs for your back pain. documented in this encounter Progress Notes Megan Casper MD - 11/26/2019 9:20 AM EST Nursing Notes: Barbara Gonzalez LPN 11/26/2019 9:59 AM Signed Chief Complaint Patient presents with Establish Care pt complains of back pain would like pain relief, pt recives injections Orthopedics : Dr Mann. Pain clinic: None, Dr Mann 20 min appointment. Subjective: Meliton Rowe is a 54-y.o. year old male who presents for physical exam but arrived over 15 minutes late. He was a patient of Dr Glynn and then switched to Martin OMALLEY. He told him he was switching to me. He is new to me. His main concern today is that he has not heard his chest CT result. It was done 11/16/2019 at [facility]. We will obtain the results for him today. He has chronic back pain. He sees Dr Mann. The epidural last week did help a bit: Plan is every2 weeks. He wants to avoid pain medications. He takes over the counter tylenol and naproxen as needed. Asthma: uses Qvar and albuterol Smoked as teen only per patient. He says he has not smoked in years. Smoked THC in the past. But no longer He would like the higher dose Qvar. Wants do know when laboratory tests are due. Wants Hep C viral load. Was treated a few years ago for Hepatitis C and wants to make sure he is still clear. He has been Hoarse since his pneumonia in September He declined ENT referral initially but at end of appointment, reconsidered.. Patient Active Problem List Diagnosis Lumbosacral spondylosis without myelopathy History of tobacco use Left knee ACL tear, chronic Left knee capsular strain, chronic Cervical spondylosis without myelopathy Myofascial pain syndrome Asthma Myositis of multiple sites Hx of hepatitis C Acute new problems include: None, wants CT result Health maintainance concerns include: Due for influenza vaccine Health Maintenance Topic Date Due DTaP/Tdap/Td Vaccines (1 - Tdap) 1974 ZOSTER IMMUNIZATION SERIES (1 of 2) 2013 INFLUENZA VACCINE (1) 07/01/2019 DIABETES SCREENING 12/25/2019 DEPRESSION SCREENING 11/13/2020 Colonoscopy 12/04/2023 LIPID DISORDER SCREENING 12/25/2023 HIV SCREENING Completed PNEUMOCOCCAL 0-64 YRS Completed HEPATITIS A IMMUNIZATION SERIES Aged Out HPV IMMUNIZATION SERIES Aged Out MENINGOCOCCAL VACCINE IMM Aged Out Immunization History Administered Date(s) Administered Influenza (IM) Preservative Free 08/31/2017, 11/26/2019 Influenza (IM) W/Pres 10/22/2016 Influenza Virus Vaccine Pres Free 6-35 Months 08/21/2015 PNEUMOCOCCAL POLYSACCHARIDE VACCINE 07/25/2015, 12/14/2018 TDAP Vaccine 08/24/2012, 07/06/2017 Abstract on 03/20/2019 Component Date Value Ref Range Status HM Colonoscopy 12/04/2013 negative screening Final Health Maintenance Topic Date Due DTaP/Tdap/Td Vaccines (1 - Tdap) 1974 ZOSTER IMMUNIZATION SERIES (1 of 2) 2013 INFLUENZA VACCINE (1) 07/01/2019 DIABETES SCREENING 12/25/2019 DEPRESSION SCREENING 11/13/2020 Colonoscopy 12/04/2023 LIPID DISORDER SCREENING 12/25/2023 HIV SCREENING Completed PNEUMOCOCCAL 0-64 YRS Completed HEPATITIS A IMMUNIZATION SERIES Aged Out HPV IMMUNIZATION SERIES Aged Out MENINGOCOCCAL VACCINE IMM Aged Out Past Medical History: Diagnosis Date Asthma Cervical spondylosis without myelopathy 02/01/2011 Chronic narcotic use, prescribed 02/01/2011 Hx of hepatitis C treated with [facility] Dr Wong in the past. Left knee ACL tear, chronic 02/01/2011 Left knee capsular strain, chronic 02/01/2011 Left knee Myofacial pain syndrome 02/01/2011 Lumbosacral spondylosis without myelopathy 2000 WC injury Spinal stenosis of lumbar region Tobacco use disorder Current Outpatient Medications Medication Sig albuterol HFA (VENTOLIN) 108 (90 Base) MCG/ACT Inhalation Aero Soln Take 2 Puffs by inhalation EVERY FOUR HOURS NEEDED (SOB). Beclomethasone Dipropionate INHALATION MDI 80 mcg/act, QVAR, (QVAR) 80 MCG/ACT Inhalation Aero Soln Take 1 Puff by inhalation TWICE DAILY. benzonatate (TESSALON PERLES) 100 MG Oral Cap [...] No current facility-administered medications for this visit. Zosyn Social History Tobacco Use Smoking status: Former Smoker Types: Cigarettes Smokeless tobacco: Former User Tobacco comment: 1 pack of cigs a week for 10 years. Substance Use Topics Alcohol use: No Drug use: No Family History Problem Relation Age of Onset Lung Cancer Maternal Grandfather Review of Systems - General ROS: negative for - chills or fever, unexpected weight changes ENT ROS: negative for - headaches, nasal congestion, nasal discharge, sinus pain , sore throat but has had voice changes since his pneumonia in September. Respiratory ROS: negative for - cough, hemoptysis or shortness of breath Cardiovascular ROS: negative for - chest pain, dyspnea on exertion, edema or palpitations Gastrointestinal ROS: no abdominal pain Objective: BP 130/80 Pulse 88 Temp 98 F (36.7 C) Ht 5' 4" (1.626 m) Wt 157 lb ( 71.2 kg) SpO2 98% BMI 26.95 kg/m2 Physical Examination: General appearance - alert, well appearing, and in no distress Mental status - alert, oriented to person, place, and time, normal mood, behavior, speech, dress, motor activity, and thought processes Eyes - pupils equal and reactive, extraocular eye movements intact, sclera anicteric Ears - bilateral TM's and external ear canals normal Throat: No erythema, no thrush. Voice is hoarse. Neck - supple, no cervical or supraclavicular adenopathy, carotids upstroke normal bilaterally, no bruits, thyroid exam: thyroid is normal in size without nodules or tenderness, no neck masses palpated. Chest/Lungs - clear to auscultation, no wheezes, rales or rhonchi, symmetric air entry, good aeration Heart - normal rate, regular rhythm, normal S1, S2, no murmurs, rubs, clicks or gallops Abdomen - soft, non tender on palpation, nondistended, no masses or hepatosplenomegaly, bowel soundsnormal, normal to percussion, no guarding or rebound. No costervertebral angle tenderness Neurological - alert, oriented, normal speech, no gross focal findings or movement disorder noted Extremities - dorsalis pedis pulses normal, no pedal edema, no clubbing or cyanosis Assessment/Plan: ICD-9-CM ICD-10-CM 1. Moderate asthma without complication, unspecified whether persistent 493.90 J45.909 Beclomethasone Dipropionate INHALATION MDI 80 mcg/act, QVAR, (QVAR) 80 MCG/ACT Inhalation Aero Soln ADMINISTRATION VACCINE SINGLE 2. Hx of hepatitis C V12.09 Z86.19 COMPREHENSIVE METABOLIC PANEL HEPATITIS C RNA, QUANTITATIVE, PCR 3. Lumbosacral spondylosis without myelopathy 721.3 M47.817 4. Myofascial pain syndrome 729.1 M79.18 5. Hx of bacterial pneumonia V12.61 Z87.01 6. Need for vaccination V05.9 Z23 RI FLU VACCINE PRES FREE 6MOS+ 7. Screening for lipid disorders V77.91 Z13.220 LIPID PROFILE 8. Hoarse 784.42 R49.0 REFER TO OTOLARYNGOLOGY (ENT) Patient Instructions I ordered fasting laboratory tests and will send you the resutls when in. Your chest CT on 11/16/2019 read by [facility] radiology is normal: No masses, pneumonia is resolved. Your pneumovax is up to date. We gave you a influenza vaccine today,. I referred you to ENT for hoarseness. Gargle with water after using your Qvar. Increase your Qvar to 80 mg, 1 inhalation twice a day. Continue your other medications. Follow up with Dr Mann as he directs for your back pain. Megan Casper MD documented in this encounter Plan of Treatment Date Type Specialty Care Team Description 12/04/2019 [facility] Liam Mann MD [address] [facility] [place] [place] [address] [place] [address] [phone] 02/26/2020 Office Visit Family Practice Megan Casper MD [address] [place] [address] [phone] Name Type Priority Associated Diagnoses Order Schedule ADMINISTRATION VACCINE Procedures Routine Moderate asthma Ordered: SINGLE without complication, 11/26/2019 unspecified whether persistent COMPREHENSIVE METABOLIC Lab Routine Hx of hepatitis C Expected: PANEL 02/25/2020 (Approximate), Expires: 11/26/2020 LIPID PROFILE Lab Routine Screening for lipid Expected: disorders 11/26/2019 (Approximate), Expires: 11/26/2020 HEPATITIS C RNA, Lab Routine Hx of hepatitis C Expected: QUANTITATIVE, PCR 11/26/2019 (Approximate), Expires: 11/26/2020 Name Type Priority Associated Diagnoses Order Schedule REFER TO OTOLARYNGOLOGY Referral Routine Hoarse Expected: (ENT) 11/26/2019, Expires: 11/26/2020 Health Maintenance Due Date Last Done Comments DTaP/Tdap/Td Vaccines (1 - 1974 Tdap) ZOSTER IMMUNIZATION SERIES (1 2013 of 2) INFLUENZA VACCINE (#1) 2019 DIABETES SCREENING 12/25/2019 12/25/2018, 01/26/2016 DEPRESSION SCREENING 11/13/2020 11/13/2019, 11/13/2019 Colonoscopy 12/04/2023 12/04/2013 LIPID DISORDER SCREENING 12/25/2023 12/25/2018 PNEUMOCOCCAL 0-64 YRS Completed 12/14/2018 HIV SCREENING Completed 12/25/2018 HEPATITIS A IMMUNIZATION Aged Out No longer eligible based SERIES on patient's age to complete this topic HPV IMMUNIZATION SERIES Aged Out No longer eligible based on patient's age to complete this topic MENINGOCOCCAL VACCINE IMM Aged Out No longer eligible based on patient's age to complete this topic documented as of this encounter Results Not on filedocumented in this encounter Visit Diagnoses Diagnosis Moderate asthma without complication, unspecified whether persistent Hx of hepatitis C Personal history of other infectious and parasitic disease Lumbosacral spondylosis without myelopathy Myofascial pain syndrome Mylagia and myositis, unspecified Hx of bacterial pneumonia Personal history of pneumonia (recurrent) Need for vaccination Need for prophylactic vaccination and inoculation against unspecified single disease Screening for lipid disorders Hoarse Dysphonia documented in this encounter Guarantor Name Account Type Relation to Date of Phone Billing Patient Address Meliton Rowe Personal/Family 1965 [phone] [address] (Home) [phone] [place], [place] (Work) [address] documented as of this encounter
--- OUTSIDE RECORDS SUMMARY | 2020-01-04 22:18 | XMS REPORT | Summary of Care ---
:1965 Author Organization [facility] Address [address] [address] Care Team Providers Name Role Phone Gokul Luo Primary Care Provider Reason for Visit Reason Comments Follow Up Low back pain. Patient here to seek approval for MBB. Encounter Details Date Type Department Care Team Description 12/11/2019 Office Visit [facility] - Liam Mann MD Sacroiliitis (HCC) [place] [address] [facility] (Primary Dx) [address] [facility] [place] [place] [address] [place] [address] [phone] Allergies Active Allergy Reactions Severity Noted Date Comments Zosyn Unknown Reaction 01/26/2016 documented as of this encounter (statuses as of 12/11/2019) Medications Medication Sig Dispensed Refills Start Date End Date Status EPINEPHrine 0.15 1 Kit by 1 Each 1 05/16/2019 Active MG/0.3ML Injection Injection route Solution Auto-injector NEEDED (bee sting). benzonatate (TESSALON Take 1 Cap by 60 Cap 0 08/08/2019 Active PERLES) 100 MG Oral mouth THREE TIMES CapIndications: Acute DAILY NEEDED URI for cough. albuterol HFA Take 2 Puffs by 1 Inhaler 5 11/13/2019 Active (VENTOLIN) 108 (90 inhalation EVERY Base) MCG/ACT FOUR HOURS Inhalation Aero NEEDED (SOB). SolnIndications: Moderate asthma without complication, unspecified whether persistent loratadine Take 1 Tab by 30 Tab 5 11/13/2019 Active (CLARITIN,ALAVERT) 10 mouth DAILY. MG Oral Tab montelukast (SINGULAIR) Take 1 Tab by 30 Tab 5 11/13/2019 Active 10 MG Oral Tab mouth DAILY. Omeprazole 20 MG Oral Take 1 Tab by 30 Tab 0 11/13/2019 Active Tab ECIndications: mouth DAILY. Gastroenteritis cyclobenzaprine Take 1 Tab by 42 Tab 0 11/13/2019 Active (FLEXERIL) 10 MG Oral mouth THREE TIMES Tab DAILY. Beclomethasone Take 1 Puff by 1 Inhaler 5 11/26/2019 Active Dipropionate INHALATION inhalation TWICE MDI 80 mcg/act, QVAR, DAILY. (QVAR) 80 MCG/ACT Inhalation Aero SolnIndications: Moderate asthma without complication, unspecified whether persistent documented as of this encounter (statuses as of 12/11/2019) Active Problems Problem Noted Date Myositis of [...] as of this encounter (statuses as of 12/11/2019) Resolved Problems Problem Noted Date Resolved Date HIV (human immunodeficiency virus infection) 04/03/2014 04/03/2014 Hepatitis C 04/03/2014 11/26/2019 Chronic narcotic use, prescribed 02/01/2011 11/26/2019 Cervical spondylosis with myelopathy 02/01/2011 02/01/2011 Acute laryngitis 11/27/2008 02/01/2011 Acute tracheitis without mention of obstruction 11/27/2008 02/01/2011 Acute upper respiratory infections of unspecified site 01/09/2005 02/01/2011 documented as of this encounter (statuses as of 12/11/2019) Immunizations Name Administration Dates Next Due Influenza [...] Sign Reading Time Taken Comments Blood Pressure 141/87 12/11/2019 10:26 AM EST Pulse 93 12/11/2019 10:26 AM EST Temperature - - Respiratory Rate - - Oxygen Saturation - - Inhaled Oxygen Concentration - - Weight 71.2 kg (157 lb) 12/11/2019 10:26 AM EST Height 162.6 cm (5' 4") 12/11/2019 10:26 AM EST Body Mass Index 26.95 12/11/2019 10:26 AM EST documented in this encounter Progress Notes Liam Mann MD - 12/11/2019 10:20 AM EST Name: Meliton Rowe : 1965 Date of Service: 12/11/2019 Chief Complaint Patient presents with Follow Up Low back pain. Patient here to seek approval for MBB. Patient reports excellent relief of leg pain after lumbar epidural. However now has persistent severe right-sided low back and buttock pain. Interfering with activities of daily living and sleep. Nohelp from physical therapy and anti-inflammatories. No other symptoms. Imaging has showed spondylosis/ stenosis. Physical exam shows a healthy-appearing man in significant discomfort from back pain. Alert and oriented. Tender right PSIS. Range of motion is limited by pain. Increased pain on hyperextension. Hip range of motion is decreased but there is no groin pain. Positive Robin sign on the right side. Positive compression test. No focal motor or sensory abnormalities right lower extremity. Impression: Pain most likely from sacroiliitis. Possibly from lumbar spondylosis/facet arthrosis. Plan: Since no help from physical therapy or medication, recommend inject sacroiliac joint under fluoroscopy. If no help, consider lumbar facet injections. ICD-9-CM ICD-10-CM 1. Sacroiliitis (HCC) 720.2 M46.1 Author: Liam Mann MD 12/11/2019 10:37 This record contains sections created with voice recognition software. It has been electronically signed. A reasonable attempt at proofreading has been made. Please call with any questions or corrections. documented in this encounter Plan of Treatment Date Type Specialty Care Team Description 02/26/2020 Office Visit Family [facility] Megan Casper MD [address] [place] [address] [phone] Health Maintenance Due Date Last Done Comments ZOSTER IMMUNIZATION SERIES (1 2013 of 2) DIABETES SCREENING 12/25/2019 12/25/2018, 01/26/2016 DEPRESSION SCREENING 11/13/2020 11/13/2019, 11/13/2019 Colonoscopy 12/04/2023 12/04/2013 LIPID DISORDER SCREENING 12/25/2023 12/25/2018 DTaP/Tdap/Td Vaccines (3 - 07/06/2027 07/06/2017, Tdap) 08/24/2012 PNEUMOCOCCAL 0-64 YRS Completed 12/14/2018, 07/25/2015 HIV SCREENING Completed 12/25/2018 INFLUENZA VACCINE Completed 11/26/2019, 08/31/2017, 10/22/2016 HEPATITIS A IMMUNIZATION Aged Out No longer [...] filedocumented in this encounter Visit Diagnoses Diagnosis Sacroiliitis (HCC) Sacroiliitis, not elsewhere classified documented in this encounter Guarantor Name Account Type Relation to Date of Phone Billing Patient Address Meliton Rowe Personal/Family 1965 [phone] [address] [facility] (Home) [phone] [place], [place] (Work) [address] documented as of this encounter
--- OUTSIDE RECORDS SUMMARY | 2020-01-04 22:18 | XMS REPORT | Summary of Care ---
:1965 Author Organization [facility] Address [address] [address] Care Team Providers Name Role Phone Gokul Luo Primary Care Provider Reason for Visit Reason Comments Follow Up Low back pain. Neurosurgeon recommends non-operative treatment. Patient complains of low back pain with radiation down both legs. Encounter Details Date Type Department Care Team Description 11/14/2019 Office Visit [facility] - Liam Mann MD Spinal stenosis of [address] lumbar region with [address] [place] [address] claudication ([place] [address] Dx) [phone] Allergies Active Allergy Reactions Severity Noted Date Comments Zosyn Unknown Reaction 01/26/2016 documented as of this encounter (statuses as of 11/14/2019) Medications Medication Sig Dispensed Refills Start Date [...] MG Oral mouth THREE TIMES Tab DAILY. documented as of this encounter (statuses as of 11/14/2019) Active Problems Problem Noted Date Myositis of [...] as of this encounter (statuses as of 11/14/2019) Resolved Problems Problem Noted Date Resolved Date HIV (human immunodeficiency virus infection) 04/03/2014 04/03/2014 Cervical spondylosis with myelopathy 02/01/2011 02/01/2011 Acute laryngitis 11/27/2008 02/01/2011 Acute tracheitis without mention of obstruction 11/27/2008 02/01/2011 Acute upper respiratory infections of unspecified site 01/09/2005 02/01/2011 documented as of this encounter (statuses as of 11/14/2019) Immunizations Name Administration Dates Next Due PNEUMOCOCCAL [...] Sign Reading Time Taken Comments Blood Pressure 117/83 11/14/2019 10:21 AM EST Pulse 86 11/14/2019 10:21 AM EST Temperature - - Respiratory Rate - - Oxygen Saturation - - Inhaled Oxygen Concentration - - Weight 69.9 kg (154 lb) 11/14/2019 10:21 AM EST Height 165.1 cm (5' 5") 11/14/2019 10:21 AM EST Body Mass Index 25.63 11/14/2019 10:21 AM EST documented in this encounter Progress Notes Liam Mann MD - 11/14/2019 10:30 AM EST Name: Meliton Rowe : 1965 Date of Service: 11/14/2019 Chief Complaint Patient presents with Follow Up Low back pain. Neurosurgeon recommends non-operative treatment. Patient complains of low back painwith radiation down both legs. Patient presents with increasing low back pain with right sciatic symptoms. Similar symptoms to previous office visits. Requesting repeat epidural. I reviewed neurosurgery note. Patient symptoms are worse when walking. Physical exam shows a healthy-appearing man in no acute distress. Alert and oriented. Back grosslynormal. No tenderness. Hip range of motion is good without pain. Straight leg raising positive onthe right leg. Grossly no focal motor or sensory abnormalities right lower extremity. Impression: [place] spinal stenosis with sciatica. Plan: Lumbar epidural. ICD-9-CM ICD-10-CM 1. Spinal stenosis of lumbar region with neurogenic claudication 724.03 M48.062 Author: Liam Mann MD 11/14/2019 10:31 This record contains sections created with voice recognition software. It has been electronically signed. A reasonable attempt at proofreading has been made. Please call with any questions or corrections. documented in this encounter Plan of Treatment Date Type Specialty Care Team Description 11/26/2019 Office Visit [facility] Megan Casper MD [address] [place] [address] [phone] Health Maintenance Due Date Last Done Comments [...] filedocumented in this encounter Visit Diagnoses Diagnosis Spinal stenosis of lumbar region with neurogenic claudication Spinal stenosis, lumbar region, with neurogenic claudication documented in this encounter documented as of this encounter
--- OUTSIDE RECORDS SUMMARY | 2020-01-04 22:18 | XMS REPORT | Summary of Care ---
:1965 Author Organization [facility] Address [address] [address] Care Team Providers Name Role Phone Gokul Luo Primary Care Provider Reason for Referral Refer to Department Only (Routine) Status Reason Specialty Diagnoses / Referred By Referred To Procedures Contact Contact Pending Physical Diagnoses Spinal stenosis of lumbar region with radiculopathy [facility] Review Therapy [facility] - [address] [place] [address] [address] Therapy [place], [place] [address] [address] [address] Phone: [address] [phone] [place], [place] Fax: [phone] Reason for Visit Reason Comments Check Up Pt would like to discuss getting a different cane Encounter Details Date Type Department Care Team Description 11/13/2019 Office Visit [facility] Gokul Luo Spinal stenosis of lumbar region with radiculopathy (Primary Dx); [address] [place] Multifocal pneumonia; [address] [place] [address] Moderate asthma without complication, unspecified whether persistent; [place] [address] [place] [address] Gastroenteritis [phone] Allergies Active Allergy Reactions Severity Noted Date Comments Zosyn Unknown Reaction 01/26/2016 documented as of this encounter (statuses as of 11/13/2019) Medications Medication Sig Dispensed Refills Start End [...] mouth THREE 0 Oral Tab TIMES DAILY. Omeprazole 20 MG Take 1 Tab by 30 Tab 0 11/13/19 Discontinued Oral Tab mouth DAILY. 9 20 (Reorder) ECIndications: Gastroenteritis cyclobenzaprine Take 1 Tab by 42 Tab 0 11/13/19 Discontinued (FLEXERIL) 10 MG mouth THREE 9 20 (Reorder) Oral Tab TIMES DAILY. loratadine Take 1 Tab by 30 Tab 5 11/13/19 Discontinued (CLARITIN,ALAVERT) mouth DAILY. 9 20 (Reorder) 10 MG Oral Tab montelukast Take 1 Tab by 30 Tab 5 11/13/19 Discontinued (SINGULAIR) 10 MG mouth DAILY. 9 20 (Reorder) Oral Tab albuterol HFA Take 2 Puffs 1 Inhaler 5 11/13/19 Discontinued (VENTOLIN) 108 (90 by inhalation 9 20 (Reorder) Base) MCG/ACT EVERY FOUR Inhalation Aero HOURS SolnIndications: NEEDED (SOB). Moderate asthma without complication, unspecified whether persistent documented as of this encounter (statuses as of 11/13/2019) Active Problems Problem Noted Date Myositis of [...] as of this encounter (statuses as of 11/13/2019) Resolved Problems Problem Noted Date Resolved Date HIV (human immunodeficiency virus infection) 04/03/2014 04/03/2014 Cervical spondylosis with myelopathy 02/01/2011 02/01/2011 Acute laryngitis 11/27/2008 02/01/2011 Acute tracheitis without mention of obstruction 11/27/2008 02/01/2011 Acute upper respiratory infections of unspecified site 01/09/2005 02/01/2011 documented as of this encounter (statuses as of 11/13/2019) Immunizations Name Administration Dates Next Due PNEUMOCOCCAL [...] Sign Reading Time Taken Comments Blood Pressure 132/84 11/13/2019 10:19 AM EST Pulse 92 11/13/2019 10:19 AM EST Temperature 36.7 11/13/2019 10:19 AM EST C (98 F) Respiratory Rate - - Oxygen Saturation 100% 11/13/2019 10:19 AM EST Inhaled Oxygen Concentration - - Weight 69.9 kg (154 lb) 11/13/2019 10:19 AM EST Height 165.1 cm (5' 5") 11/13/2019 10:19 AM EST Body Mass Index 25.63 11/13/2019 10:19 AM EST documented in this encounter Progress Notes Gokul Luo, SHAHRAM - 11/13/2019 10:00 AM EST PATIENT: Meliton Rowe : 1965 DATE OF SERVICE: 11/13/2019 CHIEF COMPLAINT: Chief Complaint Patient presents with Check Up Pt would like to discuss getting a different cane Subjective HISTORY OF PRESENT ILLNESS: Meliton Rowe is a 54-y.o. male. Meliton presents today with a Longstanding history of lumbar spinal stenosis that he sees several providers for, including neurosurgery and orthopedics. Today he states that he is still having worsening pain and sciatica, in which he attempts ambulation with a cane that he found. When he is experiencing sciatica, he places the cane in the ipsilateral hand and states he has significant improvement. He had several other questions and concerns about his needs, and states that he "lost all his medication because his landlord threw them in his yard, and they all got wet in rain and snow." He specifically requested oxycodone and ambien, which I do not have as current medications in his record at thistime. Past Medical History: Diagnosis Date Asthma Cervical [...] Financial resource strain: Not on file Food insecurity Worry: Not on file Inability: Not on file Transportation needs Medical: Not on file Non-medical: Not on file Tobacco Use Smoking status: Former Smoker Types: Cigarettes Smokeless tobacco: Former User Tobacco comment: 1 pack of cigs a week for 10 years. Substance and Sexual Activity Alcohol use: No Drug use: No Sexual activity: Not on file Lifestyle Physical activity Days per week: Not on file Minutes per session: Not on file Stress: Not on file Relationships Social connections Talks on phone: Not on file Gets together: Not on file Attends confucianism service: Not on file Active member of club or organization: Not on file Attends meetings of clubs or organizations: Not on file Relationship status: Not on file Intimate partner violence Fear of current or ex partner: Not on file Emotionally abused: Not on file Physically abused: Not on file Forced sexual activity: Not on file Other Topics Concern Not on file Social History Narrative Disability Live alone with son living next door Over the last 2 weeks, have you been feeling down, depressed, anxious, or hopeless?: 0 Over the past 2 weeks, have you felt little interest or pleasure in doing things ?: 0 Trouble falling or staying asleep, or sleeping too much?: 3 Feeling tired or having little energy?: 3 Poor appetite or overeating?: 0 Feeling bad about yourself or that you are a failure or have let yourself or your family down?: 0 Trouble concentrating on things, such as reading the newspaper or watching TV?: 3 Moving or speaking so slowly that other people notice OR being fidgety and restless?: 0 Thoughts that you would be better off or of hurting yourself in some way?: 0 PHQ-9 TOTAL SCORE: 9 REVIEW OF SYSTEMS: Review of Systems Constitutional: Negative for chills, fever and malaise/fatigue. Musculoskeletal: Positive for back pain, joint pain, myalgias and neck pain. Negative for falls. Neurological: Negative for dizziness, tingling, tremors and headaches. Objective PHYSICAL EXAM: VITALS: BP 132/84 (BP Location: Left arm, Patient Position: Sitting) | Pulse 92 | Temp 98 F (36.7 C) (Tympanic) | Ht 5' 5" (1.651 m) | Wt 154 lb ( 69.9 kg) | SpO2 100% | BMI 25.63 kg/m Body mass index is 25.63 kg/m. Physical Exam Vitals signs and nursing note reviewed. Constitutional: General: He is not in acute distress. Musculoskeletal: General: No swelling or deformity. Comments: Complains of shooting right leg pain and back pain with all forms of motion and rotation. Patient has a varying gait that I did not notice when he was walking down the hallway before he came into the office. Neurological: General: No focal deficit present. Mental Status: He is alert. Psychiatric: Comments: Patient is repeatedly tangential with several flight of ideas about his home life, pains, and other conditions. He repeatedly tries to show me pictures of random objects while in the office. I spent 38 minutes with the patient, greater than half of this time in direct face to face counseling regarding the condition and the plan of care. ASSESSMENT / IMPRESSION: ICD-9-CM ICD-10-CM 1. Spinal stenosis of lumbar region with radiculopathy 724.02 M48.061 REFER TO PHYSICAL THERAPY / REHAB 724.4 M54.16 2. Multifocal pneumonia [address] CHEST WITHOUT IV CONTRAST 3. Moderate asthma without complication, unspecified whether persistent 493.90 J45.909 albuterol HFA(VENTOLIN) 108 (90 Base) MCG/ACT Inhalation Aero Soln 4. Gastroenteritis 558.9 K52.9 Omeprazole 20 MG Oral Tab EC Refilled the medications on his medication list. I will not be prescribing any other forms of mobility, which may cause harm if used incorrectly and will not improve his chronic back pain. Physical therapy referral has been placed. He may take cyclobenzaprine up to three times per day for the back pain, but I will not be writing any other types of medication for pain. Advised of the side effects of the medications and urged him to take this responsibly and sparingly. Please establish with Dr. Casper as you wished. Please keep your appointments with specialty providers. Author: SHAHRAM Edwards 11/13/2019 10:30 documented in this encounter Plan of Treatment Date Type Specialty Care Team Description 11/14/2019 Office Visit Orthopedics Liam Mann MD [address] [facility] [place] [address] [place] [address] [phone] 11/26/2019 Office Visit Family Practice Megan Casper MD [address] [place] [address] [phone] Name Type Priority Associated Diagnoses Order Schedule REFER TO PHYSICAL Referral Routine Spinal stenosis of lumbar 99 Occurrences THERAPY / REHAB region with radiculopathy starting 11/13/2019 until 11/13/2020 Health Maintenance Due Date Last Done Comments [...] this encounter Visit Diagnoses Diagnosis Multifocal pneumonia Spinal stenosis of lumbar region with radiculopathy Spinal stenosis, lumbar region, without neurogenic claudication Moderate asthma without complication, unspecified whether persistent Gastroenteritis Other and unspecified noninfectious gastroenteritis and colitis documented in this encounter documented as of this encounter
--- OUTSIDE RECORDS SUMMARY | 2020-01-04 22:18 | XMS REPORT | Continuity of Care Document ---
:1965 External Reference #:[id number] Author Name Karen Bishop M.D. (transmitted by agent of provider Diogenes Soriano) Address [address] [place] [address] Care Team Providers Name Role Phone Mihai Wong MD - Internal Care Team Information Ged Tutor [phone] Medicine Kiki Macdonald MD - Hand Surgery Care Team Information Ged Tutor Karen Bishop MD - Surgery of Care Team Information Ged Tutor the Hand Aoln Ramos MD - Neurology Care Team Information Ged Tutor Amado Agudelo MD - Orthopaedic Care Team Information [facility] - Pain Care Team Information Ged Tutor [phone] Rohith Fontenot MD - Interventional Care Team Information Ged Tutor [phone] Pain Medicine Patient's Choice Care Team Information Ged Tutor Unavailable Problems Active Problems Provider Date Sprain [...] M.D. Onset: 07/01/2017 Cervical disc disorder Nayan Saores M.D. Onset: 07/01/2017 Mild recurrent major depression Nayan Soares M.D. Onset: 08/31/2017 Insomnia Nayan Soares M.D. Onset: 09/14/2017 Ex-smoker Mihai Wong M.D.,FACP Onset: 09/28/2017 Localized, primary osteoarthritis Maria Esther Juárez M.D. Onset: 10/12/2017 Localized, secondary osteoarthritis of Delano Troncoso MD Onset: 02/09/2018 the shoulder region Open wound of finger without Antoni Bush MD Onset: 10/03/2019 complication Social History Type Date Description Comments Sex [...] Use Denies Drug Use Smoking Status Reviewed: 12/03/19 Patient is a former smoker Exercise Type/Frequency ride bike Allergies, Adverse Reactions, Alerts Active Allergies Reaction Severity Comments Date Bee Sting Anaphylaxis 09/05/2012 Zosyn throat swelling 01/21/2015 Inactive Allergies NKDA 02/14/2013 Medications Active Medications SIG Qnty Indications Ordering Provider Date Flector apply 1 patch to 30units S83.242D Mihai Bonner 11/21/2017 1.3% the skin two times Veda Wong,FACP Patches daily as needed Lunesta 1 tab at bedtime 14tabs G47.00 Nayan Soares, 09/14/2017 3mg Tablets M.DMushtaq Knee Brace/Flexible M25.562 Karen Bishop, 08/12/2017 Stays/Large M.DMushtaq [facility] Cane/Aluminum/Adjus use with 1units M54.42 Gerber Arroyo, 07/13/2017 table/Mens Handle ambulation 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 [facility] Wrist Brace/Suede use on left wrist 1units M25.532 Gerber Arroyo, 2016 Finish/Left/Medium as needed 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 [facility] Ventolin HFA inhale two puffs 18units J44.1 Alyssa Robbin, 03/10/2015 by mouth four Veda 108(90Base) mcg/Act times a day as Aerosol needed Back Support to wear during the 1units M54.9 Gerber Arroyo, 01/24/2015 [facility] day as directed 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 Sumatriptan Take 1 Tablet By 18tabs G43.109 Mihai Bonner 01/04/2014 Succinate Mouth Every 2 Veda Wong,ALISSONP 50mg Hours as Directed Tablets For Headache G43.009 Shower-Chair use for showing Dx Mihai Bonner 11/30/2013 [facility] code: 780.39 Veda Wong,FACP Convulsions Cool Mist Humidifier dx code: 446.0 Mihai Bonner 11/30/2013 Bronchitis Veda Wong,FACP [facility] Levofloxacin one by mouth daily for Unknown 500mg 10 days Tablets Naproxen Unknown Tylenol Unknown Ibuprofen Unknown Multiple Vitamin 1 by mouth every day Unknown Tablets Tincture Of Devils once daily in the Unknown Claw, Licorice, morning Tumeric, Sawyer Loratadine take one tablet by 30tabs Nayan 10mg Tablets mouth every day Veda Soares Omeprazole take one capsule by 90caps K21.9 Mihai Bonner 20mg Capsules mouth every day as Veda Wong,FACP DR needed Epipen 2-Oleksandr inject intramuscularly 2units Alyssa 0.3mg/0.3ML as directed Veda Siegel Solution Auto-Inject Cyclobenzaprine HCL take one tablet by 30tabs M50.10 Mihai Bonner 10mg mouth two times a day Veda Wong,FACP Tablets as needed for spasms M54.42 G47.00 Medications Administered in Office Medication SIG Qnty Indications Ordering Provider Date Depomedrol 40MG Karen Bishop M.D. 08/15/2019 Injection Depomedrol 40MG Karen Bishop M.D. 08/15/2019 Injection Depomedrol 40MG Carlita Bitting, [facility] 01/10/2019 Injection Triamcinolone (Kenalog) Delano Troncoso MD 12/08/2017 Injection Depomedrol 40MG Mike Stern M.D. 08/29/2017 Injection No Injection Martin Steel MD 07/21/2017 Injection Depomedrol 40MG Martin Steel MD 07/21/2017 Injection Depomedrol 40MG Carlita Bitting, RPA-C 07/20/2017 Injection Depomedrol 40MG Carlita Bitting, RPA-C 07/20/2017 Injection Depomedrol 40MG Carlita Bitting, RPA-C 07/20/2017 Injection No Injection Martin Steel MD 11/08/2016 Injection Depomedrol 40MG Martin Steel MD 11/08/2016 Injection Depomedrol 40MG Carlita Bitting, RPA-C 10/07/2016 Injection Depomedrol 40MG Karen Bishop M.D. 07/14/2016 Injection Depomedrol 40MG Karen Bishop M.D. 07/14/2016 Injection Depomedrol 40MG Carlita Bitting, RPA-C 11/20/2015 Injection Depomedrol 80MG Maria Esther Juárez M.D. 09/29/2015 Injection Celestone 3 mg and 3mg Maria Esther Juárez M.D. 09/29/2015 Injection Depomedrol 80MG Karen Bishop M.D. 02/13/2015 Injection Depomedrol 80MG Karen Bishop M.D. 06/13/2014 Injection Depomedrol 80MG Karen Bishop M.D. 02/07/2014 Injection Frediomedrol 80MG Karen Bishop M.D. 11/29/2013 Injection Depomedrol 80MG Manjeet Mendez, 10/17/2013 Injection RPA-C Depomedrol 80MG Karen Bishop M.D. 07/05/2013 Injection Depomedrol 80MG Karen Bishop M.D. 07/05/2013 Injection Depomedrol 80MG Karen Bishop M.D. 12/20/2012 Injection Immunizations CPT Code Status Date Vaccine Lot # [id number] Given 08/31/2017 Influenza Virus Vaccine, Quadrivalent, Split, [id number] Preservative Free [id number] Given 10/22/2016 Influ Virus Vaccine, Quadrivalent, Split Virus, [id number] [address] Given 08/21/2015 Flu Vaccine Split Virus Preservative Free For Indiv [id number] Older 31671 Given 07/25/2015 Pneumonia Vaccine [id number] 34876 Given 07/24/2014 Influenza Virus Vaccine, Quadrivalent, Split, Preservative Free 21734 Given 07/24/2014 Influenza Virus Vaccine, Quadrivalent, Split, [id number] Preservative Free 22260 Given 12/11/2013 Hepatitis B Vaccine Adult Dosage [id number] 37773 Given 12/11/2013 Hepatitis A Vaccine Adult Dosage [id number] 76821 Given 09/14/2013 Flu Vaccine Split Virus Preservative Free For [id number] Indiv 3Yr Older 94379 Given 08/24/2012 Tdap - Tetanus/Diptheria/Acellular Pertussis Vital Signs Date Vital Result Comment 12/03/2019 4:01pm Height 64 inches 5'4" Weight 145.00 lb Heart Rate 84 /min BP Systolic 142 mmHg BP Diastolic 82 mmHg Respiratory Rate 18 /min O2 % BldC Oximetry 98 % BMI (Body Mass Index) 24.9 kg/m2 10/03/2019 10:48am Height 64 inches 5'4" Weight 143.44 lb Heart Rate 88 /min BP Systolic 126 mmHg BP Diastolic 84 mmHg Respiratory Rate 17 /min Body Temperature 98.1 F Pain Level 8 BMI (Body Mass Index) 24.6 kg/m2 Results Description No Information Available Procedures Date Code Description Status 10/03/2019 35299 Debridement Skin,& sq Tissue Completed 08/15/2019 Inject/Drain Joint/Bursa Intermediate W/O US Completed 08/15/2019 Inject/Drain Joint/Bursa Small W/O US Completed 12/14/2013 33808036 Colonoscopy Completed 12/04/2013 [id number] Colonoscopy Completed Medical Devices Description No Information Available Encounters Type Date Location Provider Dx Diagnosis Office Visit 10/03/2019 [facility] Antoni Bush, S61.212A Laceration w/o fb 9:15a at [place] MD of r mid finger w/o damage to nail, init Office Visit 09/12/2019 [facility] Carlita Menjivar, M20.012 Mallet finger of 1:45p at [place] RPA-C left finger(s) Office Visit 08/28/2019 [facility] Taylor J18.9 Pneumonia, 10:49a Assderrick alvarez PA-C unspecified Hospitalists organism Office Visit 08/27/2019 [facility] Sheila Villegas J18.9 Pneumonia, 10:48a derrick Taveras M.D. unspecified Hospitalists organism Assessments Date Code Description Provider 12/03/2019 M20.012 Mallet finger of left finger(s) Karen Bishop M.D. 10/03/2019 S61.212A Laceration without foreign body of right Antoni Bush MD middle finger without damage to nail, initial encounter 09/12/2019 M20.012 Mallet finger of left finger(s) Carlita MenjivarNAKUL 08/28/2019 J18.9 Pneumonia, unspecified organism [place] Morales PA-C 08/27/2019 J18.9 Pneumonia, unspecified organism Sheila Villegas M.D. 08/15/2019 M20.012 Mallet finger of left finger(s) Karen Bishop M.D. 08/15/2019 M19.041 Primary osteoarthritis, right hand Karen Bishop M.D. 08/15/2019 M25.531 Pain in right wrist Karen Bishop M.D. Plan of Treatment Future Appointment(s):06/04/2020 11:15 am - Karen Bishop M.D. at [facility] [place]0712/03/2019 - Karen Bishop M.D.M20.012 Mallet finger of left finger(s)New Xrays:Finger Left Small, Ordered: 12/03/19Follow up:Follow up: 6 months Functional Status Description No Information Available Mental Status Description No Information Available Referrals Description No Information Available
[2020-01-04] MEDS ORDERED: Ibuprofen TAB* 600 MG PO ONE ×2 (23:07→23:12)
[2020-01-04 23:47] VITALS: BP 121/100
== END 2020-01-04 23:44 | disposition home or self-care (01) ==
LOC: ED 21:10
DX: J18.9 Pneumonia, unspecified organism (principal); R05 Cough; R50.9 Fever, unspecified; Z88.0 Allergy status to penicillin; Z79.899 Other long term (current) drug therapy; R06.02 Shortness of breath; F17.210 Nicotine dependence, cigarettes, uncomplicated
CPT/HCPCS: 36415; 80053; 83605; 85025; 86140; 96372; 99284; A9270-GY; J1885

== ENCOUNTER 2021-08-26 09:08 | Inpatient (IN) ==
[2021-08-26 09:58] LABS: ABS Eosinophils 0.1 10^3/ul (0-0.6); ABS Lymphocytes 2.5 10^3/ul (1.0-4.8); ABS Monocytes 0.7 10^3/ul (0-0.8); ABS Neutrophils 2.9 10^3/ul (1.5-7.7); Hematocrit 37 % (42-52); Hemoglobin 12.7 g/dL (14.0-18.0); Mean Corpuscular HGB Conc 34 g/dL (31-36); Mean Corpuscular Hemoglobin 31 pg (27-31); Mean Corpuscular Volume 91 fL (80-94); Mean Platelet Volume 7.2 fL (7.4-10.4); Platelet Count 282 10^3/uL (150-450); Red Blood Count 4.09 10^6 /uL (4.18-5.48); Red Cell Distribution Width 14 % (10-15); White Blood Count 6.2 10^3/uL (3.5-10.8)
[2021-08-26 10:15] LABS: ALT 19 U/L (7-52); AST 21 U/L (13-39); Albumin/Globulin Ratio 1.3 (1-3); Alkaline Phosphatase 86 U/L (35-149); Anion Gap 3 mmol/L (2-11); Blood Urea Nitrogen 19 mg/dL (6-24); CO2 Carbon Dioxide 28 mmol/L (22-32); Calcium 8.9 mg/dL (8.6-10.3); Chloride 104 mmol/L (101-111); Glucose 111 mg/dL (70-100); Potassium 4.5 mmol/L (3.5-5.0); Sodium 135 mmol/L (135-145)
[2021-08-26 10:43] LABS: Alcohol, S < 13 mg/dL (<13)
[2021-08-26] MEDS ORDERED: NS 0.9% 1000 ml BAG 1,000 ML IV ONE (11:04)
[2021-08-26 11:48] LABS: C Reactive Protein 1.53 mg/L (<8.01)
[2021-08-26 12:33] LABS: Creatine Kinase 108 U/L (10-223)
[2021-08-26 12:54] LABS: Venous Bicarbonate HCO3 25.7 mmol/L (24-28)
[2021-08-26 13:31] LABS: Urine Appearance Cloudy; Urine Bilirubin Negative (Negative); Urine Blood Negative (Negative); Urine Color Yellow; Urine Glucose Negative (Negative); Urine Ketones Negative (Negative); Urine Nitrite Negative (Negative); Urine Protein Negative (Negative); Urine Specific Gravity 1.016 (1.002-1.030); Urine Urobilinogen Negative (Negative)
[2021-08-26 13:33] LABS: Urine Bacteria Absent (Absent); Urine Red Blood Cell 1+(3-5/hpf) (Absent); Urine Squamous Epithelial Cell Present (Absent); Urine White Blood Cell 1+(6-10/hpf) (Absent); Urine Yeast Present (Absent)
[2021-08-26 13:44] LABS: Urine Benzodiazepine Screen None Detected (None Detect); Urine Buprenorphine Screen None Detected (None Detect); Urine Cannabinoids Screen None Detected (None Detect); Urine Fentanyl Screen None Detected (None Detect); Urine Hydrocodone Screen None Detected (None Detect); Urine Opiates Screen None Detected (None Detect)
[2021-08-26] MEDS: Thiamine 100 MG/ML 2 ml VIAL 100 MG, Folic Acid IV 1 MG, Multiple Vitamin IV ADULT 10 M... IV ONE ×3 (15:35→16:20)
[2021-08-26 16:00] LABS: Rapid COVID-19 Molecular Undetected (Undetected)
[2021-08-26] MEDS: Thiamine 100 MG/ML 2 ml VIAL 500 MG in NS 0.9% 250 ml 250 ML IV SCH ×2 (16:04→17:31)
[2021-08-26] MEDS ORDERED: Al Hydrox/Mg Hydrox/Simet LIQ 30 ML UDC PO PRN (16:48)
[2021-08-26] MEDS ORDERED: Albuterol HFA INHALER 8 gm MDI INH PRN (16:51)
[2021-08-26] MEDS ORDERED: Thiamine 100 MG/ML 2 ml VIAL 500 MG in NS 0.9% 250 ml 250 ML IV SCH (21:00)
[2021-08-26] MEDS ORDERED: LORazepam 2 mg VIAL 1 ml IV PUSH ONE (23:43)
[2021-08-26] MEDS ORDERED: Lorazepam PYXIS KEY PRN (23:43)
[2021-08-26] MEDS ORDERED: LORazepam 2 mg VIAL 1 ml ONE (23:44)
[2021-08-26] MEDS ORDERED: Lidocaine PATCH 5% PATCH TRANSDERM PRN (23:59)
[2021-08-27] MEDS ORDERED: CMCS: Meloxicam 7.5 mg TAB (NF) PO PRN (00:02)
[2021-08-27] MEDS: Thiamine 100 MG/ML 2 ml VIAL 500 MG in NS 0.9% 250 ml 250 ML IV SCH ×3 (03:42→20:05)
[2021-08-27 05:47] LABS: ABS Eosinophils 0.1 10^3/ul (0-0.6); ABS Lymphocytes 2.9 10^3/ul (1.0-4.8); ABS Monocytes 0.6 10^3/ul (0-0.8); ABS Neutrophils 2.1 10^3/ul (1.5-7.7); Eosinophil % 1.7 %; Hematocrit 39 % (42-52); Hemoglobin 13.1 g/dL (14.0-18.0); Lymphocyte % 50.6 %; Mean Corpuscular HGB Conc 34 g/dL (31-36); Mean Corpuscular Hemoglobin 31 pg (27-31); Mean Corpuscular Volume 93 fL (80-94); Mean Platelet Volume 7.1 fL (7.4-10.4); Platelet Count 261 10^3/uL (150-450); Red Blood Count 4.21 10^6 /uL (4.18-5.48); Red Cell Distribution Width 14 % (10-15); White Blood Count 5.7 10^3/uL (3.5-10.8)
[2021-08-27 06:12] LABS: Calcium 8.4 mg/dL (8.6-10.3); Potassium 4.5 mmol/L (3.5-5.0)
[2021-08-27 10:51] LABS: TSH Ultra Thyroid Stim Horm 1.21 mcIU/mL (0.34-5.60)
[2021-08-27] MEDS ORDERED: Butalb/Acetamin/Caff TAB 325-50-40MG PO ONE (18:44)
[2021-08-27] MEDS ORDERED: LORazepam 2 mg VIAL 1 ml IV PUSH ONE (19:26)
[2021-08-27] MEDS ORDERED: Lorazepam PYXIS KEY PRN (19:26)
[2021-08-27] MEDS: Lidocaine Patch REMOVE NOTE PATCH OFF SCH (19:49)
[2021-08-28] MEDS: Thiamine 100 MG/ML 2 ml VIAL 500 MG in NS 0.9% 250 ml 250 ML IV SCH ×4 (02:56→22:16)
[2021-08-28] MEDS ORDERED: diPHENhydraMINE 25 mg TAB PO ONE (09:57)
[2021-08-28] MEDS: Lidocaine Patch REMOVE NOTE PATCH OFF SCH (21:40)
[2021-08-29] MEDS: Thiamine 100 MG/ML 2 ml VIAL 500 MG in NS 0.9% 250 ml 250 ML IV SCH ×2 (03:17→13:02)
[2021-08-29 08:09] VITALS: BP 143/98
[2021-08-29] MEDS ORDERED: Butalb/Acetamin/Caff TAB 325-50-40MG PO ONE (11:38)
== END 2021-08-29 15:35 | disposition home or self-care (01) | DRG 421 ==
LOC: MEDTELE 09:08 → ED 09:08 → SUATTDRO 16:48 → MEDTELE 08-27 00:31
PROVIDERS: ADMIT Internal Medicine; ATTEND Student in an Organized Health Care Education/Training Program

== ENCOUNTER 2022-04-20 10:02 | Inpatient (IN) ==
[2022-04-20] MEDS ORDERED: NS 0.9% 1000 ml BAG 1,000 ML IV.FLUID IV ONE (10:14)
[2022-04-20] MEDS ORDERED: LORazepam 2 mg VIAL 1 ml IV PUSH ONE ×2 (10:17→10:18)
[2022-04-20] MEDS ORDERED: Lorazepam PYXIS KEY PRN ×3 (10:17→20:10)
[2022-04-20] MEDS ORDERED: diazePAM INJ CARPUJECT 5 MG/ML SYRINGE ONE (10:22)
[2022-04-20] MEDS ORDERED: diazePAM INJ CARPUJECT 5 MG/ML SYRINGE IV ONE (10:23)
[2022-04-20 10:27] LABS: PCO2 Arterial 48 mmHg (35-45); PO2 Arterial 180 mmHg (80-100)
[2022-04-20 10:33] LABS: ABS Eosinophils 0.1 10^3/ul (0-0.6); ABS Lymphocytes 1.9 10^3/ul (1.0-4.8); ABS Monocytes 0.6 10^3/ul (0-0.8); Eosinophil % 1.6 %; Hematocrit 39 % (42-52); Hemoglobin 12.2 g/dL (14.0-18.0); Lymphocyte % 19.2 %; Mean Corpuscular HGB Conc 32 g/dL (31-36); Mean Corpuscular Hemoglobin 30 pg (27-31); Mean Corpuscular Volume 96 fL (80-94); Mean Platelet Volume 7.1 fL (7.4-10.4); Platelet Count 249 10^3/uL (150-450); Red Blood Count 4.03 10^6 /uL (4.18-5.48); Red Cell Distribution Width 14 % (10-15); White Blood Count 9.6 10^3/uL (3.5-10.8)
[2022-04-20 10:48] LABS: Urine Appearance Cloudy; Urine Bilirubin Negative (Negative); Urine Blood 1+ (Negative); Urine Color Yellow; Urine Glucose Negative (Negative); Urine Ketones Negative (Negative); Urine Nitrite Negative (Negative); Urine Protein Negative (Negative); Urine Specific Gravity 1.018 (1.002-1.030); Urine Urobilinogen Negative (Negative)
[2022-04-20] MEDS ORDERED: Azithromycin 500 mg/250 ml NS 500 MG/250 ML BAG IVPB ONE (10:49)
[2022-04-20] MEDS ORDERED: Aztreonam 2 GM in NS 0.9% 50 ML 50 ML IVPB ONE (10:49)
[2022-04-20 10:58] LABS: Urine Bacteria Absent (Absent); Urine Red Blood Cell 3+(>10/hpf) (Absent); Urine Sperm Present (Absent); Urine White Blood Cell 1+(6-10/hpf) (Absent)
[2022-04-20 10:59] LABS: High Sens Troponin Baseline 106 pg/mL (<20)
[2022-04-20] MEDS ORDERED: Vancomycin 1,250 MG in NS 0.9% 250 ml 250 ML IVPB ONE (11:00)
[2022-04-20 11:12] LABS: Activated Partial Thrombo Time 32.4 seconds (26.0-38.0); Albumin 3.8 g/dL (3.2-5.2); Albumin/Globulin Ratio 1.4 (1-3); Alkaline Phosphatase 149 U/L (35-149); Blood Urea Nitrogen 31 mg/dL (6-24); CO2 Carbon Dioxide 16 mmol/L (22-32); Calcium 7.5 mg/dL (8.6-10.3); Chloride 99 mmol/L (101-111); Creatine Kinase 909 U/L (10-223); Globulin 2.8 g/dL (2-4); Glucose 136 mg/dL (70-100); INR 1.1 (0.86-1.15); Sodium 136 mmol/L (135-145); Total Protein 6.6 g/dL (6.4-8.9); eGFR CKD-EPI 38.7 (>60)
[2022-04-20 11:25] LABS: PCO2 Arterial 44 mmHg (35-45); PO2 Arterial 128 mmHg (80-100)
[2022-04-20] MEDS ORDERED: NS 0.9% 1000 ml BAG 1,000 ML IV ONE (11:29)
[2022-04-20 11:38] LABS: ALT 719 U/L (7-52); AST 1254 U/L (13-39)
[2022-04-20 11:52] LABS: Urine Benzodiazepine Screen None Detected (None Detect); Urine Cannabinoids Screen Presumptive Positive (None Detect); Urine Opiates Screen None Detected (None Detect)
[2022-04-20] MEDS ORDERED: Lactated Ringers 1000 ml BAG 1,000 ML IV SCH ×2 (12:00→15:53)
[2022-04-20 12:07] LABS: Acetaminophen < 15 mcg/mL; Alcohol, S < 13 mg/dL (<13)
[2022-04-20 12:23] LABS: High Sensitivity Troponin 1 Hr 169 pg/mL (<20)
[2022-04-20 12:32] LABS: Anion Gap 21 mmol/L (2-11); Potassium 5.3 mmol/L (3.5-5.0)
[2022-04-20] MEDS ORDERED: Norepinephrine 16MCG/ML BAGD5W 4,000 MCG/250 ML BAG IV ONE (13:06)
[2022-04-20] MEDS: Norepinephrine 16MCG/ML BAGD5W 4,000 MCG/250 ML BAG IV SCH ×3 (13:10→21:53)
[2022-04-20] MEDS ORDERED: Sodium Bicarbonate 8.4% SYR 50 ml SYRINGE ONE (13:13)
[2022-04-20] MEDS ORDERED: Naloxone 4 mg VIAL 0.4 MG/ML 10 ml VIAL (4 mg) ONE (13:17)
[2022-04-20] MEDS ORDERED: Sodium Bicarbonate 8.4% SYR 50 ml SYRINGE IV ONE (13:46)
[2022-04-20] MEDS: Saline FLUSH-CENTRAL 10 ML SYRINGE CENT\\PICC SCH ×2 (14:06→19:53)
[2022-04-20 15:10] LABS: ABS Lymphocytes 0.7 10^3/ul (1.0-4.8); ABS Monocytes 0.4 10^3/ul (0-0.8); ABS Neutrophils 9.7 10^3/ul (1.5-7.7); Eosinophil % 0.3 %; Hematocrit 37 % (42-52); Hemoglobin 12.1 g/dL (14.0-18.0); Lymphocyte % 6.4 %; Mean Corpuscular HGB Conc 33 g/dL (31-36); Mean Corpuscular Hemoglobin 30 pg (27-31); Mean Corpuscular Volume 92 fL (80-94); Mean Platelet Volume 6.9 fL (7.4-10.4); Nucleated Red Blood Cells % 0.1; Platelet Count 212 10^3/uL (150-450); Red Blood Count 4.02 10^6 /uL (4.18-5.48); Red Cell Distribution Width 14 % (10-15); White Blood Count 10.9 10^3/uL (3.5-10.8)
[2022-04-20 15:20] LABS: INR 1.37 (0.86-1.15)
[2022-04-20 15:54] LABS: Albumin 3.5 g/dL (3.2-5.2); Albumin/Globulin Ratio 1.5 (1-3); Globulin 2.4 g/dL (2-4); Magnesium 2.2 mg/dL (1.9-2.7); Total Protein 5.9 g/dL (6.4-8.9); eGFR CKD-EPI 37.7 (>60)
[2022-04-20 15:56] LABS: Calcium 6.3 mg/dL (8.6-10.3); Potassium 6.1 mmol/L (3.5-5.0)
[2022-04-20] MEDS ORDERED: CALCIUM GLUCONATE 1GM/50ML NS 1 GM/50 ML BAG IV ONE (15:57)
[2022-04-20] MEDS ORDERED: Dextrose 50% Syringe 50 ml 25 GM/50 ML SYRINGE IV PUSH ONE (16:00)
[2022-04-20] MEDS ORDERED: SODIUM ZIRCONIUM CYCLOSILICATE 10 GM PACKET PO ONE (16:02)
[2022-04-20] MEDS: Heparin 5000 UNITS/ML 1 mL VIAL SUBCUT SCH ×2 (16:19→21:53)
[2022-04-20 16:54] LABS: PCO2 Arterial 44 mmHg (35-45); PO2 Arterial 147 mmHg (80-100)
[2022-04-20] MEDS ORDERED: NS 0.9% 1000 ml BAG 1,000 ML IV SCH (17:15)
[2022-04-20] MEDS ORDERED: Vancomycin per Pharmacy 1 EA NOTE FOLLOW UP SCH (18:00)
[2022-04-20 18:41] LABS: Calcium 6.8 mg/dL (8.6-10.3); eGFR CKD-EPI 33.3 (>60)
[2022-04-20 18:46] LABS: Potassium 5.3 mmol/L (3.5-5.0)
[2022-04-20] MEDS: Albuterol HFA INHALER 8 gm MDI INH SCH ×2 (19:07→19:52)
[2022-04-20] MEDS: SODIUM ZIRCONIUM CYCLOSILICATE 10 GM PACKET PO SCH (19:54)
[2022-04-20] MEDS ORDERED: LORazepam 2 mg VIAL 1 ml IV PUSH PRN (20:10)
[2022-04-21] MEDS: Norepinephrine 16MCG/ML BAGD5W 4,000 MCG/250 ML BAG IV SCH (04:16)
[2022-04-21 04:29] LABS: ABS Lymphocytes 2.2 10^3/ul (1.0-4.8); ABS Monocytes 0.5 10^3/ul (0-0.8); ABS Neutrophils 9.6 10^3/ul (1.5-7.7); Eosinophil % 0.1 %; Hematocrit 34 % (42-52); Hemoglobin 11.4 g/dL (14.0-18.0); Lymphocyte % 17.9 %; Mean Corpuscular HGB Conc 33 g/dL (31-36); Mean Corpuscular Hemoglobin 30 pg (27-31); Mean Corpuscular Volume 91 fL (80-94); Mean Platelet Volume 7.1 fL (7.4-10.4); Platelet Count 246 10^3/uL (150-450); Red Blood Count 3.77 10^6 /uL (4.18-5.48); Red Cell Distribution Width 14 % (10-15); White Blood Count 12.3 10^3/uL (3.5-10.8)
[2022-04-21 05:03] LABS: Albumin 3.5 g/dL (3.2-5.2); Albumin/Globulin Ratio 1.5 (1-3); Calcium 6.9 mg/dL (8.6-10.3); Globulin 2.4 g/dL (2-4); Magnesium 2.2 mg/dL (1.9-2.7); Total Bilirubin 0.5 mg/dL (0.2-1.0); Total Protein 5.9 g/dL (6.4-8.9); Vancomycin Random 8.3 mcg/mL; eGFR CKD-EPI 32.6 (>60)
[2022-04-21 05:09] LABS: Potassium 5.1 mmol/L (3.5-5.0)
[2022-04-21] MEDS: Heparin 5000 UNITS/ML 1 mL VIAL SUBCUT SCH ×3 (05:24→21:24)
[2022-04-21] MEDS ORDERED: Vancomycin Random Level NOTE FOLLOW UP ONE (06:00)
[2022-04-21] MEDS ORDERED: NS 0.9% 1000 ml BAG 1,000 ML IV SCH (07:09)
[2022-04-21] MEDS ORDERED: NS 0.9% 1000 ml BAG 1,000 ML IV ONE (07:46)
[2022-04-21] MEDS: Albuterol HFA INHALER 8 gm MDI INH SCH ×2 (08:09→20:11)
[2022-04-21 08:21] LABS: INR 1.27 (0.86-1.15)
[2022-04-21] MEDS ORDERED: Vancomycin 1000 MG in NS 0.9% 250 ML IVPB ONE (09:30)
[2022-04-21] MEDS: Saline FLUSH-CENTRAL 10 ML SYRINGE CENT\\PICC SCH ×2 (09:30→20:10)
[2022-04-21] MEDS: Aspirin EC 81 mg TAB.EC (enteric coated) PO SCH (10:12)
[2022-04-21] MEDS: SODIUM ZIRCONIUM CYCLOSILICATE 10 GM PACKET PO SCH ×2 (10:13→20:10)
[2022-04-21] MEDS ORDERED: Dextrose 50% Syringe 50 ml 25 GM/50 ML SYRINGE IV PUSH PRN (10:18)
[2022-04-21] MEDS: D5W 1/2 NS 1000 ml BAG 1,000 ML IV SCH ×3 (10:33→17:45)
[2022-04-21] MEDS ORDERED: Cefepime 1 GM in Dextrose 1 G/50 ML BAG IV SCH (11:00)
[2022-04-21] MEDS ORDERED: Cefepime ADVAN 1 GM in NS 0.9% 50 ML 50 ML IVPB SCH (11:00)
[2022-04-21] MEDS ORDERED: Albuterol HFA INHALER 8 gm MDI INH PRN (11:06)
[2022-04-21 14:14] LABS: Albumin 3.2 g/dL (3.2-5.2); Albumin/Globulin Ratio 1.5 (1-3); Calcium 7.3 mg/dL (8.6-10.3); Globulin 2.2 g/dL (2-4); Potassium 4.6 mmol/L (3.5-5.0); Total Bilirubin 0.5 mg/dL (0.2-1.0); Total Protein 5.4 g/dL (6.4-8.9); eGFR CKD-EPI 53.3 (>60)
[2022-04-21] MEDS: Cefepime 2 GM in Dextrose 2 GM/50 ML BAG IV SCH (21:23)
[2022-04-21] MEDS ORDERED: Vancomycin 750 MG in NS 0.9% 250 ML IVPB SCH (22:00)
[2022-04-21] MEDS: Acetaminophen IV 1 GM/100ML 100 ML IV PRN (22:08)
[2022-04-22] MEDS: D5W 1/2 NS 1000 ml BAG 1,000 ML IV SCH (03:24)
[2022-04-22] MEDS: Heparin 5000 UNITS/ML 1 mL VIAL SUBCUT SCH ×3 (05:27→20:32)
[2022-04-22] MEDS: Acetaminophen IV 1 GM/100ML 100 ML IV PRN (05:27)
[2022-04-22 05:36] LABS: ABS Lymphocytes 1.2 10^3/ul (1.0-4.8); ABS Monocytes 0.4 10^3/ul (0-0.8); ABS Neutrophils 5.4 10^3/ul (1.5-7.7); Eosinophil % 0.3 %; Hematocrit 33 % (42-52); Hemoglobin 10.9 g/dL (14.0-18.0); Lymphocyte % 17.2 %; Mean Corpuscular HGB Conc 33 g/dL (31-36); Mean Corpuscular Hemoglobin 30 pg (27-31); Mean Corpuscular Volume 91 fL (80-94); Mean Platelet Volume 7.3 fL (7.4-10.4); Nucleated Red Blood Cells % 0.1; Platelet Count 173 10^3/uL (150-450); Red Blood Count 3.59 10^6 /uL (4.18-5.48); Red Cell Distribution Width 14 % (10-15); White Blood Count 7.1 10^3/uL (3.5-10.8)
[2022-04-22 06:16] LABS: Albumin 3.1 g/dL (3.2-5.2); Calcium 7.6 mg/dL (8.6-10.3); Magnesium 2.1 mg/dL (1.9-2.7); Phosphorus 2.4 mg/dL (2.5-5.0); Potassium 4.7 mmol/L (3.5-5.0); Total Protein 5.4 g/dL (6.4-8.9); eGFR CKD-EPI 101.9 (>60)
[2022-04-22 06:17] LABS: Albumin/Globulin Ratio 1.3 (1-3); Globulin 2.3 g/dL (2-4); Total Bilirubin 0.7 mg/dL (0.2-1.0)
[2022-04-22] MEDS: Saline FLUSH-CENTRAL 10 ML SYRINGE CENT\\PICC SCH (08:40)
[2022-04-22] MEDS: Aspirin EC 81 mg TAB.EC (enteric coated) PO SCH (08:40)
[2022-04-22] MEDS: SODIUM ZIRCONIUM CYCLOSILICATE 10 GM PACKET PO SCH (08:40)
[2022-04-22] MEDS: Cefepime 2 GM in Dextrose 2 GM/50 ML BAG IV SCH ×2 (08:40→20:27)
[2022-04-22] MEDS ORDERED: Sodium Phosphate IV 30 MMOLE in NS 0.9% 250 ml 250 ML IV ONE (09:30)
[2022-04-23] MEDS: Heparin 5000 UNITS/ML 1 mL VIAL SUBCUT SCH ×3 (05:01→20:08)
[2022-04-23 05:09] LABS: ABS Eosinophils 0.1 10^3/ul (0-0.6); ABS Lymphocytes 2.1 10^3/ul (1.0-4.8); ABS Monocytes 0.5 10^3/ul (0-0.8); ABS Neutrophils 3.7 10^3/ul (1.5-7.7); Eosinophil % 0.9 %; Hematocrit 32 % (42-52); Hemoglobin 10.8 g/dL (14.0-18.0); Lymphocyte % 32.8 %; Mean Corpuscular HGB Conc 34 g/dL (31-36); Mean Corpuscular Hemoglobin 30 pg (27-31); Mean Corpuscular Volume 90 fL (80-94); Mean Platelet Volume 7.4 fL (7.4-10.4); Platelet Count 162 10^3/uL (150-450); Red Blood Count 3.57 10^6 /uL (4.18-5.48); Red Cell Distribution Width 14 % (10-15); White Blood Count 6.3 10^3/uL (3.5-10.8)
[2022-04-23 05:16] LABS: INR 1.05 (0.86-1.15)
[2022-04-23 05:55] LABS: Albumin 2.9 g/dL (3.2-5.2); Albumin/Globulin Ratio 1.3 (1-3); Calcium 7.6 mg/dL (8.6-10.3); Globulin 2.3 g/dL (2-4); Magnesium 1.9 mg/dL (1.9-2.7); Phosphorus 2.1 mg/dL (2.5-5.0); Potassium 4.1 mmol/L (3.5-5.0); Total Bilirubin 0.7 mg/dL (0.2-1.0); Total Protein 5.2 g/dL (6.4-8.9); eGFR CKD-EPI 106.6 (>60)
[2022-04-23] MEDS ORDERED: Sodium Phosphate IV 30 MMOLE in NS 0.9% 250 ml 250 ML IV ONE (07:31)
[2022-04-23] MEDS ORDERED: Acetaminophen IV 1 GM/100ML 100 ML IV ONE (08:07)
[2022-04-23] MEDS: Cefepime 2 GM in Dextrose 2 GM/50 ML BAG IV SCH ×2 (08:21→20:08)
[2022-04-23] MEDS: Aspirin EC 81 mg TAB.EC (enteric coated) PO SCH (08:26)
[2022-04-23] MEDS ORDERED: Vancomycin Trough Check NOTE FOLLOW UP ONE (09:30)
[2022-04-23] MEDS: Ondansetron 4 mg VIAL 2 MG/ML 2 ml VIAL IV PRN (10:02)
[2022-04-23] MEDS ORDERED: Lidocaine 2% PF 5 ML VIAL ONE (11:31)
[2022-04-23] MEDS ORDERED: Propofol 10 MG/ML 20 ML BTL ONE ×2 (11:31→12:04)
[2022-04-23] MEDS ORDERED: fentaNYL 100 mcg/2 ml 50 MCG/ML VIAL ONE (11:31)
[2022-04-23] MEDS ORDERED: Midazolam 2 mg/2 ml VIAL 1 mg/ml 2 ml VIAL (2 mg) ONE (11:31)
[2022-04-23] MEDS ORDERED: Naloxone 0.4 mg VIAL 0.4 mg/ml 1 ml VIAL IV PRN (12:43)
[2022-04-23] MEDS ORDERED: Ondansetron 4 mg VIAL 2 MG/ML 2 ml VIAL IV PRN (12:43)
[2022-04-24 05:50] LABS: ABS Eosinophils 0.1 10^3/ul (0-0.6); ABS Lymphocytes 2.4 10^3/ul (1.0-4.8); ABS Monocytes 0.5 10^3/ul (0-0.8); ABS Neutrophils 1.9 10^3/ul (1.5-7.7); Eosinophil % 1.1 %; Hematocrit 32 % (42-52); Hemoglobin 10.8 g/dL (14.0-18.0); Lymphocyte % 48.7 %; Mean Corpuscular HGB Conc 34 g/dL (31-36); Mean Corpuscular Hemoglobin 31 pg (27-31); Mean Corpuscular Volume 91 fL (80-94); Mean Platelet Volume 7.7 fL (7.4-10.4); Platelet Count 187 10^3/uL (150-450); Red Blood Count 3.54 10^6 /uL (4.18-5.48); Red Cell Distribution Width 14 % (10-15); White Blood Count 4.9 10^3/uL (3.5-10.8)
[2022-04-24] MEDS: Heparin 5000 UNITS/ML 1 mL VIAL SUBCUT SCH ×3 (06:19→23:26)
[2022-04-24 06:30] LABS: Potassium 4.7 mmol/L (3.5-5.0)
[2022-04-24 06:31] LABS: Albumin/Globulin Ratio 1.3 (1-3); Globulin 2.3 g/dL (2-4); Magnesium 1.7 mg/dL (1.9-2.7); Phosphorus 3.1 mg/dL (2.5-5.0); Total Bilirubin 0.7 mg/dL (0.2-1.0); Total Protein 5.3 g/dL (6.4-8.9); eGFR CKD-EPI 106.1 (>60)
[2022-04-24] MEDS: Aspirin EC 81 mg TAB.EC (enteric coated) PO SCH (09:17)
[2022-04-24] MEDS: Cefepime 2 GM in Dextrose 2 GM/50 ML BAG IV SCH (09:19)
[2022-04-24] MEDS ORDERED: Iohexol 350 (CONTRAST) 500 ML MDV IV ONE (20:16)
[2022-04-25] MEDS: Ondansetron 4 mg VIAL 2 MG/ML 2 ml VIAL IV PRN (01:12)
[2022-04-25] MEDS ORDERED: SUMAtriptan Subcut 6 MG/0.5 ML VIAL SUBCUT ONE ×2 (01:42→13:57)
[2022-04-25 05:03] LABS: ABS Basophils 0.1 10^3/ul (0-0.2); ABS Eosinophils 0.1 10^3/ul (0-0.6); ABS Lymphocytes 2.4 10^3/ul (1.0-4.8); ABS Monocytes 0.6 10^3/ul (0-0.8); ABS Neutrophils 2.2 10^3/ul (1.5-7.7); Eosinophil % 1.6 %; Hematocrit 35 % (42-52); Hemoglobin 11.7 g/dL (14.0-18.0); Lymphocyte % 44.6 %; Mean Corpuscular HGB Conc 33 g/dL (31-36); Mean Corpuscular Hemoglobin 30 pg (27-31); Mean Corpuscular Volume 92 fL (80-94); Mean Platelet Volume 7.7 fL (7.4-10.4); Nucleated Red Blood Cells % 0.1; Platelet Count 230 10^3/uL (150-450); Red Blood Count 3.85 10^6 /uL (4.18-5.48); Red Cell Distribution Width 14 % (10-15); White Blood Count 5.3 10^3/uL (3.5-10.8)
[2022-04-25 05:20] LABS: Calcium 8.6 mg/dL (8.6-10.3); Potassium 4.7 mmol/L (3.5-5.0); eGFR CKD-EPI 108.5 (>60)
[2022-04-25] MEDS: Heparin 5000 UNITS/ML 1 mL VIAL SUBCUT SCH ×2 (06:15→15:34)
[2022-04-25] MEDS ORDERED: Chlorhexidine MOUTHWASH 0.12% 15 ML UDC SWISH SPIT SCH (09:00)
[2022-04-25] MEDS ORDERED: Buprenorp/Nalox 8-2 MG FILM SL FILM SCH (09:00)
[2022-04-25] MEDS: Aspirin EC 81 mg TAB.EC (enteric coated) PO SCH (09:08)
[2022-04-25] MEDS: Buprenorp/Nalox 8-2 MG FILM SL FILM SCH ×2 (09:10→22:02)
[2022-04-25] MEDS: Acetaminophen IV 1 GM/100ML 100 ML IV PRN ×2 (12:42→22:18)
[2022-04-25] MEDS ORDERED: Heparin DRIP 25,000 UNITS BAG 25,000 UNITS/500 ML BAG IV SCH (14:30)
[2022-04-25] MEDS ORDERED: Heparin DRIP 25,000 UNITS BAG 25,000 UNITS/500 ML BAG ONE (14:47)
[2022-04-25] MEDS ORDERED: Heparin 5000 UNITS/ML 1 mL VIAL ONE (14:47)
[2022-04-25] MEDS: Heparin 5000 UNITS/ML 1 mL VIAL IV SCH (14:52)
[2022-04-25] MEDS: Multivitamins ADULT w/MIN LIQ 15 ML UDC PO SCH (16:56)
[2022-04-25 21:17] LABS: ABS Eosinophils 0.1 10^3/ul (0-0.6); ABS Monocytes 0.9 10^3/ul (0-0.8); ABS Neutrophils 3.5 10^3/ul (1.5-7.7); Eosinophil % 1.7 %; Hematocrit 34 % (42-52); Hemoglobin 11.1 g/dL (14.0-18.0); Lymphocyte % 39.5 %; Mean Corpuscular HGB Conc 33 g/dL (31-36); Mean Corpuscular Hemoglobin 30 pg (27-31); Mean Corpuscular Volume 91 fL (80-94); Mean Platelet Volume 7.6 fL (7.4-10.4); Nucleated Red Blood Cells % 0.2; Platelet Count 242 10^3/uL (150-450); Red Blood Count 3.72 10^6 /uL (4.18-5.48); Red Cell Distribution Width 13 % (10-15); White Blood Count 7.5 10^3/uL (3.5-10.8)
[2022-04-25 22:27] LABS: eGFR CKD-EPI 99.1 (>60)
[2022-04-26 05:15] LABS: ABS Basophils 0.1 10^3/ul (0-0.2); ABS Eosinophils 0.2 10^3/ul (0-0.6); ABS Lymphocytes 3.1 10^3/ul (1.0-4.8); ABS Monocytes 0.9 10^3/ul (0-0.8); ABS Neutrophils 2.5 10^3/ul (1.5-7.7); Eosinophil % 2.3 %; Hematocrit 34 % (42-52); Hemoglobin 11.3 g/dL (14.0-18.0); Lymphocyte % 46.2 %; Mean Corpuscular HGB Conc 33 g/dL (31-36); Mean Corpuscular Hemoglobin 30 pg (27-31); Mean Corpuscular Volume 91 fL (80-94); Mean Platelet Volume 7.5 fL (7.4-10.4); Nucleated Red Blood Cells % 0.2; Platelet Count 244 10^3/uL (150-450); Red Blood Count 3.75 10^6 /uL (4.18-5.48); Red Cell Distribution Width 14 % (10-15); White Blood Count 6.7 10^3/uL (3.5-10.8)
[2022-04-26 05:47] LABS: Calcium 8.7 mg/dL (8.6-10.3); Magnesium 1.7 mg/dL (1.9-2.7); Potassium 4.7 mmol/L (3.5-5.0); eGFR CKD-EPI 102.7 (>60)
[2022-04-26] MEDS: Heparin 5000 UNITS/ML 1 mL VIAL IV SCH (05:49)
[2022-04-26] MEDS: Multivitamins ADULT w/MIN LIQ 15 ML UDC PO SCH (09:08)
[2022-04-26] MEDS: Aspirin EC 81 mg TAB.EC (enteric coated) PO SCH (09:09)
[2022-04-26] MEDS ORDERED: Lorazepam PYXIS KEY PRN (09:12)
[2022-04-26] MEDS: fentaNYL 100 mcg/2 ml 50 MCG/ML VIAL IV SLOW PU PRN ×3 (09:14→20:32)
[2022-04-26 09:17] LABS: C Reactive Protein 19.25 mg/L (<8.01)
[2022-04-26] MEDS ORDERED: Magnesium Hydroxide LIQ 30 ML UDC PO PRN (14:34)
[2022-04-26] MEDS ORDERED: Senna TAB 8.6 mg TAB PO PRN (14:34)
[2022-04-26] MEDS ORDERED: Polyethylene Glycol 3350 17 GM PACKET PO PRN (14:34)
[2022-04-26] MEDS: LORazepam 2 mg VIAL 1 ml IV PUSH PRN (18:05)
[2022-04-27] MEDS: fentaNYL 100 mcg/2 ml 50 MCG/ML VIAL IV SLOW PU PRN (03:47)
[2022-04-27] MEDS: LORazepam 2 mg VIAL 1 ml IV PUSH PRN (03:48)
[2022-04-27 06:55] LABS: Magnesium 1.8 mg/dL (1.9-2.7)
[2022-04-27] MEDS ORDERED: Azithromycin 500 mg/250 ml NS 500 MG/250 ML BAG IVPB SCH (09:00)
[2022-04-27] MEDS: Aspirin EC 81 mg TAB.EC (enteric coated) PO SCH (10:25)
[2022-04-27] MEDS ORDERED: Furosemide 40 mg/4 ml IV VIAL IV SLOW PU ONE (10:25)
[2022-04-27 10:40] LABS: ABS Basophils 0.1 10^3/ul (0-0.2); ABS Eosinophils 0.1 10^3/ul (0-0.6); ABS Lymphocytes 3.3 10^3/ul (1.0-4.8); ABS Neutrophils 3.9 10^3/ul (1.5-7.7); Eosinophil % 1.4 %; Hematocrit 36 % (42-52); Hemoglobin 11.9 g/dL (14.0-18.0); Lymphocyte % 39.2 %; Mean Corpuscular HGB Conc 33 g/dL (31-36); Mean Corpuscular Hemoglobin 30 pg (27-31); Mean Corpuscular Volume 91 fL (80-94); Mean Platelet Volume 7.8 fL (7.4-10.4); Nucleated Red Blood Cells % 0.1; Platelet Count 283 10^3/uL (150-450); Red Blood Count 3.94 10^6 /uL (4.18-5.48); Red Cell Distribution Width 14 % (10-15); White Blood Count 8.3 10^3/uL (3.5-10.8)
[2022-04-27 10:49] LABS: eGFR CKD-EPI 107.1 (>60)
[2022-04-27] MEDS ORDERED: Cefepime ADVAN 1 GM in NS 0.9% 50 ML 50 ML IVPB SCH (11:00)
[2022-04-27] MEDS ORDERED: Cefepime 1 GM in Dextrose 1 GM/50 ML BAG IV SCH (11:30)
[2022-04-27] MEDS ORDERED: Prochlorperazine 5 mg/ml 2 ml VIAL (10 mg) IV ONE (12:13)
[2022-04-27] MEDS: Multivitamins ADULT w/MIN LIQ 15 ML UDC PO SCH (12:29)
[2022-04-28 03:16] VITALS: BP 119/67
[2022-04-28] MEDS ORDERED: LORazepam 2 mg VIAL 1 ml IV PUSH ONE (06:52)
[2022-04-28] MEDS ORDERED: Lorazepam PYXIS KEY PRN (06:52)
[2022-04-28] MEDS ORDERED: LORazepam 2 mg VIAL 1 ml ONE (06:56)
[2022-04-28] MEDS ORDERED: Lorazepam PYXIS KEY ONE (06:56)
[2022-04-28] MEDS: Multivitamins ADULT w/MIN LIQ 15 ML UDC PO SCH (12:39)
== END 2022-04-28 13:10 | DRG 52 ==
LOC: ED 10:02 → SUATTDRO 11:26 → EDHOLD 11:26 → ICU 12:50 → MEDTELE 04-23 21:33 → ICU 04-24 19:44 → MED 04-26 13:48
PROVIDERS: ADMIT Surgery Surgical Critical Care; ATTEND Hospitalist
PROC: O.CATEE (2022-04-23 11:30)

== ENCOUNTER 2022-11-29 12:41 | Observation (INO) ==
[2022-11-29] MEDS ORDERED: Iodixanol (CONTRAST) 320 MG/ML 100 ML SDV IV ONE (13:19)
[2022-11-29 14:28] LABS: ABS Eosinophils 0.1 10^3/ul (0-0.6); ABS Lymphocytes 3.6 10^3/ul (1.0-4.8); ABS Monocytes 0.7 10^3/ul (0-0.8); Eosinophil % 1.1 %; Hematocrit 38 % (42-52); Hemoglobin 12.6 g/dL (14.0-18.0); Lymphocyte % 48.2 %; Mean Corpuscular HGB Conc 33 g/dL (31-36); Mean Corpuscular Hemoglobin 29 pg (27-31); Mean Corpuscular Volume 89 fL (80-94); Nucleated Red Blood Cells % 0.1; Platelet Count 296 10^3/uL (150-450); Red Blood Count 4.28 10^6 /uL (4.18-5.48); Red Cell Distribution Width 14 % (10-15); White Blood Count 7.5 10^3/uL (3.5-10.8)
[2022-11-29 14:36] LABS: Activated Partial Thrombo Time 30.6 seconds (26.0-38.0)
[2022-11-29 14:48] LABS: ALT 16 U/L (7-52); AST 19 U/L (13-39); Albumin 3.7 g/dL (3.2-5.2); Albumin/Globulin Ratio 1.4 (1-3); Alcohol, S < 13 mg/dL (<13); Alkaline Phosphatase 66 U/L (35-149); Anion Gap 1 mmol/L (2-11); Blood Urea Nitrogen 18 mg/dL (6-24); CO2 Carbon Dioxide 28 mmol/L (22-32); Calcium 8.2 mg/dL (8.6-10.3); Chloride 105 mmol/L (101-111); Cholesterol 141 mg/dL; Creatinine, Serum 0.68 mg/dL (0.67-1.17); Globulin 2.6 g/dL (2-4); Glucose 105 mg/dL (70-100); HDL Cholesterol 76.9 mg/dL; LDL Cholesterol 54 mg/dL; Potassium 4.4 mmol/L (3.5-5.0); Sodium 134 mmol/L (135-145); Total Protein 6.3 g/dL (6.4-8.9); Triglycerides 50 mg/dL; eGFR CKD-EPI 107.1 (>60)
[2022-11-29 15:42] LABS: Urine Appearance Clear; Urine Bilirubin Negative (Negative); Urine Blood Negative (Negative); Urine Color Yellow; Urine Glucose Negative (Negative); Urine Ketones Negative (Negative); Urine Nitrite Negative (Negative); Urine Protein Negative (Negative); Urine Specific Gravity 1.026 (1.002-1.030); Urine Urobilinogen Negative (Negative)
[2022-11-29] MEDS ORDERED: Morphine 4 MG/ML VIAL (1 ml) IV ONE (17:18)
[2022-11-29] MEDS ORDERED: Albuterol HFA INHALER 8 gm MDI INH PRN (18:16)
[2022-11-29] MEDS ORDERED: Thiamine 100 MG/ML 2 ml VIAL (200 mg) IM ONE (18:25)
[2022-11-29] MEDS: Multivitamins/Minerals TAB PO SCH (18:57)
[2022-11-29] MEDS ORDERED: Mometasone 220 MCG MDI INH SCH (19:00)
[2022-11-29] MEDS ORDERED: LORazepam 2 mg VIAL 1 ml IV PUSH SCH (19:00)
[2022-11-29] MEDS ORDERED: Enoxaparin 40 MG/0.4 ML SYR SUBCUT SCH (19:00)
[2022-11-29] MEDS: Buprenorp/Nalox 8-2 MG FILM SL SCH (20:51)
[2022-11-29] MEDS ORDERED: Lidocaine PATCH 5% PATCH TRANSDERM ONE (21:53)
[2022-11-29] MEDS: Nicotine PATCH 21 MG/24 HR PATCH TRANSDERM SCH (22:22)
[2022-11-29] MEDS ORDERED: Acetaminophen IV 1 GM/100ML 1,000 MG/100 ML BAG IV ONE (22:52)
[2022-11-30] MEDS: Multivitamins/Minerals TAB PO SCH (08:41)
[2022-11-30] MEDS: Buprenorp/Nalox 8-2 MG FILM SL SCH ×3 (08:41→14:34)
[2022-11-30] MEDS: Nicotine PATCH 21 MG/24 HR PATCH TRANSDERM SCH (08:41)
[2022-11-30 13:43] VITALS: BP 142/87
[2022-11-30] MEDS ORDERED: Ciproflox/Dexameth OTIC.SUSP 7.5 ML BTL RIGHT EAR SCH (16:00)
== END 2022-11-30 17:40 | disposition home or self-care (01) ==
LOC: EDHOLD 12:41 → ED 12:41 → MEDTELE 19:51
PROVIDERS: ADMIT Internal Medicine; ATTEND Internal Medicine

== ENCOUNTER 2023-01-16 20:14 | Inpatient (IN) ==
[2023-01-16 21:19] LABS: Hematocrit 39 % (42-52); Hemoglobin 13.4 g/dL (14.0-18.0); Mean Corpuscular HGB Conc 35 g/dL (31-36); Mean Corpuscular Hemoglobin 30 pg (27-31); Mean Corpuscular Volume 87 fL (80-94); Platelet Count 269 10^3/uL (150-450); Red Blood Count 4.46 10^6 /uL (4.18-5.48); Red Cell Distribution Width 14 % (10-15); White Blood Count 6.1 10^3/uL (3.5-10.8)
[2023-01-16 21:24] LABS: ABS Basophils 0.1 10^3/ul (0-0.2); ABS Eosinophils 0.1 10^3/ul (0-0.6); ABS Lymphocytes 3.1 10^3/ul (1.0-4.8); ABS Monocytes 0.9 10^3/ul (0-0.8); Eosinophil % 1.3 %; Lymphocyte % 50.8 %; Nucleated Red Blood Cells % 0.1
[2023-01-16 21:43] LABS: Albumin 3.9 g/dL (3.2-5.2); Albumin/Globulin Ratio 1.4 (1-3); C Reactive Protein 7.36 mg/L (<8.01); Creatinine, Serum 0.71 mg/dL (0.67-1.17); Globulin 2.8 g/dL (2-4); Potassium 4.1 mmol/L (3.5-5.0); Total Bilirubin 0.5 mg/dL (0.2-1.0); Total Protein 6.7 g/dL (6.4-8.9)
[2023-01-16] MEDS ORDERED: Vancomycin 1,500 MG in NS 0.9% 250 ml 250 ML IVPB ONE (22:14)
[2023-01-16] MEDS ORDERED: cefTRIAXone 1 gm/50 mL D5W 1 GM/50 ML BAG IV ONE (22:14)
[2023-01-17] MEDS: Ciproflox/Dexameth OTIC.SUSP 7.5 ML BTL LEFT EAR SCH ×3 (00:14→21:51)
[2023-01-17] MEDS: Buprenorp/Nalox 8-2 MG FILM SL SCH (08:18)
[2023-01-17] MEDS: Acetaminophen IV 1 GM/100ML 1,000 MG/100 ML BAG IV PRN (08:22)
[2023-01-17] MEDS ORDERED: Morphine 2 MG/ML SYRINGE IV PRN (11:11)
[2023-01-17] MEDS ORDERED: Propofol 10 MG/ML 20 ML BTL ONE (17:41)
[2023-01-17] MEDS ORDERED: Midazolam 2 mg/2 ml VIAL 1 mg/ml 2 ml VIAL (2 mg) ONE (17:43)
[2023-01-17] MEDS ORDERED: Ketamine HCL 50 mg/ml 10 ml VIAL (500 MG) ONE (17:43)
[2023-01-17] MEDS ORDERED: Oxytocin 10 UNITS/ML 1 ML VIAL ONE (18:52)
[2023-01-17] MEDS: Mometasone 220 MCG MDI INH SCH (20:00)
[2023-01-17] MEDS ORDERED: Vancomycin per Pharmacy 1 EA NOTE FOLLOW UP PRN (21:29)
[2023-01-17] MEDS: CEFEPIME 2 GM in Dextrose 50 mL IV SCH (21:58)
[2023-01-17] MEDS: Vancomycin 750 MG in NS 0.9% 250 ML IVPB SCH (22:59)
[2023-01-18 06:14] LABS: ABS Eosinophils 0.1 10^3/ul (0-0.6); ABS Lymphocytes 3.2 10^3/ul (1.0-4.8); ABS Monocytes 0.7 10^3/ul (0-0.8); ABS Neutrophils 3.3 10^3/ul (1.5-7.7); Eosinophil % 1.3 %; Hematocrit 36 % (42-52); Lymphocyte % 43.6 %; Mean Corpuscular HGB Conc 34 g/dL (31-36); Mean Corpuscular Hemoglobin 30 pg (27-31); Mean Corpuscular Volume 89 fL (80-94); Mean Platelet Volume 7.5 fL (7.4-10.4); Platelet Count 219 10^3/uL (150-450); Red Blood Count 4.01 10^6 /uL (4.18-5.48); Red Cell Distribution Width 14 % (10-15); White Blood Count 7.2 10^3/uL (3.5-10.8)
[2023-01-18] MEDS: Vancomycin 750 MG in NS 0.9% 250 ML IVPB SCH ×3 (06:24→21:07)
[2023-01-18 06:35] LABS: CRP High Sensitivity 3.61 mg/L (<2.00); Creatinine, Serum 0.82 mg/dL (0.67-1.17); Potassium 4.7 mmol/L (3.5-5.0); eGFR CKD-EPI 100.6 (>60)
[2023-01-18] MEDS: Heparin 5000 UNITS/ML 1 mL VIAL SUBCUT SCH ×2 (09:37→21:09)
[2023-01-18] MEDS: CEFEPIME 2 GM in Dextrose 50 mL IV SCH (09:40)
[2023-01-18] MEDS: Buprenorp/Nalox 8-2 MG FILM SL SCH ×2 (09:40→10:15)
[2023-01-18] MEDS: Ciproflox/Dexameth OTIC.SUSP 7.5 ML BTL LEFT EAR SCH ×2 (11:13→21:08)
[2023-01-18] MEDS: Acetaminophen IV 1 GM/100ML 1,000 MG/100 ML BAG IV PRN (11:49)
[2023-01-18] MEDS: Albuterol HFA INHALER 8 gm MDI INH PRN ×2 (12:18→15:31)
[2023-01-18] MEDS: Mometasone 220 MCG MDI INH SCH (20:59)
[2023-01-18] MEDS ORDERED: cefTRIAXone 2 gm/50 mL D5W 2 GM/50 ML BAG IV SCH (22:00)
[2023-01-19] MEDS: Morphine 2 MG/ML SYRINGE IV PRN ×2 (01:51→07:32)
[2023-01-19] MEDS ORDERED: Vancomycin Trough Check NOTE FOLLOW UP ONE (06:00)
[2023-01-19 06:47] LABS: ABS Eosinophils 0.1 10^3/ul (0-0.6); ABS Lymphocytes 3.4 10^3/ul (1.0-4.8); ABS Monocytes 0.9 10^3/ul (0-0.8); ABS Neutrophils 3.8 10^3/ul (1.5-7.7); Eosinophil % 0.9 %; Hematocrit 35 % (42-52); Lymphocyte % 41.5 %; Mean Corpuscular HGB Conc 34 g/dL (31-36); Mean Corpuscular Hemoglobin 31 pg (27-31); Mean Corpuscular Volume 89 fL (80-94); Mean Platelet Volume 7.7 fL (7.4-10.4); Nucleated Red Blood Cells % 0.1; Platelet Count 236 10^3/uL (150-450); Red Blood Count 3.94 10^6 /uL (4.18-5.48); Red Cell Distribution Width 14 % (10-15); White Blood Count 8.1 10^3/uL (3.5-10.8)
[2023-01-19 06:52] LABS: CRP High Sensitivity 9.58 mg/L (<2.00); Calcium 8.3 mg/dL (8.6-10.3); Creatinine, Serum 0.76 mg/dL (0.67-1.17); Potassium 4.6 mmol/L (3.5-5.0); eGFR CKD-EPI 102.9 (>60)
[2023-01-19] MEDS: Vancomycin 750 MG in NS 0.9% 250 ML IVPB SCH ×2 (07:07→15:00)
[2023-01-19] MEDS ORDERED: Morphine 2 MG/ML SYRINGE IV ONE (09:16)
[2023-01-19] MEDS: Ciproflox/Dexameth OTIC.SUSP 7.5 ML BTL LEFT EAR SCH (09:59)
[2023-01-19] MEDS: Heparin 5000 UNITS/ML 1 mL VIAL SUBCUT SCH (09:59)
[2023-01-19] MEDS: Buprenorp/Nalox 8-2 MG FILM SL SCH ×2 (10:00→10:07)
[2023-01-19] MEDS ORDERED: DALBAVANCIN HCL (NF) 500 MG/25 ML VIAL IVPB ONE (10:04)
[2023-01-19] MEDS ORDERED: DALVANCE 1500 MG IV ONCE (for CrCl >/= 30 or regular HD) IVPB ONE (11:00)
[2023-01-19 17:13] VITALS: BP 158/94
== END 2023-01-19 18:35 | disposition home or self-care (01) | DRG 316 ==
LOC: EDHOLD 20:14 → ED 20:14 → SSU 01-17 15:14
PROVIDERS: ADMIT Hospitalist; ATTEND Hospitalist